=== PATIENT | male | born 1970 | race Caucasian/White ===

== ENCOUNTER 2023-02-10 14:30 | Emergency (ER) | payer OTHER, SELFPAY ==
[2023-02-10 14:32] VITALS: BP 137/82; PULSE 96; RESP 16; TEMP 36.6; O2SAT 97; BMI 18.5
--- NOTE | 2023-02-10 14:53 | ED_ITS ---
HPI - Medical Clearance General Chief complaint: Medical Clearance Stated complaint: MED CHECK Time Seen by Provider: 02/10/23 14:32 Source: patient Mode of arrival: walk-in Limitations: no limitations History of Present Illness HPI Narrative: patient is a 52-year-old male with a history of psychiatric disorder and HIV infection who presents to the Emergency Room for medication refill. He was recently incarcerated and seen by the senior living nurse/physician for his medications. He does not currently have a psychiatrist her PCP and now that he is back home in the medical center, he is out of his medications for Zyprexa, divalproex and his HIV medication. He has no focal medical complaints at this time. Related Information Previous Rx's Medication Instructions Recorded divalproex 500 mg tablet,delayed 500 mg PO BID 7 days #14 tabs 02/10/23 release nevirapine 200 mg tablet 400 mg PO DAILY 7 days #14 tabs 02/10/23 olanzapine 10 mg tablet 10 mg PO BID 7 days #14 tabs 02/10/23 Allergies Allergy/AdvReac Type Severity Reaction Status Date / Time No Known Drug Allergies Allergy Verified 02/10/23 14:38 Review of Systems ROS Constitutional Denies: fever or chills Cardiovascular Denies: chest pain Respiratory Denies: shortness of breath Gastrointestinal Denies: nausea or vomiting Musculoskeletal Denies: back pain Integumentary/Breast Denies: rash Hematologic/Lymphatic Denies: easy bruising Allergic/Immunologic Denies: hives Exam Narrative Exam Narrative: Gen.: Awake, alert, in no distress Head: Normocephalic, atraumatic ENT: Moist mucous membranes Respiratory: No respiratory distress Extremities: Moves extremities equally Psych: Normal mood and affect Neuro: No focal neuro deficit Skin: Warm, dry, intact Constitutional Vital Signs, click to edit/add: Last Vital Signs Temp 97.9 F 02/10/23 14:32 Pulse 96 H 02/10/23 14:32 Resp 16 02/10/23 14:32 BP 137/82 02/10/23 14:32 Pulse Ox 97 02/10/23 14:32 O2 Del Method Room Air 02/10/23 14:32 Course Vital Signs Vital signs: Vital Signs Temperature 97.9 F 02/10/23 14:32 Pulse Rate 96 H 02/10/23 14:32 Respiratory Rate 16 02/10/23 14:32 Blood Pressure 137/82 02/10/23 14:32 Pulse Oximetry 97 02/10/23 14:32 Oxygen Delivery Method Room Air 02/10/23 14:32 Temperature 97.9 F 02/10/23 14:32 Pulse Rate 96 H 02/10/23 14:32 Respiratory Rate 16 02/10/23 14:32 Blood Pressure 137/82 02/10/23 14:32 Pulse Oximetry 97 02/10/23 14:32 Oxygen Delivery Method Room Air 02/10/23 14:32 MDM - Medical Clearance MDM Narrative Medical decision making narrative: patient was given a one-week refill of his medications that he is out of, he was given education that he cannot continue to receive refills from the emergency room so I contacted [facility], they will contact the patient tomorrow before noon to try to get him an appointment with a psychiatrist. I also contacted Abner Cramer CNP who is aa local primary care provider, he states that he is happy to see the patient, they also have a mental health provider in their office to the patient can be seen for regular primary care as well as psychiatric care through their [facility] office. Patient was given this information as well as his refills, he is strongly encouraged to seek regular primary care and psychiatric care as an outpatient to avoid runnning out of his medications and to return to the Emergency Room if symptoms develop, change or worsen. Discharge Plan Discharge Chief Complaint: Medical Clearance Clinical Impression: Medication refill Patient Disposition: Home, Self-Care Time of Disposition Decision: 14:41 Condition: Good Prescriptions / Home Meds: New nevirapine 200 mg tablet 400 mg PO DAILY 7 Days Qty: 14 0RF olanzapine 10 mg tablet 10 mg PO BID 7 Days Qty: 14 0RF divalproex 500 mg tablet,delayed release (DR/EC) 500 mg PO BID 7 Days Qty: 14 0RF Instructions: Medicine Refill (ED) Additional Instructions: Go to [facility] office in the next 1-2 days, Abner Cramer CNP and their mental health provider will help you establish care and get you your medications Stand Alone Forms: Portal Instructions
== END 2023-02-10 15:01 | disposition home or self-care (01) ==
PROVIDERS: Emergency Provider Emergency Medicine Emergency Medical Services
DX: Z76.0 Encounter for issue of repeat prescription (principal); Z21 Asymptomatic human immunodeficiency virus [HIV] infection status; Z79.899 Other long term (current) drug therapy; F99 Mental disorder, not otherwise specified
CPT/HCPCS: 99283

== ENCOUNTER 2023-10-01 08:15 | Emergency (ER) | payer OTHER, SELFPAY ==
[2023-10-01 08:18] VITALS: BP 152/82; PULSE 92; TEMP 36.5; O2SAT 98; BMI 20.5
[2023-10-01 08:29] VITALS: PULSE 84
[2023-10-01 08:30] VITALS: O2SAT 98
[2023-10-01] MEDS: IPRATROPIUM/ALBUTEROL SULFATE 3 ML AMPUL.NEB IH (08:44)
[2023-10-01 08:45] VITALS: PULSE 83; O2SAT 97
[2023-10-01 08:48] LABS: Influenza Virus A Antigen Negative; Influenza Virus B Antigen Negative; Internal Control Within Normal Limits; SARS-CoV-2 Ag NEGATIVE (NEGATIVE)
--- NOTE | 2023-10-01 09:01 | XR_ITS ---
The [address] [address] Patient Name: INO CHAWLA MRN: [id number] date: 1970 Sex: M Assigned Patient Location: ER Current Patient Location: ER Accession/Order Number: [id number] Exam Date: 10/01/2023 08:55 Report Date: 10/01/2023 09:13 At the request of: W[place] Procedure: XR chest 2V EXAMINATION: XR chest 2V HISTORY: shortness of breath , chronic; cough COMPARISON: XR chest 10/09/2020, CT chest 10/31/2020 FINDINGS: LUNGS: Hyperexpanded lungs and coarsening of interstitial markings suggestive COPD. No acute infiltrates or suspicious nodules. VASCULATURE: No increased pulmonary vasculature. PLEURA: No pneumothorax, effusion, or pleural thickening. CARDIAC: No cardiomegaly or cardiac silhouette abnormality. MEDIASTINUM: No visible mass or adenopathy. BONES: Prior surgical resection/disruption of posterior left 5th rib. OTHER: Negative. XR/XR chest 2V IMPRESSION: 1. No acute cardiopulmonary process. 2. Hyperexpanded lungs with appearance suggestive of COPD. Electronically authenticated by: KRISTEN CHAMBERS Date: 10/01/2023 09:13
--- NOTE | 2023-10-01 09:02 | ED.SOB1 ---
HPI - SOB/Dyspnea General Chief Complaint: Shortness of Breath/Dyspnea Stated Complaint: DIFFICULTY BREATHING Time Seen by Provider: 10/01/23 08:17 Source: patient Mode of arrival: walk-in Limitations: no limitations History of Present Illness HPI Narrative: Patient complains of 3 days of shortness of breath associated with a cough - it feels like I need to bring things up but can't. He had a home MDI but is out . 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 He denied COPD history but has previously smoked. No fever or chills. Uncertain about potential ill exposures. He denied nasal congestion, ear pain, sore throat. No GI or symptoms. Related Data Previous Rx's ?Medication ?Instructions ?Recorded albuterol sulfate 90 mcg/actuation 2 inh inhalation Q6H PRN shortness 10/01/23 aerosol inhaler of breath or wheezing #6.7 grams azithromycin 250 mg tablet See Rx Instructions PO .COMPLEX #6 10/01/23 tabs prednisone 20 mg tablet 40 mg (2 x 20 mg) PO DAILY 3 days 10/01/23 #6 tabs Allergies Allergy/AdvReac Type Severity Reaction Status Date / Time No Known Drug Allergies Allergy Verified 02/10/23 14:38 Exam Narrative Exam Narrative: Nurses notes and vital signs reviewed and patient is not hypoxic. afebrile General: Well-appearing and in no apparent distress. Skin: Warm, dry, no pallor noted. Head: Normocephalic, atraumatic. Neck: Supple, non-tender. No cervical lymphadenopathy Eye: Pupils are equal, round and EOMI. No scleral icterus. Cardiovascular: Regular Rate and Rhythm without murmur, gallop or rub. Respiratory: No accessory muscle use or respiratory distress. Lungs With few scattered right-sided rhonchi Musculoskeletal: normal ROM, no calf or popliteal tenderness, no lower extremity edema/swelling GI: Abdomen is soft, non-distended. Normal bowel sounds. No tenderness to palpation. No rebound, guarding, or rigidity noted. Neurological: A&O x4. No cranial nerve dysfunction observed. No truncal ataxia. Moves all extremities. Sensation intact. Psychiatric: Cooperative and interactive. Normal mood and affect. Constitutional Vital Signs, click to edit/add: Last Vital Signs Temp 97.7 F 10/01/23 08:18 Pulse 83 10/01/23 08:45 Resp 16 10/01/23 08:45 BP 148/81 H 10/01/23 09:18 Pulse Ox 97 10/01/23 08:45 O2 Del Method Room Air 10/01/23 08:45 Course Vital Signs Vital signs: Vital Signs Temperature 97.7 F 10/01/23 08:18 Pulse Rate 92 H 10/01/23 08:18 Respiratory Rate 24 H 10/01/23 08:18 Blood Pressure 152/82 H 10/01/23 08:18 Pulse Oximetry 98 10/01/23 08:18 Oxygen Delivery Method Room Air 10/01/23 08:18 Temperature 97.7 F 10/01/23 08:18 Pulse Rate 83 10/01/23 08:45 Respiratory Rate 16 10/01/23 08:45 Blood Pressure 148/81 H 10/01/23 09:18 Pulse Oximetry 97 10/01/23 08:45 Oxygen Delivery Method Room Air 10/01/23 08:45 MDM - SOB/Dyspnea MDM Narrative Medical decision making narrative: Swabs for COVID and influenza were negative 2 view chest x-ray = COPD changes, no infiltrate or acute cardiopulm process, per radiologist. He received a DuoNeb treatment in the emergency department. Patient discharged home with prescriptions for zpak, prednisone burst and albuterol MDI. Lab Data Attestation: I reviewed the patient's lab results. Labs: Lab Results 10/01/23 Range/Units 08:25 Influenza Type A Ag Negative Influenza Type B Ag Negative SARS-CoV-2 Ag (CV2AG) Negative (NEGATIVE) Imaging Data Chest x-ray: Radiologist's impression: ITS Impressions Chest X-Ray 10/01/23 09:01 IMPRESSION: 1. No acute cardiopulmonary process. 2. Hyperexpanded lungs with appearance suggestive of COPD. Electronically authenticated by: KRISTEN CHAMBERS Date: 10/01/2023 09:13 Discharge Plan Discharge Stand Alone Forms: Portal Instructions Chief Complaint: Shortness of Breath/Dyspnea Clinical Impression: COPD exacerbation, Bronchitis Patient Disposition: Home, Self-Care Time of Disposition Decision: 09:21 Prescriptions / Home Meds: New azithromycin 250 mg tablet See Rx Instructions .ROUTE .COMPLEX Qty: 6 0RF Rx Instructions: For 250 mg dose pack: take 500 mg today (day 1), then 250 mg for 4 days (days 2-5) albuterol sulfate 90 mcg/actuation HFA aerosol inhaler 2 inh inhalation Q6H PRN (Reason: shortness of breath or wheezing) Qty: 6.7 0RF prednisone 20 mg tablet 40 mg PO DAILY 3 Days Qty: 6 0RF Print Language: Vincentian Instructions: Acute Bronchitis (ED), COPD (Chronic Obstructive Pulmonary Disease) (ED) Referrals: Physician,Non-Staff, MD [Primary Care Provider] - 1 week
[2023-10-01 09:18] VITALS: BP 148/81
[2023-10-01 09:22] VITALS: BP 126/85; O2SAT 98
== END 2023-10-01 09:33 | disposition home or self-care (01) ==
PROVIDERS: Emergency Provider Emergency Medicine
DX: J44.1 Chronic obstructive pulmonary disease with (acute) exacerbation (principal); Z20.822 Contact with and (suspected) exposure to COVID-19; Z90.2 Acquired absence of lung [part of]; Z87.891 Personal history of nicotine dependence
CPT/HCPCS: 71046; 87804; 87811; 94640; 99284

== ENCOUNTER 2024-03-04 06:19 | Emergency (ER) | payer OTHER, SELFPAY ==
[2024-03-04] VITALS (20 sets, daily range): BP systolic 115–127; BP diastolic 67–101; PULSE 70–99; TEMP 36.4; O2SAT 93–99; BMI 19.9
--- NOTE | 2024-03-04 06:29 | ECG_ITS ---
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
--- NOTE | 2024-03-04 06:33 | ED_ITS ---
HPI HPI - General Adult General Chief complaint: Shortness of Breath/Dyspnea Stated complaint: other Time Seen by Provider: 03/04/24 06:21 Source: patient Mode of arrival: ambulance History of Present Illness HPI narrative: 53-year-old male to the emergency department with chief complaint of shortness of breath. Patient reports he had some increased shortness of breath that he first noticed when he woke up tonight. He denies any cough, fever, sweats, chills. He denies any chest pain. 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 When asked about medical history he reports they took one of my lungs . He is unsure where he had the surgery. Unsure what they did. He reports that it was a few years ago. Further history obtained from chart review. Past medical history: HIV, COPD, pneumothorax Past surgical history: Pulmonary lobectomy Related Data Previous Rx's ?Medication ?Instructions ?Recorded albuterol sulfate 90 mcg/actuation 2 inh inhalation Q6H PRN shortness 10/01/23 aerosol inhaler of breath or wheezing #6.7 grams Allergies Allergy/AdvReac Type Severity Reaction Status Date / Time milk Allergy Intermediate Flatulence Verified 03/04/24 06:30 Opioid HPI Opioid Management Most Recent Opioid Data: No Data to Display Review of Systems ROS Status of ROS 10 or more systems reviewed and unremark able except as noted in history and below Exam Narrative Exam Narrative: VITALS: I have reviewed the triage vital signs. GENERAL: Disheveled adult male in mild respiratory distress. NEURO: Alert and oriented. Moves all extremities. Face is symmetric and expressive. EYES: PERRL. No scleral icterus or conjunctival injection. No discharge. HENT: Normocephalic, atraumatic. Hearing is grossly intact. Nares grossly patent and without discharge. Mucous membranes moist. NECK: No JVD. Patient moves neck without restriction. CARDIO: Rhythm regular. Normal rate. No murmur, rub, or gallop. Pulses equal bilaterally in the upper and lower extremity. No lower extremity edema. PULM: Diminished bilaterally. mildly increased work of breathing. Mild conversational dyspnea. GI/: Abdomen is soft and non-tender. Normoactive bowel sounds. EXTREMITIES: Symmetric muscle bulk. No joint swelling. No clubbing, cyanosis, or deformity. SKIN: Warm and dry. Normal turgor. No rash or lesions appreciated. PSYCH: Strange affect Constitutional Vital Signs, click to edit/add: Last Vital Signs Pulse 99 H 03/04/24 06:21 Resp 20 03/04/24 06:21 BP 119/92 H 03/04/24 06:21 Pulse Ox 99 03/04/24 06:21 O2 Del Method Room Air 03/04/24 06:21 Course Vital Signs Vital signs: Vital Signs Pulse Rate 99 H 03/04/24 06:21 Respiratory Rate 20 03/04/24 06:21 Blood Pressure 119/92 H 03/04/24 06:21 Pulse Oximetry 99 03/04/24 06:21 Oxygen Delivery Method Room Air 03/04/24 06:21 Pulse Rate 99 H 03/04/24 06:21 Respiratory Rate 20 03/04/24 06:21 Blood Pressure 119/92 H 03/04/24 06:21 Pulse Oximetry 99 03/04/24 06:21 Oxygen Delivery Method Room Air 03/04/24 06:21 Medical Decision Making MDM Narrative Medical decision making narrative: 53-year-old male to the emergency department chief shortness of breath. Vital stable, the patient is afebrile. He has mild increased work of breathing conversational dyspnea. He is saturating well on room air. Breathing treatments, Solu-Medrol ordered. Basic labs, chest x-ray. Patient agrees with this plan. Care was signed out to Dr. Guy with results of diagnostic work-up and disposition pending. Medical Records Medical records reviewed: Yes I reviewed the patient's medical records ECG Data Attestation: I personally reviewed and interpreted this ECG as follows: (Normal sinus rhythm at a rate of 92. No STEMI. Normal QTc) Discharge Plan Discharge Chief Complaint: Shortness of Breath/Dyspnea Clinical Impression: COPD exacerbation, Breath, shortness Patient Disposition: Still a Patient Prescriptions / Home Meds: No Action albuterol sulfate 90 mcg/actuation HFA aerosol inhaler 2 inh inhalation Q6H PRN (Reason: shortness of breath or wheezing) Qty: 6.7 0RF Print Language: Polish Referrals: Physician,Non-Staff, MD [Primary Care Provider] - 1 week
[2024-03-04] MEDS: METHYLPREDNISOLONE SOD SUCC PF 125 MG/2 ML VIAL IVP (06:38)
[2024-03-04 06:40] LABS: Basophils Percent Auto 0.3 % (0.2-2.0); Eosinophils Absolute Auto 0.2 10^3/uL (0.0-0.7); Eosinophils Percent Auto 1.8 % (0.9-7.0); Hematocrit 42.5 % (42.0-54.0); Hemoglobin 13.8 g/dL (14.0-18.0); Immature Granulocytes Abs Auto 0.04 10^3/uL (0.00-0.03); Immature Granulocytes Pct Auto 0.4 % (0.0-0.5); Lymphocytes Percent Auto 47.8 % (20.5-60.0); Mean Corpuscular HGB Conc 32.5 g/dL (29.9-35.2); Mean Corpuscular Hemoglobin 29.9 pg (25.9-34.0); Mean Platelet Volume 9.9 fL (9.5-13.5); Monocytes Absolute Auto 1.3 10^3/uL (0.3-0.8); Neutrophils Percent Auto 37.7 % (43.0-75.0); Platelet Count 266 10^3/uL (150-450); Red Blood Count 4.62 10^6/uL (4.70-6.10); Red Cell Distribution Width 13.7 % (11.0-15.0); White Blood Count 10.5 10^3/uL (4.0-11.0)
[2024-03-04] MEDS: IPRATROPIUM/ALBUTEROL SULFATE 3 ML AMPUL.NEB 9 ML IH (06:46)
--- NOTE | 2024-03-04 06:51 | PC.NURSE ---
Patient alert and oriented. skin PWD. patient reports he awoke with SOB. hx of pneumothorax at [facility]. with lobectomy of upper lung. patient arrived to ED unlabored but tachypneic drinking mnt dew, able to transfer self to cot.
[2024-03-04 07:01] LABS: Anion Gap 7.2; BUN Creatinine Ratio 28.1; Calcium 8.9 mg/dL (8.5-10.1); Carbon Dioxide 32.6 mmol/L (21.0-32.0); Chloride 105 mmol/L (98-107); Estimated GFR (African America >60 (>=60); Estimated GFR (Non-African Ame >60 (>=60); Glucose 111 mg/dL (74-106); Potassium 3.8 mmol/L (3.5-5.1); Sodium 141 mmol/L (136-145); Troponin I High Sensitivity 4.9 pg/mL (4.0-76.1)
--- NOTE | 2024-03-04 07:15 | XR_ITS ---
The [address] [address] Patient Name: INO CHAWLA MRN: [id number] date: 1970 Sex: M Assigned Patient Location: ED.MAIN Current Patient Location: ED.MAIN Accession/Order Number: [id number] Exam Date: 03/04/2024 07:08 Report Date: 03/04/2024 07:36 At the request of: SARA PABON Procedure: XR chest 2V EXAM: Chest x-ray HISTORY: . shortness of breath, hx of left lung sx . COMPARISON: 10/01/2023 TECHNIQUE: Frontal and lateral chest FINDINGS: Heart and vascularity are unremarkable. Hyperexpansion of lungs is noted. There is flattening in hemidiaphragms. Findings are suggestive of COPD. No focal infiltrates are noted. EKG leads overlie the chest. XR/XR chest 2V IMPRESSION: 1. Findings suggestive of COPD. 2. No acute heart or lung disease identified. 3. No change from the previous exam. Electronically authenticated by: ROBERT VELAZQUEZ Date: 03/04/2024 07:36
--- NOTE | 2024-03-04 08:25 | ED.SOB1 ---
HPI - SOB/Dyspnea General Chief Complaint: Shortness of Breath/Dyspnea Stated Complaint: other Time Seen by Provider: 03/04/24 06:21 Source: patient Mode of arrival: ambulance History of Present Illness HPI Narrative: 53-year-old male presented to the emergency department and was initially seen by Dr. Washburn and signed out to me after discussing the case with him thoroughly. Please see his full history and physical exam. Related Data Previous Rx's ?Medication ?Instructions ?Recorded albuterol sulfate 90 mcg/actuation 2 inh inhalation Q6H PRN shortness 10/01/23 aerosol inhaler of breath or wheezing #6.7 grams albuterol sulfate 90 mcg/actuation 2 inh inhalation Q4H PRN shortness 03/04/24 aerosol inhaler of breath or wheezing #8.5 grams Allergies Allergy/AdvReac Type Severity Reaction Status Date / Time milk Allergy Intermediate Flatulence Verified 03/04/24 06:30 PFSH [facility] Medical History (Updated 03/04/24 @ 08:24 by Felice Guy MD) Pneumothorax ?J93.9 - Pneumothorax, unspecified (ICD-10) Surgical History (Updated 03/04/24 @ 07:02 by Jeanne Saldivar) 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] (ICD-10) Exam Constitutional Vital Signs, click to edit/add: Last Vital Signs Temp 97.5 F L 03/04/24 07:04 Pulse 92 H 03/04/24 07:16 Resp 20 03/04/24 07:16 BP 115/84 03/04/24 07:16 Pulse Ox 96 03/04/24 07:16 O2 Del Method Room Air 03/04/24 06:48 Course Vital Signs Vital signs: Vital Signs Pulse Rate 99 H 03/04/24 06:21 Respiratory Rate 20 03/04/24 06:21 Blood Pressure 119/92 H 03/04/24 06:21 Pulse Oximetry 99 03/04/24 06:21 Oxygen Delivery Method Room Air 03/04/24 06:21 Temperature 97.5 F L 03/04/24 07:04 Pulse Rate 92 H 03/04/24 07:16 Respiratory Rate 20 03/04/24 07:16 Blood Pressure 115/84 03/04/24 07:16 Pulse Oximetry 96 03/04/24 07:16 Oxygen Delivery Method Room Air 03/04/24 06:48 MDM - SOB/Dyspnea MDM Narrative Medical decision making narrative: His workup is negative. He feels much better after aerosol treatment. He is discharged home on albuterol. Reexamination of his lungs show excellent air movement with no rales or rhonchi. Findings were discussed with the patient. Differential Diagnosis Differential diagnosis: Likely acute exacerbation of chronic obstructive airways disease, congestive heart failure and community acquired pneumonia Lab Data Attestation: I reviewed the patient's lab results. Labs: Lab Results 03/04/24 Range/Units 06:28 WBC 10.5 (4.0-11.0) 10^3/uL RBC 4.62 L (4.70-6.10) 10^6/uL Hgb 13.8 L (14.0-18.0) g/dL Hct 42.5 (42.0-54.0) % MCV 92.0 (80.0-94.0) fL MCH 29.9 (25.9-34.0) pg MCHC 32.5 (29.9-35.2) g/dL RDW 13.7 (11.0-15.0) % Plt Count 266 (150-450) 10^3/uL MPV 9.9 (9.5-13.5) fL Neut % (Auto) 37.7 L (43.0-75.0) % Lymph % (Auto) 47.8 (20.5-60.0) % [place] % (Auto) 12.0 (1.7-12.0) % Eos % (Auto) 1.8 (0.9-7.0) % Baso % (Auto) 0.3 (0.2-2.0) % Neut # (Auto) 4.0 (1.4-6.5) 10^3/uL Lymph # (Auto) 5.0 H (1.2-3.8) 10^3/uL [place] # (Auto) 1.3 H (0.3-0.8) 10^3/uL Eos # (Auto) 0.2 (0.0-0.7) 10^3/uL Baso # (Auto) 0.0 (0.0-0.1) 10^3/uL Abs Immat Gran (auto) 0.04 H (0.00-0.03) 10^3/uL Imm/Tot Granulo (auto) 0.4 (0.0-0.5) % Sodium 141 (136-145) mmol/L Potassium 3.8 (3.5-5.1) mmol/L Chloride 105 (98-107) mmol/L Carbon Dioxide 32.6 H (21.0-32.0) mmol/L Anion Gap 7.2 BUN 25.0 H (7.0-18.0) mg/dL Creatinine 0.89 (0.70-1.30) mg/dL Est GFR ( Amer) >60 (>=60) Est GFR (Non-Af Amer) >60 (>=60) BUN/Creatinine Ratio 28.1 Glucose 111 H (74-106) mg/dL Calcium 8.9 (8.5-10.1) mg/dL Troponin I High Sens 4.9 (4.0-76.1) pg/mL NT-Pro-B Natriuret Pep 102.0 (<=900.0) pg/mL Imaging Data Chest x-ray: Radiologist's impression: ITS Impressions Chest X-Ray 03/04/24 07:15 IMPRESSION: 1. Findings suggestive of COPD. 2. No acute heart or lung disease identified. 3. No change from the previous exam. Electronically authenticated by: ROBERT VELAZQUEZ Date: 03/04/2024 07:36 Discharge Plan Discharge Chief Complaint: Shortness of Breath/Dyspnea Clinical Impression: COPD exacerbation Patient Disposition: Home, Self-Care Time of Disposition Decision: 08:24 Condition: Good Mode of Transportation: Private Vehicle Prescriptions / Home Meds: New albuterol sulfate 90 mcg/actuation HFA aerosol inhaler 2 inh inhalation Q4H PRN (Reason: shortness of breath or wheezing) Qty: 8.5 0RF No Action albuterol sulfate 90 mcg/actuation HFA aerosol inhaler 2 inh inhalation Q6H PRN (Reason: shortness of breath or wheezing) Qty: 6.7 0RF Print Language: Puerto Rican Instructions: COPD (Chronic Obstructive Pulmonary Disease) (ED) Referrals: Physician,Non-Staff, MD [Primary Care Provider] - 1 week
== END 2024-03-04 08:36 | disposition home or self-care (01) ==
PROVIDERS: Student in an Organized Health Care Education/Training Program; Emergency Provider Emergency Medicine
DX: J44.1 Chronic obstructive pulmonary disease with (acute) exacerbation (principal); R06.02 Shortness of breath
CPT/HCPCS: 36415; 71046; 80048; 83880; 84484; 85025; 93005; 94640; 96374; 99285; 99406; J2919

== ENCOUNTER 2024-10-28 14:02 | Emergency (ER) | payer OTHER, SELFPAY ==
[2024-10-28 14:07] VITALS: BP 114/77; PULSE 102; TEMP 36.6; O2SAT 96; BMI 23.5
--- OUTSIDE RECORDS SUMMARY | 2024-10-28 14:34 | XMS_ITS | CCD ---
Author Organization [facility] Inform ion Partnership [facility] Care Team Providers Care Therapeutic Radiologist Name Role Phone REQUEST, NONE LISTED Primary Care Unavaila ble MARKER, DR JONES Admitting Unavailable MARKER, DR JONES Consulting Unavailable MARKER, DR JONES Attending Unavailable KRISTEN KAUFMAN Consulting Unavailable TABITHA EASTON Attending Unavailable REQUEST, DR SONI LISTED Primary Care Unavaila ble WEST, DR ROBERT Dobbs Consulting Unavailable TABITHA EASTON Admitting Unavailable SAMSA, IRAIS Consulting Unavailable TABITHA EASTON Consulting Unavailable Unavailable Primary Care Provider UnavailROSLYN Jasso Attending Unavailable Paul Fields Unavailable Nando Rocha Unavailable NO FAMILY, PHYSICIAN Primary Care Provider MD Paul Mcleod Attending Provider [phone] NO PCP, NO PCP Primary Care Unavailable ALEXYS HAYNES Attending Unavailable ALEYXS HAYNES Attending Unavailable ALEXYS HAYNES Referring Unavailable NO PCP, NO PCP Primary Care Unavailable Hugh Headley Admitting Unavailab le Hugh Headley Attending Unavailab le NO FAMILY, PHYSICIAN Primary Care Unavailable Allergies Allergy Classification Reported Allergen(s) Allergy Type Date of Onset Reaction(s) Facility Asenapine (1 source) Asenapine Drug Allergy 09-06-2019 [facility] Repository (3 sources) Asenapine Drug Allergy 09-06-2019 [facility] (3 sources) Citalopram Drug Allergy 09-06-2019 [facility] (2 sources) risperiDONE Drug Allergy Robert Applebaum MD Other (2 sources) Escitalopram; Translations: [escitalopram] Drug Allergy 09-06-2019 [facility] (1 source) Asenapine Drug Allergy 09-19-2021 [facility] Repository (1 source) Citalopram Drug Allergy 09-19-2021 [facility] Repository (1 source) risperiDONE Drug Allergy 09-19-2021 [facility] Repository Medications Current Medications Medication Drug Class(es) Dates Sig (Normalized) Sig (Original) acetaminophen 325 mg / HYDROcodone bitartrate 5 mg oral tablet (1 source) Opioid Agonist Start: 10-16-2020 take 1 tablet by mouth three times daily Hydrocodone-Aceta minophen Active 1 TAB PO Three times daily 14 October 16, 2020 albuterol 0.83 mg/ml inhalation solution (3 sources) beta2-Adrenergic Agonist Start: 09-06-2019 take 1 dose by inhalation every four to six hours Albuterol Sulfate Active 1 VIAL INHALATION EVERY 4-6 HOURS September 06, 2019 12:00am Albuterol Sulfat e HFA 108 (90 Base) MCG/ACT inhale 1 puff by mouth and INTO THE LUNGS every 4 hours if needed Inhalation every 6 hours PRN for 30 days Active amoxicillin 875 mg / clavulanate 125 mg oral tablet (1 source) Penicillin-class Antibacterial Start: 10-16-2020 take 1 tablet by mouth twice daily Amoxicillin-Pot Clavulanate Active 1 TAB PO Twice daily October 16, 2020 12:00am ARIPiprazole 20 mg oral tablet (3 sources) Atypical Antipsychotic Start: 08-07-2020 take 20 mg by mouth once daily at bedtime Aripiprazole Active 20 MG PO Daily at bedtime August 07, 2020 1:00am atazanavir 300 mg oral capsule (3 sources) Protease Inhibitor Start: 09-06-2019 take 1 capsule by mouth once daily Atazanavir (Reyataz) 300 mg capsule Active 300 MG PO Daily September 06, 2019 12:00am emtricitabine 200 mg / tenofovir alafenamide 25 mg oral tablet (3 sources) Human Immunodeficiency Virus Nucleoside Analog Reverse Transcriptase Inhibitor Start: 09-06-2019 take 1 tablet by mouth once daily Emtricitabine-Tenof ovir Alafen (Descovy) 200-25 mg tablet Active 1 TAB PO Daily September 06, 2019 12:00am ritonavir 100 mg oral tablet (3 sources) Protease Inhibitor, Cytochrome P450 3A Inhibitor Start: 09-06-2019 take 1 tablet by mouth once daily at breakfast Ritonavir (Norvir) 100 mg tablet Active 100 MG PO Daily with breakfast September 06, 2019 12:00am Completed/Discontinued Medications Medication Drug Class(es) Dates Sig (Normalized) Sig (Original) cholecalciferol 0.025 mg oral tablet (1 source) Vitamin D Start: 09-14-2019 End: 08-07-2020 take 3000 [IU] by mouth once daily Cholecalciferol (Vitamin D3) Discontinued 3000 UNIT PO Daily 42 September 14, 2019 12:00am August 07, 2020 2:23pm clindamycin 300 mg oral capsule (1 source) Lincosamide Antibacterial Start: 09-14-2019 End: 08-07-2020 take 300 mg by mouth four times daily Clindamycin Hcl Discontinued 300 MG PO Four times daily September 14, 2019 12:00am August 07, 2020 2:23pm 2 ml midazolam 1 mg/ml injection (1 source) Benzodiazepine Start: 09-28-2021 End: 09-28-2021 midazolam PF (VERSED) injection 2 mg Problems Problem Classification Problem Date Documented Date Episodic/Chronic Abdominal pain (2 sources) Stomach cramps; Translations: [Unspecified abdominal pain] Episodic Asthma (6 sources) Mild intermittent asthma; Translations: [Mild intermittent asthma, uncomplicated] Onset: 09-19-2021 Resolved: 09-19-2021 Chronic Chronic obstructive pulmonary disease and bronchiectasis (2 sources) Chronic obstructive pulmonary disease, unspecified; Translations: [Pulmonary emphysema] Onset: 11-02-2020 08-08-2020 Chronic Diseases of white blood cells (1 source) Leukocytosis; Translations: [Elevated white blood cell count, unspecified] 10-10-2020 Chronic Disorders of teeth and jaw (1 source) Dental abscess; Translations: [Periapical abscess without sinus] 09-14-2019 Episodic HIV infection (7 sources) Asymptomatic human immunodeficiency virus [HIV] infection status; Translations: [Asymptomatic human immunodeficiency virus infection] Onset: 10-12-2020 Resolved: 09-19-2021 Chronic Nonspecific chest pain (4 sources) Chest pain, unspecified; Translations: [Other chest pain] Onset: 10-31-2020 Episodic Other aftercare (1 source) Other intermediate teacher (current) drug therapy; Translations: [OTH FDC CURRENT DRUG THERAPY] Onset: 11-02-2020 Episodic Other aftercare (2 sources) H/O: high risk medication; Translations: [Other intermediate teacher (current) drug therapy] Episodic Other lower respiratory disease (1 source) Pleurodynia; Translations: [PLEURODYNIA] Onset: 11-02-2020 Episodic Other lower respiratory disease (4 sources) Shortness of breath; Translations: [SHORTNESS OF BREATH] Onset: 10-09-2020 Episodic Other lower respiratory disease (1 source) Shortness of breath Onset: 10-21-2023 Episodic Other nervous system disorders (1 source) Other acute postprocedural pain; Translations: [OTHER ACUTE POSTPROCEDURAL PAIN] Onset: 11-02-2020 Episodic Other screening for suspected conditions (not mental disorders or infectious disease) (1 source) Patient encounter status; Translations: [Encounter for screening, unspecified] Episodic Pleurisy; pneumothorax; pulmonary collapse (3 sources) Pneumothorax, unspecified; Translations: [Pneumothorax] Onset: 10-12-2020 10-16-2020 Episodic Poisoning by other medications and drugs (2 sources) Adverse reaction to drug; Translations: [Adverse drug effect] Episodic Schizophrenia and other psychotic disorders (3 sources) Schizophrenia, unspecified; Translations: [Paranoid disorder] Onset: 10-12-2020 09-07-2019 Chronic Substance-related disorders (5 sources) Nicotine dependence, cigarettes, uncomplicated; Translations: [Tobacco user] Onset: 10-12-2020 Chronic Substance-related disorders (1 source) Stimulant abuse; Translations: [Other stimulant use, unspecified, uncomplicated] 09-07-2019 Episodic Unclassified (1 source) CONTACT W/AND (SUSP) EXPOS COVID-19; Translations: [CONTACT W/AND (SUSP) EXPOS COVID-19] Onset: 10-12-2020 Unclassified (1 source) TROUBLE BREATHING Onset: 10-21-2023 Results Test Name Value Interpretation Reference Range Facility CBC AND AUTO DIFFon 10-22-19 ABSOLUTE BASOPHIL 0.1 X10E9/L Normal 0.0-0.[address] [facility] Comment on above: Performed By: #### C BCA, CMP, 29980-9, 95989-9 #### [facility] ([id number]) [address] [place] [address] 57511 ABSOLUTE NEUTROPHIL 4.1 X10E9/L Normal 1.5-6.6 [facility] Comment on above: Performed By: #### C SUJIT, CMP, 62605-0, 73795-4 #### [facility] ([id number]) [address] [place] [address] 41594 Basophils/100 WBC (Bld) 0.8 % Normal [facility] Comment on above: Performed By: #### C SUJIT, CMP, 03222-2, 99879-4 #### [facility] ([id number]) [address] [place] [address] 01162 Eosinophils (Bld) [#/Vol] 0.1 10*3/uL Normal 0.0-0.4 [facility] Comment on above: Performed By: #### C SUJIT, CMP, 99926-9, 36509-0 #### [facility] ([id number]) [address] [place] [address] 86216 Eosinophils/100 WBC (Bld) 1.5 % Normal [facility] Comment on above: Performed By: #### C BCA, CMP, 08919-1, 74400-5 #### [facility] ([id number]) [address] [place] [address] 68688 Erythrocyte distribution width (RBC) [Ratio] 15.4 % High 11.5-15.0 [facility] Comment on above: Performed By: #### C BCA, CMP, 36845-1, 70799-3 #### [facility] ([id number]) [address] [place] [address] 60912 Hematocrit (Bld) [Volume fraction] 40.2 % Normal 39-49 [facility] Comment on above: Performed By: #### C SUJIT, CMP, 62857-7, 88538-2 #### [facility] ([id number]) [address] [place] [address] 21753 Hemoglobin (Bld) [Mass/Vol] 13.5 g/dL Normal 13.0-17.0 [facility] Comment on above: Performed By: #### C SUJIT, CMP, 81332-1, 20927-9 #### [facility] ([id number]) [address] [place] [address] 39506 Lymphocytes (Bld) [#/Vol] 3.1 10*3/uL Normal 1.0-3.5 [facility] Comment on above: Performed By: #### C SUJIT, CMP, 83735-8, 70361-2 #### [facility] ([id number]) [address] [place] [address] 15657 Lymphocytes/100 WBC (Bld) 37.9 % Normal [facility] Comment on above: Performed By: #### C SUJIT, CMP, 48144-2, 96801-9 #### [facility] ([id number]) [address] [place] [address] 15622 MCH (RBC) [Entitic mass] 30.1 pg Normal 27-34 [facility] Comment on above: Performed By: #### C SUJIT, CMP, 94164-9, 17519-1 #### [facility] ([id number]) [address] [place] [address] 37734 MCHC (RBC) [Mass/Vol] 33.4 g/dL Normal 32-36 [facility] Comment on above: Performed By: #### C SUJIT, CMP, 99743-5, 76804-6 #### [facility] ([id number]) [address] [place] [address] 92859 MCV (RBC) [Entitic vol] 90 fL Normal 80-100 [facility] Comment on above: Performed By: #### C BCA, CMP, 16834-0, 20492-3 #### [facility] ([id number]) [address] [place] [address] 09855 Monocytes (Bld) [#/Vol] 0.8 10*3/uL Normal 0-0.9 [facility] Comment on above: Performed By: #### C SUJIT, CMP, 73719-8, 39949-3 #### [facility] ([id number]) [address] [place] [address] 96415 Monocytes/100 WBC (Bld) 10.2 % Normal [facility] Comment on above: Performed By: #### C SUJIT, CMP, 59505-7, 08952-7 #### [facility] ([id number]) [address] [place] [address] 44690 Neutrophils/100 WBC (Bld) 49.6 % Normal [facility] Comment on above: Performed By: #### Albert BECKETT, CMP, 97215-5, 97161-0 #### [facility] ([id number]) [address] [place] [address] 12447 Platelet mean volume (Bld) [Entitic vol] 8.6 fL Normal 7-12 [facility] Comment on above: Performed By: #### Albert BECKETT, CMP, 44866-5, 05305-0 #### [facility] ([id number]) [address] [place] [address] 30266 Platelets (Bld) [#/Vol] 271 10*3/uL Normal 150-450 [facility] Comment on above: Performed By: #### Albert BCA, CMP, 78293-4, 73472-1 #### [facility] ([id number]) [address] [place] [address] 47643 RBC COUNT 4.46 X10E12/L Normal 4.10-5.70 [facility] Comment on above: Performed By: #### C BCA, CMP, 59495-5, 20717-4 #### [facility] ([id number]) [address] [place] [address] 01335 WBC (Bld) [#/Vol] 8.3 10*3/uL Normal 4.0-11.0 [facility] Comment on above: Performed By: #### C BCA, CMP, 22459-7, 42249-1 #### [facility] ([id number]) [address] [place] [address] 15720 COMPREHENSIVE METABOLIC PANE David 10-22-2023 Albumin [Mass/Vol] 3.7 g/dL Normal 3.2-5.3 [facility] Comment on above: Performed By: #### C BCA, CMP, 44035-6, 46655-0 #### [facility] ([id number]) [address] [place] [address] 82397 ALP [Catalytic activity/Vol] 64 U/L Normal 39-130 [facility] Comment on above: Performed By: #### C BCA, CMP, 58056-0, 40804-5 #### [facility] ([id number]) [address] [place] [address] 72658 ALT [Catalytic activity/Vol] 30 U/L Normal 0-40 [facility] Comment on above: Performed By: #### C BCA, CMP, 07527-4, 20017-2 #### [facility] ([id number]) [address] [place] [address] 09925 Anion gap [Moles/Vol] 7 mmol/L Normal 5-15 [facility] Comment on above: Performed By: #### C BCA, CMP, 31764-2, 03294-0 #### [facility] ([id number]) [address] [place] [address] 02352 AST [Catalytic activity/Vol] 39 U/L Normal 0-41 [facility] Comment on above: Performed By: #### C BCA, CMP, 72227-5, 17835-7 #### [facility] ([id number]) [address] [place] [address] 29737 Bilirubin [Mass/Vol] 1.0 mg/dL Normal 0.3-1.2 [facility] Comment on above: Result Comment: RESU LTS QUESTIONABLE DUE TO HEMOLYSIS Performed By: #### C BCA, CMP, 91835-5, 77734-0 #### [facility] ([id number]) [address] [place] [address] 56150 Calcium [Mass/Vol] 8.4 mg/dL Low 8.5-10.5 [facility] Comment on above: Performed By: #### C SUJIT, CMP, 91598-9, 60982-2 #### [facility] ([id number]) [address] [place] [address] 08332 Chloride [Moles/Vol] 103 mmol/L Normal 98-109 [facility] Comment on above: Performed By: #### C BCA, CMP, 56150-2, 92281-2 #### [facility] ([id number]) [address] [place] [address] 65060 CO2 [Moles/Vol] 27 mmol/L Normal 22-32 [facility] Comment on above: Performed By: #### C BCA, CMP, 50617-7, 88369-4 #### [facility] ([id number]) [address] [place] [address] 43188 Creatinine [Mass/Vol] 0.73 mg/dL Normal 0.70-1.20 [facility] Comment on above: Result Comment: METH OD TRACEABLE TO IDMS STANDARD Performed By: #### C SUJIT, CMP, 04363-4, 34410-9 #### [facility] ([id number]) [address] [place] [address] 37762 eGFR (CKD-EPI) NON-RACE DEPENDENT >90 Normal >59 [facility] Comment on above: Result Comment: Reported eGFR is based on the CKD-EPI 2020 equation that does not use a race coefficient. Performed By: #### C RADHA BECKETT, 94552-5, 24761-0 #### [facility] ([id number]) [address] [place] [address] 96332 Glucose [Mass/Vol] 88 mg/dL Normal 65-99 [facility] Comment on above: Performed By: #### C SUJIT, CMP, 82381-4, 00766-9 #### [facility] ([id number]) [address] [place] [address] 81322 Potassium [Moles/Vol] 4.3 mmol/L Normal 3.5-5.0 [facility] Comment on above: Result Comment: SPEC IMEN HEMOLYZED, RESULTS INCREASED Performed By: #### C SUJIT, CMP, 23831-9, 96597-5 #### [facility] ([id number]) [address] [place] [address] 58789 Protein [Mass/Vol] 8.0 g/dL Normal 6.0-8.0 [facility] Comment on above: Performed By: #### C SUJIT, CMP, 17201-0, 06817-0 #### [facility] ([id number]) [address] [place] [address] 18282 Sodium [Moles/Vol] 137 mmol/L Normal 134-146 [facility] Comment on above: Performed By: #### C SUJIT, CMP, 32846-6, 70339-1 #### [facility] ([id number]) [address] [place] [address] 71141 Urea nitrogen [Mass/Vol] 18 mg/dL Normal 5-23 [facility] Comment on above: Performed By: #### C SUJIT, CMP, 75935-6, 38477-5 #### [facility] ([id number]) [address] [place] [address] 48306 Fibrin D-dimer DDU (PPP) [Ma ss/Vol]on 10-22-2023 D DIMER <150 Normal <255 [facility] Comment on above: Result Comment: Results <255 ng/mL DDU: The presence of a VTE can safely be excluded with a negative D-Dimer result and Wells score. A negative result doesn't exclude the possibility of DIC. The test be repeated along with other diagnostic tests if the patient's symptoms persist or worsen. [email or web address] Performed By: #### C RADHA BECKETT, 25485-7, 31327-6 #### [facility] ([id number]) [address] [place] [address] 68349 Troponin I.cardiac High sens itivity method [Mass/Vol]on 10-22-2023 1 HOUR TROP I, HIGH SENSITIVITY 3 ng/L Normal <21 [facility] Comment on above: Performed By: #### 8 9579-7 #### [facility] ([id number]) [address] [place] [address] 45392 TROPONIN I, HIGH SENSITIVITY 4 ng/L Normal <21 [facility] Comment on above: Performed By: #### C RADHA BCEKETT, 47154-0, 20790-3 #### [facility] ([id number]) [address] [place] [address] 70322 XR CHEST 1 VWon 10-22-2023 XR CHEST 1 VW XR CHEST 1 VW History: Shortness of breath Technique: A portable single frontal view the chest was obtained. Comparison: 03/07/2008 Findings: There is no evidence for active cardiovascular or pulmonary disease. The heart size is within normal limits and lung loza are clear. An elongated calcification is seen overlying the right upper lobe and may be related to the right scapula. Impression: Chest negative for an active process. Finalized by Robert Franco MD on 10/21/2023 11:51 PM [facility] Body fluid albumin measureme nt (mass/volume)Ordered By: Paul Fields on 01-03-2022 Albumin (Body fld) [Mass/Vol] 4.1 g/dL 3.2-5.5 [facility] Creatinine and Glomerular fi ltration rate.predicted panel (S/P/Bld)Ordered By: Paul Fields on 01-03-2022 Creatinine [Mass/Vol] 0.91 mg/dL 0.64-1.27 [facility] Estimated glomerular filtrat ion rate (GFR) non- AmericanOrdered By: Paul Fields on 01-03-2022 GFR/1.73 sq M.predicted among non-blacks MDRD (S/P/Bld) [Vol rate/Area] > 60 mL/Min [facility] Globulin Calc (S) [Mass/Vol] Ordered By: Paul Fields on 01-03-2022 Globulin (S) [Mass/Vol] 2.6 g/dL [facility] No Panel InformationOrdered By: Paul Fields on 01-03-2022 Estimated GFR () > 60 mL/Min [facility] Comment on above: GFR estimated refere nce range: According to KDOQI guidelines, <60 ml/min/1.73m2 is sufficient to diagnose a patient with chronic kidney disease. Pharmacy Creatinine Clearance (Chem N/A [facility] Protein [Mass/volume] in Ser um or PlasmaOrdered By: Paul Fields on 01-03-2022 Protein [Mass/Vol] 6.7 g/dL 6.1-7.9 [facility] Serum or plasma alanine matt otransferase measurement without P-5'-P (enzymatic activiOrdered By: Paul Fields on 01-03-2022 ALT No additional P-5'-P [Catalytic activity/Vol] 53 U/L 10-60 [facility] Serum or plasma albumin/glob ulin mass ratioOrdered By: Paul Fields on 01-03-2022 Albumin/Globulin [Mass ratio] 1.6 {ratio} [facility] Serum or plasma alkaline phyllis sphatase measurement (enzymatic activity/volume)Ordered By: Paul Fields on 01-03-2022 ALP [Catalytic activity/Vol] 51 U/L 32-92 [facility] Serum or plasma aspartate am inotransferase measurement (enzymatic activity/volume)Ordered By: Paul Fields on 01-03-2022 AST [Catalytic activity/Vol] 48 U/L 10-42 [facility] Serum or plasma calcium brodie urement (mass/volume)Ordered By: Paul Fields on 01-03-2022 Calcium [Mass/Vol] 9.7 mg/dL 8.2-10.2 [facility] Serum or plasma chloride yazan surement (moles/volume)Ordered By: Paul Fields on 01-03-2022 Chloride [Moles/Vol] 99 mmol/L 95-114 [facility] Serum or plasma glucose brodie urement (mass/volume)Ordered By: Paul Fields on 01-03-2022 Glucose [Mass/Vol] 62 mg/dL 70-100 [facility] Comment on above: ADA recommended refe rence range Random Glucose Reference Range is dependent on time and content of last meal. Glucose of more than 200 mg/dL in a nonstressed, ambulatory subject supports the diagnosis of Diabetes Mellitus. Serum or plasma potassium me asurement (moles/volume)Ordered By: Paul Fields on 01-03-2022 Potassium [Moles/Vol] 4.5 mmol/L 3.5-5.1 [facility] Serum or plasma sodium measu rement (moles/volume)Ordered By: Paul Fields on 01-03-2022 Sodium [Moles/Vol] 138 mmol/L 136-146 [facility] Serum or plasma total biliru bin measurement (mass/volume)Ordered By: Paul Fields on 01-03-2022 Bilirubin [Mass/Vol] 0.7 mg/dL 0.3-1.2 [facility] Serum or plasma total carbon dioxide measurement (moles/volume)Ordered By: Paul Fields on 01-03-2022 CO2 [Moles/Vol] 30.3 mmol/L 22.0-30.0 [facility] Serum or plasma urea nitroge n measurement (mass/volume)Ordered By: Paul Fields on 01-03-2022 Urea nitrogen [Mass/Vol] 11 mg/dL 9- [facility] Basic Metab w/rfx MGon 09-29 (cont.) Normal [facility] Comment on above: Result Comment: Aver age GFR for 50-59 years old: 93 mL/min/1.73sq m Chronic Kidney Disease: <60 mL/min/1.73sq m Kidney failure: <15 mL/min/1.73sq m eGFR calculated using average adult body mass. Additional eGFR calculator available at: http://www.[employer]/multiple_crcl_2011.htm Performed By: #### B MPX, CDP #### [facility] [address] [place] [address] Music Education Director: Robert Wynne MD Anion gap [Moles/Vol] 10 mmol/L Normal 9-17 [facility] Comment on above: Performed By: #### B MPX, CDP #### [facility] [address] [place], [place] [id number] Music Education Director: Robert Wynne MD BUN/CRE Ratio 16 Normal 9- [facility] Comment on above: Performed By: #### B MPX, CDP #### [facility] [address] [place] [address] Music Education Director: Robert Wynne MD Calcium [Mass/Vol] 9.3 mg/dL Normal 8.6-10.[address] [facility] Comment on above: Performed By: #### B MPX, CDP #### [facility] [address] [place], [place] [id number] Music Education Director: Robert Wynne MD Chloride [Moles/Vol] 103 mmol/L Normal 98-107 [facility] Comment on above: Performed By: #### B MPX, CDP #### [facility] [address] [place] [address] Music Education Director: Robert Wynne MD CO2 [Moles/Vol] 26 mmol/L Normal 20-31 [facility] Comment on above: Performed By: #### B MPX, CDP #### [facility] [address] [place], [place] [id number] Music Education Director: Robert Wynne MD Creatinine [Mass/Vol] 0.79 mg/dL Normal 0.70-1.20 [facility] Comment on above: Performed By: #### B MPX, CDP #### [facility] [address] [place], [place] [id number] Music Education Director: Robert Wynne MD GFR, Amer >60 Normal >60 [facility] Comment on above: Performed By: #### B MPX, CDP #### [facility] [address] [place], [place] [id number] Music Education Director: Robert Wynne MD GFR,non Amer >60 Normal >60 [facility] Comment on above: Performed By: #### B MPX, CDP #### [facility] [address] [place], [place] [id number] Music Education Director: Robert Wynne MD Glucose [Mass/Vol] 129 mg/dL High 70-[address] [facility] Comment on above: Performed By: #### B MPX, CDP #### [facility] [address] [place], [place] [id number] Music Education Director: Robert Wynne MD Potassium [Moles/Vol] 3.6 mmol/L Low 3.7-5.3 [facility] Comment on above: Performed By: #### B MPX, CDP #### [facility] [address] [place], [place] [id number] Music Education Director: Robert Wynne MD Sodium [Moles/Vol] 139 mmol/L Normal 135-[address] [facility] Comment on above: Performed By: #### B MPX, CDP #### [facility] [address] [place], [place] [id number] Music Education Director: Robert Wynne MD Staging: Normal [facility] Comment on above: Result Comment: Stag e 1: Some kidney damage normal GFR Stage 2: Mild kidney damage GFR 60-89 Stage 3: Moderate kidney damage GFR 30-59 Stage 4: Severe kidney damage GFR 15-29 Stage 5: Severe kidney damage GFR <15 ESRD - chronic treatment by dialysis or transplant Performed By: #### B MPX, CDP #### [facility] [address] [place] [address] Dr[address] [place], [place] [id number] Music Education Director: Robert Wynne MD Urea nitrogen [Mass/Vol] 13 mg/dL Normal 6-[address] [facility] Comment on above: Performed By: #### B MPX, CDP #### [address] [place], [facility]83 Music Education Director: Robert Wynne MD CBC with Diffon 09-29-2021 Abs. Basophil 0.04 k/uL Normal 0.00-0.20 [facility] Comment on above: Performed By: #### B MPX, CDP #### [address] [place], [place] [id number] Music Education Director: Robert Wynne MD Abs.Imm.Granulocyte 0.03 k/uL Normal 0.00-0.[address] [facility] Comment on above: Performed By: #### B MPX, CDP #### [address] [place], [place] [id number] Music Education Director: Robert Wynne MD Abs.Neutrophil (Seg) 7.04 k/uL Normal 1.50-8.10 [facility] Comment on above: Performed By: #### B MPX, CDP #### [address] [place], [place] [id number] Music Education Director: Robert Wynne MD Basophils/100 WBC (Bld) 0 % Normal 0-2 M [facility] Comment on above: Performed By: #### B MPX, CDP #### [address] [place], [facility]83 Music Education Director: Robert Wynne MD Eosinophils (Bld) [#/Vol] 0.05 10*3/uL Normal 0.00-0.[address] [facility] Comment on above: Performed By: #### B MPX, CDP #### [facility] [address] [place] [address] Dr[place], [facility]83 Music Education Director: Robert Wynne MD Eosinophils/100 WBC (Bld) 0 % Low 1-[address] [facility] Comment on above: Performed By: #### B MPX, CDP #### [address] [place], [facility]83 Music Education Director: Robert Wynne MD Erythrocyte distribution width (RBC) [Ratio] 13.1 % Normal 11.8-14.[address] [facility] Comment on above: Performed By: #### B MPX, CDP #### [address] [place], [facility]83 Music Education Director: Robert Wynne MD Hematocrit (Bld) [Volume fraction] 35.4 % Low 40.7-50.[address] [facility] Comment on above: Performed By: #### B MPX, CDP #### [address] [place], [facility]83 Music Education Director: Robert Wynne MD Hemoglobin (Bld) [Mass/Vol] 11.9 g/dL Low 13.0-17.[address] [facility] Comment on above: Performed By: #### B MPX, CDP #### [address] [place], [facility]83 Music Education Director: Robert Wynne MD Immature granulocytes/100 WBC (Bld) 0 % Normal [address] [facility] Comment on above: Performed By: #### B MPX, CDP #### [address] [place], [facility]83 Music Education Director: Robert Wynne MD Lymphocytes (Bld) [#/Vol] 3.53 10*3/uL Normal 1.10-3.[address] [facility] Comment on above: Performed By: #### B MPX, CDP #### [address] [place] [address] Music Education Director: Robert Wynne MD Lymphocytes/100 WBC (Bld) 30 % Normal 24-[address] [facility] Comment on above: Performed By: #### B MPX, CDP #### [address] [place] [address] Music Education Director: Robert Wynne MD MCH (RBC) [Entitic mass] 30.9 pg Normal 25.2-33.[address] [facility] Comment on above: Performed By: #### B MPX, CDP #### [address] [place] [address] Music Education Director: Robert Wynne MD MCHC (RBC) [Mass/Vol] 33.6 g/dL Normal 28.4-34.8 [facility] Comment on above: Performed By: #### B MPX, CDP #### [address] [place] [address] Music Education Director: Robert Wynne MD MCV (RBC) [Entitic vol] 91.9 fL Normal 82.6-102.9 M [facility] Comment on above: Performed By: #### B MPX, CDP #### [address] [place], [place] 3026183 Music Education Director: Robert Wynne MD Monocytes (Bld) [#/Vol] 1.11 10*3/uL Normal 0.10-1.[address] [facility] Comment on above: Performed By: #### B MPX, CDP #### [address] [place] [address] Music Education Director: Robert Wynne MD Monocytes/100 WBC (Bld) 9 % Normal 3-12 M [facility] Comment on above: Performed By: #### B MPX, CDP #### [facility] [address] [place], [place] [id number] Music Education Director: Robert Wynne MD Neutrophil (Seg) 61 % Normal 36-65 [facility] Comment on above: Performed By: #### B MPX, CDP #### [facility] [address] [place], [place] 7533083 Music Education Director: Robert Wynne MD NRBC Automated 0.0 per 100 WBC Normal 0.[address] [facility] Comment on above: Performed By: #### B MPX, CDP #### [facility] [address] [place], [place] [id number] Music Education Director: Robert Wynne MD Platelet mean volume (Bld) [Entitic vol] 9.9 fL Normal 8.1-13.[address] [facility] Comment on above: Performed By: #### B MPX, CDP #### [address] [place], [place] [id number] Music Education Director: Robert Wynne MD Platelets (Bld) [#/Vol] 284 10*3/uL Normal 138-[address] [facility] Comment on above: Performed By: #### B MPX, CDP #### [address] [place], [place] 5138483 Music Education Director: Robert Wynne MD RBC (Bld) [#/Vol] 3.85 10*6/uL Low 4.21-5.[address] [facility] Comment on above: Performed By: #### B MPX, CDP #### [facility] [address] [place] [address] Music Education Director: Robert Wynne MD WBC (Bld) [#/Vol] 11.8 10*3/uL High 3.5-11.[address] [facility] Comment on above: Performed By: #### B MPX, CDP #### [facility] [address] [place], [place] [id number] Music Education Director: Robert Wynne MD Drug Scr, Abuse, Uron 2021 Amphetamine(s),Ur Positive Abnormal NEG [facility] Comment on above: Performed By: #### D AU, UAMIC #### [facility] [address] [place] [address] Dr[place], [place] [id number] Music Education Director: Robert Wynne MD Barbiturate(s),Ur Negative Normal NEG [facility] Comment on above: Performed By: #### Kenneth AU, UAMIC #### [address] [place] [address] Music Education Director: Robert Wynne MD Benzodiazepine(s) Negative Normal NEG [facility] Comment on above: Performed By: #### Kenneth AU, UAMIC #### [facility] [address] [place] [address] [place] [address] Music Education Director: Robert Wynne MD Buprenorphrine, Ur Negative Normal [facility] Comment on above: Performed By: #### Kenneth AU, UAMIC #### [address] [place] [address] Music Education Director: Robert Wynne MD Cannabinoid(s),Ur Positive Abnormal NEG [facility] Comment on above: Performed By: #### Kenneth AU, UAMIC #### [facility] [address] [place] [address] Dr[place], [place] [id number] Music Education Director: Robert Wynne MD Cocaine Metabolite Negative Normal [facility] Comment on above: Performed By: #### D AU, UAMIC #### [facility] [address] [place], [place] [id number] Music Education Director: Robert Wynne MD Methadone Ql (U) Negative Normal NEG [facility] Comment on above: Performed By: #### Kenneth AU, UAMIC #### [facility] [address] [place] [address] Music Education Director: Robert Wynne MD Methamphetamine, Ur Positive Abnormal NEG [facility] Comment on above: Performed By: #### D AU, UAMIC #### [facility] [address] [place], [place] [id number] Music Education Director: Robert Wynne MD Opiate(s), Ur Negative Normal NEG [facility] Comment on above: Performed By: #### D AU, UAMIC #### [facility] [address] [place] [address] Dr[place], [place] [id number] Music Education Director: Robert Wynne MD Oxycodone, Urine Negative Normal NEG [facility] Comment on above: Performed By: #### D AU, UAMIC #### [facility] [address] [place] [address] [place] [address] Music Education Director: Robert Wynne MD Phencyclidine, Ur Negative Normal NEG [facility] Comment on above: Performed By: #### D AU, UAMIC #### [facility] [address] [place] [address] [place], [place] [id number] Music Education Director: Robert Wynne MD Propoxyphene,Urine Negative Normal NEG [facility] Comment on above: Performed By: #### D AU, UAMIC #### [facility] [address] [place] [address] [place] [address] Music Education Director: Robert Wynne MD Tricyclic antidepressants Screen Ql (U) Negative Normal NEG [facility] Comment on above: Result Comment: Drug screen results are to be used for medical purposes only. All positive results are unconfirmed. Testing for employment or legal uses should be sent to a reference laboratory for confirmation. Performed By: #### D AU, UAMIC #### [facility] [address] [place] [address] Dr[place], [place] [id number] Music Education Director: Robert Wynne MD Drug screen multi urineon Amphetamine Screen, Ur Positive Abnormal NEGATIVE [facility] Barbiturate Screen, Ur Negative NEGATIVE [facility] Benzodiazepine Screen, Urine Negative NEGATIVE [facility] Buprenorphine Urine Negative NEGATIVE [facility] Cannabinoid Scrn, Ur Positive Abnormal NEGATIVE [facility] Cocaine Metabolite, Urine Negative NEGATIVE [facility] Interpretation and review of laboratory results Abnormal [facility] Methadone Screen, Urine Negative NEGATIVE M [facility] Methamphetamine, Urine Positive Abnormal NEGATIVE Me [facility] Opiates, Urine Negative NEGATIVE [facility] th Oxycodone Screen, Ur Negative NEGATIVE [facility] Phencyclidine, Urine Negative NEGATIVE [facility] Propoxyphene, Urine Negative NEGATIVE [facility] Tricyclic Antidepressants, Urine Negative NEGATIVE [facility] Comment on above: Drug screen results are to be used for medical purposes only. All positive results are unconfirmed. Testing for employment or legal uses should be sent to a reference laboratory for confirmation. [facility] Ethanol Alcoholon 09-29-2021 Ethanol [Mass/Vol] mg/dL Normal <[address] [facility] Comment on above: Performed By: #### A LCB #### [facility] [address] [place] [address] Music Education Director: Robert Wynne MD Ethanol percent <0.010 Normal <0.010 [facility] Comment on above: Performed By: #### A LCB #### [facility] [address] [place] [address] Music Education Director: Robert Wynne MD [id number] 09-29-2021 SARS-CoV-2 (COVID-19) RNA VISHNU+probe Ql (Unsp spec) Not detected Normal NOTDET [facility] Comment on above: Result Comment: Rapid NAAT: The specimen is NEGATIVE for SARS-CoV-2, the novel coronavirus associated with COVID-19. The ID NOW COVID-19 assay is designed to detect the virus that causes COVID-19 in patients with signs and symptoms of infection who are suspected of COVID-19. An individual without symptoms of COVID-19 and who is not shedding SARS-CoV-2 virus would expect to have a negative (not detected) result in this assay. Negative results should be treated as presumptive and, if inconsistent with clinical signs and symptoms or necessary for patient management, should be tested with an alternative molecular assay. Negative results do not preclude SARS-CoV-2 infection and should not be used as the sole basis for patient management decisions. Fact sheet for Healthcare Providers: https://www.fda.gov/media/688501/download Fact sheet for Patients: https://www.fda.gov/media/130302/download Methodology: Isothermal Nucleic Acid Amplification Performed By: #### C OVRB #### [facility] [address] [place] [address] Music Education Director: Robert Wynne MD Urinalysis w/ Microon 2021 ----- Normal [facility] Comment on above: Performed By: #### D AU, UAMIC #### [facility] [address] [place], [place] 1366583 Music Education Director: Robert Wynne MD Bilirubin, SemiQt,Ur Negative Normal NEG [facility] Comment on above: Performed By: #### D AU, UAMIC #### [facility] [address] [place] [address] Music Education Director: Robert Wynne MD Blood, Urine Negative Normal NEG [facility] Comment on above: Performed By: #### D AU, UAMIC #### [facility] [address] [place], [place] 095[address]83 Music Education Director: Robert Wynne MD Clarity (U) Clear Normal CLEAR [facility] Comment on above: Performed By: #### D AU, UAMIC #### [facility] [address] [place] [address] Music Education Director: Robert Wynne MD Color (U) Yellow Normal YEL [facility] Comment on above: Performed By: #### D AU, UAMIC #### [facility] [address] [place] [address] Music Education Director: Robert Wynne MD Epithelial cells LM Ql (Urine sed) 0 TO 2 Normal 0-[address] [facility] Comment on above: Performed By: #### D AU, UAMIC #### [facility] [address] [place], [place] [id number] Music Education Director: Robert Wynne MD Glucose Ql (U) Negative Normal NEG [facility] Comment on above: Performed By: #### D AU, UAMIC #### [facility] [address] [place] [address] Music Education Director: Robert Wynne MD Ketones Ql (U) Negative Normal NEG [facility] Comment on above: Performed By: #### D AU, UAMIC #### [address] [place], [place] [phone] Music Education Director: Robert Wynne MD Leukocyte esterase Test strip Ql (U) Negative Normal NEG [facility] Comment on above: Performed By: #### D AU, UAMIC #### [facility] [address] [place] [address] [place] [address] Music Education Director: Robert Wynne MD Nitrite,Ur Negative Normal NEG [facility] Comment on above: Performed By: #### D AU, UAMIC #### [facility] [address] [place] [address] [place] [address] Music Education Director: Robert Wynne MD PH,Ur 6.0 Normal 5.0-9.[address] [facility] Comment on above: Performed By: #### D AU, UAMIC #### [facility] [address] [place] [address] Music Education Director: Rboert Wynne MD Protein Ql (U) Negative Normal NEG [facility] Comment on above: Performed By: #### D AU, UAMIC #### [facility] [address] [place], [place] 7975683 Music Education Director: Robert Wynne MD Spec. [place],Ur 1.020 Normal 1.010-1.020 [facility] Comment on above: Performed By: #### D AU, UAMIC #### [facility] [address] [place], [place] 3712483 Music Education Director: Robert Wynne MD Urine RBC's 0 TO 2 Normal 0-[address] [facility] Comment on above: Performed By: #### D AU, UAMIC #### [facility] [address] [place], [place] 4483483 Music Education Director: Robert Wynne MD Urine WBC's 0 TO 2 Normal 0-[address] [facility] Comment on above: Performed By: #### D AU, UAMIC #### [facility] [address] [place], [place] 520[address]83 Music Education Director: Robert Wynne MD Urobilinogen,Ur Normal Normal NORM [facility] Comment on above: Performed By: #### D AU, UAMIC #### [facility] [address] [place], [place] 7028583 Music Education Director: Robert Wynne MD Urinalysis with Microscopico n 09-29-2021 - [facility] Bilirubin Urine Negative NEGATIVE [facility] Color, UA Yellow Yellow [facility] Epithelial Cells UA [address] [facility] Glucose, Ur Negative NEGATIVE [facility] Ketones Ql (U) Negative NEGATIVE [facility] Leukocyte esterase Test strip Ql (U) Negative NEGATIVE [facility] Nitrite, Urine Negative NEGATIVE [facility] pH, UA 6.0 [facility] Protein, UA Negative NEGATIVE [facility] RBC, UA [address] [facility] Specific [place], UA 1.020 [facility] Turbidity UA Clear Clear [facility] Urine Hgb Negative NEGATIVE [facility] Urobilinogen, Urine Normal Normal [facility] WBC, UA 0 TO 2 [facility] Basic Metabolic Panel w/ Ref brain to MGon 09-28-2021 Anion gap [Moles/Vol] 10 mmol/L 9 - 17 mmol/L [facility] Calcium [Mass/Vol] 9.3 mg/dL 8.6 - 10. 4 mg/dL [facility] Chloride [Moles/Vol] 103 mmol/L 98 - 10 7 mmol/L [facility] CO2 [Moles/Vol] 26 mmol/L 20 - 31 mmol/L [facility] Creatinine [Mass/Vol] 0.79 mg/dL 0.70 - 1.20 mg/dL [facility] GFR >60 >60 mL/min [facility] GFR Non- >60 >60 mL/min [facility] Glucose [Mass/Vol] 129 mg/dL High 70 - 99 mg/dL [facility] Interpretation and review of laboratory results Abnormal [facility] Potassium [Moles/Vol] 3.6 mmol/L Low 3.7 - 5.3 mmol/L [facility] Sodium [Moles/Vol] 139 mmol/L 135 - 144 mmol/L [facility] Urea nitrogen (BldV) [Mass/Vol] 13 mg/dL 6 - 20 mg/dL [facility] Urea nitrogen/Creatinine (Bld) [Mass ratio] 16 [facility] CBC with Auto Differentialon 09-28-2021 Absolute Eos # 0.05 [facility] th Absolute Immature Granulocyte 0.03 [facility] Absolute Lymph # 3.53 [facility] alth Absolute [place] # 1.11 [facility] lt Basophils (Bld) [#/Vol] 0.04 10*3/uL [facility] Basophils/100 WBC (Bld) 0 % 0 - 2 % M [facility] Eosinophils/100 WBC (Bld) 0 % Low 1 - 4 % [facility] Hematocrit (Bld) [Volume fraction] 35.4 % Low 40.7 - 50.3 % [facility] Hemoglobin.gastrointest inal spec 1 Ql (Stl) 11.9 g/dL Low 13.0 - 17.0 g/dL [facility] Immature granulocytes/100 WBC (Bld) 0 % [address] [facility] Interpretation and review of laboratory results Abnormal [facility] Lymphocytes/100 WBC (Bld) 30 % 24 - 43 % [facility] MCH (RBC) [Entitic mass] 30.9 pg 25.2 - 33.[address] [facility] MCHC (RBC) [Mass/Vol] 33.6 g/dL 28.4 - 34.8 g/dL [facility] MCV (RBC) [Entitic vol] 91.9 fL 82.6 - 102.[address] [facility] Monocytes/100 WBC (Bld) 9 % 3 - 12 % M [facility] NRBC Automated 0.0 0.[address] [facility] Platelet distribution width (Bld) [Ratio] 13.1 % 11.8 - 14.4 % [facility] Platelet mean volume (Bld) [Entitic vol] 9.9 fL 8.1 - 13.[address] [facility] Platelets (Bld) [#/Vol] 284 10*3/uL [facility] RBC (Bld) [#/Vol] 3.85 10*6/uL Low 4.21 - 5.7 7 m/uL [facility] Segmented neutrophils/100 WBC (Bld) 61 % 36 - 65 % [facility] Segs [facility] ([facility]ld[facility] [#/Vol] 11.8 10*3/uL High [facility] COVID-19, Rapidon 09-28-2021 SARS-CoV-2 (COVID-19) RNA VISHNU+probe Ql (Unsp spec) Not detected Not Detected [facility] Comment on above: Rapid NAAT: The specimen is NEGATIVE for SARS-CoV-2, the novel coronavirus associated with COVID-19. The ID NOW COVID-19 assay is designed to detect the virus that causes COVID-19 in patients with signs and symptoms of infection who are suspected of COVID-19. An individual without symptoms of COVID-19 and who is not shedding SARS-CoV-2 virus would expect to have a negative (not detected) result in this assay. Negative results should be treated as presumptive and, if inconsistent with clinical signs and symptoms or necessary for patient management, should be tested with an alternative molecular assay. Negative results do not preclude SARS-CoV-2 infection and should not be used as the sole basis for patient management decisions. Fact sheet for Healthcare Providers: https://www.fda.gov/media/912723/download Fact sheet for Patients: https://www.fda.gov/media/333790/download Methodology: Isothermal Nucleic Acid Amplification Specimen Description .NASOPHARYNGEAL SWAB [facility] Ethanolon 09-28-2021 Ethanol [Mass/Vol] mg/dL <10 mg/dL [facility] Ethanol percent <0.010 <0.010 % [facility] - Chemistry and C hemistry - challengeon 09-28-2021 GFR/1.73 sq M.predicted MDRD (S/P/Bld) [Vol rate/Area] [facility] Comment on above: Average GFR for 50-5 9 years old: 93 mL/min/1.73sq m Chronic Kidney Disease: <60 mL/min/1.73sq m Kidney failure: <15 mL/min/1.73sq m eGFR calculated using average adult body mass. Additional eGFR calculator available at: http://www.Layer 7 [email or web address] Stage 1: Some kidney damage normal GFR Stage 2: Mild kidney damage GFR 60-89 Stage 3: Moderate kidney damage GFR 30-59 Stage 4: Severe kidney damage GFR 15-29 Stage 5: Severe kidney damage GFR <15 ESRD - chronic treatment by dialysis or transplant CBC AUTO DIFFon 10-31-2020 BASO # 0.0 103/ul Normal 0.0-0.1 [facility] Comment on above: Performed By: #### C BC #### [facility] [address] [place], [place] [id number] Ethan Tabatha Basophils/100 WBC (Bld) 0.5 % Normal 0.2-2.0 [facility] Comment on above: Performed By: #### C BC #### [facility] [address] [place], [place] [address] Ethan Tabatha EO # 0.2 103/ul Normal 0.0-0.7 [facility] Comment on above: Performed By: #### C BC #### [facility] [address] [place], [place] [id number] Ethan Tabatha Eosinophils/100 WBC (Bld) 2.7 % Normal 0.9-7.0 [facility] Comment on above: Performed By: #### C BC #### [facility] [address] [place], [place] [phone] Ethan Tabatha Erythrocyte distribution width (RBC) [Ratio] 13.9 % Normal 11.0-15.0 [facility] Comment on above: Performed By: #### C BC #### [facility] [address] [place], [place] [address] Ethan Mays Hematocrit (Bld) [Volume fraction] 36.9 % Critically low 42.0-54.0 [facility] Comment on above: Performed By: #### C BC #### [facility] [address] [place] [address] Ethan Mays Hemoglobin (Bld) [Mass/Vol] 11.9 g/dL Critically low 14.0-18.0 [facility] Comment on above: Performed By: #### C BC #### [facility] [address] [place] [address] Ethanpedro luis Mays IG # 0.02 10e3/ul Normal 0.00-0.03 [facility] Comment on above: Performed By: #### C BC #### [facility] [address] [place] [address] Ethan Mays IG % 0.2 % Normal 0.0-0.5 [facility] Comment on above: Performed By: #### C BC #### [facility] [address] [place] [address] Ethan Mays LYMPH # 4.1 103/ul Critically high 1.2-3.8 [facility] Comment on above: Performed By: #### C BC #### [facility] [address] [place] [address] Ethan Mays Lymphocytes/100 WBC (Bld) 48.0 % Normal 20.5-60.0 [facility] Comment on above: Performed By: #### C BC #### [facility] [address] [place] [address] Ethan aMys MANUAL DIFF REQ NO Normal [facility] Comment on above: Performed By: #### C BC #### [facility] [address] [place], [place] [address] Ethan Mays MCH (RBC) [Entitic mass] 31.5 pg Normal 25.9-34.0 [facility] Comment on above: Performed By: #### C BC #### [facility] [address] [place] [address] Ethan Mays MCHC (RBC) [Mass/Vol] 32.2 g/dL Normal 29.9-35.2 [facility] Comment on above: Performed By: #### C BC #### [facility] [address] [place], [place] [address] Ethan Mays MCV (RBC) [Entitic vol] 97.6 fL Critically high 80.0-94 .0 [facility] Comment on above: Performed By: #### C BC #### [facility] [address] [place], [place] [address] Ethan Mays MONO # 0.9 103/ul Critically high 0.3-0.8 [facility] Comment on above: Performed By: #### C BC #### [facility] [address] [place], [place] [address] Ethan Mays Monocytes/100 WBC (Bld) 10.5 % Normal 1.7-12.0 [facility] Comment on above: Performed By: #### C BC #### [facility] [address] [place], [place] [address] Ethan Mays NEUT # 3.3 103/ul Normal 1.4-6.5 [facility] Comment on above: Performed By: #### C BC #### [facility] [address] [place], [place] [address] Ethan Mays Neutrophils/100 WBC (Bld) 38.1 % Critically low 43.0-75.0 [facility] Comment on above: Performed By: #### C BC #### [facility] [address] [place], [place] [address] Ethan Mays Platelet mean volume (Bld) [Entitic vol] 9.4 fL Critically low 9.5-13.5 [facility] Comment on above: Performed By: #### C BC #### [facility] [address] [place], [place] [address] Ethan Gutierrezen PLT 366 103/ul Normal 150-450 [facility] Comment on above: Performed By: #### C BC #### [facility] [address] [place], [place] [address] Ethanpedro luis Gutierrezen RBC 3.78 106/ul Critically low 4.70-6.10 [facility] Comment on above: Performed By: #### C BC #### [facility] [address] [place], [place] [address] Ethan Mays WBC 8.5 103/ul Normal 4.0-11.0 [facility] Comment on above: Performed By: #### C BC #### [facility] [address] [place], [place] [address] Ethan Mays CTA CHEST WO W CONon 021 CTA CHEST WO W CON CT PULMONARY ANGIOGRAM: INDICATION: SHORTNESS OF BREATH. COMPARISON: Chest x-ray 10/09/2020. TECHNIQUE: Helical CT images of the chest were obtained obtained after the administration of intravenous contrast with pulmonary angiography protocol. MIP (maximum intensity projection) images were performed. Dose reduction techniques were achieved by using automated exposure control and/or adjustment of mA and/or kV according to patient size and/or use of iterative reconstruction technique. FINDINGS: VASCULATURE/PULMONAR Y ARTERIES: There is satisfactory opacification of the pulmonary arterial system. There is no evidence of pulmonary embolism. The main pulmonary artery is normal in diameter. The aorta and great vessels appear normal. HEART/PERICARDIUM: Normal. MEDIASTINAL/HILAR LYMPH NODES: Calcified subcarinal lymph nodes consistent prior granulomatous disease but no mediastinal hilar adenopathy. ESOPHAGUS: Normal as visualized. PLEURAL CAVITY: Probable mild left pleural thickening but no definite pleural effusion or pneumothorax. LUNGS/AIRWAYS: Moderate upper lobe predominant emphysema. Bronchial wall thickening is also noted consistent with COPD. Postsurgical changes in the medial left upper lobe which may be due to prior wedge resection with adjacent post surgical scarring and mild left-sided volume loss. Mild biapical pleuroparenchymal scarring. Multiple small calcified granulomas scattered throughout the lungs. No focal consolidation. There is a prominent emphysematous bleb in the medial left upper lobe. There is mild subpleural linear atelectasis/scarring in the lingula. CHEST WALL/AXILLA/LOWER NECK: Normal. VISUALIZED UPPER ABDOMEN: Normal. BONES: There is a fracture of the left fifth posterior rib consistent with with prior thoracotomy. There is no acute osseous abnormality. IMPRESSION: 1. No evidence of pulmonary embolism. 2. COPD with moderate emphysema. 3. Postoperative changes in the left upper lobe with associated scarring. 4. No pneumothorax. Electronically authenticated by: KRISTEN KAUFMAN Date: 2020-10-31 21:05 Normal [facility] PROF 14(COMP METB)on 021 Albumin [Mass/Vol] 3.2 g/dL Critically low 3.5-5.0 [facility] Comment on above: Performed By: #### C GENTRY, HSTROPN #### [facility] [address] [place], [place] [address] Ethan Tabatha Albumin/Globulin [Mass ratio] 0.8 {ratio} Normal [facility] Comment on above: Performed By: #### C GENTRY, HSTROPN #### [facility] [address] [place], [place] [address] Ethan Tabatha ALP [Catalytic activity/Vol] 78 U/L Normal 38-126 [facility] Comment on above: Performed By: #### C GENTRY, HSTROPN #### [facility] [address] [place], [place] [address] Ethan Tabatha ALT [Catalytic activity/Vol] 42 U/L Normal 21-72 [facility] Comment on above: Performed By: #### C GENTRY, HSTROPN #### [facility] [address] [place], [place] [address] Ethan Tabatha Anion gap [Moles/Vol] 10.7 mmol/L Normal [facility] Comment on above: Performed By: #### C GENTRY, HSTROPN #### [facility] [address] [place], [place] [address] Ethan Tabatha AST [Catalytic activity/Vol] 28 U/L Normal 17-59 [facility] Comment on above: Performed By: #### C GENTRY, HSTROPN #### [facility] [address] [place], [place] [address] Ethan Tabatha Bilirubin [Mass/Vol] 2.7 mg/dL Critically high 0.2-1.3 [facility] Comment on above: Performed By: #### C GENTRY, HSTROPN #### [facility] [address] [place], [place] [address] Ethan Tabatha Calcium [Mass/Vol] 8.8 mg/dL Normal 8.4-10.2 [facility] Comment on above: Performed By: #### C GENTRY, HSTROPN #### [facility] [address] [place] [id number] Ethan Tabatha Chloride [Moles/Vol] 107 mmol/L Normal 98-107 [facility] Comment on above: Performed By: #### C GENTRY, HSTROPN #### [facility] [address] [place], [place] [address] Ethan Tabatha CO2 [Moles/Vol] 29.2 mmol/L Normal 22.0-30.0 [facility] Comment on above: Performed By: #### C GENTRY, HSTROPN #### [facility] [address] [place] [address] Ethan Tabatha Creatinine [Mass/Vol] 0.92 mg/dL Normal 0.66-1.25 [facility] Comment on above: Performed By: #### C GENTRY, HSTROPN #### [facility] [address] [place] [address] Ethan Tabatha EGFR-AF SRI LANKAN >60 Normal >=60 [facility] Comment on above: Performed By: #### C GENTRY, HSTROPN #### [facility] [address] [place], [place] [address] Ethan Tabatha EGFR-NON AF SRI LANKAN >60 Normal >=60 [facility] Comment on above: Performed By: #### C GENTRY, HSTROPN #### [facility] [address] [place] [address] Ethan Tabatha Globulin (S) [Mass/Vol] 3.8 g/dL Normal [facility] Comment on above: Performed By: #### C GENTRY, HSTROPN #### [facility] [address] [place], [place] [address] Ethan Tabatha Glucose [Mass/Vol] 93 mg/dL Normal 74-106 [facility] [place] Comment on above: Performed By: #### C GENTRY, HSTROPN #### [facility] [address] [place] [address] Ethan Tabatha Potassium [Moles/Vol] 3.9 mmol/L Normal 3.4-5.0 [facility] Comment on above: Performed By: #### C MP, HSTROPN #### [facility] [address] [place] [address] Ethan Tabatha Protein [Mass/Vol] 7.0 g/dL Normal 6.1-8.2 [facility] Comment on above: Performed By: #### C MP, HSTROPN #### [facility] [address] [place], [place] [address] Ethan Tabatha Sodium [Moles/Vol] 143 mmol/L Normal 137-145 [facility] Comment on above: Performed By: #### C MP, HSTROPN #### [facility] [address] [place] [address] Ethan Tabatha Urea nitrogen [Mass/Vol] 17.0 mg/dL Normal 9.0-20.0 [facility] Comment on above: Performed By: #### C MP, HSTROPN #### [facility] [address] [place] [address] Ethan Tabatha Urea nitrogen/Creatinine [Mass ratio] 18.5 mg/mg Normal [facility] Comment on above: Performed By: #### C MP, HSTROPN #### [facility] [address] [place] [address] Ethan Tabatha TROPONIN, HIGH SENSITIVITYon 10-31-2020 HSTROP 5.3 pg/mL Normal 4.0-42.2 [facility] Comment on above: Result Comment: CUT- OFF POINTS HAVE BEEN ESTABLISHED BASED ON THE FOURTH UNIVERSAL DEFINITIONS OF MYOCARDIAL INFARCTION. THE UPPER REFERENCE LIMIT (URL) OF TROPONIN, DEFINED THE 99TH PERCENTILE OF cTnI DISTRIBUTION IN A REFERENCE POPULATION, HAS BEEN CONFIRMED THE DECISION THRESHOLD FOR [place] DIAGNOSIS. Performed By: #### H STROPN #### [facility] [address] [place] [address] Ethan Tabatha HSTROP <4.0 Normal 4.0-42.2 [facility] Comment on above: Result Comment: CUT- OFF POINTS HAVE BEEN ESTABLISHED BASED ON THE FOURTH UNIVERSAL DEFINITIONS OF MYOCARDIAL INFARCTION. THE UPPER REFERENCE LIMIT (URL) OF TROPONIN, DEFINED THE 99TH PERCENTILE OF cTnI DISTRIBUTION IN A REFERENCE POPULATION, HAS BEEN CONFIRMED THE DECISION THRESHOLD FOR [place] DIAGNOSIS. Performed By: #### C GENTRY HSTROPN #### [facility] [address] [place] [address] Ethan Tabatha CBC AUTO DIFFon 10-09-2020 BASO # 0.0 103/ul Normal 0.0-0.1 [facility] Comment on above: Performed By: #### C GENTRY HSTROPN #### [facility] [address] [place] [address] Ethan Tabatha Basophils/100 WBC (Bld) 0.3 % Normal 0.2-2.0 [facility] Comment on above: Performed By: #### C GENTRY HSTROPN #### [facility] [address] [place] [address] Ethan Tabatha EO # 0.3 103/ul Normal 0.0-0.7 [facility] Comment on above: Performed By: #### C GENTRY HSTROPN #### [facility] [address] [place] [address] Ethan Tabatha Eosinophils/100 WBC (Bld) 4.4 % Normal 0.9-7.0 [facility] Comment on above: Performed By: #### C GENTRY HSTROPN #### [facility] [address] [place], [place] [address] Ethan Tabatha Erythrocyte distribution width (RBC) [Ratio] 13.6 % Normal 11.0-15.0 [facility] Comment on above: Performed By: #### C GENTRY HSTROPN #### [facility] [address] [place] [address] Ethan Tabatha Hematocrit (Bld) [Volume fraction] 44.4 % Normal 42.0-54.0 [facility] Comment on above: Performed By: #### C GENTRY HSTROPN #### [facility] [address] [place], [place] [address] Ethan Tabatha Hemoglobin (Bld) [Mass/Vol] 14.7 g/dL Normal 14.0-18.0 [facility] Comment on above: Performed By: #### C MP, HSTROPN #### [facility] [address] [place] [id number] Ethan Tabatha IG # 0.03 10e3/ul Normal 0.00-0.03 [facility] Comment on above: Performed By: #### C MP, HSTROPN #### [facility] [address] [place] [id number] Ethan Tabatha IG % 0.4 % Normal 0.0-0.5 [facility] Comment on above: Performed By: #### C MP, HSTROPN #### [facility] [address] [place] [phone] Ethan Tabatha LYMPH # 2.7 103/ul Normal 1.2-3.8 [facility] Comment on above: Performed By: #### C GENTRY, HSTROPN #### [facility] [address] [place], [place] [address] Ethan Tabatha Lymphocytes/100 WBC (Bld) 37.8 % Normal 20.5-60.0 [facility] Comment on above: Performed By: #### C GENTRY, HSTROPN #### [facility] [address] [place] [phone] Ethanpedro luis Mays MANUAL DIFF REQ NO Normal [facility] Comment on above: Performed By: #### C GENTRY, HSTROPN #### [facility] [address] [place], [place] [address] Ethan Tabatha MCH (RBC) [Entitic mass] 31.3 pg Normal 25.9-34.0 [facility] Comment on above: Performed By: #### C MP, HSTROPN #### [facility] [address] [place] [phone] Ethan Tabatha MCHC (RBC) [Mass/Vol] 33.1 g/dL Normal 29.9-35.2 [facility] Comment on above: Performed By: #### C GENTRY, HSTROPN #### [facility] [address] [place] [phone] Ethan Tabatha MCV (RBC) [Entitic vol] 94.7 fL Critically high 80.0-94 .0 [facility] Comment on above: Performed By: #### C GENTRY, HSTROPN #### [facility] [address] [place] [address] Ethan Tabatha MONO # 0.5 103/ul Normal 0.3-0.8 [facility] Comment on above: Performed By: #### C GENTRY, HSTROPN #### [facility] [address] [place] [address] Ethan Tabatha Monocytes/100 WBC (Bld) 6.5 % Normal 1.7-12.0 [facility] Comment on above: Performed By: #### C GENTRY, HSTROPN #### [facility] [address] [place] [address] Ethan Tabatha NEUT # 3.6 103/ul Normal 1.4-6.5 [facility] Comment on above: Performed By: #### C GENTRY, HSTROPN #### [facility] [address] [place] [address] Ethan Tabatha Neutrophils/100 WBC (Bld) 50.6 % Normal 43.0-75.0 [facility] Comment on above: Performed By: #### C GENTRY, HSTROPN #### [facility] [address] [place] [address] Ethan Tabatha Platelet mean volume (Bld) [Entitic vol] 10.4 fL Normal 9.5-13.5 [facility] Comment on above: Performed By: #### C GENTRY, HSTROPN #### [facility] [address] [place] [address] Ethan Tabatha PLT 283 103/ul Normal 150-450 [facility] Comment on above: Performed By: #### C GENTRY, HSTROPN #### [facility] [address] [place], [place] [address] Ethan Tabatha RBC 4.69 106/ul Critically low 4.70-6.10 [facility] Comment on above: Performed By: #### C GENTRY, HSTROPN #### [facility] [address] [place], [place] [address] Ethan Tabatha WBC 7.2 103/ul Normal 4.0-11.0 [facility] Comment on above: Performed By: #### C GENTRY, HSTROPN #### [facility] [address] [place] [address] Ethan Mays ER URINE PROFILEon 1 Bilirubin Ql (U) Negative Normal NEGATIVE [facility] Comment on above: Performed By: #### C GENTRY, HSTROPN #### [facility] [address] [place] [address] Ethan Tabatha Clarity (U) CLEAR Normal CLEAR [facility] Comment on above: Performed By: #### C GENTRY, HSTROPN #### [facility] [address] [place] [address] Ethan Tabatha Color (U) LT. YELLOW Normal YELLOW [facility] Comment on above: Performed By: #### C GENTRY, HSTROPN #### [facility] [address] [place] [address] Ethan Mays ERUAHD A micrscopic examination will be performed if indicated. Normal [facility] Comment on above: Performed By: #### C GENTRY, HSTROPN #### [facility] [address] [place] [address] Ethan Tabatha Glucose Ql (U) Negative Normal NEGATIVE [facility] Comment on above: Performed By: #### C GENTRY, HSTROPN #### [facility] [address] [place] [address] Ethan Tabatha Hemoglobin Ql (U) Negative Normal NEGATIVE [facility] Comment on above: Performed By: #### C GENTRY, HSTROPN #### [facility] [address] [place] [address] Ethan Tabatha Ketones Ql (U) Negative Normal NEGATIVE [facility] Comment on above: Performed By: #### C GENTRY, HSTROPN #### [facility] [address] [place] [address] Ethan Tabatha LEUKOCYTES Negative Normal NEGATIVE [facility] Comment on above: Performed By: #### C GENTRY, HSTROPN #### [facility] [address] [place] [address] Ethanpedro luis Mays Nitrite Ql (U) Negative Normal NEGATIVE [facility] Comment on above: Performed By: #### C GENTRY HSTROPN #### [facility] [address] [place] [address] Ethan Mays pH (U) 7.0 [pH] Normal 5-9 [facility] Comment on above: Performed By: #### C GENTRY HSTROPN #### [facility] [address] [place] [address] Ethan Mays SPEC GRAVITY 1.010 Normal 1.005-<=1.025 [facility] Comment on above: Performed By: #### C GENTRY HSTROPN #### [facility] [address] [place] [address] Ethan Mays UA PROTEIN Negative Normal NEGATIVE/ TRACE [facility] Comment on above: Performed By: #### C GENTRY HSTROPN #### [facility] [address] [place] [address] Ethan Mays UR MICRO IND NOT INDICATED Normal [facility] Comment on above: Performed By: #### C GENTRY HSTROPN #### [facility] [address] [place] [address] Ethan Mays Urobilinogen Qn (U) 0.2 {Jamal'U}/dL Normal 0.2 - 1. 0 [facility] Comment on above: Performed By: #### C GENTRY HSTROPN #### [facility] [address] [place] [address] Ethan Mays POINT OF CARE GLUCOSEon 09-14 Glucose [Mass/Vol] 78 mg/dL Normal 74-106 [facility] [place] Comment on above: Performed By: #### P OCGLUC #### [facility] [address] [place] [address] Ethan Mays PROF 14(COMP METB)on 021 Albumin [Mass/Vol] 3.9 g/dL Normal 3.5-5.0 [facility] [place] Comment on above: Performed By: #### C GENTRY, HSTROPN #### [facility] [address] [place], [place] [address] Ethan Tabatha Albumin/Globulin [Mass ratio] 1.0 {ratio} Normal [facility] Comment on above: Performed By: #### C GENTRY, HSTROPN #### [facility] [address] [place], [place] [address] Ethan Tabatha ALP [Catalytic activity/Vol] 63 U/L Normal 38-126 [facility] Comment on above: Performed By: #### C GENTRY, HSTROPN #### [facility] [address] [place], [place] [address] Ethan Tabatha ALT [Catalytic activity/Vol] 67 U/L Normal 21-72 [facility] Comment on above: Performed By: #### C GENTRY, HSTROPN #### [facility] [address] [place] [id number] Ethan Tabatha Anion gap [Moles/Vol] 8.8 mmol/L Normal [facility] Comment on above: Performed By: #### C GENTRY, HSTROPN #### [facility] [address] [place] [id number] Etahn Tabatha AST [Catalytic activity/Vol] 40 U/L Normal 17-59 [facility] Comment on above: Performed By: #### C GENTRY, HSTROPN #### [facility] [address] [place], [place] [address] Ethan Tabatha Bilirubin [Mass/Vol] 4.0 mg/dL Critically high 0.2-1.3 [facility] Comment on above: Performed By: #### C GENTRY, HSTROPN #### [facility] [address] [place], [place] [address] Ethan Tabatha Calcium [Mass/Vol] 9.1 mg/dL Normal 8.4-10.2 [facility] [place] Comment on above: Performed By: #### C GENTRY, HSTROPN #### [facility] [address] [place], [place] [address] Ethan Tabatha Chloride [Moles/Vol] 105 mmol/L Normal 98-107 [facility] Comment on above: Performed By: #### C MP, HSTROPN #### [facility] [address] [place] [phone] Ethan Tabatha CO2 [Moles/Vol] 29.3 mmol/L Normal 22.0-30.0 [facility] Comment on above: Performed By: #### C MP, HSTROPN #### [facility] [address] [place] [phone] Ethan Tabatha Creatinine [Mass/Vol] 0.93 mg/dL Normal 0.66-1.25 [facility] Comment on above: Performed By: #### C GENTRY, HSTROPN #### [facility] [address] [place] [id number] Ethan Tabatha EGFR-AF SRI LANKAN >60 Normal >=60 [facility] Comment on above: Performed By: #### C GENTRY, HSTROPN #### [facility] [address] [place] [address] Ethan Tabatha EGFR-NON AF SRI LANKAN >60 Normal >=60 [facility] Comment on above: Performed By: #### C GENTRY, HSTROPN #### [facility] [address] [place] [phone] Ethan Tabatha Globulin (S) [Mass/Vol] 3.8 g/dL Normal [facility] Comment on above: Performed By: #### C MP, HSTROPN #### [facility] [address] [place] [address] Ethan Tabatha Glucose [Mass/Vol] 136 mg/dL Critically high 74-106 [facility] Comment on above: Performed By: #### C MP, HSTROPN #### [facility] [address] [place] [phone] Ethan Tabatha Potassium [Moles/Vol] 4.1 mmol/L Normal 3.4-5.0 [facility] Comment on above: Performed By: #### C MP, HSTROPN #### [facility] [address] [place] [phone] Ethan Tabatha Protein [Mass/Vol] 7.7 g/dL Normal 6.1-8.2 [facility] [place] Comment on above: Performed By: #### C MP, HSTROPN #### [facility] [address] [place] [address] Ethan Mays Sodium [Moles/Vol] 139 mmol/L Normal 137-145 [facility] [place] Comment on above: Performed By: #### C MP, HSTROPN #### [facility] [address] [place] [address] Ethan Mays Urea nitrogen [Mass/Vol] 6.0 mg/dL Critically low 9.0-20.0 [facility] Comment on above: Performed By: #### C MP, HSTROPN #### [facility] [address] [place] [address] Ethan Mays Urea nitrogen/Creatinine [Mass ratio] 6.5 mg/mg Normal [facility] Comment on above: Performed By: #### C MP, HSTROPN #### [facility] [address] [place] [address] Ethan Mays Rapid Covid-19 PCR (CVDRPD)o n 10-09-2020 SARS-CoV-2 (COVID-19) RNA VISHNU+probe Ql (Unsp spec) Not detected Normal NOT DETECTED [facility] Comment on above: Result Comment: This test is not yet approved or cleared by the [place] Food and Drug Administration (FDA). This test was developed by [employer] [place]. The performance characteristics of this test were validated by [facility]. The results are not intended to be used as the sole means for clinical diagnosis or patient management decisions. [facility] is authorized under Clinical Laboratory Improvement Amendments (CLIA) to perform high- complexity testing. When diagnostic testing is negative, the possibility of a false negative should be considered in the context of a patient's recent exposures and the presence of clinical signs and symptoms consistent with SARS-CoV-2. Performed By: #### C VDRPD #### [facility] [address] [place] [address] Ethan Mays TROPONIN, HIGH SENSITIVITYon 10-09-2020 HSTROP <4.0 Normal 4.0-42.2 [facility] Comment on above: Result Comment: CUT- OFF POINTS HAVE BEEN ESTABLISHED BASED ON THE FOURTH UNIVERSAL DEFINITIONS OF MYOCARDIAL INFARCTION. THE UPPER REFERENCE LIMIT (URL) OF TROPONIN, DEFINED THE 99TH PERCENTILE OF cTnI DISTRIBUTION IN A REFERENCE POPULATION, HAS BEEN CONFIRMED THE DECISION THRESHOLD FOR [place] DIAGNOSIS. Performed By: #### C MP, HSTROPN #### [facility] [address] [place], [place] [address] Ethan Mays XR CHEST 1 Von 10-09-2020 XR CHEST 1 V EXAMINATION: XR CHEST 1 V HISTORY: Dyspnea COMPARISON: No relevant comparison available. TECHNIQUE: AP portable erect FINDINGS: LUNGS: Interval placement of a left small bore pleural catheter with significant reexpansion of the left lung. Persistent 7.5 mm left apical pneumothorax. The right lung is clear. Scattered punctate nodules, size and density suggests granulomas. VASCULATURE: No increased pulmonary vasculature. PLEURA: No pneumothorax, effusion, or pleural thickening. CARDIAC: No cardiomegaly or cardiac silhouette abnormality. MEDIASTINUM: No visible mass or adenopathy. BONES: No fracture or visible bone lesion. OTHER: EKG wires IMPRESSION: Reexpansion of the left lung with 7 mm left apical pneumothorax Electronically authenticated by: ROBERT HICKS Date: 2020-10-09 13:14 Normal [facility] XR CHEST 1 V EXAMINATION: XR CHEST 1 V HISTORY: Asthenia COMPARISON: 11/23/2018 TECHNIQUE: AP FINDINGS: LUNGS: Very large left pneumothorax measuring 8.5 cm at the apex. No definite midline shift. Scattered pulmonary nodules, size and density suggests granulomas. VASCULATURE: No increased pulmonary vasculature. PLEURA: No pneumothorax, effusion, or pleural thickening. CARDIAC: No cardiomegaly or cardiac silhouette abnormality. MEDIASTINUM: No visible mass or adenopathy. BONES: No fracture or visible bone lesion. OTHER: Findings relayed to emergency room by telephone 12:42 PM. IMPRESSION: Very large left pneumothorax without definite evidence of a tension component Electronically authenticated by: ROBERT HICKS Date: 2020-10-09 12:43 Normal [facility] Vital Signs Date Time Vital Sign Value Performing Clinician Facility 09-28-2021 20:16-0400 Body temperature 98.29 [degF] Roslyn Syed MD Work Phone: [facility] 09-28-2021 20:16-0400 Diastolic blood pressure 132 mm[Hg] Roslyn Syed MD Work Phone: [facility] 09-28-2021 20:16-0400 Heart rate 117 /min Roslyn Syed MD Work Phone: [facility] 09-28-2021 20:16-0400 Respiratory rate 22 /min Roslyn Syed MD Work Phone: [facility] 09-28-2021 20:16-0400 SaO2% (BldA) [Mass fraction] 95 % Roslyn Syed MD Work Phone: [facility] 09-28-2021 20:16-0400 Systolic blood pressure 197 mm[Hg] Roslyn Syed MD Work Phone: [facility] 09-19-2021 15:00-0400 Body height 172.72 cm Paul Fields Other [facility] [employer] [facility] Other 09-19-2021 15:00-0400 Body mass index (BMI) [Ratio] 18.7 kg/m2 Paul Fields Other [facility] [employer] [facility] [facility] Other 09-19-2021 15:00-0400 Body temperature 97.2 [degF] Paul Fields Other [facility] [employer] [facility] [facility] Other 09-19-2021 15:00-0400 Body weight 55.79 kg Paul Fields Other [facility] [facility] Other 09-19-2021 15:00-0400 Diastolic blood pressure 70 mm[Hg] Paul Fields Other [employer] Other 09-19-2021 15:00-0400 Systolic blood pressure 120 mm[Hg] Paul Fields Other [employer] Other Encounters Encounter Date Encounter Type Care Provider Facility Start: 10-22-2023 End: 10-22-2023 Emergency department patient visit CHERRYFRANCESCA HAYNES [facility] Start: 10-21-2023 End: 10-22-2023 Emergency department patient visit NO PCP NO PCP [facility] Start: 12-10-2022 ambulatory Hugh Storm acility:[facility] Start: 01-03-2022 End: 01-03-2022 Patient encounter procedure PHYSICIAN NO FAMILY [facility] [place] Start: 12-11-2021 End: 12-11-2021 ambulatory Nando Rocha Other [facility] [employer] Other Start: 12-11-2021 Telephone encounter Nando Rocha [facility] Start: 09-28-2021 End: 09-29-2021 Emergency department patient visit ROSLYN SYED [facility] Start: 09-28-2021 End: 09-29-2021 Emergency department patient visit Roslyn Syed MD Work Phone: [facility] ED Comment on above: Encounter for medica l screening examination (Primary Dx) Start: 09-19-2021 End: 09-19-2021 ambulatory Paul Fields Other [employer] Other Start: 09-19-2021 Office outpatient visit 25 minutes Paul Fields [facility] Start: 10-31-2020 End: 11-01-[address] NONE LISTED REQUEST Facility:[facility] Start: 10-09-2020 End: 10-09-2020 ambulatory TABITHA EASTON Facility:[facility] Procedures Date Procedure Procedure Detail Performing Clinician Start: 09-28-2021 Drug screen class list a Roslyn Syed MD Work Phone: Start: 09-28-2021 Urnls dip stick/tabl et reagent auto microscopy Roslyn Syed MD Work Phone: Start: 09-28-2021 COVID-19, RAPID Roslyn Syed MD Work Phone: Start: 09-28-2021 Assay of ethanol Roslyn Syed MD Work Phone: Start: 09-28-2021 BASIC METABOLIC PANE L W/ REFLEX TO MG FOR LOW K Roslyn Syed MD Work Phone: Start: 09-28-2021 Blood count complete auto&auto difrntl wbc Roslyn Syed MD Work Phone: Start: 09-28-2021 Ecg routine ecg w/le ast 12 lds w/i&r Roslyn Syed MD Work Phone: Plan of Treatment Date Care Activity Detail Author Start: 02-13-2022 Influenza vaccination Flu vacc ine (Season Ended) [facility] Start: 08-20-1976 COVID-19 Vaccine (1) COVID-19 Vaccine (1) [facility] Absolute CD8 count procedure [facility] Work Phone: Basophil count [facility] Work Phone: Basophil percent differential count [facility] Work Phone: CD3+CD4+ (T4 helper) cells [#/volume] in Blood [facility] Work Phone: CD3+CD4+ (T4 helper) cells/CD3+CD8+ (T8 suppressor cells) cells [# Ratio] in Blood [facility] Work Phone: Cluster of different iation antigen count procedure [facility] Work Phone: EKG [address] [facility] Work Phone: Eosinophil percent differential count [facility] Work Phone: Eosinophils [#/volum e] in Blood [facility] Work Phone: Erythrocyte mean cor puscular volume determination [facility] Work Phone: Erythrocytes [#/volu me] in Blood [facility] Work Phone: Hematocrit [Volume F raction] of Blood [facility] Work Phone: Hemoglobin distribut ion, width determination [facility] Work Phone: HIV 1 RNA [#/volume] (viral load) in Unspecified specimen by VISHNU with probe detection [facility] Work Phone: HIV 1 RNA [Log #/vol ume] (viral load) in Unspecified specimen by VISHNU with probe detection [facility] Work Phone: Leukocytes [#/volume ] in Blood [facility] Work Phone: Lymphocyte count [facility] Work Phone: Lymphocyte percent differential count [facility] Work Phone: Mean corpuscular hem oglobin determination [facility] Work Phone: Monocyte count [facility] Work Phone: Monocyte percent differential count [facility] Work Phone: Neutrophil count [facility] Work Phone: Neutrophil percent differential count [facility] Work Phone: Platelets [#/volume] in Blood [facility] Work Phone: Immunizations Immunization Date Immunization Notes Care Provider Gabriella ac 08-07-2020 influenza, injectable, quadrivalent, preservative free PHYSICIAN NO [facility] NEGATED: Highlighted row has not occurred!06-21-2015 influenza, seasonal, injectable Paul Fields Other [employer] Other Payers Date Payer Category Payer Self-pay [id number] 2022 Medicaid [id number] 1970 Unknown [id number] 1970 Unknown [id number] 1971 Unknown [id number] 1971 Unknown [id number] 1971 Unknown [id number] 1959 Unknown [id number] Medicaid [facility] [address] [id number] ed Unknown [id number] Social History Date Type Detail Facility Tobacco smoking status [facility] Tobacco smoking consumption unknown [employer] Phone: Start: 1970 Sex Assigned At Not on file [facility] Phone: Start: 09-18-2021 End: 09-28-2021 Exposure to SARS-CoV-2 (event) Not sure [employer] Phone: End: 09-30-2020 Sex Assigned At [facility] [employer] Other Start: 10-12-2020 Tobacco smoking status [facility] Ex-smoker (finding) [facility] Start: 1970 Sex Assigned At Male [facility] Medical Equipment Procedure Code Equipment Code Equipment Origin al Text Equipment Identifier Dates Thoracotomy Staple line-reinforcement strip [id number] FDA Start: 10-12-2020 Thoracotomy Surgical adhesive/sealant, human-derived ()[id number] [facility] Start: 10-12-2020 Evaluation note 09-19-2021 Note Date & Type Note Facility 09-19-2021 Evaluation note Encounter Date Diagnosis Assessment Notes Sep, Human immunodeficiency virus [HIV] disease (ICD-10 - B20) Did not have labs done despite I had ordered him during his last visit. Is way overdue for labs and I stressed the importance of having these done. I also stressed the importance of him taking his HIV medicines for which I am concerned given he could not quantitate even nearly to how many dosages he may have missed recently. He states he is now taking his medicines. We will continue the same medicines that he is on and await for labs. Sep, Severe persistent asthma, unspecified whether complicated (ICD-10 - J45.50) Patient had a lobectomy done at an outside hospital and obviously has underlying lung disease for which he tells me he ran out of his inhaler. He is not on home oxygen but does not need it from what I can tell. His lungs have decreased air movement but overall I do not appreciate any significant rales rhonchi or wheezes. He is not using any accessory muscles to breathe and does not appear short of breath. He was able to get up onto the exam table without any type of significant exertion. Will refill his albuterol [employer] Other Evaluation note Note Date & Type Note Facility Evaluation note Diagnosis Encounter for medical screening examination- Primary documented in this encounter [employer] Phone: Evaluation note Note Date & Type Note Facility Evaluation note No Information [employer] Other Evaluation note Note Date & Type Note Facility Evaluation note No assessment information availa [facility] Work Phone: History general Narrative - Reported Note Date & Type Note Facility History general Narrative - Reported Type Medical History Bipolar Disorder Medical History Depression Medical History HIV Medical History AIDS Medical History Bronchitis Medical History Tobacco abuse Medical History custodial use of high risk medic ations Surgical History lung collapsed had t o go in for stapling 2020 Hospitalization History See Above [employer] Other Hospital Discharge instructions Attachments Note Date & Type Note Facility Hospital Discharge instructions The following attachments cannot be sent through Care Everywhere.Well Visit: 50 to 65 Year Men (Korean)documented in this encounter [employer] Phone: Summary Purpose Family History No Family History Records Found Relationship Condition Age at Onset Recorded Date/T domenico father Type 2 diabetes mellitus Unknown Malignant neoplasm of kidney Unknown History of nephrectomy Unknown Dialysis patient Unknown Hypothyroidism Unknown Sleep apnea Unknown Not Specified Cataract of both eyes Unknown Advance Directives No Advanced Directives Records Found Advance Directive Response Recorded Date/ Time Advance Directives No April 09, 2017 10:36am Chief Complaint and Reason for Visit Chief Complaint LABS Additional Source Comments (unrecognized sect ion and content) No Status Records FoundNo Status Records FoundNo Status Records FoundNo Status Records Found INFORMATION SOURCE (unrecogn ized section and content) DATE CREATED AUTHOR 11/08/2020 [facility] DATE CREATED AUTHOR AUTHOR'S ORGANIZ ATION 09/29/2021 [facility] DATE CREATED AUTHOR AUTHOR'S ORGANIZ ATION 10/23/2023 [facility] DATE CREATED AUTHOR AUTHOR'S ORGANIZ ATION 03/12/2024 [facility] Reason for Visit (unrecogniz ed section and content) Reason Comments Other medical clearance fr om alf Scheduled Active and Recently Administ ered Medications (unrecognized section and content) Medication Order 09/27/2021 09/28/2021 09/29/2021 midazolam PF (VERSED) injection 2 mg (COMPLETED) 2 mg, IntraMUSCular, ONCE, 1 dose, On 09/28/21 at 2100 [id number] (Given - Provider: Aaron Garcia RN) Care Teams (unrecognized sec tion and content) Team Status: Inactive Member Role Status Dates PHYSICIAN NO FAMILY Primary Care Provider Active Paul Fields MD Attending Provider Active Team Status: Active Member Role Status Dates PHYSICIAN NO FAMILY Primary Care Provider Active Goals (unrecognized section and content) Goals may be documented in a n alternate section FOR RECORDS PERTAINING TO PATIENTS WHO ARE OR HAVE BEEN ENROLLED IN A CHEMICAL DEPENDENCY/SUBSTANCEABUSE PROGRAM, SOME INFORMATION MAY BE OMITTED. This clinical summary was aggregated from multiple sources. Caution should be exercised in using it in the provision of clinical care. This summary normalizes information from multiple sources, and as a consequence, information in this document may materially change the coding, format and clinical context of patient data. In addition, data may be omitted in some cases. CLINICAL DECISIONS SHOULD BE BASED ON THE PRIMARY CLINICAL RECORDS. [employer] provides no warranty or guarantee of the accuracy or completeness of information in this document.
--- NOTE | 2024-10-28 14:50 | ED_ITS ---
Documented by User: SEBASTIÁN Shen 10/28/24 15:05 HPI HPI - General Adult General Chief complaint: Dental/Oral Stated complaint: DENTAL ABCESS Time Seen by Provider: 10/28/24 14:44 Mode of arrival: walk-in Limitations: no limitations History of Present Illness HPI narrative: 54-year-old male presents to the ER with concerns of possible dental infection. Patient states he has a longstanding history of poor dental care even as a child history of recurrent infections but does not have dental insurance. He has not yet tried to call any dental clinics to get on a self-pay list for treatment or resources. Patient states this morning he had some sinus congestion tenderness in his right upper maxillary region and subjective swelling. Patient states this has been present with dental infections in the past. He denies difficulty swallowing or fever. He also has a history of COPD and bronchitis and has been out of his albuterol inhaler which she takes for mild exacerbations. He denies any shortness of breath today but explains that he does not have a family doctor and would like to have this as a refill on a standby in case he does need it. Patient notes that he can take Motrin for pain states symptoms currently tolerable but does not want to let it get out of hand. He appears in no distress and drinking coffee in the waiting room. Patient verbalized that there are resources in our community for him to get care, but he cites not having a car being a barrier. He does state that he can get to the pharmacy to get his medications. Onset (ago): week(s) (1 wk dental pain- pt does not isolate one tooth,, points to multiple chronic fracture and dental caries. ) Severity: mild Pain Consistency: Reports constant Related Data Previous Rx's ?Medication ?Instructions ?Recorded albuterol sulfate 90 mcg/actuation 2 inh inhalation Q6 H PRN shortness 10/01/23 aerosol inhaler of breath or wheezing #6.7 g jenn albuterol sulfate 90 mcg/actuation 2 inh inhalation Q4 H PRN shortness 03/04/24 aerosol inhaler of breath or wheezing #8.5 g jenn albuterol sulfate 90 mcg/actuation 2 inh inhalation Q6 H PRN wheezing 10/28/24 aerosol inhaler #6.7 grams amoxicillin 875 mg tablet 875 mg PO BID 10 days #20 ta bs 10/28/24 ibuprofen 600 mg tablet 600 mg PO TID PRN pain #30 t abs 10/28/24 Allergies Allergy/AdvReac Type Severity Reaction Status Date / Time milk Allergy Intermediate Flatulence Verified 03/04/24 06:30 Opioid HPI Opioid Management Most Recent Opioid Data: Last Pain Scale 9 Today, 14:07 Review of Systems ROS Constitutional Denies: fever, chills or change in weight Eyes Denies: change in vision or blurry vision Ears, nose, mouth, and throat Denies: throat pain, neck pain or throat swelling Cardiovascular Denies: chest pain, palpitations, edema or swelling of feet/ankles Respiratory Denies: shortness of breath, cough or wheezing Gastrointestinal Denies: abdominal pain, nausea, vomiting or difficulty swallowing Musculoskeletal Denies: back pain, neck pain or extremity pain Integumentary/Breast Denies: rash, itching or redness Neurological Denies: headache, numbness in extremities or weakness in extremities Psychiatric Denies: anxiety [facility] Medical History (Updated 10/28/24 @ 14:50 by SEBASTIÁN Shen) Pneumothorax ?J93.9 - Pneumothorax, unspecified (ICD-10) Surgical History (Updated 03/04/24 @ 07:02 by Jeanne Saldivar) 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 General: The patient is comfortable, alert and oriented x3, well appearing, non toxic in no apparent distress. Head: Atraumatic and normocephalic. Eyes: Normal conjunctiva, no exudates. ENT: The oropharynx is normal. No pharyngeal erythema, uvular edema, tonsillar exudates, asymmetry or trismus. Uvula is midline. Mouth has multiple missing teeth and multiple dental caries and some teeth with likely chronic fracture. Generalized dental sensitivity to palpation, no focal abscess. There is no evidence of facial asymmetry . Mild right maxially sinus tenderness. Floor of the mouth is soft. No tenderness in the submental or submandibular space. No tongue elevation or deviation. The patient has no evidence of periapical abscess, ANUG or other acute pathology. Airway is patent. Neck: The neck demonstrates normal range of motion. No meningeals signs are present. No stridor. No masses or lymphandenopathy noted. Respiratory: No acute distress, lungs are clear to auscultation, no wheezing, rhonchi, or rales noted. No stridor or retractions are noted. Cardiovascular: Regular rate and rhythm Skin: The skin exam shows no evidence of rashes Neuro: Alert and oriented x4, normal speech Lymphatic: No cervical lymphadenopathy Constitutional Vital Signs, click to edit/add: Last Vital Signs Temp 97.9 F 10/28/24 14:07 Pulse 102 H 10/28/24 14:07 Resp 18 10/28/24 14:07 BP 114/77 10/28/24 14:07 Pulse Ox 96 10/28/24 14:07 O2 Del Method Room Air 10/28/24 14:07 Course Vital Signs Vital signs: Vital Signs Temperature 97.9 F 10/28/24 14:07 Pulse Rate 102 H 10/28/24 14:07 Respiratory Rate 18 10/28/24 14:07 Blood Pressure 114/77 10/28/24 14:07 Pulse Oximetry 96 10/28/24 14:07 Oxygen Delivery Method Room Air 10/28/24 14:07 Temperature 97.9 F 10/28/24 14:07 Pulse Rate 102 H 10/28/24 14:07 Respiratory Rate 18 10/28/24 14:07 Blood Pressure 114/77 10/28/24 14:07 Pulse Oximetry 96 10/28/24 14:07 Oxygen Delivery Method Room Air 10/28/24 14:07 Medical Decision Making [facility] Narrative Medical decision making narrative: Exam noted for multiple dental caries patient has generalized dental tenderness but no focal palpable abscess he is significantly at risk though for abscess formation given the decay of his teeth. We discussed his sensitivity over the past week he is actively drinking coffee which could be an exacerbation given the loss of enamel. Patient given a dental sheet with encouragement to follow- up to dental clinics that we will see him without insurance. Patient will be placed on amoxicillin on an abundance of caution he does have some sinus tenderness and could have early infection either from sinuses or from his right upper molar. Patient also had a refill prescribed for his albuterol inhaler. We discussed the importance of PCP follow-up and ongoing health maintenance given his history and he is given local resources to follow-up with patient thankful and verbalized that he would be able to go to the pharmacy today and get his medications. The patient is to followup with primary care physician in next 2-3 days or to r eturn to the emergency department should any of the signs or symptoms worsen or new symptoms develop. Patient had questions answered. The patient agrees with the following Diagnosis and Treatment plan and the patient will be discharged home. Discharge Plan Discharge Chief Complaint: Dental/Oral Clinical Impression: Pain, dental, Dental caries, Medication refill Patient Disposition: Home, Self-Care Time of Disposition Decision: 14:50 Condition: Good Prescriptions / Home Meds: New ibuprofen 600 mg tablet 600 mg PO TID PRN (Reason: pain) Qty: 30 0RF amoxicillin 875 mg tablet 875 mg PO BID 10 Days Qty: 20 0RF albuterol sulfate 90 mcg/actuation HFA aerosol inhaler 2 inh inhalation Q6H PRN (Reason: wheezing) Qty: 6.7 0RF No Action albuterol sulfate 90 mcg/actuation HFA aerosol inhaler 2 inh inhalation Q6H PRN (Reason: shortness of breath or wheezing) Qty: 6.7 0RF albuterol sulfate 90 mcg/actuation HFA aerosol inhaler 2 inh inhalation Q4H PRN (Reason: shortness of breath or wheezing) Qty: 8.5 0RF Print Language: Kazakh Instructions: Toothache (ED) Additional Instructions: Contact dental clinics to establish follow up care Referrals: Lyubov Dee [employer]ITT[employer] DEMONSTRATOR [Physician] - As soon as possible Discharge Date/Time: 10/28/24 14:57 Documented by User: Pablo Bah MD 10/28/24 16:47 HPI HPI - General Adult General Chief complaint: Dental/Oral Stated complaint: DENTAL ABCESS Time Seen by Provider: 10/28/24 14:44 Related Data Previous Rx's ?Medication ?Instructions ?Recorded albuterol sulfate 90 mcg/actuation 2 inh inhalation Q6 H PRN shortness 10/01/23 aerosol inhaler of breath or wheezing #6.7 g jenn albuterol sulfate 90 mcg/actuation 2 inh inhalation Q4 H PRN shortness 03/04/24 aerosol inhaler of breath or wheezing #8.5 g jenn albuterol sulfate 90 mcg/actuation 2 inh inhalation Q6 H PRN wheezing 10/28/24 aerosol inhaler #6.7 grams amoxicillin 875 mg tablet 875 mg PO BID 10 days #20 ta bs 10/28/24 ibuprofen 600 mg tablet 600 mg PO TID PRN pain #30 t abs 10/28/24 Allergies Allergy/AdvReac Type Severity Reaction Status Date / Time milk Allergy Intermediate Flatulence Verified 03/04/24 06:30 Opioid HPI Opioid Management Most Recent Opioid Data: Last Pain Scale 9 Today, 14:07 [facility] Medical History (Updated 10/28/24 @ 14:50 by SEBASTIÁN Shen) Pneumothorax ?J93.9 - Pneumothorax, unspecified (ICD-10) Surgical History (Updated 03/04/24 @ 07:02 by Jeanne Saldivar) 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] (ICD-10) Social History Little interest or pleasure in doing things: not at all Feeling down, depressed, or hopeless: not at all Exam Constitutional Vital Signs, click to edit/add: Last Vital Signs Temp 97.9 F 10/28/24 14:07 Pulse 102 H 10/28/24 14:07 Resp 18 10/28/24 14:07 BP 114/77 10/28/24 14:07 Pulse Ox 96 10/28/24 14:07 O2 Del Method Room Air 10/28/24 14:07 Course Vital Signs Vital signs: Vital Signs Temperature 97.9 F 10/28/24 14:07 Pulse Rate 102 H 10/28/24 14:07 Respiratory Rate 18 10/28/24 14:07 Blood Pressure 114/77 10/28/24 14:07 Pulse Oximetry 96 10/28/24 14:07 Oxygen Delivery Method Room Air 10/28/24 14:07 Temperature 97.9 F 10/28/24 14:07 Pulse Rate 102 H 10/28/24 14:07 Respiratory Rate 18 10/28/24 14:07 Blood Pressure 114/77 10/28/24 14:07 Pulse Oximetry 96 10/28/24 14:07 Oxygen Delivery Method Room Air 10/28/24 14:07 Medical Decision Making MDM Narrative Medical decision making narrative: Exam noted for multiple dental caries patient has generalized dental tenderness but no focal palpable abscess he is significantly at risk though for abscess formation given the decay of his teeth. We discussed his sensitivity over the past week he is actively drinking coffee which could be an exacerbation given the loss of enamel. Patient given a dental sheet with encouragement to follow- up to dental clinics that we will see him without insurance. Patient will be placed on amoxicillin on an abundance of caution he does have some sinus tenderness and could have early infection either from sinuses or from his right upper molar. Patient also had a refill prescribed for his albuterol inhaler. We discussed the importance of PCP follow-up and ongoing health maintenance given his history and he is given local resources to follow-up with patient thankful and verbalized that he would be able to go to the pharmacy today and get his medications. The patient is to followup with primary care physician in next 2-3 days or to return to the emergency department should any of the signs or symptoms worsen or new symptoms develop. Patient had questions answered. The patient agrees with the following Diagnosis and Treatment plan and the patient will be discharged home. I, Dr Bah, have reviewed the above progress note and course of action in the ER; agree with the above. I have personally gone over history and physical, and discussed disposition and treatment plan with the PA. Discharge Plan Discharge Chief Complaint: Dental/Oral Clinical Impression: Pain, dental, Dental caries, Medication refill Patient Disposition: Home, Self-Care Time of Disposition Decision: 14:50 Condition: Good Prescriptions / Home Meds: New ibuprofen 600 mg tablet 600 mg PO TID PRN (Reason: pain) Qty: 30 0RF amoxicillin 875 mg tablet 875 mg PO BID 10 Days Qty: 20 0RF albuterol sulfate 90 mcg/actuation HFA aerosol inhaler 2 inh inhalation Q6H PRN (Reason: wheezing) Qty: 6.7 0RF No Action albuterol sulfate 90 mcg/actuation HFA aerosol inhaler 2 inh inhalation Q6H PRN (Reason: shortness of breath or wheezing) Qty: 6.7 0RF albuterol sulfate 90 mcg/actuation HFA aerosol inhaler 2 inh inhalation Q4H PRN (Reason: shortness of breath or wheezing) Qty: 8.5 0RF Print Language: Kazakh Instructions: Toothache (ED) Additional Instructions: Contact dental clinics to establish follow up care Referrals: Lyubov Dee NP [Physician] - As soon as possible Discharge Date/Time: 10/28/24 14:57
== END 2024-10-28 14:57 | disposition home or self-care (01) ==
PROVIDERS: Emergency Provider Emergency Medicine
DX: K02.9 Dental caries, unspecified (principal); K08.89 Other specified disorders of teeth and supporting structures; Z76.0 Encounter for issue of repeat prescription; J44.9 Chronic obstructive pulmonary disease, unspecified; Z90.2 Acquired absence of lung [part of]
CPT/HCPCS: 99283

== ENCOUNTER 2025-01-28 09:37 | Emergency (ER) | payer OTHER, SELFPAY ==
[2025-01-28] VITALS (13 sets, daily range): BP systolic 129–161; BP diastolic 89–94; PULSE 62–79; TEMP 36.5; O2SAT 86–98; BMI 17.5
--- OUTSIDE RECORDS SUMMARY | 2025-01-28 09:44 | XMS_ITS | CCD ---
Author Organization [facility] Inform ion Partnership [facility] Care Team Providers Care Survey Research Professor Name Role Phone REQUEST, NONE LISTED Primary [...] Care Provider MD Paul Mcleod Attending Provider [phone] NO PCP, NO PCP Primary Care Unavailable ALEXYS HAYNES Attending Unavailable ALEXYS HAYNES Attending Unavailable ALEXYS HAYNES Referring Unavailable NO PCP, NO PCP Primary Care Unavailable Hugh Headley Admitting Unavailab le Hugh Headley Attending Unavailab le NO FAMILY, PHYSICIAN Primary Care Unavailable Allergies Allergy Classification Reported Allergen(s) Allergy Type Date of Onset Reaction(s) Facility Asenapine (1 source) Asenapine Drug Allergy 09-06-2019 [facility] (3 sources) Asenapine Drug Allergy 09-06-2019 [facility] (3 sources) Citalopram Drug Allergy 09-06-2019 [facility] (2 sources) risperiDONE Drug Allergy [employer] Other (2 sources) Escitalopram; Translations: [escitalopram] Drug Allergy 09-06-2019 [facility] (1 source) Asenapine Drug Allergy 09-19-2021 [facility] (1 source) Citalopram Drug Allergy 09-19-2021 [facility] (1 source) risperiDONE Drug Allergy 09-19-2021 [facility] Medications Current Medications Medication Drug [...] 10-31-2020 Episodic Other aftercare (1 source) 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; Translations: [OTH PRISON CURRENT DRUG THERAPY] Onset: 11-02-2020 Episodic Other aftercare (2 sources) H/O: high risk medication; Translations: [Other mcfp (current) drug therapy] Episodic Other lower respiratory [...] ABSOLUTE BASOPHIL 0.1 X10E9/L Normal 0.0-0.2 [facility] Comment on above: Performed By: #### C BCA, CMP, 46842-7, 78339-4 #### [facility] ([id number]) [address] [place] [address] 39228 ABSOLUTE NEUTROPHIL 4.1 X10E9/L Normal 1.5-6.6 [facility] Comment on above: Performed By: #### C SUJIT, CMP, 55573-9, 79429-6 #### [facility] ([id number]) [address] [place] [address] 21961 Basophils/100 WBC (Bld) 0.8 % Normal [facility] Comment on above: Performed By: #### C SUJIT, CMP, 37967-5, 95202-8 #### [facility] ([id number]) [address] [place] [address] 65933 Eosinophils (Bld) [#/Vol] 0.1 10*3/uL Normal 0.0-0.4 [facility] Comment on above: Performed By: #### C SUJIT, CMP, 26690-2, 34528-6 #### [facility] ([id number]) [address] [place] [address] 95888 Eosinophils/100 WBC (Bld) 1.5 % Normal [facility] Comment on above: Performed By: #### C BCA, CMP, 79389-2, 23928-8 #### [facility] ([id number]) [address] [place] [address] 21469 Erythrocyte distribution width (RBC) [Ratio] 15.4 % High 11.5-15.0 [facility] Comment on above: Performed By: #### C BCA, CMP, 99570-2, 64098-1 #### [facility] ([id number]) [address] [place] [address] 04205 Hematocrit (Bld) [Volume fraction] 40.2 % Normal 39-49 [facility] Comment on above: Performed By: #### C SUJIT, CMP, 80326-7, 95513-1 #### [facility] ([id number]) [address] [place] [address] 13215 Hemoglobin (Bld) [Mass/Vol] 13.5 g/dL Normal 13.0-17.0 [facility] Comment on above: Performed By: #### C SUJIT, CMP, 60700-0, 86995-6 #### [facility] ([id number]) [address] [place] [address] 97612 Lymphocytes (Bld) [#/Vol] 3.1 10*3/uL Normal 1.0-3.5 [facility] Comment on above: Performed By: #### C SUJIT, CMP, 12373-9, 73488-2 #### [facility] ([id number]) [address] [place] [address] 66345 Lymphocytes/100 WBC (Bld) 37.9 % Normal [facility] Comment on above: Performed By: #### C SUJIT, CMP, 20754-2, 29239-5 #### [facility] ([id number]) [address] [place] [address] 21416 MCH (RBC) [Entitic mass] 30.1 pg Normal 27-34 [facility] Comment on above: Performed By: #### C SUJIT, CMP, 95848-1, 51970-0 #### [facility] ([id number]) [address] [place] [address] 53831 MCHC (RBC) [Mass/Vol] 33.4 g/dL Normal 32-36 [facility] Comment on above: Performed By: #### C SUJIT, CMP, 04317-1, 61330-8 #### [facility] ([id number]) [address] [place] [address] 61200 MCV (RBC) [Entitic vol] 90 fL Normal 80-100 [facility] Comment on above: Performed By: #### C BCA, CMP, 30351-0, 52472-7 #### [facility] ([id number]) [address] [place] [address] 82093 Monocytes (Bld) [#/Vol] 0.8 10*3/uL Normal 0-0.9 [facility] Comment on above: Performed By: #### C SUJIT, CMP, 22756-9, 06440-5 #### [facility] ([id number]) [address] [place] [address] 72338 Monocytes/100 WBC (Bld) 10.2 % Normal [facility] Comment on above: Performed By: #### C SUJIT, CMP, 56554-2, 14952-7 #### [facility] ([id number]) [address] [place] [address] 48408 Neutrophils/100 WBC (Bld) 49.6 % Normal [facility] Comment on above: Performed By: #### Albert BECKETT, CMP, 35586-0, 90873-1 #### [facility] ([id number]) [address] [place] [address] 43020 Platelet mean volume (Bld) [Entitic vol] 8.6 fL Normal 7-12 [facility] Comment on above: Performed By: #### Albert BECKETT, CMP, 35509-6, 36763-1 #### [facility] ([id number]) [address] [place] [address] 72533 Platelets (Bld) [#/Vol] 271 10*3/uL Normal 150-450 [facility] Comment on above: Performed By: #### Albert BCA, CMP, 78575-0, 36301-4 #### [facility] ([id number]) [address] [place] [address] 33896 RBC COUNT 4.46 X10E12/L Normal 4.10-5.70 [facility] Comment on above: Performed By: #### C BCA, CMP, 67205-4, 34236-7 #### [facility] ([id number]) [address] [place] [address] 65695 WBC (Bld) [#/Vol] 8.3 10*3/uL Normal 4.0-11.0 [facility] Comment on above: Performed By: #### C BCA, CMP, 05339-3, 38523-5 #### [facility] ([id number]) [address] [place] [address] 92334 COMPREHENSIVE METABOLIC PANE David 10-22-2023 Albumin [Mass/Vol] 3.7 g/dL Normal 3.2-5.3 [facility] Comment on above: Performed By: #### C BCA, CMP, 01937-2, 66388-7 #### [facility] ([id number]) [address] [place] [address] 62078 ALP [Catalytic activity/Vol] 64 U/L Normal 39-130 [facility] Comment on above: Performed By: #### C BCA, CMP, 38398-5, 70022-7 #### [facility] ([id number]) [address] [place] [address] 85445 ALT [Catalytic activity/Vol] 30 U/L Normal 0-40 [facility] Comment on above: Performed By: #### C BCA, CMP, 05637-6, 97000-3 #### [facility] ([id number]) [address] [place] [address] 18847 Anion gap [Moles/Vol] 7 mmol/L Normal 5-15 [facility] Comment on above: Performed By: #### C BCA, CMP, 51122-6, 90748-7 #### [facility] ([id number]) [address] [place] [address] 18390 AST [Catalytic activity/Vol] 39 U/L Normal 0-41 [facility] Comment on above: Performed By: #### C BCA, CMP, 75052-7, 31509-4 #### [facility] ([id number]) [address] [place] [address] 06011 Bilirubin [Mass/Vol] 1.0 mg/dL Normal 0.3-1.2 [facility] Comment on above: Result Comment: RESU LTS QUESTIONABLE DUE TO HEMOLYSIS Performed By: #### C BCA, CMP, 15150-4, 24003-9 #### [facility] ([id number]) [address] [place] [address] 18884 Calcium [Mass/Vol] 8.4 mg/dL Low 8.5-10.5 [facility] Comment on above: Performed By: #### C SUJIT, CMP, 46180-5, 79799-7 #### [facility] ([id number]) [address] [place] [address] 24795 Chloride [Moles/Vol] 103 mmol/L Normal 98-109 [facility] Comment on above: Performed By: #### C BCA, CMP, 49335-8, 90030-4 #### [facility] ([id number]) [address] [place] [address] 23956 CO2 [Moles/Vol] 27 mmol/L Normal 22-32 [facility] Comment on above: Performed By: #### C BCA, CMP, 61694-1, 30420-0 #### [facility] ([id number]) [address] [place] [address] 84152 Creatinine [Mass/Vol] 0.73 mg/dL Normal 0.70-1.20 [facility] Comment on above: Result Comment: METH OD TRACEABLE TO IDMS STANDARD Performed By: #### C SUJIT, CMP, 97702-5, 19930-8 #### [facility] ([id number]) [address] [place] [address] 43491 eGFR (CKD-EPI) NON-RACE DEPENDENT >90 Normal >59 [facility] Comment on above: Result Comment: Reported eGFR is based on the CKD-EPI 2020 equation that does not use a race coefficient. Performed By: #### C RADHA BECKETT, 26723-6, 49037-5 #### [facility] ([id number]) [address] [place] [address] 82068 Glucose [Mass/Vol] 88 mg/dL Normal 65-99 [facility] Comment on above: Performed By: #### C SUJIT, CMP, 72136-0, 64104-1 #### [facility] ([id number]) [address] [place] [address] 20482 Potassium [Moles/Vol] 4.3 mmol/L Normal 3.5-5.0 [facility] Comment on above: Result Comment: SPEC IMEN HEMOLYZED, RESULTS INCREASED Performed By: #### C SUJIT, CMP, 97017-3, 42473-6 #### [facility] ([id number]) [address] [place] [address] 50809 Protein [Mass/Vol] 8.0 g/dL Normal 6.0-8.0 [facility] Comment on above: Performed By: #### C SUJIT, CMP, 15457-7, 44616-7 #### [facility] ([id number]) [address] [place] [address] 19048 Sodium [Moles/Vol] 137 mmol/L Normal 134-146 [facility] Comment on above: Performed By: #### C SUJIT, CMP, 80446-3, 11433-2 #### [facility] ([id number]) [address] [place] [address] 67769 Urea nitrogen [Mass/Vol] 18 mg/dL Normal 5-23 [facility] Comment on above: Performed By: #### C SUJIT, CMP, 62222-1, 98686-1 #### [facility] ([id number]) [address] [place] [address] 93662 Fibrin D-dimer DDU (PPP) [Ma ss/Vol]on 10-22-2023 D DIMER <150 Normal <255 [facility] Comment on above: Result Comment: Results <255 ng/mL DDU: The presence of a VTE can safely be excluded with a negative D-Dimer result and Wells score. A negative result doesn't exclude the possibility of DIC. The test be repeated along with other diagnostic tests if the patient's symptoms persist or worsen. [email or web address] Performed By: #### C RADHA BECKETT, 93461-4, 82093-3 #### [facility] ([id number]) [address] [place] [address] 57368 Troponin I.cardiac High sens itivity method [Mass/Vol]on 10-22-2023 1 HOUR TROP I, HIGH SENSITIVITY 3 ng/L Normal <21 [facility] Comment on above: Performed By: #### 8 9579-7 #### [facility] ([id number]) [address] [place] [address] 04481 TROPONIN I, HIGH SENSITIVITY 4 ng/L Normal <21 [facility] Comment on above: Performed By: #### C RADHA BECKETT, 03129-5, 29046-4 #### [facility] ([id number]) [address] [place] [address] 63581 XR CHEST 1 VWon 10-22-2023 XR CHEST [...] Franco MD on 10/21/2023 11:51 PM Normal [facility] Body fluid albumin measureme nt (mass/volume)Ordered By: Paul Fields on 01-03-2022 Albumin (Body fld) [Mass/Vol] 4.1 g/dL 3.2-5.5 [facility] Creatinine and Glomerular fi ltration rate.predicted panel (S/P/Bld)Ordered By: Paul Fields on 01-03-2022 Creatinine [Mass/Vol] 0.91 mg/dL 0.64-1.27 [facility] Estimated glomerular filtrat ion rate (GFR) non- AmericanOrdered By: Paul Fields on 01-03-2022 GFR/1.73 sq M.predicted among non-blacks MDRD (S/P/Bld) [Vol rate/Area] > 60 mL/Min [facility] Globulin Calc (S) [Mass/Vol] Ordered By: Paul Fields on 01-03-2022 Globulin (S) [Mass/Vol] 2.6 g/dL F [facility] No Panel InformationOrdered By: Paul Fields on 01-03-2022 Estimated GFR () > 60 mL/Min [facility] Comment on above: GFR estimated refere nce range: According to KDOQI guidelines, <60 ml/min/1.73m2 is sufficient to diagnose a patient with chronic kidney disease. Pharmacy Creatinine Clearance (Chem N/A [facility] Protein [Mass/volume] in Ser um or PlasmaOrdered By: Paul Fields on 01-03-2022 Protein [Mass/Vol] 6.7 g/dL 6.1-7.9 [facility] Serum or plasma alanine matt otransferase measurement without P-5'-P (enzymatic activiOrdered By: Paul Fields on 01-03-2022 ALT No additional P-5'-P [Catalytic activity/Vol] 53 U/L 10-60 [facility] Serum or plasma albumin/glob ulin mass ratioOrdered By: Paul Fields on 01-03-2022 Albumin/Globulin [Mass ratio] 1.6 {ratio} [facility] Serum or plasma alkaline phyllis sphatase measurement (enzymatic activity/volume)Ordered By: Paul Fields on 01-03-2022 ALP [Catalytic activity/Vol] 51 U/L 32-92 [facility] Serum or plasma aspartate am inotransferase measurement (enzymatic activity/volume)Ordered By: Paul Fields on 01-03-2022 AST [Catalytic activity/Vol] 48 U/L 10-42 [facility] Serum or plasma calcium brodie urement (mass/volume)Ordered By: Paul Fields on 01-03-2022 Calcium [Mass/Vol] 9.7 mg/dL 8.2-10.2 [facility] Serum or plasma chloride yazan surement (moles/volume)Ordered By: Paul Fields on 01-03-2022 Chloride [Moles/Vol] 99 mmol/L 95-114 [facility] Serum or plasma glucose brodie urement (mass/volume)Ordered By: Paul Fields on 01-03-2022 Glucose [Mass/Vol] 62 mg/dL 70-100 [facility] Comment on above: ADA recommended refe rence range Random Glucose Reference Range is dependent on time and content of last meal. Glucose of more than 200 mg/dL in a nonstressed, ambulatory subject supports the diagnosis of Diabetes Mellitus. Serum or plasma potassium me asurement (moles/volume)Ordered By: Paul Fields on 01-03-2022 Potassium [Moles/Vol] 4.5 mmol/L 3.5-5.1 [facility] Serum or plasma sodium measu rement (moles/volume)Ordered By: Paul Fields on 01-03-2022 Sodium [Moles/Vol] 138 mmol/L 136-146 [facility] Serum or plasma total biliru bin measurement (mass/volume)Ordered By: Paul Fields on 01-03-2022 Bilirubin [Mass/Vol] 0.7 mg/dL 0.3-1.2 [facility] Serum or plasma total carbon dioxide measurement (moles/volume)Ordered By: Paul Fields on 01-03-2022 CO2 [Moles/Vol] 30.3 mmol/L 22.0-30.0 [facility] Serum or plasma urea nitroge n measurement (mass/volume)Ordered By: Paul Fields on 01-03-2022 Urea nitrogen [Mass/Vol] 11 mg/dL 9- [facility] Basic Metab w/rfx MGon 09-29 (cont.) Normal [facility] Comment on above: Result Comment: Aver age GFR for 50-59 years old: 93 mL/min/1.73sq m Chronic Kidney Disease: <60 mL/min/1.73sq m Kidney failure: <15 mL/min/1.73sq m eGFR calculated using average adult body mass. Additional eGFR calculator available at: http://www.[employer]/multiple_crcl_2011.htm Performed By: #### B MPX, CDP #### [facility] [address] [place] [address] Project Assistant: Robert Wynne MD Anion gap [Moles/Vol] 10 mmol/L Normal 9-17 [facility] Comment on above: Performed By: #### B MPX, CDP #### [facility] [address] [place], [place] [address]2483 Project Assistant: Robert Wynne MD BUN/CRE Ratio 16 Normal 9- [facility] Comment on above: Performed By: #### B MPX, CDP #### [facility] [address] [place] [address] Project Assistant: Robert Wynne MD Calcium [Mass/Vol] 9.3 mg/dL Normal 8.6-10.[address] [facility] Comment on above: Performed By: #### B MPX, CDP #### [facility] [address] [place], [place] [id number] Project Assistant: Robert Wynne MD Chloride [Moles/Vol] 103 mmol/L Normal 98-107 [facility] Comment on above: Performed By: #### B MPX, CDP #### [facility] [address] [place] [address] Project Assistant: Robert Wynne MD CO2 [Moles/Vol] 26 mmol/L Normal 20-31 [facility] Comment on above: Performed By: #### B MPX, CDP #### [facility] [address] [place], [place] 79[address]83 Project Assistant: Robert Wynne MD Creatinine [Mass/Vol] 0.79 mg/dL Normal 0.70-1.20 [facility] Comment on above: Performed By: #### B MPX, CDP #### [facility] [address] [place], [place] 904[address]83 Project Assistant: Robert Wynne MD GFR, Amer >60 Normal >60 [facility] Comment on above: Performed By: #### B MPX, CDP #### [facility] [address] [place], [place] 9[address]83 Project Assistant: Robert Wynne MD GFR,non Amer >60 Normal >60 [facility] Comment on above: Performed By: #### B MPX, CDP #### [facility] [address] [place], [place] 1605983 Project Assistant: Robert Wynne MD Glucose [Mass/Vol] 129 mg/dL High 70-[address] [facility] Comment on above: Performed By: #### B MPX, CDP #### [facility] [address] [place], [place] [id number] Project Assistant: Robert Wynne MD Potassium [Moles/Vol] 3.6 mmol/L Low 3.7-5.3 [facility] Comment on above: Performed By: #### B MPX, CDP #### [facility] [address] [place], [place] 3172883 Project Assistant: Robert Wynne MD Sodium [Moles/Vol] 139 mmol/L Normal 135-[address] [facility] Comment on above: Performed By: #### B MPX, CDP #### [facility] [address] [place], [place] 2687383 Project Assistant: Robert Wynne MD Staging: Normal [facility] Comment on above: Result Comment: Stag e 1: Some kidney damage normal GFR Stage 2: Mild kidney damage GFR 60-89 Stage 3: Moderate kidney damage GFR 30-59 Stage 4: Severe kidney damage GFR 15-29 Stage 5: Severe kidney damage GFR <15 ESRD - chronic treatment by dialysis or transplant Performed By: #### B MPX, CDP #### [facility] [address] [place] [address] [address] [place], [place] [id number] Project Assistant: Robert Wynne MD Urea nitrogen [Mass/Vol] 13 mg/dL Normal 6-[address] [facility] Comment on above: Performed By: #### B MPX, CDP #### [address] [place], [facility] Project Assistant: Robert Wynne MD CBC with Diffon 09-29-2021 Abs. Basophil 0.04 k/uL Normal 0.00-0.20 [facility] Comment on above: Performed By: #### B MPX, CDP #### [address] [place], [place] [id number] Project Assistant: Robert Wynne MD Abs.Imm.Granulocyte 0.03 k/uL Normal 0.00-0.[address] [facility] Comment on above: Performed By: #### B MPX, CDP #### [address] [place], [place] [id number] Project Assistant: Robert Wynne MD Abs.Neutrophil (Seg) 7.04 k/uL Normal 1.50-8.10 [facility] Comment on above: Performed By: #### B MPX, CDP #### [address] [place], [place] [id number] Project Assistant: Robert Wynne MD Basophils/100 WBC (Bld) 0 % Normal 0-2 M [facility] Comment on above: Performed By: #### B MPX, CDP #### [address] [place], [facility] Project Assistant: Robert Wynne MD Eosinophils (Bld) [#/Vol] 0.05 10*3/uL Normal 0.00-0.[address] [facility] Comment on above: Performed By: #### B MPX, CDP #### [facility] [address] [place] [address] Dr[place], [facility] Project Assistant: Robert Wynne MD Eosinophils/100 WBC (Bld) 0 % Low 1-[address] [facility] Comment on above: Performed By: #### B MPX, CDP #### [address] [place], [facility] Project Assistant: Robert Wynne MD Erythrocyte distribution width (RBC) [Ratio] 13.1 % Normal 11.8-14.[address] [facility] Comment on above: Performed By: #### B MPX, CDP #### [address] [place], [facility]83 Project Assistant: Robert Wynne MD Hematocrit (Bld) [Volume fraction] 35.4 % Low 40.7-50.[address] [facility] Comment on above: Performed By: #### B MPX, CDP #### [address] [place], [facility]83 Project Assistant: Robert Wynne MD Hemoglobin (Bld) [Mass/Vol] 11.9 g/dL Low 13.0-17.[address] [facility] Comment on above: Performed By: #### B MPX, CDP #### [address] [place], [facility] Project Assistant: Robert Wynne MD Immature granulocytes/100 WBC (Bld) 0 % Normal [address] [facility] Comment on above: Performed By: #### B MPX, CDP #### [address] [place], [facility]83 Project Assistant: Robert Wynne MD Lymphocytes (Bld) [#/Vol] 3.53 10*3/uL Normal 1.10-3.[address] [facility] Comment on above: Performed By: #### B MPX, CDP #### [address] [place] [address] Project Assistant: Robert Wynne MD Lymphocytes/100 WBC (Bld) 30 % Normal 24-[address] [facility] Comment on above: Performed By: #### B MPX, CDP #### [address] [place] [address] Project Assistant: Robert Wynne MD MCH (RBC) [Entitic mass] 30.9 pg Normal 25.2-33.[address] [facility] Comment on above: Performed By: #### B MPX, CDP #### [address] [place] [address] Project Assistant: Robert Wynne MD MCHC (RBC) [Mass/Vol] 33.6 g/dL Normal 28.4-34.8 [facility] Comment on above: Performed By: #### B MPX, CDP #### [address] [place] [address] Project Assistant: Robert Wynne MD MCV (RBC) [Entitic vol] 91.9 fL Normal 82.6-102.9 M [facility] Comment on above: Performed By: #### B MPX, CDP #### [address] [place], [place] [id number] Project Assistant: Robert Wynne MD Monocytes (Bld) [#/Vol] 1.11 10*3/uL Normal 0.10-1.[address] [facility] Comment on above: Performed By: #### B MPX, CDP #### [address] [place] [address] Project Assistant: Robert Wynne MD Monocytes/100 WBC (Bld) 9 % Normal 3-12 M [facility] Comment on above: Performed By: #### B MPX, CDP #### [facility] [address] [place], [place] [id number] Project Assistant: Robert Wynne MD Neutrophil (Seg) 61 % Normal 36-65 [facility] Comment on above: Performed By: #### B MPX, CDP #### [facility] [address] [place], [place] 4011883 Project Assistant: Robert Wynne MD NRBC Automated 0.0 per 100 WBC Normal 0.[address] [facility] Comment on above: Performed By: #### B MPX, CDP #### [facility] [address] [place], [place] [id number] Project Assistant: Robert Wynne MD Platelet mean volume (Bld) [Entitic vol] 9.9 fL Normal 8.1-13.[address] [facility] Comment on above: Performed By: #### B MPX, CDP #### [address] [place], [place] [id number] Project Assistant: Robert Wynne MD Platelets (Bld) [#/Vol] 284 10*3/uL Normal 138-[address] [facility] Comment on above: Performed By: #### B MPX, CDP #### [address] [place], [place] [id number] Project Assistant: Robert Wynne MD RBC (Bld) [#/Vol] 3.85 10*6/uL Low 4.21-5.[address] [facility] Comment on above: Performed By: #### B MPX, CDP #### [facility] [address] [place] [address] Project Assistant: Robert Wynne MD WBC (Bld) [#/Vol] 11.8 10*3/uL High 3.5-11.[address] [facility] Comment on above: Performed By: #### B MPX, CDP #### [facility] [address] [place], [place] [id number] Project Assistant: Robert Wynne MD Drug Scr, Abuse, Uron 2021 Amphetamine(s),Ur Positive Abnormal NEG [facility] Comment on above: Performed By: #### D AU, UAMIC #### [facility] [address] [place] [address] Dr[address] [place], [place] [id number] Project Assistant: Robert Wynne MD Barbiturate(s),Ur Negative Normal NEG [facility] Comment on above: Performed By: #### Kenneth AU, UAMIC #### [address] [place] [address] Project Assistant: Robert Wynne MD Benzodiazepine(s) Negative Normal NEG [facility] Comment on above: Performed By: #### Kenneth AU, UAMIC #### [facility] [address] [place] [address] [place] [address] Project Assistant: Robert Wynne MD Buprenorphrine, Ur Negative Normal [facility] Comment on above: Performed By: #### Kenneth AU, UAMIC #### [address] [place] [address] Project Assistant: Robert Wynne MD Cannabinoid(s),Ur Positive Abnormal NEG [facility] Comment on above: Performed By: #### Kenneth AU, UAMIC #### [facility] [address] [place] [address] Dr[address] [place], [place] [id number] Project Assistant: Robert Wynne MD Cocaine Metabolite Negative Normal [facility] Comment on above: Performed By: #### D AU, UAMIC #### [facility] [address] [place], [place] [phone] Project Assistant: Robert Wynne MD Methadone Ql (U) Negative Normal NEG [facility] Comment on above: Performed By: #### Kenneth AU, UAMIC #### [facility] [address] [place] [address] Project Assistant: Robert Wynne MD Methamphetamine, Ur Positive Abnormal NEG [facility] Comment on above: Performed By: #### D AU, UAMIC #### [facility] [address] [place], [place] [phone] Project Assistant: Robetr Wynne MD Opiate(s), Ur Negative Normal NEG [facility] Comment on above: Performed By: #### D AU, UAMIC #### [facility] [address] [place] [address] Dr[address] [place], [place] [id number] Project Assistant: Robert Wynne MD Oxycodone, Urine Negative Normal NEG [facility] Comment on above: Performed By: #### D AU, UAMIC #### [facility] [address] [place] [address] [place] [address] Project Assistant: Robert Wynne MD Phencyclidine, Ur Negative Normal NEG [facility] Comment on above: Performed By: #### D AU, UAMIC #### [facility] [address] [place] [address] Dr[address] [place], [place] [id number] Project Assistant: Robert Wynne MD Propoxyphene,Urine Negative Normal NEG [facility] Comment on above: Performed By: #### D AU, UAMIC #### [facility] [address] [place] [address] [place] [address] Project Assistant: Robert Wynne MD Tricyclic antidepressants Screen Ql (U) Negative Normal NEG [facility] Comment on above: Result Comment: Drug screen results are to be used for medical purposes only. All positive results are unconfirmed. Testing for employment or legal uses should be sent to a reference laboratory for confirmation. Performed By: #### D AU, UAMIC #### [facility] [address] [place] [address] Dr[address] [place], [place] [id number] Project Assistant: Robert Wynne MD Drug screen multi urineon Amphetamine Screen, Ur Positive Abnormal NEGATIVE [facility] Barbiturate Screen, Ur Negative NEGATIVE [facility] Benzodiazepine Screen, Urine Negative NEGATIVE [facility] Buprenorphine Urine Negative NEGATIVE [facility] Cannabinoid Scrn, Ur Positive Abnormal NEGATIVE [facility] Cocaine Metabolite, Urine Negative NEGATIVE [facility] Interpretation and review of laboratory results Abnormal [facility] Methadone Screen, Urine Negative NEGATIVE M [facility] Methamphetamine, Urine Positive Abnormal NEGATIVE Me [facility] Opiates, Urine Negative NEGATIVE [facility] th Oxycodone Screen, Ur Negative NEGATIVE [facility] Phencyclidine, Urine Negative NEGATIVE [facility] Propoxyphene, Urine Negative NEGATIVE [facility] Tricyclic Antidepressants, Urine Negative NEGATIVE [facility] Comment on above: Drug screen results are to be used for medical purposes only. All positive results are unconfirmed. Testing for employment or legal uses should be sent to a reference laboratory for confirmation. [facility] Ethanol Alcoholon 09-29-2021 Ethanol [Mass/Vol] mg/dL Normal <[address] [facility] Comment on above: Performed By: #### A LCB #### [facility] [address] [place] [address] Project Assistant: Robert Wynne MD Ethanol percent <0.010 Normal <0.010 [facility] Comment on above: Performed By: #### A LCB #### [facility] [address] [place] [address] Project Assistant: Robert Wynne MD [id number] 09-29-2021 SARS-CoV-2 (COVID-19) RNA VISHNU+probe Ql (Unsp spec) Not detected Normal NOTDET [facility] Comment on above: Result Comment: Rapid NAAT: [...] management decisions. Fact sheet for Healthcare Providers: https://www.fda.gov/media/665745/download Fact sheet for Patients: https://www.fda.gov/media/107488/download Methodology: Isothermal Nucleic Acid Amplification Performed By: #### C OVRB #### [facility] [address] [place] [address] Project Assistant: Robert Wynne MD Urinalysis w/ Microon 2021 ----- Normal [facility] Comment on above: Performed By: #### D AU, UAMIC #### [facility] [address] [place], [place] [phone] Project Assistant: Robert Wynne MD Bilirubin, SemiQt,Ur Negative Normal NEG [facility] Comment on above: Performed By: #### D AU, UAMIC #### [facility] [address] [place] [address] Project Assistant: Robert Wynne MD Blood, Urine Negative Normal NEG [facility] Comment on above: Performed By: #### D AU, UAMIC #### [facility] [address] [place], [place] [id number] Project Assistant: Robert Wynne MD Clarity (U) Clear Normal CLEAR [facility] Comment on above: Performed By: #### D AU, UAMIC #### [facility] [address] [place] [address] Project Assistant: Robert Wynne MD Color (U) Yellow Normal YEL [facility] Comment on above: Performed By: #### D AU, UAMIC #### [facility] [address] [place] [address] Project Assistant: Robert Wynne MD Epithelial cells LM Ql (Urine sed) 0 TO 2 Normal 0-[address] [facility] Comment on above: Performed By: #### D AU, UAMIC #### [facility] [address] [place], [place] [phone] Project Assistant: Robert Wynne MD Glucose Ql (U) Negative Normal NEG [facility] Comment on above: Performed By: #### D AU, UAMIC #### [facility] [address] [place] [address] Project Assistant: Robert Wynne MD Ketones Ql (U) Negative Normal NEG [facility] Comment on above: Performed By: #### D AU, UAMIC #### [address] [place], [place] [id number] Project Assistant: Robert Wynne MD Leukocyte esterase Test strip Ql (U) Negative Normal NEG [facility] Comment on above: Performed By: #### D AU, UAMIC #### [facility] [address] [place] [address] [place] [address] Project Assistant: Robert Wynne MD Nitrite,Ur Negative Normal NEG [facility] Comment on above: Performed By: #### D AU, UAMIC #### [facility] [address] [place] [address] [place] [address] Project Assistant: Robert Wynne MD PH,Ur 6.0 Normal 5.0-9.[address] [facility] Comment on above: Performed By: #### D AU, UAMIC #### [facility] [address] [place] [address] Project Assistant: Robert Wynne MD Protein Ql (U) Negative Normal NEG [facility] Comment on above: Performed By: #### D AU, UAMIC #### [facility] [address] [place], [place] [phone] Project Assistant: Robert Wynne MD Spec. Reynolds,Ur 1.020 Normal 1.010-1.020 [facility] Comment on above: Performed By: #### D AU, UAMIC #### [facility] [address] [place], [place] [phone] Project Assistant: Robert Wynne MD Urine RBC's 0 TO 2 Normal 0-[address] [facility] Comment on above: Performed By: #### D AU, UAMIC #### [facility] [address] [place], [place] [phone] Project Assistant: Robert Wynne MD Urine WBC's 0 TO 2 Normal 0-[address] [facility] Comment on above: Performed By: #### D AU, UAMIC #### [facility] [address] [place], [place] [id number] Project Assistant: Robert Wynne MD Urobilinogen,Ur Normal Normal NORM [facility] Comment on above: Performed By: #### D AU, UAMIC #### [facility] [address] [place], [place] [id number] Project Assistant: Robert Wynne MD Urinalysis with Microscopico n 09-29-2021 - [facility] Bilirubin Urine Negative NEGATIVE [facility] Color, UA Yellow Yellow [facility] Epithelial Cells UA 0 TO 2 [facility] Glucose, Ur Negative NEGATIVE [facility] Ketones Ql (U) Negative NEGATIVE [facility] Leukocyte esterase Test strip Ql (U) Negative NEGATIVE [facility] Nitrite, Urine Negative NEGATIVE [facility] pH, UA 6.0 [facility] Protein, UA Negative NEGATIVE [facility] RBC, UA 0 TO 2 [facility] Specific Reynolds, UA 1.020 [facility] Turbidity UA Clear Clear [facility] Urine Hgb Negative NEGATIVE [facility] Urobilinogen, Urine Normal Normal [facility] WBC, UA 0 TO 2 [facility] Basic Metabolic Panel w/ Ref brain to MGon 09-28-2021 Anion gap [Moles/Vol] 10 mmol/L 9 - 17 mmol/L [facility] Calcium [Mass/Vol] 9.3 mg/dL 8.6 - 10. 4 mg/dL [facility] Chloride [Moles/Vol] 103 mmol/L 98 - 10 7 mmol/L [facility] CO2 [Moles/Vol] 26 mmol/L 20 - 31 mmol/L [facility] Creatinine [Mass/Vol] 0.79 mg/dL 0.70 - 1.20 mg/dL [facility] GFR >60 >60 mL/min [facility] GFR Non- >60 >60 mL/min [facility] Glucose [Mass/Vol] 129 mg/dL High 70 - 99 mg/dL [facility] Interpretation and review of laboratory results Abnormal [facility] Potassium [Moles/Vol] 3.6 mmol/L Low 3.7 - 5.3 mmol/L [facility] Sodium [Moles/Vol] 139 mmol/L 135 - 144 mmol/L [facility] Urea nitrogen (BldV) [Mass/Vol] 13 mg/dL 6 - 20 mg/dL [facility] Urea nitrogen/Creatinine (Bld) [Mass ratio] 16 [facility] CBC with Auto Differentialon 09-28-2021 Absolute Eos # 0.05 [facility] th Absolute Immature Granulocyte 0.03 [facility] Absolute Lymph # 3.53 [facility] Absolute [place] # 1.11 [facility] lt Basophils (Bld) [#/Vol] 0.04 10*3/uL [facility] Basophils/100 WBC (Bld) 0 % 0 - 2 % [facility] Eosinophils/100 WBC (Bld) 0 % Low 1 - 4 % [facility] Hematocrit (Bld) [Volume fraction] 35.4 % Low 40.7 - 50.3 % [facility] Hemoglobin.gastrointest inal spec 1 Ql (Stl) 11.9 g/dL Low 13.0 - 17.0 g/dL [facility] Immature granulocytes/100 WBC (Bld) 0 % 0 [facility] Interpretation and review of laboratory results Abnormal [facility] Lymphocytes/100 WBC (Bld) 30 % 24 - 43 % [facility] MCH (RBC) [Entitic mass] 30.9 pg 25.2 - 33.5 pg [facility] MCHC (RBC) [Mass/Vol] 33.6 g/dL 28.4 - 34.8 g/dL [facility] MCV (RBC) [Entitic vol] 91.9 fL 82.6 - 102.9 fL [facility] Monocytes/100 WBC (Bld) 9 % 3 - 12 % [facility] NRBC Automated 0.0 0.0 per 100 WBC [facility] Platelet distribution width (Bld) [Ratio] 13.1 % 11.8 - 14.4 % [facility] Platelet mean volume (Bld) [Entitic vol] 9.9 fL 8.1 - 13.5 fL [facility] Platelets (Bld) [#/Vol] 284 10*3/uL [facility] RBC (Bld) [#/Vol] 3.85 10*6/uL Low 4.21 - 5.7 7 m/uL [facility] Segmented neutrophils/100 WBC (Bld) 61 % 36 - 65 % [facility] Segs Absolute 7.04 [facility] WBC (Bld) [#/Vol] 11.8 10*3/uL High [facility] COVID-19, Rapidon 09-28-2021 SARS-CoV-2 (COVID-19) RNA VISHNU+probe Ql (Unsp spec) Not detected Not Detected [facility] Comment on above: Rapid NAAT: The specimen [...] management decisions. Fact sheet for Healthcare Providers: https://www.fda.gov/media/540211/download Fact sheet for Patients: https://www.fda.gov/media/966182/download Methodology: Isothermal Nucleic Acid Amplification Specimen Description .NASOPHARYNGEAL SWAB [facility] Ethanolon 09-28-2021 Ethanol [Mass/Vol] mg/dL <10 mg/dL [facility] Ethanol percent <0.010 <0.010 [facility] - Chemistry and C hemistry - challengeon 09-28-2021 GFR/1.73 sq M.predicted MDRD (S/P/Bld) [Vol rate/Area] [facility] Comment on above: Average GFR for 50-5 9 years old: 93 mL/min/1.73sq m Chronic Kidney Disease: <60 mL/min/1.73sq m Kidney failure: <15 mL/min/1.73sq m eGFR calculated using average adult body mass. Additional eGFR calculator available at: http://www.[employer]/multiple_crcl_2012.htm Stage 1: Some kidney damage normal GFR Stage 2: Mild kidney damage GFR 60-89 Stage 3: Moderate kidney damage GFR 30-59 Stage 4: Severe kidney damage GFR 15-29 Stage 5: Severe kidney damage GFR <15 ESRD - chronic treatment by dialysis or transplant CBC AUTO DIFFon 10-31-2020 BASO # 0.0 103/ul Normal 0.0-0.1 [facility] Comment on above: Performed By: #### C BC #### [facility] [address] [place], [place] [id number] Ethan Tabatha Basophils/100 WBC (Bld) 0.5 % Normal 0.2-2.0 [facility] Comment on above: Performed By: #### C BC #### [facility] [address] [place], [place] [address] Ethan Tabatha EO # 0.2 103/ul Normal 0.0-0.7 [facility] Comment on above: Performed By: #### C BC #### [facility] [address] [place], [place] [address] Ethan Tabatha Eosinophils/100 WBC (Bld) 2.7 % Normal 0.9-7.0 [facility] Comment on above: Performed By: #### C BC #### [facility] [address] [place], [place] [address] Ethan Tabatha Erythrocyte distribution width (RBC) [Ratio] 13.9 % Normal 11.0-15.0 [facility] Comment on above: Performed By: #### C BC #### [facility] [address] [place], [place] [phone] Ethan Mays Hematocrit (Bld) [Volume fraction] 36.9 % Critically low 42.0-54.0 [facility] Comment on above: Performed By: #### C BC #### [facility] [address] [place] [address] Ethan Mays Hemoglobin (Bld) [Mass/Vol] 11.9 g/dL Critically low 14.0-18.0 [facility] Comment on above: Performed By: #### C BC #### [facility] [address] [place] [address] Ethanpedro luis Mays IG # 0.02 10e3/ul Normal 0.00-0.03 [facility] Comment on above: Performed By: #### C BC #### [facility] [address] [place] [address] Ethan Mays IG % 0.2 % Normal 0.0-0.5 [facility] Comment on above: Performed By: #### C BC #### [facility] [address] [place] [address] Ethan Mays LYMPH # 4.1 103/ul Critically high 1.2-3.8 [facility] Comment on above: Performed By: #### C BC #### [facility] [address] [place] [address] Ethan Mays Lymphocytes/100 WBC (Bld) 48.0 % Normal 20.5-60.0 [facility] Comment on above: Performed By: #### C BC #### [facility] [address] [place] [address] Ethan Mays MANUAL DIFF REQ NO Normal [facility] Comment on above: Performed By: #### C BC #### [facility] [address] [place], [place] [id number] Ethan Mays MCH (RBC) [Entitic mass] 31.5 pg Normal 25.9-34.0 [facility] Comment on above: Performed By: #### C BC #### [facility] [address] [place] [address] Ethan Mays MCHC (RBC) [Mass/Vol] 32.2 g/dL Normal 29.9-35.2 [facility] Comment on above: Performed By: #### C BC #### [facility] [address] [place], [place] [address] Ethan Mays MCV (RBC) [Entitic vol] 97.6 fL Critically high 80.0-94 .0 [facility] Comment on above: Performed By: #### C BC #### [facility] [address] [place], [place] [address] Ethan Mays MONO # 0.9 103/ul Critically high 0.3-0.8 [facility] Comment on above: Performed By: #### C BC #### [facility] [address] [place], [place] [address] Ehtan Mays Monocytes/100 WBC (Bld) 10.5 % Normal 1.7-12.0 [facility] Comment on above: Performed By: #### C BC #### [facility] [address] [place], [place] [address] Ethan Mays NEUT # 3.3 103/ul Normal 1.4-6.5 [facility] Comment on above: Performed By: #### C BC #### [facility] [address] [place], [place] [address] Ethan Mays Neutrophils/100 WBC (Bld) 38.1 % Critically low 43.0-75.0 [facility] Comment on above: Performed By: #### C BC #### [facility] [address] [place], [place] [address] Ethan Mays Platelet mean volume (Bld) [Entitic vol] 9.4 fL Critically low 9.5-13.5 [facility] Comment on above: Performed By: #### C BC #### [facility] [address] [place], [place] [address] Ethan Gutierrezen PLT 366 103/ul Normal 150-450 [facility] Comment on above: Performed By: #### C BC #### [facility] [address] [place], [place] [address] Ethanpedro luis Gutierrezen RBC 3.78 106/ul Critically low 4.70-6.10 [facility] Comment on above: Performed By: #### C BC #### [facility] [address] [place], [place] [address] Ethan Mays WBC 8.5 103/ul Normal 4.0-11.0 [facility] Comment on above: Performed By: #### C BC #### [facility] [address] [place], [place] [address] Ethan Mays CTA CHEST WO W CONon [...] KRISTEN KAUFMAN Date: 2020-10-31 21:05 Normal [facility] PROF 14(COMP METB)on 021 Albumin [Mass/Vol] 3.2 g/dL Critically low 3.5-5.0 [facility] Comment on above: Performed By: #### C GENTRY, HSTROPN #### [facility] [address] [place], [place] [address] Ethan Tabatha Albumin/Globulin [Mass ratio] 0.8 {ratio} Normal [facility] Comment on above: Performed By: #### C GENTRY, HSTROPN #### [facility] [address] [place], [place] [address] Ethan Tabatha ALP [Catalytic activity/Vol] 78 U/L Normal 38-126 [facility] Comment on above: Performed By: #### C EGNTRY, HSTROPN #### [facility] [address] [place], [place] [address] Ethan Tabatha ALT [Catalytic activity/Vol] 42 U/L Normal 21-72 [facility] Comment on above: Performed By: #### C GENTRY, HSTROPN #### [facility] [address] [place], [place] [address] Ethan Tabatha Anion gap [Moles/Vol] 10.7 mmol/L Normal [facility] Comment on above: Performed By: #### C GENTRY, HSTROPN #### [facility] [address] [place], [place] [address] Ethan Tabatha AST [Catalytic activity/Vol] 28 U/L Normal 17-59 [facility] Comment on above: Performed By: #### C GENTRY, HSTROPN #### [facility] [address] [place], [place] [address] Ethan Tabatha Bilirubin [Mass/Vol] 2.7 mg/dL Critically high 0.2-1.3 [facility] Comment on above: Performed By: #### C GENTRY, HSTROPN #### [facility] [address] [place], [place] [address] Ethan Tabatha Calcium [Mass/Vol] 8.8 mg/dL Normal 8.4-10.2 [facility] Comment on above: Performed By: #### C GENTRY, HSTROPN #### [facility] [address] [place] [id number] Ethan Tabatha Chloride [Moles/Vol] 107 mmol/L Normal 98-107 [facility] Comment on above: Performed By: #### C GENTRY, HSTROPN #### [facility] [address] [place], [place] [address] Ethan Tabatha CO2 [Moles/Vol] 29.2 mmol/L Normal 22.0-30.[address] [facility] Comment on above: Performed By: #### C GENTRY, HSTROPN #### [facility] [address] [place] [address] Ethan Tabatha Creatinine [Mass/Vol] 0.92 mg/dL Normal 0.66-1.25 [facility] Comment on above: Performed By: #### C GENTRY, HSTROPN #### [facility] [address] [place] [address] Ethan Tabatha EGFR-AF LITHUANIAN >60 Normal >=60 [facility] [place] Comment on above: Performed By: #### C GENTRY, HSTROPN #### [facility] [address] [place], [place] [id number] Ethan Tabatha EGFR-NON AF LITHUANIAN >60 Normal >=60 [facility] Comment on above: Performed By: #### C GENTRY, HSTROPN #### [facility] [address] [place] [address] Ethan Tabatha Globulin (S) [Mass/Vol] 3.8 g/dL Normal T [facility] Comment on above: Performed By: #### C GENTRY, HSTROPN #### [facility] [address] [place], [place] [id number] Ethan Tabatha Glucose [Mass/Vol] 93 mg/dL Normal 74-106 [facility] Comment on above: Performed By: #### C GENTRY, HSTROPN #### [facility] [address] [place] [address] Ethan Tabatha Potassium [Moles/Vol] 3.9 mmol/L Normal 3.4-5.0 [facility] Comment on above: Performed By: #### C MP, HSTROPN #### [facility] [address] [place] [address] Ethan Tabatha Protein [Mass/Vol] 7.0 g/dL Normal 6.1-8.2 [facility] Comment on above: Performed By: #### C MP, HSTROPN #### [facility] [address] [place], [place] [id number] Ethan Tabatha Sodium [Moles/Vol] 143 mmol/L Normal 137-145 [facility] Comment on above: Performed By: #### C MP, HSTROPN #### [facility] [address] [place] [address] Ethan Tabatha Urea nitrogen [Mass/Vol] 17.0 mg/dL Normal 9.0-20.0 [facility] Comment on above: Performed By: #### C MP, HSTROPN #### [facility] [address] [place] [address] Ethan Tabatha Urea nitrogen/Creatinine [Mass ratio] 18.5 mg/mg Normal [facility] Comment on above: Performed By: #### C MP, HSTROPN #### [facility] [address] [place] [address] Ethan Tabatha TROPONIN, HIGH SENSITIVITYon 10-31-2020 HSTROP 5.3 pg/mL Normal 4.0-42.2 [facility] Comment on above: Result Comment: CUT- OFF POINTS HAVE BEEN ESTABLISHED BASED ON THE FOURTH UNIVERSAL DEFINITIONS OF MYOCARDIAL INFARCTION. THE UPPER REFERENCE LIMIT (URL) OF TROPONIN, DEFINED THE 99TH PERCENTILE OF cTnI DISTRIBUTION IN A REFERENCE POPULATION, HAS BEEN CONFIRMED THE DECISION THRESHOLD FOR LA DIAGNOSIS. Performed By: #### H STROPN #### [facility] [address] [place] [address] Ethan Tabatha HSTROP <4.0 Normal 4.0-42.2 [facility] Comment on above: Result Comment: CUT- OFF POINTS HAVE BEEN ESTABLISHED BASED ON THE FOURTH UNIVERSAL DEFINITIONS OF MYOCARDIAL INFARCTION. THE UPPER REFERENCE LIMIT (URL) OF TROPONIN, DEFINED THE 99TH PERCENTILE OF cTnI DISTRIBUTION IN A REFERENCE POPULATION, HAS BEEN CONFIRMED THE DECISION THRESHOLD FOR LA DIAGNOSIS. Performed By: #### C GENTRY HSTROPN #### [facility] [address] [place] [address] Ethan Tabatha CBC AUTO DIFFon 10-09-2020 BASO # 0.0 103/ul Normal 0.0-0.1 [facility] Comment on above: Performed By: #### C GENTRY HSTROPN #### [facility] [address] [place] [address] Ethan Tabatha Basophils/100 WBC (Bld) 0.3 % Normal 0.2-2.0 [facility] Comment on above: Performed By: #### C GENTRY HSTROPN #### [facility] [address] [place] [address] Ethan Tabatha EO # 0.3 103/ul Normal 0.0-0.7 [facility] Comment on above: Performed By: #### C GENTRY HSTROPN #### [facility] [address] [place] [address] Ethan Tabatha Eosinophils/100 WBC (Bld) 4.4 % Normal 0.9-7.0 [facility] Comment on above: Performed By: #### C GENTRY HSTROPN #### [facility] [address] [place], [place] [id number] Ethan Tabatha Erythrocyte distribution width (RBC) [Ratio] 13.6 % Normal 11.0-15.0 [facility] Comment on above: Performed By: #### C GENTRY HSTROPN #### [facility] [address] [place] [address] Ethan Tabatha Hematocrit (Bld) [Volume fraction] 44.4 % Normal 42.0-54.0 [facility] Comment on above: Performed By: #### C GENTRY HSTROPN #### [facility] [address] [place], [place] [id number] Ethan Tabatha Hemoglobin (Bld) [Mass/Vol] 14.7 g/dL Normal 14.0-18.0 [facility] Comment on above: Performed By: #### C MP, HSTROPN #### [facility] [address] [id number] Ethan Tabatha IG # 0.03 10e3/ul Normal 0.00-0.03 [facility] Comment on above: Performed By: #### C MP, HSTROPN #### [facility] [address] [id number] Ethan Tabatha IG % 0.4 % Normal 0.0-0.5 [facility] Comment on above: Performed By: #### C MP, HSTROPN #### [facility] [address] [id number] Ethan Tabatha LYMPH # 2.7 103/ul Normal 1.2-3.8 [facility] Comment on above: Performed By: #### C GENTRY, HSTROPN #### [facility] [address] [place], [place] [address] Ethan Tabatha Lymphocytes/100 WBC (Bld) 37.8 % Normal 20.5-60.0 [facility] Comment on above: Performed By: #### C GENTRY, HSTROPN #### [facility] [address] [id number] Ethanpedro luis Mays MANUAL DIFF REQ NO Normal [facility] Comment on above: Performed By: #### C GENTRY, HSTROPN #### [facility] [address] [place], [place] [address] Ethan Tabatha MCH (RBC) [Entitic mass] 31.3 pg Normal 25.9-34.0 [facility] Comment on above: Performed By: #### C MP, HSTROPN #### [facility] [address] [id number] Ethan Tabatha MCHC (RBC) [Mass/Vol] 33.1 g/dL Normal 29.9-35.2 [facility] Comment on above: Performed By: #### C GENTRY, HSTROPN #### [facility] [address] [id number] Ethan Tabatha MCV (RBC) [Entitic vol] 94.7 fL Critically high 80.0-94 .0 [facility] Comment on above: Performed By: #### C GENTRY, HSTROPN #### [facility] [address] [place] [address] Ethan Tabatha MONO # 0.5 103/ul Normal 0.3-0.8 [facility] Comment on above: Performed By: #### C GENTRY, HSTROPN #### [facility] [address] [place] [address] Ethan Tabatha Monocytes/100 WBC (Bld) 6.5 % Normal 1.7-12.0 [facility] Comment on above: Performed By: #### C GENTRY, HSTROPN #### [facility] [address] [place] [address] Ethan Tabatha NEUT # 3.6 103/ul Normal 1.4-6.5 [facility] Comment on above: Performed By: #### C GENTRY, HSTROPN #### [facility] [address] [place] [address] Ethan Tabatha Neutrophils/100 WBC (Bld) 50.6 % Normal 43.0-75.0 [facility] Comment on above: Performed By: #### C GENTRY, HSTROPN #### [facility] [address] [place] [address] Ethan Tabatha Platelet mean volume (Bld) [Entitic vol] 10.4 fL Normal 9.5-13.5 [facility] Comment on above: Performed By: #### C GENTRY, HSTROPN #### [facility] [address] [place] [address] Ethan Tabatha PLT 283 103/ul Normal 150-450 [facility] Comment on above: Performed By: #### C GENTRY, HSTROPN #### [facility] [address] [place], [place] [id number] Ethan Tabatha RBC 4.69 106/ul Critically low 4.70-6.10 [facility] Comment on above: Performed By: #### C GENTRY, HSTROPN #### [facility] [address] [place], [place] [id number] Ethan Tabatha WBC 7.2 103/ul Normal 4.0-11.0 [facility] Comment on above: Performed By: #### C GENTRY, HSTROPN #### [facility] [address] [place] [address] Ethan Mays ER URINE PROFILEon 1 Bilirubin Ql (U) Negative Normal NEGATIVE The [facility] Comment on above: Performed By: #### C GENTRY, HSTROPN #### [facility] [address] [place] [address] Ethan Tabatha Clarity (U) CLEAR Normal CLEAR [facility] Comment on above: Performed By: #### C GENTRY, HSTROPN #### [facility] [address] [place] [address] Ethan Tabatha Color (U) LT. YELLOW Normal YELLOW [facility] Comment on above: Performed By: #### C GENTRY, HSTROPN #### [facility] [address] [place] [address] Ethan Mays ERUAHD A micrscopic examination will be performed if indicated. Normal [facility] Comment on above: Performed By: #### C GENTRY, HSTROPN #### [facility] [address] [place] [address] Ethan Tabatha Glucose Ql (U) Negative Normal NEGATIVE [facility] Comment on above: Performed By: #### C GENTRY, HSTROPN #### [facility] [address] [place] [address] Ethan Tabatha Hemoglobin Ql (U) Negative Normal NEGATIVE [facility] Comment on above: Performed By: #### C GENTRY, HSTROPN #### [facility] [address] [place] [address] Ethan Tabatha Ketones Ql (U) Negative Normal NEGATIVE [facility] Comment on above: Performed By: #### C GENTRY, HSTROPN #### [facility] [address] [place] [address] Ethan Tabatha LEUKOCYTES Negative Normal NEGATIVE [facility] Comment on above: Performed By: #### C GENTRY, HSTROPN #### [facility] [address] [place] [address] Ethanpedro luis Mays Nitrite Ql (U) Negative Normal NEGATIVE [facility] Comment on above: Performed By: #### C GENTRY HSTROPN #### [facility] [address] [place] [address] Ethan Mays pH (U) 7.0 [pH] Normal 5-9 [facility] Comment on above: Performed By: #### C GENTRY HSTROPN #### [facility] [address] [place] [address] Ethan Mays SPEC GRAVITY 1.010 Normal 1.005-<=1.025 [facility] Comment on above: Performed By: #### C GENTRY HSTROPN #### [facility] [address] [place] [address] Ethan Mays UA PROTEIN Negative Normal NEGATIVE/ TRACE [facility] Comment on above: Performed By: #### C GENTRY HSTROPN #### [facility] [address] [place] [address] Ethan Mays UR MICRO IND NOT INDICATED Normal [facility] Comment on above: Performed By: #### C GENTRY HSTROPN #### [facility] [address] [place] [address] Ethan Mays Urobilinogen Qn (U) 0.2 {Jamal'U}/dL Normal 0.2 - 1. 0 [facility] Comment on above: Performed By: #### C GENTRY HSTROPN #### [facility] [address] [place] [address] Ethan Mays POINT OF CARE GLUCOSEon 09-14 Glucose [Mass/Vol] 78 mg/dL Normal 74-106 [facility] Comment on above: Performed By: #### P OCGLUC #### [facility] [address] [place] [address] Ethan Mays PROF 14(COMP METB)on 021 Albumin [Mass/Vol] 3.9 g/dL Normal 3.5-5.0 [facility] Comment on above: Performed By: #### C GENTRY, HSTROPN #### [facility] [address] [place], [place] [address] Ethan Tabatha Albumin/Globulin [Mass ratio] 1.0 {ratio} Normal [facility] Comment on above: Performed By: #### C GENTRY, HSTROPN #### [facility] [address] [place], [place] [address] Ethan Tabatha ALP [Catalytic activity/Vol] 63 U/L Normal 38-126 [facility] Comment on above: Performed By: #### C GENTRY, HSTROPN #### [facility] [address] [place], [place] [address] Ethan Tabatha ALT [Catalytic activity/Vol] 67 U/L Normal 21-72 [facility] Comment on above: Performed By: #### C GENTRY, HSTROPN #### [facility] [address] [id number] Ethan Tabatha Anion gap [Moles/Vol] 8.8 mmol/L Normal [facility] Comment on above: Performed By: #### C GENTRY, HSTROPN #### [facility] [address] [id number] Ethan Tabatha AST [Catalytic activity/Vol] 40 U/L Normal 17-59 [facility] Comment on above: Performed By: #### C GENTRY, HSTROPN #### [facility] [address] [place], [place] [address] Ethan Tabatha Bilirubin [Mass/Vol] 4.0 mg/dL Critically high 0.2-1.3 [facility] Comment on above: Performed By: #### C GENTRY, HSTROPN #### [facility] [address] [place], [place] [address] Ethan Tabatha Calcium [Mass/Vol] 9.1 mg/dL Normal 8.4-10.2 [facility] [place] [facility] Comment on above: Performed By: #### C GENTRY, HSTROPN #### [facility] [address] [place], [place] [address] Ethan Tabatha Chloride [Moles/Vol] 105 mmol/L Normal 98-107 [facility] Comment on above: Performed By: #### C MP, HSTROPN #### [facility] [address] [address] Ethan Tabatha CO2 [Moles/Vol] 29.3 mmol/L Normal 22.0-30.0 [facility] Comment on above: Performed By: #### C MP, HSTROPN #### [facility] [address] [address] Ethan Tbaatha Creatinine [Mass/Vol] 0.93 mg/dL Normal 0.66-1.25 [facility] Comment on above: Performed By: #### C GENTRY, HSTROPN #### [facility] [address] [address] Ethan Tabatha EGFR-AF LITHUANIAN >60 Normal >=60 [facility] Comment on above: Performed By: #### C GENTRY, HSTROPN #### [facility] [address] [address] Ethan Tabatha EGFR-NON AF LITHUANIAN >60 Normal >=60 [facility] Comment on above: Performed By: #### C GENTRY, HSTROPN #### [facility] [address] [address] Ethan Tabatha Globulin (S) [Mass/Vol] 3.8 g/dL Normal [facility] Comment on above: Performed By: #### C MP, HSTROPN #### [facility] [address] [address] Ethan Tabatha Glucose [Mass/Vol] 136 mg/dL Critically high 74-106 [facility] Comment on above: Performed By: #### C MP, HSTROPN #### [facility] [address] [address] Ethan Tabatha Potassium [Moles/Vol] 4.1 mmol/L Normal 3.4-5.0 [facility] Comment on above: Performed By: #### C MP, HSTROPN #### [facility] [address] [address] Ethan Tabatha Protein [Mass/Vol] 7.7 g/dL Normal 6.1-8.2 [facility] Comment on above: Performed By: #### C MP, HSTROPN #### [facility] [address] [place] [address] Ethan Mays Sodium [Moles/Vol] 139 mmol/L Normal 137-145 [facility] [place] [facility] Comment on above: Performed By: #### C MP, HSTROPN #### [facility] [address] [place] [address] Ethan Mays Urea nitrogen [Mass/Vol] 6.0 mg/dL Critically low 9.0-20.0 [facility] Comment on above: Performed By: #### C MP, HSTROPN #### [facility] [address] [place] [address] Ethan Mays Urea nitrogen/Creatinine [Mass ratio] 6.5 mg/mg Normal [facility] Comment on above: Performed By: #### C MP, HSTROPN #### [facility] [address] [place] [address] Ethan Mays Rapid Covid-19 PCR (CVDRPD)o n 10-09-2020 SARS-CoV-2 (COVID-19) RNA VISHNU+probe Ql (Unsp spec) Not detected Normal NOT DETECTED [facility] Comment on above: Result Comment: This test is not yet approved or cleared by the [place] Food and Drug Administration (FDA). This test was developed by [employer] [place]. The performance characteristics of this test were validated by [facility]. The results are not intended to be used as the sole means for clinical diagnosis or patient management decisions. [facility] is authorized under Clinical Laboratory Improvement Amendments (CLIA) to perform high- complexity testing. When diagnostic testing is negative, the possibility of a false negative should be considered in the context of a patient's recent exposures and the presence of clinical signs and symptoms consistent with SARS-CoV-2. Performed By: #### C VDRPD #### [facility] [address] [place] [address] Ethan Mays TROPONIN, HIGH SENSITIVITYon 10-09-2020 HSTROP <4.0 Normal 4.0-42.2 [facility] Comment on above: Result Comment: CUT- OFF POINTS HAVE BEEN ESTABLISHED BASED ON THE FOURTH UNIVERSAL DEFINITIONS OF MYOCARDIAL INFARCTION. THE UPPER REFERENCE LIMIT (URL) OF TROPONIN, DEFINED THE 99TH PERCENTILE OF cTnI DISTRIBUTION IN A REFERENCE POPULATION, HAS BEEN CONFIRMED THE DECISION THRESHOLD FOR LA DIAGNOSIS. Performed By: #### C MP, HSTROPN #### [facility] [address] [place], [place] [address] Ethan Mays XR CHEST 1 Von 10-09-2020 [...] by: ROBERT HICKS Date: 2020-10-09 13:14 Normal [facility] XR CHEST 1 V EXAMINATION: XR CHEST [...] by: ROBERT HICKS Date: 2020-10-09 12:43 Normal [facility] Vital Signs Date Time Vital Sign Value Performing Clinician Facility 09-28-2021 20:16-0400 Body temperature 98.29 [degF] Roslyn Syed MD Work Phone: [facility] 09-28-2021 20:16-0400 Diastolic blood pressure 132 mm[Hg] Roslyn Syed MD Work Phone: [employer] 09-28-2021 20:16-0400 Heart rate 117 /min Roslyn Syed MD Work Phone: [employer] 09-28-2021 20:16-0400 Respiratory rate 22 /min Roslyn Syed MD Work Phone: [employer] 09-28-2021 20:16-0400 SaO2% (BldA) [Mass fraction] 95 % Roslyn Syed MD Work Phone: [employer] 09-28-2021 20:16-0400 Systolic blood pressure 197 mm[Hg] Roslyn Syed MD Work Phone: [employer] 09-19-2021 15:00-0400 Body height 172.72 cm Paul Fields Other [facility] Other 09-19-2021 15:00-0400 Body mass index (BMI) [Ratio] 18.7 kg/m2 Paul Fields Other [facility] Other 09-19-2021 15:00-0400 Body temperature 97.2 [degF] Paul Fields Other [facility] Other 09-19-2021 15:00-0400 Body weight 55.79 kg Paul Fields Other [facility] Other 09-19-2021 15:00-0400 Diastolic blood pressure 70 mm[Hg] Paul Fields Other [facility] Other 09-19-2021 15:00-0400 Systolic blood pressure 120 mm[Hg] Paul Fields Other [facility] Other Encounters Encounter Date Encounter Type Care Provider Facility Start: 10-22-2023 End: 10-22-2023 Emergency department patient visit CHERRYFRANCESCA HAYNES [facility] Start: 10-21-2023 End: 10-22-2023 Emergency department patient visit NO PCP NO PCP [facility] Start: 12-10-2022 ambulatory Hugh Storm acility:[facility] Start: 01-03-2022 End: 01-03-2022 Patient encounter procedure PHYSICIAN NO FAMILY [facility] Start: 12-11-2021 End: 12-11-2021 ambulatory Nando Rocha Other [facility] Other Start: 12-11-2021 Telephone encounter Nando Rocha [facility] Start: 09-28-2021 End: 09-29-2021 Emergency department patient visit ROSLYN SYED [facility] Start: 09-28-2021 End: 09-29-2021 Emergency department patient visit Roslyn Syed MD Work Phone: [facility] ED Comment on above: Encounter for medica l screening examination (Primary Dx) Start: 09-19-2021 End: 09-19-2021 ambulatory Paul Fields Other [facility] Other Start: 09-19-2021 Office outpatient visit 25 [...] Influenza vaccination Flu vacc ine (Season Ended) [facility] Start: 08-20-1976 COVID-19 Vaccine (1) COVID-19 Vaccine (1) [facility] Absolute CD8 count procedure [facility] Work Phone: Basophil count [facility] Work Phone: Basophil percent differential count [facility] Work Phone: CD3+CD4+ (T4 helper) cells [#/volume] in Blood [facility] Work Phone: CD3+CD4+ (T4 helper) cells/CD3+CD8+ (T8 suppressor cells) cells [# Ratio] in Blood [facility] Work Phone: Cluster of different iation antigen count procedure [facility] Work Phone: EKG 12 Lead [facility] Work Phone: Eosinophil percent differential count [facility] Work Phone: Eosinophils [#/volum e] in Blood [facility] Work Phone: Erythrocyte mean cor puscular volume determination [facility] Work Phone: Erythrocytes [#/volu me] in Blood [facility] Work Phone: Hematocrit [Volume F raction] of Blood [facility] Work Phone: Hemoglobin distribut ion, width determination [facility] Work Phone: HIV 1 RNA [#/volume] (viral load) in Unspecified specimen by VISHNU with probe detection [facility] Work Phone: HIV 1 RNA [Log #/vol ume] (viral load) in Unspecified specimen by VISHNU with probe detection [facility] Work Phone: Leukocytes [#/volume ] in Blood [facility] Work Phone: Lymphocyte count [facility] Work Phone: Lymphocyte percent differential count [facility] Work Phone: Mean corpuscular hem oglobin determination [facility] Work Phone: Monocyte count [facility] Work Phone: Monocyte percent differential count [facility] Work Phone: Neutrophil count [facility] Work Phone: Neutrophil percent differential count [facility] Work Phone: Platelets [#/volume] in Blood [facility] Work Phone: Immunizations Immunization Date Immunization Notes Care Provider Gabriella ac 08-07-2020 influenza, injectable, quadrivalent, preservative free PHYSICIAN NO [facility] NEGATED: Highlighted row has not occurred!06-21-2015 influenza, seasonal, injectable Paul iFelds Other [facility] Other Payers Date Payer Category Payer Self-pay [id number] 2022 Medicaid [id number] 1970 Unknown [id number] 1971 Unknown [id number] 1971 Unknown [id number] 1971 Unknown [id number] 1971 Unknown [id number] 1959 Unknown [id number] Medicaid [facility] [address] [id number] ed Unknown [id number] Social History Date Type Detail Facility Tobacco smoking status [facility] Tobacco smoking consumption unknown [employer] Phone: Start: 1970 Sex Assigned At Not on file [employer] Phone: Start: 09-18-2021 End: 09-28-2021 Exposure to SARS-CoV-2 (event) Not sure [employer] Phone: End: 09-30-2020 Sex Assigned At [facility] [employer] Other Start: 10-12-2020 Tobacco smoking status NEIS Ex-smoker (finding) [facility] Start: 1970 Sex Assigned At Male F [facility] Medical Equipment Procedure Code Equipment Code Equipment Origin al Text Equipment Identifier Dates Thoracotomy Staple line-reinforcement strip [id number] FDA Start: 10-12-2020 Thoracotomy Surgical adhesive/sealant, human-derived [id number] [facility] Start: 10-12-2020 [...] of significant exertion. Will refill his albuterol [facility] Other Evaluation note Note Date & Type Note Facility Evaluation note Diagnosis Encounter for medical screening examination- Primary documented in this encounter [employer] Phone: Evaluation note Note Date & Type Note Facility Evaluation note No Information [employer] Other Evaluation note Note Date & Type Note Facility Evaluation note No assessment information availa [facility] Work Phone: History general Narrative - Reported Note Date & Type Note Facility History general Narrative - Reported Type Medical History Bipolar Disorder Medical History Depression Medical History HIV Medical History AIDS Medical History Bronchitis Medical History Tobacco abuse Medical History group home use of high risk medic ations Surgical History lung collapsed had t o go in for stapling 2020 Hospitalization History See Above [facility] Other Hospital Discharge instructions Attachments Note Date & Type Note Facility Hospital Discharge instructions The following attachments cannot be sent through Care Everywhere.Well Visit: 50 to 65 Year Men (Colombian)documented in this encounter [employer] Phone: Summary Purpose Family History No Family [...] CREATED AUTHOR AUTHOR'S ORGANIZ ATION 09/29/2021 [facility] DATE CREATED AUTHOR AUTHOR'S ORGANIZ ATION 10/23/2023 [facility] DATE CREATED AUTHOR AUTHOR'S ORGANIZ ATION 03/12/2024 [facility] Reason for Visit (unrecogniz ed section and content) Reason Comments Other medical clearance fr om custodial Scheduled Active and Recently Administ ered Medications [...] BE BASED ON THE PRIMARY CLINICAL RECORDS. [employer] provides no warranty or guarantee of the accuracy or completeness of information in this document.
--- NOTE | 2025-01-28 09:51 | ECG_ITS ---
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 Measurements Intervals [place] Rate: 68 P: 90 MA: 124 QRS: 86 QRSD: 94 T: 81 QT: 402 QTc: 420 Interpretive Statements 1100 Sinus rhythm 2420 RSR (QR) in lead V1/V2, consistent with right ventricular conduction delay 9130 borderline ECG Compared to ECG 03/04/2024 06:33:06 Ventricular premature complex(es) no longer present Right-axis deviation no longer present Electronically Signed On 01-28-2025 15:17:10 EDT by LEXX OVIEDO M.D.
--- NOTE | 2025-01-28 09:52 | XR_ITS ---
The [address] [address] Patient Name: INO CHAWLA MRN: [id number] date: 1970 Sex: M Assigned Patient Location: ER Current Patient Location: ER Accession/Order Number: [id number] Exam Date: 01/28/2025 10:55 Report Date: 01/28/2025 10:55 At the request of: LORAINE SPARKS MD Procedure: XR chest 1V Single view chest: CLINICAL HISTORY: weak COMPARISON: Chest 03/04/2024 FINDINGS: The heart is normal in size. COPD changes. The pulmonary vasculature is normal. Mediastinum and hilar regions are unremarkable. No pleural effusions are seen. Visualized bones are intact. XR/XR chest 1V IMPRESSION: COPD CHANGES. NO ACUTE PROCESS. Impression dictated by: Carol Mcmahon Jr.OShlomo 01/28/2025 10:55 AM Dictation Location: [place] [address] Electronically authenticated by: [id number] Y Date: 01/28/2025 10:55
--- NOTE | 2025-01-28 09:52 | ED.GENADUL1 ---
HPI HPI - General Adult General Chief complaint: Weakness Stated complaint: WEAKNESS Time Seen by Provider: 01/28/25 09:38 Source: patient Mode of arrival: walk-in History of Present Illness HPI narrative: 54-year-old male presents for feeling weak and having no appetite. He has felt this way for months or perhaps a year. He has a history of HIV which has not been treated in about a year. No fever or cough. No complaints of abdominal pain or nausea. He has not been vomiting. He has a history of substance abuse but states that he is would not test positive for anything today. Related Data Allergies Allergy/AdvReac Type Severity Reaction Status Date / Time milk Allergy Intermediate Flatulence Verified 03/04/24 06:30 Opioid HPI Opioid Management Most Recent Opioid Data: Last Pain Scale 9 10/28/24, 14:07 Review of Systems ROS Narrative A ten point review of systems is negative except as noted above. 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 General: The patient appears in no acute distress. He is thin. Skin: Warm, dry, no pallor noted. There is no rash noted. Head: Normocephalic, atraumatic Eye: Normal conjunctiva, no drainage Ears, Nose, Mouth, and Throat: oral mucosa is moist. Nares patent. Cardiovascular: Regular Rate and Rhythm Respiratory: Patient is in no distress, no accessory muscle use, lungs are clear to auscultation, no wheezing, rales or rhonchi Back: non-tender GI: Soft and nontender Musculoskeletal: The patient has no evidence of calf tenderness, no pitting edema, symmetrical pulses noted bilaterally Neurological: A&O, normal speech Psychiatric: Cooperative Constitutional Vital Signs, click to edit/add: Last Vital Signs Temp 97.7 F 01/28/25 09:40 Pulse 70 01/28/25 11:10 Resp 10 L 01/28/25 11:10 BP 139/89 01/28/25 11:00 Pulse Ox 98 01/28/25 11:10 O2 Del Method Room Air 01/28/25 09:40 Course Vital Signs Vital signs: Vital Signs Temperature 97.7 F 01/28/25 09:40 Pulse Rate 72 01/28/25 09:40 Respiratory Rate 16 01/28/25 09:40 Blood Pressure 161/93 H 01/28/25 09:40 Pulse Oximetry 97 01/28/25 09:40 Oxygen Delivery Method Room Air 01/28/25 09:40 Temperature 97.7 F 01/28/25 09:40 Pulse Rate 70 01/28/25 11:10 Respiratory Rate 10 L 01/28/25 11:10 Blood Pressure 139/89 01/28/25 11:00 Pulse Oximetry 98 01/28/25 11:10 Oxygen Delivery Method Room Air 01/28/25 09:40 Medical Decision Making MDM Narrative Medical decision making narrative: His workup is negative and he is discharged home. He was given referral was for PCP. The importance of follow-up was discussed with him. Differential Diagnosis Differential Diagnosis: Dehydration, anemia, pneumonia Lab Data Lab results reviewed: Yes I reviewed the patient's lab results Labs: Lab Results 01/28/25 Range/Units 09:55 WBC 7.8 (4.0-11.0) 10^3/uL RBC 4.45 L (4.70-6.10) 10^6/uL Hgb 13.1 L (14.0-18.0) g/dL Hct 40.3 L (42.0-54.0) % MCV 90.6 (80.0-94.0) fL MCH 29.4 (25.9-34.0) pg MCHC 32.5 (29.9-35.2) g/dL RDW 13.4 (11.0-15.0) % Plt Count 226 (150-450) 10^3/uL MPV 11.2 (9.5-13.5) fL Neut % (Auto) 42.6 L (43.0-75.0) % Lymph % (Auto) 42.2 (20.5-60.0) % [place] % (Auto) 10.5 (1.7-12.0) % Eos % (Auto) 4.0 (0.9-7.0) % Baso % (Auto) 0.4 (0.2-2.0) % Neut # (Auto) 3.3 (1.4-6.5) 10^3/uL Lymph # (Auto) 3.3 (1.2-3.8) 10^3/uL [place] # (Auto) 0.8 (0.3-0.8) 10^3/uL Eos # (Auto) 0.3 (0.0-0.7) 10^3/uL Baso # (Auto) 0.0 (0.0-0.1) 10^3/uL Abs Immat Gran (auto) 0.02 (0.00-0.03) 10^3/uL Imm/Tot Granulo (auto) 0.3 (0.0-0.5) % Sodium 141 (136-145) mmol/L Potassium 4.3 (3.5-5.1) mmol/L Chloride 104 (98-107) mmol/L Carbon Dioxide 30.7 (21.0-32.0) mmol/L Anion Gap 10.6 BUN 14.0 (7.0-18.0) mg/dL Creatinine 0.71 (0.70-1.30) mg/dL Est GFR ( Amer) >60 (>=60 mL/min/1.73m^2) Est GFR (Non-Af Amer) >60 (>=60 mL/min/1.73m^2) BUN/Creatinine Ratio 19.7 Glucose 96 (74-106) mg/dL Calcium 9.0 (8.5-10.1) mg/dL Imaging Data Chest x-ray: Radiologist's impression: ITS Impressions Chest X-Ray 01/28/25 09:52 IMPRESSION: COPD CHANGES. NO ACUTE PROCESS. Impression dictated by: Mumtaz Michaels Jr., D.O. 01/28/2025 10:55 AM Dictation Location: [place] [address] Electronically authenticated by: [id number] Y Date: 01/28/2025 10:55 ECG Data Attestation: I personally reviewed and interpreted this ECG as follows: (EKG on my interpretation shows normal sinus rhythm with rate of 68 no acute change) Discharge Plan Discharge Chief Complaint: Weakness Clinical Impression: Generalized weakness Patient Disposition: Home, Self-Care Time of Disposition Decision: 11:15 Condition: Good Mode of Transportation: Private Vehicle Print Language: Hong Konger Instructions: Weakness (ED) Referrals: Physician,Non-Staff, MD [Primary Care Provider] - 1 week
[2025-01-28 10:02] LABS: Hematocrit 40.3 % (42.0-54.0); Hemoglobin 13.1 g/dL (14.0-18.0); Immature Granulocytes Abs Auto 0.02 10^3/uL (0.00-0.03); Immature Granulocytes Pct Auto 0.3 % (0.0-0.5); Lymphocytes Absolute Auto 3.3 10^3/uL (1.2-3.8); Mean Corpuscular HGB Conc 32.5 g/dL (29.9-35.2); Mean Corpuscular Hemoglobin 29.4 pg (25.9-34.0); Mean Corpuscular Volume 90.6 fL (80.0-94.0); Platelet Count 226 10^3/uL (150-450); Red Blood Count 4.45 10^6/uL (4.70-6.10); White Blood Count 7.8 10^3/uL (4.0-11.0)
[2025-01-28 10:11] LABS: Anion Gap 10.6; Blood Urea Nitrogen 14.0 mg/dL (7.0-18.0); Calcium 9.0 mg/dL (8.5-10.1); Carbon Dioxide 30.7 mmol/L (21.0-32.0); Chloride 104 mmol/L (98-107); Estimated GFR (African America >60 (>=60 mL/min/1.73m^2); Estimated GFR (Non-African Ame >60 (>=60 mL/min/1.73m^2); Glucose 96 mg/dL (74-106); Potassium 4.3 mmol/L (3.5-5.1); Sodium 141 mmol/L (136-145)
[2025-01-28] MEDS: 0.9 % SODIUM CHLORIDE 1,000 ML 1000 ML IV (10:22)
[2025-01-28 11:49] LABS: Glucose Urine UA NEGATIVE (NEGATIVE)
[2025-01-28 11:55] LABS: Cast Seen? NONE SEEN #/LPF (NONE SEEN); Crystals Seen? None Seen #/HPF (None Seen)
[2025-01-28 11:56] LABS: Urine Culture Indicated NO
== END 2025-01-28 11:40 | disposition home or self-care (01) ==
PROVIDERS: Emergency Provider Emergency Medicine
DX: R53.1 Weakness (principal)
CPT/HCPCS: 36415; 71045; 80048; 81001; 85025; 93005; 99285

== ENCOUNTER 2025-04-03 16:59 | Emergency (ER) | payer OTHER, SELFPAY ==
--- OUTSIDE RECORDS SUMMARY | 2025-04-03 17:13 | XMS_ITS | CCD ---
Author Organization 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 Phone REQUEST, NONE LISTED Primary [...] Care Provider MD Paul Mcleod Attending Provider NO PCP, NO PCP Primary Care Unavailable ALEXYS HAYNES Attending Unavailable ALEXYS HAYNES Attending Unavailable ALEXYS HAYNES Referring Unavailable NO PCP, NO PCP Primary Care Unavailable Hugh Headley Admitting Unavailab le Hugh Headley Attending Unavailab le NO FAMILY, PHYSICIAN Primary Care Unavailable Allergies Allergy Classification Reported Allergen(s) Allergy Type Date of Onset Reaction(s) Facility Asenapine (1 source) Asenapine Drug Allergy 09-06-2019 [facility] (3 sources) Asenapine Drug Allergy 09-06-2019 [facility] (3 sources) Citalopram Drug Allergy 09-06-2019 [facility] (2 sources) risperiDONE Drug Allergy [facility] Other (2 sources) Escitalopram; Translations: [escitalopram] Drug Allergy 09-06-2019 [facility] (1 source) Asenapine Drug Allergy 09-19-2021 [facility] (1 source) Citalopram Drug Allergy 09-19-2021 [facility] (1 source) risperiDONE Drug Allergy 09-19-2021 [facility] Repository Medications Current Medications Medication Drug [...] 10-31-2020 [facility] Other aftercare (1 source) Other halfway (current) drug therapy; 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] Onset: 11-02-2020 [facility] Other aftercare (2 sources) H/O: high risk medication; Translations: [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] Episodic Other lower respiratory [...] ABSOLUTE BASOPHIL 0.1 X10E9/L Normal 0.0-0.2 [facility] Comment on above: Performed By: #### C BCA, CMP, 07506-2, 56128-0 #### [facility] ([id number]) [address] [place] [address] 79190 ABSOLUTE NEUTROPHIL 4.1 X10E9/L Normal 1.5-6.6 [facility] Comment on above: Performed By: #### C SUJIT, CMP, 53740-7, 37983-8 #### [facility] ([id number]) [address] [place] [address] 30060 Basophils/100 WBC (Bld) 0.8 % Normal [facility] Comment on above: Performed By: #### C SUJIT, CMP, 72332-1, 79448-5 #### [facility] ([id number]) [address] [place] [address] 05680 Eosinophils (Bld) [#/Vol] 0.1 10*3/uL Normal 0.0-0.4 [facility] Comment on above: Performed By: #### C SUJIT, CMP, 36277-7, 28801-8 #### [facility] ([id number]) [address] [place] [address] 31237 Eosinophils/100 WBC (Bld) 1.5 % Normal [facility] Comment on above: Performed By: #### C BCA, CMP, 09753-3, 74870-9 #### [facility] ([id number]) [address] [place] [address] 14568 Erythrocyte distribution width (RBC) [Ratio] 15.4 % High 11.5-15.0 [facility] Comment on above: Performed By: #### C BCA, CMP, 05721-8, 96667-3 #### [facility] ([id number]) [address] [place] [address] 27144 Hematocrit (Bld) [Volume fraction] 40.2 % Normal 39-49 [facility] Comment on above: Performed By: #### C SUJIT, CMP, 28233-4, 13747-5 #### [facility] ([id number]) [address] [place] [address] 03830 Hemoglobin (Bld) [Mass/Vol] 13.5 g/dL Normal 13.0-17.0 [facility] Comment on above: Performed By: #### C SUJIT, CMP, 80249-9, 73641-6 #### [facility] ([id number]) [address] [place] [address] 09816 Lymphocytes (Bld) [#/Vol] 3.1 10*3/uL Normal 1.0-3.5 [facility] Comment on above: Performed By: #### C SUJIT, CMP, 96719-3, 98794-9 #### [facility] ([id number]) [address] [place] [address] 83277 Lymphocytes/100 WBC (Bld) 37.9 % Normal [facility] Comment on above: Performed By: #### C SUJIT, CMP, 15767-5, 92228-7 #### [facility] ([id number]) [address] [place] [address] 57013 MCH (RBC) [Entitic mass] 30.1 pg Normal 27-34 [facility] Comment on above: Performed By: #### C SUJIT, CMP, 39897-3, 24218-4 #### [facility] ([id number]) [address] [place] [address] 34877 MCHC (RBC) [Mass/Vol] 33.4 g/dL Normal 32-36 [facility] Comment on above: Performed By: #### C SUJIT, CMP, 35300-1, 96840-5 #### [facility] ([id number]) [address] [place] [address] 74252 MCV (RBC) [Entitic vol] 90 fL Normal 80-100 [facility] Comment on above: Performed By: #### C BCA, CMP, 17731-0, 53709-9 #### [facility] ([id number]) [address] [place] [address] 45602 Monocytes (Bld) [#/Vol] 0.8 10*3/uL Normal 0-0.9 [facility] Comment on above: Performed By: #### C SUJIT, CMP, 46747-1, 92740-6 #### [facility] ([id number]) [address] [place] [address] 98595 Monocytes/100 WBC (Bld) 10.2 % Normal [facility] Comment on above: Performed By: #### C SUJIT, CMP, 68587-4, 30011-7 #### [facility] ([id number]) [address] [place] [address] 60735 Neutrophils/100 WBC (Bld) 49.6 % Normal [facility] Comment on above: Performed By: #### Albert BECKETT, CMP, 41972-2, 12338-9 #### [facility] ([id number]) [address] [place] [address] 36787 Platelet mean volume (Bld) [Entitic vol] 8.6 fL Normal 7-12 [facility] Comment on above: Performed By: #### Albert BECKETT, CMP, 61349-5, 06420-4 #### [facility] ([id number]) [address] [place] [address] 64127 Platelets (Bld) [#/Vol] 271 10*3/uL Normal 150-450 [facility] Comment on above: Performed By: #### Albert BCA, CMP, 95212-9, 50791-1 #### [facility] ([id number]) [address] [place] [address] 59570 RBC COUNT 4.46 X10E12/L Normal 4.10-5.70 [facility] Comment on above: Performed By: #### C BCA, CMP, 94340-4, 86598-3 #### [facility] ([id number]) [address] [place] [address] 00632 WBC (Bld) [#/Vol] 8.3 10*3/uL Normal 4.0-11.0 [facility] Comment on above: Performed By: #### C BCA, CMP, 72710-1, 40280-9 #### [facility] ([id number]) [address] [place] [address] 26857 COMPREHENSIVE METABOLIC PANE David 10-22-2023 Albumin [Mass/Vol] 3.7 g/dL Normal 3.2-5.3 [facility] Comment on above: Performed By: #### C BCA, CMP, 63381-2, 46186-4 #### [facility] ([id number]) [address] [place] [address] 44414 ALP [Catalytic activity/Vol] 64 U/L Normal 39-130 [facility] Comment on above: Performed By: #### C BCA, CMP, 59222-5, 15949-6 #### [facility] ([id number]) [address] [place] [address] 41566 ALT [Catalytic activity/Vol] 30 U/L Normal 0-40 [facility] Comment on above: Performed By: #### C BCA, CMP, 19958-4, 79316-9 #### [facility] ([id number]) [address] [place] [address] 22047 Anion gap [Moles/Vol] 7 mmol/L Normal 5-15 [facility] Comment on above: Performed By: #### C BCA, CMP, 18232-9, 59542-7 #### [facility] ([id number]) [address] [place] [address] 50973 AST [Catalytic activity/Vol] 39 U/L Normal 0-41 [facility] Comment on above: Performed By: #### C BCA, CMP, 92592-6, 08775-1 #### [facility] ([id number]) [address] [place] [address] 99852 Bilirubin [Mass/Vol] 1.0 mg/dL Normal 0.3-1.2 [facility] Comment on above: Result Comment: RESU LTS QUESTIONABLE DUE TO HEMOLYSIS Performed By: #### C BCA, CMP, 72851-5, 02287-1 #### [facility] ([id number]) [address] [place] [address] 81840 Calcium [Mass/Vol] 8.4 mg/dL Low 8.5-10.5 [facility] Comment on above: Performed By: #### C SUJIT, CMP, 32417-9, 79911-8 #### [facility] ([id number]) [address] [place] [address] 55335 Chloride [Moles/Vol] 103 mmol/L Normal 98-109 [facility] Comment on above: Performed By: #### C BCA, CMP, 57952-4, 43888-2 #### [facility] ([id number]) [address] [place] [address] 71819 CO2 [Moles/Vol] 27 mmol/L Normal 22-32 [facility] Comment on above: Performed By: #### C BCA, CMP, 68260-7, 38231-5 #### [facility] ([id number]) [address] [place] [address] 58418 Creatinine [Mass/Vol] 0.73 mg/dL Normal 0.70-1.20 [facility] Comment on above: Result Comment: METH OD TRACEABLE TO IDMS STANDARD Performed By: #### C SUJIT, CMP, 66960-2, 95403-5 #### [facility] ([id number]) [address] [place] [address] 18305 eGFR (CKD-EPI) NON-RACE DEPENDENT >90 Normal >59 [facility] Comment on above: Result Comment: Reported eGFR is based on the CKD-EPI 2020 equation that does not use a race coefficient. Performed By: #### C RADHA BECKETT, 53469-9, 75072-7 #### [facility] ([id number]) [address] [place] [address] 06273 Glucose [Mass/Vol] 88 mg/dL Normal 65-99 [facility] Comment on above: Performed By: #### C SUJIT, CMP, 90475-9, 98525-4 #### [facility] ([id number]) [address] [place] [address] 61018 Potassium [Moles/Vol] 4.3 mmol/L Normal 3.5-5.0 [facility] Comment on above: Result Comment: SPEC IMEN HEMOLYZED, RESULTS INCREASED Performed By: #### C SUJIT, CMP, 18946-8, 69102-9 #### [facility] ([id number]) [address] [place] [address] 83969 Protein [Mass/Vol] 8.0 g/dL Normal 6.0-8.0 [facility] Comment on above: Performed By: #### C SUJIT, CMP, 12321-5, 35915-4 #### [facility] ([id number]) [address] [place] [address] 61712 Sodium [Moles/Vol] 137 mmol/L Normal 134-146 [facility] Comment on above: Performed By: #### C SUJIT, CMP, 78892-9, 61077-3 #### [facility] ([id number]) [address] [place] [address] 91547 Urea nitrogen [Mass/Vol] 18 mg/dL Normal 5-23 [facility] Comment on above: Performed By: #### C SUJIT, CMP, 33107-1, 73432-7 #### [facility] ([id number]) [address] [place] [address] 91532 Fibrin D-dimer DDU (PPP) [Ma ss/Vol]on 10-22-2023 D DIMER <150 Normal <255 [facility] Comment on above: Result Comment: Results <255 ng/mL DDU: The presence of a VTE can safely be excluded with a negative D-Dimer result and Wells score. A negative result doesn't exclude the possibility of DIC. The test be repeated along with other diagnostic tests if the patient's symptoms persist or worsen. [email or web address] Performed By: #### C RADHA BECKETT, 30887-1, 10743-6 #### [facility] ([id number]) [address] [place] [address] 12316 Troponin I.cardiac High sens itivity method [Mass/Vol]on 10-22-2023 1 HOUR TROP I, HIGH SENSITIVITY 3 ng/L Normal <21 [facility] Comment on above: Performed By: #### 8 9579-7 #### [facility] ([id number]) [address] [place] [address] 70519 TROPONIN I, HIGH SENSITIVITY 4 ng/L Normal <21 [facility] Comment on above: Performed By: #### C RADHA BECKETT, 35457-0, 20846-0 #### [facility] ([id number]) [address] [place] [address] 19113 XR CHEST 1 VWon 10-22-2023 XR CHEST [...] negative for an active process. Finalized by oRbert Franco MD on 10/21/2023 11:51 PM Normal [facility] Body fluid albumin measureme nt (mass/volume)Ordered By: Paul Fields on 01-03-2022 Albumin (Body fld) [Mass/Vol] 4.1 g/dL 3.2-5.5 [facility] Creatinine and Glomerular fi ltration rate.predicted panel (S/P/Bld)Ordered By: Paul Fields on 01-03-2022 Creatinine [Mass/Vol] 0.91 mg/dL 0.64-1.27 [facility] Estimated glomerular filtrat ion rate (GFR) non- AmericanOrdered By: Paul Fields on 01-03-2022 GFR/1.73 sq M.predicted among non-blacks MDRD (S/P/Bld) [Vol rate/Area] > 60 mL/Min [facility] Globulin Calc (S) [Mass/Vol] Ordered By: Paul Fields on 01-03-2022 Globulin (S) [Mass/Vol] 2.6 g/dL [facility] No Panel InformationOrdered By: Paul Fields on 01-03-2022 Estimated GFR () > 60 mL/Min [facility] Comment on above: GFR estimated refere nce range: According to KDOQI guidelines, <60 ml/min/1.73m2 is sufficient to diagnose a patient with chronic kidney disease. Pharmacy Creatinine Clearance (Chem N/A [facility] Protein [Mass/volume] in Ser um or PlasmaOrdered By: Paul Fields on 01-03-2022 Protein [Mass/Vol] 6.7 g/dL 6.1-7.9 [facility] Serum or plasma alanine matt otransferase measurement without P-5'-P (enzymatic activiOrdered By: Paul Fields on 01-03-2022 ALT No additional P-5'-P [Catalytic activity/Vol] 53 U/L 10-60 [facility] Serum or plasma albumin/glob ulin mass ratioOrdered By: Paul Fields on 01-03-2022 Albumin/Globulin [Mass ratio] 1.6 {ratio} [facility] Serum or plasma alkaline phyllis sphatase measurement (enzymatic activity/volume)Ordered By: Paul Fields on 01-03-2022 ALP [Catalytic activity/Vol] 51 U/L 32-92 [facility] Serum or plasma aspartate am inotransferase measurement (enzymatic activity/volume)Ordered By: Paul Fields on 01-03-2022 AST [Catalytic activity/Vol] 48 U/L 10-42 [facility] Serum or plasma calcium brodie urement (mass/volume)Ordered By: Paul Fields on 01-03-2022 Calcium [Mass/Vol] 9.7 mg/dL 8.2-10.2 [facility] Serum or plasma chloride yazan surement (moles/volume)Ordered By: Paul Fields on 01-03-2022 Chloride [Moles/Vol] 99 mmol/L 95-114 [facility] Serum or plasma glucose brodie urement (mass/volume)Ordered By: Paul Fields on 01-03-2022 Glucose [Mass/Vol] 62 mg/dL 70-100 [facility] Comment on above: ADA recommended refe rence range Random Glucose Reference Range is dependent on time and content of last meal. Glucose of more than 200 mg/dL in a nonstressed, ambulatory subject supports the diagnosis of Diabetes Mellitus. Serum or plasma potassium me asurement (moles/volume)Ordered By: Paul Fields on 01-03-2022 Potassium [Moles/Vol] 4.5 mmol/L 3.5-5.1 [facility] Serum or plasma sodium measu rement (moles/volume)Ordered By: Paul Fields on 01-03-2022 Sodium [Moles/Vol] 138 mmol/L 136-146 [facility] Serum or plasma total biliru bin measurement (mass/volume)Ordered By: Paul Fields on 01-03-2022 Bilirubin [Mass/Vol] 0.7 mg/dL 0.3-1.2 [facility] Serum or plasma total carbon dioxide measurement (moles/volume)Ordered By: Paul Fields on 01-03-2022 CO2 [Moles/Vol] 30.3 mmol/L 22.0-30.0 [facility] Serum or plasma urea nitroge n measurement (mass/volume)Ordered By: Paul Fields on 01-03-2022 Urea nitrogen [Mass/Vol] 11 mg/dL 9- [facility] Basic Metab w/rfx MGon 09-29 (cont.) Normal [facility] Comment on above: Result Comment: Aver age GFR for 50-59 years old: 93 mL/min/1.73sq m Chronic Kidney Disease: <60 mL/min/1.73sq m Kidney failure: <15 mL/min/1.73sq m eGFR calculated using average adult body mass. Additional eGFR calculator available at: http://www.[employer]/multiple_crcl_2011.htm Performed By: #### B MPX, CDP #### [facility] [address] [place] [address] Manufacturing Worker: Robert Wynne MD Anion gap [Moles/Vol] 10 mmol/L Normal 9-17 [facility] Comment on above: Performed By: #### B MPX, CDP #### [facility] [address] [place], [place] [id number] Manufacturing Worker: Robert Wynne MD BUN/CRE Ratio 16 Normal 9- [facility] Comment on above: Performed By: #### B MPX, CDP #### [facility] [address] [place] [address] Manufacturing Worker: Robert Wynne MD Calcium [Mass/Vol] 9.3 mg/dL Normal 8.6-10.4 [facility] Comment on above: Performed By: #### B MPX, CDP #### [facility] [address] [place], [place] [address]83 Manufacturing Worker: Robert Wynne MD Chloride [Moles/Vol] 103 mmol/L Normal 98-107 [facility] Comment on above: Performed By: #### B MPX, CDP #### [facility] [address] [place] [address] Manufacturing Worker: Robert Wynne MD CO2 [Moles/Vol] 26 mmol/L Normal 20-31 [facility] Comment on above: Performed By: #### B MPX, CDP #### [facility] [address] [place], [place] [id number] Manufacturing Worker: Robert Wynne MD Creatinine [Mass/Vol] 0.79 mg/dL Normal 0.70-1.20 [facility] Comment on above: Performed By: #### B MPX, CDP #### [facility] [address] [place], [place] [id number] Manufacturing Worker: Robert Wynne MD GFR, Amer >60 Normal >60 [facility] Comment on above: Performed By: #### B MPX, CDP #### [facility] [address] [place], [place] [id number] Manufacturing Worker: Robert Wynne MD GFR,non Amer >60 Normal >60 [facility] Comment on above: Performed By: #### B MPX, CDP #### [facility] [address] [place], [place] 1534183 Manufacturing Worker: Robert Wynne MD Glucose [Mass/Vol] 129 mg/dL High 70-99 [facility] Comment on above: Performed By: #### B MPX, CDP #### [facility] [address] [place], [place] [id number] Manufacturing Worker: Robert Wynne MD Potassium [Moles/Vol] 3.6 mmol/L Low 3.7-5.3 [facility] Comment on above: Performed By: #### B MPX, CDP #### [facility] [address] [place], [place] [id number] Manufacturing Worker: Robert Wynne MD Sodium [Moles/Vol] 139 mmol/L Normal 135-144 [facility] Comment on above: Performed By: #### B MPX, CDP #### [facility] [address] [place], [place] [address]83 Manufacturing Worker: Robert Wynne MD Staging: Normal [facility] Comment on above: Result Comment: Stag e 1: Some kidney damage normal GFR Stage 2: Mild kidney damage GFR 60-89 Stage 3: Moderate kidney damage GFR 30-59 Stage 4: Severe kidney damage GFR 15-29 Stage 5: Severe kidney damage GFR <15 ESRD - chronic treatment by dialysis or transplant Performed By: #### B MPX, CDP #### [facility] [address] [place] [address] Dr[address] [place], [place] [id number] Manufacturing Worker: Robert Wynne MD Urea nitrogen [Mass/Vol] 13 mg/dL Normal 6-20 [facility] Comment on above: Performed By: #### B MPX, CDP #### [address] [place] Manufacturing Worker: Robert Wynne MD CBC with Diffon 09-29-2021 Abs. Basophil 0.04 k/uL Normal 0.00-0.20 [facility] Comment on above: Performed By: #### B MPX, CDP #### [address] [place], [place] [address]53183 Manufacturing Worker: Robert Wynne MD Abs.Imm.Granulocyte 0.03 k/uL Normal 0.00-0.30 [facility] Comment on above: Performed By: #### B MPX, CDP #### [address] [place], [place] 6188383 Manufacturing Worker: Robert Wynne MD Abs.Neutrophil (Seg) 7.04 k/uL Normal 1.50-8.10 [facility] Comment on above: Performed By: #### B MPX, CDP #### [address] [place], [place] 5563183 Manufacturing Worker: Robert Wynne MD Basophils/100 WBC (Bld) 0 % Normal 0-2 [facility] Comment on above: Performed By: #### B MPX, CDP #### [address] [place] Manufacturing Worker: oRbert Wynne MD Eosinophils (Bld) [#/Vol] 0.05 10*3/uL Normal 0.00-0.44 [facility] Comment on above: Performed By: #### B MPX, CDP #### [facility] [address] [place] [address] [address] Manufacturing Worker: Robert Wynne MD Eosinophils/100 WBC (Bld) 0 % Low 1-4 [facility] Comment on above: Performed By: #### B MPX, CDP #### [address] [place] Manufacturing Worker: Robert Wynne MD Erythrocyte distribution width (RBC) [Ratio] 13.1 % Normal 11.8-14.4 [facility] Comment on above: Performed By: #### B MPX, CDP #### [address] [place] Manufacturing Worker: Robert Wynne MD Hematocrit (Bld) [Volume fraction] 35.4 % Low 40.7-50.3 [facility] Comment on above: Performed By: #### B MPX, CDP #### [address] [place] Manufacturing Worker: Robert Wynne MD Hemoglobin (Bld) [Mass/Vol] 11.9 g/dL Low 13.0-17.0 [facility] Comment on above: Performed By: #### B MPX, CDP #### [address] [place] Manufacturing Worker: Robert Wynne MD Immature granulocytes/100 WBC (Bld) 0 % Normal 0 [facility] Comment on above: Performed By: #### B MPX, CDP #### [address] [place] Manufacturing Worker: Robert Wynne MD Lymphocytes (Bld) [#/Vol] 3.53 10*3/uL Normal 1.10-3.70 [facility] Comment on above: Performed By: #### B MPX, CDP #### [address] [place] [address] Manufacturing Worker: Robert Wynne MD Lymphocytes/100 WBC (Bld) 30 % Normal 24-43 [facility] Comment on above: Performed By: #### B MPX, CDP #### [address] [place] [address] Manufacturing Worker: Robert Wynne MD MCH (RBC) [Entitic mass] 30.9 pg Normal 25.2-33.5 [facility] Comment on above: Performed By: #### B MPX, CDP #### [address] [place] [address] Manufacturing Worker: Robert Wynne MD MCHC (RBC) [Mass/Vol] 33.6 g/dL Normal 28.4-34.8 [facility] Comment on above: Performed By: #### B MPX, CDP #### [address] [place] [address] Manufacturing Worker: Robert Wynne MD MCV (RBC) [Entitic vol] 91.9 fL Normal 82.6-102.9 [facility] Comment on above: Performed By: #### B MPX, CDP #### [address] [place], [place] [address]83 Manufacturing Worker: Robert Wynne MD Monocytes (Bld) [#/Vol] 1.11 10*3/uL Normal 0.10-1.20 [facility] Comment on above: Performed By: #### B MPX, CDP #### [address] [place] [address] Manufacturing Worker: Roebrt Wynne MD Monocytes/100 WBC (Bld) 9 % Normal 3-12 [facility] Comment on above: Performed By: #### B MPX, CDP #### [facility] [address] [place], [place] 0377[address] Manufacturing Worker: Robert Wynne MD Neutrophil (Seg) 61 % Normal 36-65 [facility] Comment on above: Performed By: #### B MPX, CDP #### [facility] [address] [place], [place] [id number] Manufacturing Worker: Robert Wynne MD NRBC Automated 0.0 per 100 WBC Normal 0.0 [facility] Comment on above: Performed By: #### B MPX, CDP #### [facility] [address] [place], [place] [id number] Manufacturing Worker: Robert Wynne MD Platelet mean volume (Bld) [Entitic vol] 9.9 fL Normal 8.1-13.5 [facility] Comment on above: Performed By: #### B MPX, CDP #### [address] [place], [place] [id number] Manufacturing Worker: Robert Wynne MD Platelets (Bld) [#/Vol] 284 10*3/uL Normal 138-453 [facility] Comment on above: Performed By: #### B MPX, CDP #### [address] [place], [place] [id number] Manufacturing Worker: Robert Wynne MD RBC (Bld) [#/Vol] 3.85 10*6/uL Low 4.21-5.77 [facility] Comment on above: Performed By: #### B MPX, CDP #### [facility] [address] [place] [address] Manufacturing Worker: Robert Wynne MD WBC (Bld) [#/Vol] 11.8 10*3/uL High 3.5-11.3 [facility] Comment on above: Performed By: #### B MPX, CDP #### [facility] [address] [place], [place] [id number] Manufacturing Worker: Robert Wynne MD Drug Scr, Abuse, Uron 2021 Amphetamine(s),Ur Positive Abnormal NEG [facility] Comment on above: Performed By: #### D AU, UAMIC #### [facility] [address] [place] [address] [address] [place], [place] [id number] Manufacturing Worker: Robert Wynne MD Barbiturate(s),Ur Negative Normal NEG [facility] Comment on above: Performed By: #### Kenneth AU, UAMIC #### [address] [place] [address] Manufacturing Worker: Robert Wynne MD Benzodiazepine(s) Negative Normal NEG [facility] Comment on above: Performed By: #### Kenneth AU, UAMIC #### [facility] [address] [place] [address] [place] [address] Manufacturing Worker: Robert Wynne MD Buprenorphrine, Ur Negative Normal [facility] Comment on above: Performed By: #### Kenneth AU, UAMIC #### [address] [place] [address] Manufacturing Worker: Robert Wynne MD Cannabinoid(s),Ur Positive Abnormal NEG [facility] Comment on above: Performed By: #### Kenneth AU, UAMIC #### [facility] [address] [place] [address] [place] [place], [place] [id number] Manufacturing Worker: Robert Wynne MD Cocaine Metabolite Negative Normal [facility] Comment on above: Performed By: #### D AU, UAMIC #### [facility] [address] [place], [place] [phone] Manufacturing Worker: Robert Wynne MD Methadone Ql (U) Negative Normal NEG [facility] Comment on above: Performed By: #### Kenneth AU, UAMIC #### [facility] [address] [place] [address] Manufacturing Worker: Robert Wynne MD Methamphetamine, Ur Positive Abnormal NEG [facility] Comment on above: Performed By: #### D AU, UAMIC #### [facility] [address] [place], [place] [id number] Manufacturing Worker: Robert Wynne MD Opiate(s), Ur Negative Normal NEG [facility] Comment on above: Performed By: #### D AU, UAMIC #### [facility] [address] [place] [address] [place] [place], [place] [id number] Manufacturing Worker: Robert Wynne MD Oxycodone, Urine Negative Normal NEG [facility] Comment on above: Performed By: #### D AU, UAMIC #### [facility] [address] [place] [address] [place] [address] Manufacturing Worker: Robert Wynne MD Phencyclidine, Ur Negative Normal NEG [facility] Comment on above: Performed By: #### D AU, UAMIC #### [facility] [address] [place] [address] [place] [place], [place] [id number] Manufacturing Worker: Robert Wynne MD Propoxyphene,Urine Negative Normal NEG [facility] Comment on above: Performed By: #### D AU, UAMIC #### [facility] [address] [place] [address] [place] [address] Manufacturing Worker: Robert Wynne MD Tricyclic antidepressants Screen Ql (U) Negative Normal NEG [facility] Comment on above: Result Comment: Drug screen results are to be used for medical purposes only. All positive results are unconfirmed. Testing for employment or legal uses should be sent to a reference laboratory for confirmation. Performed By: #### D AU, UAMIC #### [facility] [address] [place] [address] [place] [place], [place] [id number] Manufacturing Worker: Robert Wynne MD Drug screen multi urineon Amphetamine Screen, Ur Positive Abnormal NEGATIVE [facility] Barbiturate Screen, Ur Negative NEGATIVE [facility] Benzodiazepine Screen, Urine Negative NEGATIVE [facility] Buprenorphine Urine Negative NEGATIVE [facility] Cannabinoid Scrn, Ur Positive Abnormal NEGATIVE [facility] Cocaine Metabolite, Urine Negative NEGATIVE [facility] Interpretation and review of laboratory results Abnormal [facility] Methadone Screen, Urine Negative NEGATIVE [facility] Methamphetamine, Urine Positive Abnormal NEGATIVE [facility] Opiates, Urine Negative NEGATIVE [facility] th Oxycodone Screen, Ur Negative NEGATIVE [facility] Phencyclidine, Urine Negative NEGATIVE [facility] Propoxyphene, Urine Negative NEGATIVE [facility] Tricyclic Antidepressants, Urine Negative NEGATIVE [facility] Comment on above: Drug screen results are to be used for medical purposes only. All positive results are unconfirmed. Testing for employment or legal uses should be sent to a reference laboratory for confirmation. [facility] Ethanol Alcoholon 09-29-2021 Ethanol [Mass/Vol] mg/dL Normal <10 [facility] Comment on above: Performed By: #### A LCB #### [facility] [address] [place] [address] Manufacturing Worker: Robert Wynne MD Ethanol percent <0.010 Normal <0.010 [facility] Comment on above: Performed By: #### A LCB #### [facility] [address] [place] [address] Manufacturing Worker: Robert Wynne MD [id number] 09-29-2021 SARS-CoV-2 (COVID-19) RNA VISHNU+probe Ql (Unsp spec) Not detected Normal NOTDET [facility] Comment on above: Result Comment: Rapid [...] management decisions. Fact sheet for Healthcare Providers: https://www.fda.gov/media/727652/download Fact sheet for Patients: https://www.fda.gov/media/785305/download Methodology: Isothermal Nucleic Acid Amplification Performed By: #### C OVRB #### [facility] [address] [place] [address] Manufacturing Worker: Robert Wynne MD Urinalysis w/ Microon 2021 ----- Normal [facility] Comment on above: Performed By: #### D AU, UAMIC #### [facility] [address] [place], [place] [phone] Manufacturing Worker: Robert Wynne MD Bilirubin, SemiQt,Ur Negative Normal NEG [facility] Comment on above: Performed By: #### D AU, UAMIC #### [facility] [address] [place] [address] Manufacturing Worker: Robert Wynne MD Blood, Urine Negative Normal NEG [facility] Comment on above: Performed By: #### D AU, UAMIC #### [facility] [address] [place], [place] [phone] Manufacturing Worker: Robert Wynne MD Clarity (U) Clear Normal CLEAR [facility] Comment on above: Performed By: #### D AU, UAMIC #### [facility] [address] [place] [address] Manufacturing Worker: Robert Wynne MD Color (U) Yellow Normal YEL [facility] Comment on above: Performed By: #### D AU, UAMIC #### [facility] [address] [place] [address] Manufacturing Worker: Robert Wynne MD Epithelial cells LM Ql (Urine sed) 0 TO 2 Normal 0-5 [facility] Comment on above: Performed By: #### D AU, UAMIC #### [facility] [address] [place], [place] [phone] Manufacturing Worker: Robert Wynne MD Glucose Ql (U) Negative Normal NEG [facility] Comment on above: Performed By: #### D AU, UAMIC #### [facility] [address] [place] [address] Manufacturing Worker: Robert Wynne MD Ketones Ql (U) Negative Normal NEG [facility] Comment on above: Performed By: #### D AU, UAMIC #### [address] [place], [place] [phone] Manufacturing Worker: Robert Wynne MD Leukocyte esterase Test strip Ql (U) Negative Normal NEG [facility] Comment on above: Performed By: #### D AU, UAMIC #### [facility] [address] [place] [address] [place] [address] Manufacturing Worker: Robert Wynne MD Nitrite,Ur Negative Normal NEG [facility] Comment on above: Performed By: #### D AU, UAMIC #### [facility] [address] [place] [address] [place] [address] Manufacturing Worker: Robert Wynne MD PH,Ur 6.0 Normal 5.0-9.0 [facility] Comment on above: Performed By: #### D AU, UAMIC #### [facility] [address] [place] [address] Manufacturing Worker: Robert Wynne MD Protein Ql (U) Negative Normal NEG [facility] Comment on above: Performed By: #### D AU, UAMIC #### [facility] [address] [place], [place] [id number] Manufacturing Worker: Robert Wynne MD Spec. [place],Ur 1.020 Normal 1.010-1.020 [facility] Comment on above: Performed By: #### D AU, UAMIC #### [facility] [address] [place], [place] [phone] Manufacturing Worker: Robert Wynne MD Urine RBC's 0 TO 2 Normal 0-2 [facility] Comment on above: Performed By: #### D AU, UAMIC #### [facility] [address] [place], [place] [phone] Manufacturing Worker: Robert Wynne MD Urine WBC's 0 TO 2 Normal 0-5 [facility] Comment on above: Performed By: #### D AU, UAMIC #### [facility] [address] [place], [place] [phone] Manufacturing Worker: Robert Wynne MD Urobilinogen,Ur Normal Normal NORM [facility] Comment on above: Performed By: #### D AU, UAMIC #### [facility] [address] [place], [place] [id number] Manufacturing Worker: Robert Wynne MD Urinalysis with Microscopico n 09-29-2021 - [facility] Bilirubin Urine Negative NEGATIVE [facility] Color, UA Yellow Yellow [facility] Epithelial Cells UA 0 TO 2 [facility] Glucose, Ur Negative NEGATIVE [facility] Ketones Ql (U) Negative NEGATIVE [facility] Leukocyte esterase Test strip Ql (U) Negative NEGATIVE [facility] Nitrite, Urine Negative NEGATIVE [facility] pH, UA 6.0 [facility] Protein, UA Negative NEGATIVE [facility] RBC, UA 0 TO 2 [facility] Specific [place], UA 1.020 [facility] Turbidity UA Clear Clear [facility] Urine Hgb Negative NEGATIVE [facility] Urobilinogen, Urine Normal Normal [facility] WBC, UA 0 TO 2 [facility] Basic Metabolic Panel w/ Ref brain to MGon 09-28-2021 Anion gap [Moles/Vol] 10 mmol/L 9 - 17 mmol/L [facility] Calcium [Mass/Vol] 9.3 mg/dL 8.6 - 10. 4 mg/dL [facility] Chloride [Moles/Vol] 103 mmol/L 98 - 10 7 mmol/L [facility] CO2 [Moles/Vol] 26 mmol/L 20 - 31 mmol/L [facility] Creatinine [Mass/Vol] 0.79 mg/dL 0.70 - 1.20 mg/dL [facility] GFR >60 >60 mL/min [facility] GFR Non- >60 >60 mL/min [facility] Glucose [Mass/Vol] 129 mg/dL High 70 - 99 mg/dL [facility] Interpretation and review of laboratory results Abnormal [facility] Potassium [Moles/Vol] 3.6 mmol/L Low 3.7 - 5.3 mmol/L [facility] Sodium [Moles/Vol] 139 mmol/L 135 - 144 mmol/L [facility] Urea nitrogen (BldV) [Mass/Vol] 13 mg/dL 6 - 20 mg/dL [facility] Urea nitrogen/Creatinine (Bld) [Mass ratio] 16 [facility] CBC with Auto Differentialon 09-28-2021 Absolute Eos # 0.05 [facility] th Absolute Immature Granulocyte 0.03 [facility] Absolute Lymph # 3.53 [facility] alth Absolute Fisher # 1.11 [facility] lt Basophils (Bld) [#/Vol] 0.04 10*3/uL [facility] Basophils/100 WBC (Bld) 0 % 0 - 2 % [facility] Eosinophils/100 WBC (Bld) 0 % Low 1 - 4 % [facility] Hematocrit (Bld) [Volume fraction] 35.4 % Low 40.7 - 50.3 % [facility] Hemoglobin.gastrointest inal spec 1 Ql (Stl) 11.9 g/dL Low 13.0 - 17.0 g/dL [facility] Immature granulocytes/100 WBC (Bld) 0 % 0 [facility] Interpretation and review of laboratory results Abnormal [facility] Lymphocytes/100 WBC (Bld) 30 % 24 - 43 % [facility] MCH (RBC) [Entitic mass] 30.9 pg 25.2 - 33.5 pg [facility] MCHC (RBC) [Mass/Vol] 33.6 g/dL 28.4 - 34.8 g/dL [facility] MCV (RBC) [Entitic vol] 91.9 fL 82.6 - 102.9 fL [facility] Monocytes/100 WBC (Bld) 9 % 3 - 12 % [facility] NRBC Automated 0.0 0.0 per 100 WBC [facility] Platelet distribution width (Bld) [Ratio] 13.1 % 11.8 - 14.4 % [facility] Platelet mean volume (Bld) [Entitic vol] 9.9 fL 8.1 - 13.5 fL [facility] Platelets (Bld) [#/Vol] 284 10*3/uL [facility] RBC (Bld) [#/Vol] 3.85 10*6/uL Low 4.21 - 5.7 7 m/uL [facility] Segmented neutrophils/100 WBC (Bld) 61 % 36 - 65 % [facility] Segs [facility] [#/Vol] 11.8 10*3/uL High [facility] COVID-19, Rapidon 09-28-2021 SARS-CoV-2 (COVID-19) RNA VISHNU+probe Ql (Unsp spec) Not detected Not Detected [facility] Comment on above: Rapid NAAT: [...] management decisions. Fact sheet for Healthcare Providers: https://www.fda.gov/media/832035/download Fact sheet for Patients: https://www.fda.gov/media/961530/download Methodology: Isothermal Nucleic Acid Amplification Specimen Description .NASOPHARYNGEAL SWAB [facility] Ethanolon 09-28-2021 Ethanol [Mass/Vol] mg/dL <10 mg/dL [facility] Ethanol percent <0.010 <0.010 % [facility] Laboratory - Chemistry and C hemistry - challengeon 09-28-2021 GFR/1.73 sq M.predicted MDRD (S/P/Bld) [Vol rate/Area] [facility] Comment on above: Average GFR for 50-5 9 years old: 93 mL/min/1.73sq m Chronic Kidney Disease: <60 mL/min/1.73sq m Kidney failure: <15 mL/min/1.73sq m eGFR calculated using average adult body mass. Additional eGFR calculator available at: http://www.[employer]/multiple_crcl_2012.htm Stage 1: Some kidney damage normal GFR Stage 2: Mild kidney damage GFR 60-89 Stage 3: Moderate kidney damage GFR 30-59 Stage 4: Severe kidney damage GFR 15-29 Stage 5: Severe kidney damage GFR <15 ESRD - chronic treatment by dialysis or transplant CBC AUTO DIFFon 10-31-2020 BASO # 0.0 103/ul Normal 0.0-0.1 [facility] Comment on above: Performed By: #### C BC #### [facility] [address] [place], [place] [id number] Ethan Tabatha Basophils/100 WBC (Bld) 0.5 % Normal 0.2-2.0 [facility] Comment on above: Performed By: #### C BC #### [facility] [address] [place], [place] [id number] Ethan Tabatha EO # 0.2 103/ul Normal 0.0-0.7 [facility] Comment on above: Performed By: #### C BC #### [facility] [address] [place], [place] [id number] Ethan Tabatha Eosinophils/100 WBC (Bld) 2.7 % Normal 0.9-7.0 [facility] Comment on above: Performed By: #### C BC #### [facility] [address] [place], [place] [id number] Ethan Tabatha Erythrocyte distribution width (RBC) [Ratio] 13.9 % Normal 11.0-15.0 [facility] Comment on above: Performed By: #### C BC #### [facility] [address] [place], [place] [id number] Ethan Mays Hematocrit (Bld) [Volume fraction] 36.9 % Critically low 42.0-54.0 [facility] Comment on above: Performed By: #### C BC #### [facility] [address] [place] [address] Ethan Mays Hemoglobin (Bld) [Mass/Vol] 11.9 g/dL Critically low 14.0-18.0 [facility] Comment on above: Performed By: #### C BC #### [facility] [address] [place] [address] Ethanpedro luis Mays IG # 0.02 10e3/ul Normal 0.00-0.03 [facility] Comment on above: Performed By: #### C BC #### [facility] [address] [place] [address] Ethan Mays IG % 0.2 % Normal 0.0-0.5 [facility] Comment on above: Performed By: #### C BC #### [facility] [address] [place] [address] Ethan Mays LYMPH # 4.1 103/ul Critically high 1.2-3.8 [facility] Comment on above: Performed By: #### C BC #### [facility] [address] [place] [address] Ethan Mays Lymphocytes/100 WBC (Bld) 48.0 % Normal 20.5-60.0 [facility] Comment on above: Performed By: #### C BC #### [facility] [address] [place] [address] Ethan Mays MANUAL DIFF REQ NO Normal [facility] Comment on above: Performed By: #### C BC #### [facility] [address] [place], [place] [id number] Ethan Mays MCH (RBC) [Entitic mass] 31.5 pg Normal 25.9-34.0 [facility] Comment on above: Performed By: #### C BC #### [facility] [address] [place] [address] Ethan Mays MCHC (RBC) [Mass/Vol] 32.2 g/dL Normal 29.9-35.2 [facility] Comment on above: Performed By: #### C BC #### [facility] [address] [place], [place] [id number] Ethan Mays MCV (RBC) [Entitic vol] 97.6 fL Critically high 80.0-94 .0 [facility] Comment on above: Performed By: #### C BC #### [facility] [address] [place], [place] [id number] Ethan Mays MONO # 0.9 103/ul Critically high 0.3-0.8 [facility] Comment on above: Performed By: #### C BC #### [facility] [address] [place], [place] [address] Ethan Mays Monocytes/100 WBC (Bld) 10.5 % Normal 1.7-12.0 [facility] Comment on above: Performed By: #### C BC #### [facility] [address] [place], [place] [address] Ethan Mays NEUT # 3.3 103/ul Normal 1.4-6.5 [facility] Comment on above: Performed By: #### C BC #### [facility] [address] [place], [place] [address] Ethan Mays Neutrophils/100 WBC (Bld) 38.1 % Critically low 43.0-75.0 [facility] Comment on above: Performed By: #### C BC #### [facility] [address] [place], [place] [id number] Ethan Mays Platelet mean volume (Bld) [Entitic vol] 9.4 fL Critically low 9.5-13.5 [facility] Comment on above: Performed By: #### C BC #### [facility] [address] [place], [place] [id number] Ethan Gutierrezen PLT 366 103/ul Normal 150-450 [facility] Comment on above: Performed By: #### C BC #### [facility] [address] [place], [place] [id number] Ethanpedro luis Gutierrezen RBC 3.78 106/ul Critically low 4.70-6.10 [facility] Comment on above: Performed By: #### C BC #### [facility] [address] [place], [place] [address] Ethan Mays WBC 8.5 103/ul Normal 4.0-11.0 [facility] Comment on above: Performed By: #### C BC #### [facility] [address] [place], [place] [address] Ethan Mays CTA CHEST WO W CONon [...] KRISTEN KAUFMAN Date: 2020-10-31 21:05 Normal [facility] PROF 14(COMP METB)on 021 Albumin [Mass/Vol] 3.2 g/dL Critically low 3.5-5.0 [facility] Comment on above: Performed By: #### C GENTRY, HSTROPN #### [facility] [address] [place], [place] [address] Ethan Tabatha Albumin/Globulin [Mass ratio] 0.8 {ratio} Normal [facility] Comment on above: Performed By: #### C GENTRY, HSTROPN #### [facility] [address] [place], [place] [address] Ethan Tabatha ALP [Catalytic activity/Vol] 78 U/L Normal 38-126 [facility] Comment on above: Performed By: #### C GENTRY, HSTROPN #### [facility] [address] [place], [place] [address] Ethan Tabatha ALT [Catalytic activity/Vol] 42 U/L Normal 21-72 [facility] Comment on above: Performed By: #### C GENTRY, HSTROPN #### [facility] [address] [place], [place] [address] Ethan Tabatha Anion gap [Moles/Vol] 10.7 mmol/L Normal [facility] Comment on above: Performed By: #### C GENTRY, HSTROPN #### [facility] [address] [place], [place] [address] Ethan Tabatha AST [Catalytic activity/Vol] 28 U/L Normal 17-59 [facility] Comment on above: Performed By: #### C GENTRY, HSTROPN #### [facility] [address] [place], [place] [address] Ethan Tabatha Bilirubin [Mass/Vol] 2.7 mg/dL Critically high 0.2-1.3 [facility] Comment on above: Performed By: #### C GENTRY, HSTROPN #### [facility] [address] [place], [place] [address] Ethan Tabatha Calcium [Mass/Vol] 8.8 mg/dL Normal 8.4-10.2 [facility] Comment on above: Performed By: #### C GENTRY, HSTROPN #### [facility] [address] [place] [id number] Ethan Tabatha Chloride [Moles/Vol] 107 mmol/L Normal 98-107 [facility] Comment on above: Performed By: #### C GENTRY, HSTROPN #### [facility] [address] [place], [place] [id number] Ethan Tabatha CO2 [Moles/Vol] 29.2 mmol/L Normal 22.0-30.0 [facility] Comment on above: Performed By: #### C GENTRY, HSTROPN #### [facility] [address] [place] [address] Ethan Tabatha Creatinine [Mass/Vol] 0.92 mg/dL Normal 0.66-1.25 [facility] Comment on above: Performed By: #### C GENTRY, HSTROPN #### [facility] [address] [place] [address] Ethan Tabatha EGFR-AF TRINIDADIAN >60 Normal >=60 [facility] Comment on above: Performed By: #### C GENTRY, HSTROPN #### [facility] [address] [place], [place] [id number] Ethan Tabatha EGFR-NON AF TRINIDADIAN >60 Normal >=60 [facility] Comment on above: Performed By: #### C GENTRY, HSTROPN #### [facility] [address] [place] [address] Ethan Tabatha Globulin (S) [Mass/Vol] 3.8 g/dL Normal T [facility] Comment on above: Performed By: #### C GENTRY, HSTROPN #### [facility] [address] [place], [place] [phone] Ethan Tabatha Glucose [Mass/Vol] 93 mg/dL Normal 74-106 [facility] Comment on above: Performed By: #### C GENTRY, HSTROPN #### [facility] [address] [place] [address] Ethan Tabatha Potassium [Moles/Vol] 3.9 mmol/L Normal 3.4-5.0 [facility] Comment on above: Performed By: #### C MP, HSTROPN #### [facility] [address] [place] [address] Ethan Tabatha Protein [Mass/Vol] 7.0 g/dL Normal 6.1-8.2 [facility] Comment on above: Performed By: #### C MP, HSTROPN #### [facility] [address] [place], [place] [id number] Ethan Tabatha Sodium [Moles/Vol] 143 mmol/L Normal 137-145 [facility] Comment on above: Performed By: #### C MP, HSTROPN #### [facility] [address] [place] [address] Ethan Tabatha Urea nitrogen [Mass/Vol] 17.0 mg/dL Normal 9.0-20.0 [facility] Comment on above: Performed By: #### C MP, HSTROPN #### [facility] [address] [place] [address] Ethan Tabatha Urea nitrogen/Creatinine [Mass ratio] 18.5 mg/mg Normal [facility] Comment on above: Performed By: #### C MP, HSTROPN #### [facility] [address] [place] [address] Ethan Tabatha TROPONIN, HIGH SENSITIVITYon 10-31-2020 HSTROP 5.3 pg/mL Normal 4.0-42.2 [facility] Comment on above: Result Comment: CUT- OFF POINTS HAVE BEEN ESTABLISHED BASED ON THE FOURTH UNIVERSAL DEFINITIONS OF MYOCARDIAL INFARCTION. THE UPPER REFERENCE LIMIT (URL) OF TROPONIN, DEFINED THE 99TH PERCENTILE OF cTnI DISTRIBUTION IN A REFERENCE POPULATION, HAS BEEN CONFIRMED THE DECISION THRESHOLD FOR PA DIAGNOSIS. Performed By: #### H STROPN #### [facility] [address] [place] [address] Ethan Tabatha HSTROP <4.0 Normal 4.0-42.2 [facility] Comment on above: Result Comment: CUT- OFF POINTS HAVE BEEN ESTABLISHED BASED ON THE FOURTH UNIVERSAL DEFINITIONS OF MYOCARDIAL INFARCTION. THE UPPER REFERENCE LIMIT (URL) OF TROPONIN, DEFINED THE 99TH PERCENTILE OF cTnI DISTRIBUTION IN A REFERENCE POPULATION, HAS BEEN CONFIRMED THE DECISION THRESHOLD FOR PA DIAGNOSIS. Performed By: #### C GENTRY HSTROPN #### [facility] [address] [place] [address] Ethan Tabatha CBC AUTO DIFFon 10-09-2020 BASO # 0.0 103/ul Normal 0.0-0.1 [facility] Comment on above: Performed By: #### C GENTRY HSTROPN #### [facility] [address] [place] [address] Ethan Tabatha Basophils/100 WBC (Bld) 0.3 % Normal 0.2-2.0 [facility] Comment on above: Performed By: #### C GENTRY HSTROPN #### [facility] [address] [place] [address] Ethan Tabatha EO # 0.3 103/ul Normal 0.0-0.7 [facility] Comment on above: Performed By: #### C GENTRY HSTROPN #### [facility] [address] [place] [address] Ethan Tabatha Eosinophils/100 WBC (Bld) 4.4 % Normal 0.9-7.0 [facility] Comment on above: Performed By: #### C GENTRY HSTROPN #### [facility] [address] [place], [place] [id number] Ethan Tabatha Erythrocyte distribution width (RBC) [Ratio] 13.6 % Normal 11.0-15.0 [facility] Comment on above: Performed By: #### C GENTRY HSTROPN #### [facility] [address] [place] [address] Ethan Tabatha Hematocrit (Bld) [Volume fraction] 44.4 % Normal 42.0-54.0 [facility] Comment on above: Performed By: #### C GENTRY HSTROPN #### [facility] [address] [place], [place] [id number] Ethan Tabatha Hemoglobin (Bld) [Mass/Vol] 14.7 g/dL Normal 14.0-18.0 [facility] Comment on above: Performed By: #### C MP, HSTROPN #### [facility] [address] [id number] Ethan Tabatha IG # 0.03 10e3/ul Normal 0.00-0.03 [facility] Comment on above: Performed By: #### C MP, HSTROPN #### [facility] [address] [id number] Ethan Tabatha IG % 0.4 % Normal 0.0-0.5 [facility] Comment on above: Performed By: #### C MP, HSTROPN #### [facility] [address] [id number] Ethan Tabatha LYMPH # 2.7 103/ul Normal 1.2-3.8 [facility] Comment on above: Performed By: #### C GENTRY, HSTROPN #### [facility] [address] [place], [place] [id number] Ethan Tabatha Lymphocytes/100 WBC (Bld) 37.8 % Normal 20.5-60.0 [facility] Comment on above: Performed By: #### C GENTRY, HSTROPN #### [facility] [address] [id number] Ethanpedro luis Mays MANUAL DIFF REQ NO Normal [facility] Comment on above: Performed By: #### C GENTRY, HSTROPN #### [facility] [address] [place], [place] [id number] Ethan Tabatha MCH (RBC) [Entitic mass] 31.3 pg Normal 25.9-34.0 [facility] Comment on above: Performed By: #### C MP, HSTROPN #### [facility] [address] [id number] Ethan Tabatha MCHC (RBC) [Mass/Vol] 33.1 g/dL Normal 29.9-35.2 [facility] Comment on above: Performed By: #### C GENTRY, HSTROPN #### [facility] [address] [id number] Ethan Tabatha MCV (RBC) [Entitic vol] 94.7 fL Critically high 80.0-94 .0 [facility] Comment on above: Performed By: #### C GENTRY, HSTROPN #### [facility] [address] [place] [address] Ethan Tabatha MONO # 0.5 103/ul Normal 0.3-0.8 [facility] Comment on above: Performed By: #### C GENTRY, HSTROPN #### [facility] [address] [place] [address] Ethan Tabatha Monocytes/100 WBC (Bld) 6.5 % Normal 1.7-12.0 [facility] Comment on above: Performed By: #### C GENTRY, HSTROPN #### [facility] [address] [place] [address] Ethan Tabatha NEUT # 3.6 103/ul Normal 1.4-6.5 [facility] Comment on above: Performed By: #### C GENTRY, HSTROPN #### [facility] [address] [place] [address] Ethan Tabatha Neutrophils/100 WBC (Bld) 50.6 % Normal 43.0-75.0 [facility] Comment on above: Performed By: #### C GENTRY, HSTROPN #### [facility] [address] [place] [address] Ethan Tabatha Platelet mean volume (Bld) [Entitic vol] 10.4 fL Normal 9.5-13.5 [facility] Comment on above: Performed By: #### C GENTRY, HSTROPN #### [facility] [address] [place] [address] Ethan Tabatha PLT 283 103/ul Normal 150-450 [facility] Comment on above: Performed By: #### C GENTRY, HSTROPN #### [facility] [address] [place], [place] [id number] Ethan Tabatha RBC 4.69 106/ul Critically low 4.70-6.10 [facility] Comment on above: Performed By: #### C GENTRY, HSTROPN #### [facility] [address] [place], [place] [id number] Ethan Tabatha WBC 7.2 103/ul Normal 4.0-11.0 [facility] Comment on above: Performed By: #### C GENTRY, HSTROPN #### [facility] [address] [place] [address] Ethan Mays ER URINE PROFILEon 1 Bilirubin Ql (U) Negative Normal NEGATIVE [facility] Comment on above: Performed By: #### C GENTRY, HSTROPN #### [facility] [address] [place] [address] Ethan Tabatha Clarity (U) CLEAR Normal CLEAR [facility] Comment on above: Performed By: #### C GENTRY, HSTROPN #### [facility] [address] [place] [address] Ethan Tabatha Color (U) LT. YELLOW Normal YELLOW [facility] Comment on above: Performed By: #### C GENTRY, HSTROPN #### [facility] [address] [place] [address] Ethan Mays ERUAHD A micrscopic examination will be performed if indicated. Normal [facility] Comment on above: Performed By: #### C GENTRY, HSTROPN #### [facility] [address] [place] [address] Ethan Tabatha Glucose Ql (U) Negative Normal NEGATIVE [facility] Comment on above: Performed By: #### C GENTRY, HSTROPN #### [facility] [address] [place] [address] Ethan Tabatha Hemoglobin Ql (U) Negative Normal NEGATIVE [facility] Comment on above: Performed By: #### C GENTRY, HSTROPN #### [facility] [address] [place] [address] Ethan Tabatha Ketones Ql (U) Negative Normal NEGATIVE [facility] Comment on above: Performed By: #### C GETNRY, HSTROPN #### [facility] [address] [place] [address] Ethan Tabatha LEUKOCYTES Negative Normal NEGATIVE [facility] Comment on above: Performed By: #### C GENTRY, HSTROPN #### [facility] [address] [place] [address] Ethanpedro luis Mays Nitrite Ql (U) Negative Normal NEGATIVE [facility] Comment on above: Performed By: #### C GENTRY HSTROPN #### [facility] [address] [place] [address] Ethan Mays pH (U) 7.0 [pH] Normal 5-9 [facility] Comment on above: Performed By: #### C GENTRY HSTROPN #### [facility] [address] [place] [address] Ethan Mays SPEC GRAVITY 1.010 Normal 1.005-<=1.025 [facility] Comment on above: Performed By: #### C GENTRY HSTROPN #### [facility] [address] [place] [address] Ethan Mays UA PROTEIN Negative Normal NEGATIVE/ TRACE [facility] Comment on above: Performed By: #### C GENTRY HSTROPN #### [facility] [address] [place] [address] Ethan Mays UR MICRO IND NOT INDICATED Normal [facility] Comment on above: Performed By: #### C GENTRY HSTROPN #### [facility] [address] [place] [address] Ethan Mays Urobilinogen Qn (U) 0.2 {Jamal'U}/dL Normal 0.2 - 1. 0 [facility] Comment on above: Performed By: #### C GENTRY HSTROPN #### [facility] [address] [place] [address] Ethan Mays POINT OF CARE GLUCOSEon 09-14 Glucose [Mass/Vol] 78 mg/dL Normal 74-106 [facility] Comment on above: Performed By: #### P OCGLUC #### [facility] [address] [place] [address] Ethan Mays PROF 14(COMP METB)on 021 Albumin [Mass/Vol] 3.9 g/dL Normal 3.5-5.0 [facility] Comment on above: Performed By: #### C GENTRY, HSTROPN #### [facility] [address] [place], [place] [address] Ethan Tabatha Albumin/Globulin [Mass ratio] 1.0 {ratio} Normal [facility] Comment on above: Performed By: #### C GENTRY, HSTROPN #### [facility] [address] [place], [place] [address] Ethan Tabatha ALP [Catalytic activity/Vol] 63 U/L Normal 38-126 [facility] Comment on above: Performed By: #### C GENTRY, HSTROPN #### [facility] [address] [place], [place] [address] Ethan Tabatha ALT [Catalytic activity/Vol] 67 U/L Normal 21-72 [facility] Comment on above: Performed By: #### C GENTRY, HSTROPN #### [facility] [address] [id number] Ethan Tabatha Anion gap [Moles/Vol] 8.8 mmol/L Normal [facility] Comment on above: Performed By: #### C GENTRY, HSTROPN #### [facility] [address] [phone] Ethan Tabatha AST [Catalytic activity/Vol] 40 U/L Normal 17-59 [facility] Comment on above: Performed By: #### C GENTRY, HSTROPN #### [facility] [address] [place], [place] [address] Ethan Tabatha Bilirubin [Mass/Vol] 4.0 mg/dL Critically high 0.2-1.3 [facility] Comment on above: Performed By: #### C GENTRY, HSTROPN #### [facility] [address] [place], [place] [address] Ethan Tabatha Calcium [Mass/Vol] 9.1 mg/dL Normal 8.4-10.2 [facility] Comment on above: Performed By: #### C GENTRY, HSTROPN #### [facility] [address] [place], [place] [address] Ethan Tabatha Chloride [Moles/Vol] 105 mmol/L Normal 98-107 [facility] Comment on above: Performed By: #### C MP, HSTROPN #### [facility] [address] [id number] Ethan Tabatha CO2 [Moles/Vol] 29.3 mmol/L Normal 22.0-30.0 [facility] Comment on above: Performed By: #### C MP, HSTROPN #### [facility] [address] [id number] Ethan Tabatha Creatinine [Mass/Vol] 0.93 mg/dL Normal 0.66-1.25 [facility] Comment on above: Performed By: #### C GENTRY, HSTROPN #### [facility] [address] [id number] Ethan Tabatha EGFR-AF TRINIDADIAN >60 Normal >=60 [facility] Comment on above: Performed By: #### C GENTRY, HSTROPN #### [facility] [address] [address] Ethan Tabatha EGFR-NON AF TRINIDADIAN >60 Normal >=60 [facility] Comment on above: Performed By: #### C GENTRY, HSTROPN #### [facility] [address] [id number] Ethan Tabatha Globulin (S) [Mass/Vol] 3.8 g/dL Normal [facility] Comment on above: Performed By: #### C MP, HSTROPN #### [facility] [address] [address] Ethan Tabatha Glucose [Mass/Vol] 136 mg/dL Critically high 74-106 [facility] Comment on above: Performed By: #### C MP, HSTROPN #### [facility] [address] [id number] Ethan Tabatha Potassium [Moles/Vol] 4.1 mmol/L Normal 3.4-5.0 [facility] Comment on above: Performed By: #### C MP, HSTROPN #### [facility] [address] [phone] Ethan Tabatha Protein [Mass/Vol] 7.7 g/dL Normal 6.1-8.2 [facility] Comment on above: Performed By: #### C MP, HSTROPN #### [facility] [address] [place] [address] Ethan Mays Sodium [Moles/Vol] 139 mmol/L Normal 137-145 [facility] Comment on above: Performed By: #### C MP, HSTROPN #### [facility] [address] [place] [address] Ethan Mays Urea nitrogen [Mass/Vol] 6.0 mg/dL Critically low 9.0-20.0 [facility] Comment on above: Performed By: #### C MP, HSTROPN #### [facility] [address] [place] [address] Ethan Mays Urea nitrogen/Creatinine [Mass ratio] 6.5 mg/mg Normal [facility] Comment on above: Performed By: #### C MP, HSTROPN #### [facility] [address] [place] [address] Ethan Mays Rapid Covid-19 PCR (CVDRPD)o n 10-09-2020 SARS-CoV-2 (COVID-19) RNA VISHNU+probe Ql (Unsp spec) Not detected Normal NOT DETECTED [facility] Comment on above: Result Comment: This test is not yet approved or cleared by the [place] Food and Drug Administration (FDA). This test was developed by [employer], [place], [place]. The performance characteristics of this test were validated by [facility]. The results are not intended to be used as the sole means for clinical diagnosis or patient management decisions. The [facility] is authorized under Clinical Laboratory Improvement Amendments (CLIA) to perform high- complexity testing. When diagnostic testing is negative, the possibility of a false negative should be considered in the context of a patient's recent exposures and the presence of clinical signs and symptoms consistent with SARS-CoV-2. Performed By: #### C VDRPD #### [facility] [address] [place] [address] Ethan Mays TROPONIN, HIGH SENSITIVITYon 10-09-2020 HSTROP <4.0 Normal 4.0-42.2 [facility] Comment on above: Result Comment: CUT- OFF POINTS HAVE BEEN ESTABLISHED BASED ON THE FOURTH UNIVERSAL DEFINITIONS OF MYOCARDIAL INFARCTION. THE UPPER REFERENCE LIMIT (URL) OF TROPONIN, DEFINED THE 99TH PERCENTILE OF cTnI DISTRIBUTION IN A REFERENCE POPULATION, HAS BEEN CONFIRMED THE DECISION THRESHOLD FOR PA DIAGNOSIS. Performed By: #### C MP, HSTROPN #### [facility] [address] [place], [place] [address] Ethan Mays XR CHEST 1 Von 10-09-2020 [...] by: ROBERT HICKS Date: 2020-10-09 13:14 Normal [facility] XR CHEST 1 V EXAMINATION: XR [...] by: ROBERT HICKS Date: 2020-10-09 12:43 Normal [facility] Vital Signs Date Time Vital Sign Value Performing Clinician Facility 09-28-2021 20:16-0400 Body temperature 98.29 [degF] Roslyn Syed MD Work Phone: [facility] 09-28-2021 20:16-0400 Diastolic blood pressure 132 mm[Hg] Roslyn Syed MD Work Phone: [employer] 09-28-2021 20:16-0400 Heart rate 117 /min Roslyn Syed MD Work Phone: [employer] 09-28-2021 20:16-0400 Respiratory rate 22 /min Roslyn Syed MD Work Phone: [employer] 09-28-2021 20:16-0400 SaO2% (BldA) [Mass fraction] 95 % Roslyn Syed MD Work Phone: [employer] 09-28-2021 20:16-0400 Systolic blood pressure 197 mm[Hg] Roslyn Syed MD Work Phone: [employer] 09-19-2021 15:00-0400 Body height 172.72 cm Paul Fields Other [facility] [facility] [employer] Other 09-19-2021 15:00-0400 Body mass index (BMI) [Ratio] 18.7 kg/m2 Paul Fields Other [facility] [facility] [employer] Other 09-19-2021 15:00-0400 Body temperature 97.2 [degF] Paul Fields Other [facility] Other 09-19-2021 15:00-0400 Body weight 55.79 kg Paul Fields Other [facility] [employer] Other 09-19-2021 15:00-0400 Diastolic blood pressure 70 mm[Hg] Paul Fields Other [facility] [facility] [employer] Other 09-19-2021 15:00-0400 Systolic blood pressure 120 mm[Hg] Paul Fields Other [facility] [facility] [employer] Other Encounters Encounter Date Encounter Type Care Provider Facility Start: 10-22-2023 End: 10-22-2023 Emergency department patient visit CHERRYFRANCESCA HAYNES [facility] Start: 10-21-2023 End: 10-22-2023 Emergency department patient visit NO PCP NO PCP [facility] Start: 12-10-2022 ambulatory Hugh Storm acility:[facility] Start: 01-03-2022 End: 01-03-2022 Patient encounter procedure PHYSICIAN NO FAMILY [facility] [place] Start: 12-11-2021 End: 12-11-2021 ambulatory Nando Rocha Other [facility] [facility] [employer] Other Start: 12-11-2021 Telephone encounter Nando Rocha [facility] Start: 09-28-2021 End: 09-29-2021 Emergency department patient visit ROSLYN SYED [facility] Start: 09-28-2021 End: 09-29-2021 Emergency department patient visit Roslyn Syed MD Work Phone: [facility] ED Comment on above: Encounter for medica l screening examination (Primary Dx) Start: 09-19-2021 End: 09-19-2021 ambulatory Paul Fields Other [facility] [facility] [employer] Other Start: 09-19-2021 Office outpatient visit 25 [...] Influenza vaccination Flu vacc ine (Season Ended) [facility] Start: 08-20-1976 COVID-19 Vaccine (1) COVID-19 Vaccine (1) [facility] Absolute CD8 count procedure [facility] Work Phone: Basophil count [facility] Work Phone: Basophil percent differential count [facility] Work Phone: CD3+CD4+ (T4 helper) cells [#/volume] in Blood [facility] Work Phone: CD3+CD4+ (T4 helper) cells/CD3+CD8+ (T8 suppressor cells) cells [# Ratio] in Blood [facility] Work Phone: Cluster of different iation antigen count procedure [facility] Work Phone: EKG 12 Lead [facility] Work Phone: Eosinophil percent differential count [facility] Work Phone: Eosinophils [#/volum e] in Blood [facility] Work Phone: Erythrocyte mean cor puscular volume determination [facility] Work Phone: Erythrocytes [#/volu me] in Blood [facility] Work Phone: Hematocrit [Volume F raction] of Blood [facility] Work Phone: Hemoglobin distribut ion, width determination [facility] Work Phone: HIV 1 RNA [#/volume] (viral load) in Unspecified specimen by VISHNU with probe detection [facility] Work Phone: HIV 1 RNA [Log #/vol ume] (viral load) in Unspecified specimen by VISHNU with probe detection [facility] Work Phone: Leukocytes [#/volume ] in Blood [facility] Work Phone: Lymphocyte count [facility] Work Phone: Lymphocyte percent differential count [facility] Work Phone: Mean corpuscular hem oglobin determination [facility] Work Phone: Monocyte count [facility] Work Phone: Monocyte percent differential count [facility] Work Phone: Neutrophil count [facility] Work Phone: Neutrophil percent differential count [facility] Work Phone: Platelets [#/volume] in Blood [facility] Work Phone: Immunizations Immunization Date Immunization Notes Care Provider Gabriella ac 08-07-2020 influenza, injectable, quadrivalent, preservative free PHYSICIAN NO [facility] NEGATED: Highlighted row has not occurred!06-21-2015 influenza, seasonal, injectable Paul Fields Other [facility] [employer] Other Payers Date Payer Category Payer Self-pay [id number] 2022 Medicaid [id number] 1970 Unknown [id number] 1971 Unknown [id number] 1971 Unknown [id number] 1971 Unknown [id number] 1971 Unknown [id number] 1959 Unknown [id number] Medicaid [facility] [id number] Unknown [id number] Social History Date Type Detail Facility Tobacco smoking status [facility] Tobacco smoking consumption unknown [employer] Phone: Start: 1970 Sex Assigned At Not on file [facility] Phone: Start: 09-18-2021 End: 09-28-2021 Exposure to SARS-CoV-2 (event) Not sure [employer] Phone: End: 09-30-2020 Sex Assigned At [facility] [employer] Other Start: 10-12-2020 Tobacco smoking status VTIS Ex-smoker (finding) [facility] Start: 1970 Sex Assigned At Male F [facility] Medical Equipment Procedure Code Equipment Code Equipment Origin al Text Equipment Identifier Dates Thoracotomy Staple line-reinforcement strip [id number] FDA Start: 10-12-2020 Thoracotomy Surgical adhesive/sealant, human-derived ()[id number] Start: 10-12-2020 Evaluation note 09-19-2021 Note Date [...] of significant exertion. Will refill his albuterol [facility] [employer] [facility] [employer] Other Evaluation note Note Date & Type Note Facility Evaluation note Diagnosis Encounter for medical screening examination- Primary documented in this encounter [employer] Phone: Evaluation note Note Date & Type Note Facility Evaluation note No Information [facility] Other Evaluation note Note Date & Type Note Facility Evaluation note No assessment information availa [facility] Work Phone: History general Narrative - Reported Note Date & Type Note Facility History general Narrative - Reported Type Medical History Bipolar Disorder Medical History Depression Medical History HIV Medical History AIDS Medical History Bronchitis Medical History Tobacco abuse Medical History halfway use of high risk medic ations Surgical History lung collapsed had t o go in for stapling 2020 Hospitalization History See Above [facility] [employer] Other Hospital Discharge instructions Attachments Note Date & Type Note Facility Hospital Discharge instructions The following attachments cannot be sent through Care Everywhere.Well Visit: 50 to 65 Year Men ([place])documented in this encounter [employer] Phone: Summary Purpose Family History No Family [...] DATE CREATED AUTHOR AUTHOR'S ORGANIZ ATION 10/23/[address] [facility] DATE CREATED AUTHOR AUTHOR'S ORGANIZ ATION 03/12/2024 [facility] Reason for Visit (unrecogniz ed section and content) Reason Comments Other medical clearance fr om long term Scheduled Active and Recently Administ ered Medications [...] BE BASED ON THE PRIMARY CLINICAL RECORDS. [employer] provides no warranty or guarantee of the accuracy or completeness of information in this document.
[2025-04-03 17:15] VITALS: BP 120/84; PULSE 88; TEMP 36.8; O2SAT 99; BMI 18.7
--- NOTE | 2025-04-03 18:03 | ECG_ITS ---
[facility] Test Date: 2025-04-03 Pat Name: INO CHAWLA Department: Room: - Gender: Male [employer]: : 1970 Requested By: Darien Lopez Order Number: [id number] Reading MD: CA SLATER Measurements Intervals [place] Rate: 76 P: 90 HI: 124 QRS: 89 QRSD: 98 T: 81 QT: 400 QTc: 430 Interpretive Statements 1100 Sinus rhythm 2440 Incomplete right bundle branch block Anteroseptal infarct age indeterminate 9130 borderline ECG Compared to ECG 01/28/2025 09:46:01 Incomplete right bundle-branch block now present Anteroseptal infarct age indeterminate now present Electronically Signed On 04-04-2025 17:05:44 EDT by CA SLATER
[2025-04-03 18:24] LABS: Hematocrit 37.7 % (42.0-54.0); Hemoglobin 12.0 g/dL (14.0-18.0); Immature Granulocytes Abs Auto 0.03 10^3/uL (0.00-0.03); Immature Granulocytes Pct Auto 0.4 % (0.0-0.5); Lymphocytes Absolute Auto 2.8 10^3/uL (1.2-3.8); Mean Corpuscular HGB Conc 31.8 g/dL (29.9-35.2); Mean Corpuscular Hemoglobin 29.3 pg (25.9-34.0); Mean Corpuscular Volume 92.0 fL (80.0-94.0); Platelet Count 218 10^3/uL (150-450); Red Blood Count 4.10 10^6/uL (4.70-6.10); White Blood Count 7.4 10^3/uL (4.0-11.0)
--- NOTE | 2025-04-03 18:37 | ED.PSYCH1 ---
HPI - Psych General Chief Complaint: Psychiatric Symptoms Stated Complaint: Altered Mental Status Time Seen by Provider: 04/03/25 18:03 Source: Reports patient Mode of arrival: walk-in Limitations: Reports no limitations History of Present Illness HPI Narrative: cc - schizophrenic and off meds Patient states that he is a long-term schizophrenic who has been off his medications for more than 18 years. He admits to having hallucinations, which are worsening, and now he is having trouble delineating what is real from what is not. He requests stabilization and seeks hospitalization for his symptoms. No suicidality. No recent self-injury. 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 afebrile General: Well-appearing and in no apparent distress. Skin: Warm, dry, no pallor noted. Head: Normocephalic, atraumatic. Eye: Pupils are equal, round and EOMI. No scleral icterus. Ears, Nose, Mouth, and Throat: Oral mucosa is moist Cardiovascular: Regular Rate and Rhythm without murmur, gallop or rub. Respiratory: No accessory muscle use or respiratory distress. Lungs are clear to auscultation, no wheezing, rales or rhonchi Musculoskeletal: normal ROM, no calf or popliteal tenderness, no lower extremity edema/swelling GI: Abdomen is soft, non-distended. Normal bowel sounds. No tenderness to palpation. No rebound, guarding, or rigidity noted. Neurological: A&O x4. No cranial nerve dysfunction observed. No truncal ataxia. Moves all extremities. Sensation intact. Psychiatric: Cooperative and interactive. Normal mood and affect. Constitutional Vital Signs, click to edit/add: Last Vital Signs Temp 98.3 F 04/03/25 17:15 Pulse 88 04/03/25 17:15 Resp 16 04/03/25 17:15 BP 120/84 04/03/25 17:15 Pulse Ox 99 04/03/25 17:15 O2 Del Method Room Air 04/03/25 17:15 Course Vital Signs Vital signs: Vital Signs Temperature 98.3 F 04/03/25 17:15 Pulse Rate 88 04/03/25 17:15 Respiratory Rate 16 04/03/25 17:15 Blood Pressure 120/84 04/03/25 17:15 Pulse Oximetry 99 04/03/25 17:15 Oxygen Delivery Method Room Air 04/03/25 17:15 Temperature 98.3 F 04/03/25 17:15 Pulse Rate 88 04/03/25 17:15 Respiratory Rate 16 04/03/25 17:15 Blood Pressure 120/84 04/03/25 17:15 Pulse Oximetry 99 04/03/25 17:15 Oxygen Delivery Method Room Air 04/03/25 17:15 MDM - Psych MDM Narrative Medical decision making narrative: Blood and urine obtained and sent for testing. EKG also obtained. Patient signed out at 7 PM shift change to the hotel night auditor physician, Dr. Guy. Lab Data Attestation: I reviewed the patient's lab results. Labs: Lab Results 04/03/25 Range/Units 18:16 WBC 7.4 (4.0-11.0) 10^3/uL RBC 4.10 L (4.70-6.10) 10^6/uL Hgb 12.0 L (14.0-18.0) g/dL Hct 37.7 L (42.0-54.0) % MCV 92.0 (80.0-94.0) fL MCH 29.3 (25.9-34.0) pg MCHC 31.8 (29.9-35.2) g/dL RDW 13.8 (11.0-15.0) % Plt Count 218 (150-450) 10^3/uL MPV 10.2 (9.5-13.5) fL Neut % (Auto) 44.3 (43.0-75.0) % Lymph % (Auto) 37.8 (20.5-60.0) % [place] % (Auto) 12.4 H (1.7-12.0) % Eos % (Auto) 4.7 (0.9-7.0) % Baso % (Auto) 0.4 (0.2-2.0) % Neut # (Auto) 3.3 (1.4-6.5) 10^3/uL Lymph # (Auto) 2.8 (1.2-3.8) 10^3/uL [place] # (Auto) 0.9 H (0.3-0.8) 10^3/uL Eos # (Auto) 0.4 (0.0-0.7) 10^3/uL Baso # (Auto) 0.0 (0.0-0.1) 10^3/uL Abs Immat Gran (auto) 0.03 (0.00-0.03) 10^3/uL Imm/Tot Granulo (auto) 0.4 (0.0-0.5) % ECG Data Attestation: I personally reviewed and interpreted this ECG as follows: Interpretation: EKG interpretation:Emergency Department physician interpretation. Normal sinus rhythm at 76bpm. Incomplete right bundle branch block. Normal axis, normal intervals and no ST segment elevation or depression. Discharge Plan Discharge Patient Disposition: Still a Patient
[2025-04-03 18:39] LABS: Alanine Aminotransferase 33 U/L (16-63); Albumin Globulin Ratio 0.8; Albumin Level 3.2 g/dL (3.4-5.0); Alkaline Phosphatase 68 U/L (46-116); Anion Gap 9.8; Aspartate Amino Transferase 25 U/L (15-37); Blood Urea Nitrogen 16.0 mg/dL (7.0-18.0); Calcium 8.5 mg/dL (8.5-10.1); Carbon Dioxide 29.9 mmol/L (21.0-32.0); Chloride 103 mmol/L (98-107); Estimated GFR (African America >60 (>=60 mL/min/1.73m^2); Estimated GFR (Non-African Ame >60 (>=60 mL/min/1.73m^2); Globulin 4.2 g/dL; Glucose 88 mg/dL (74-106); Potassium 3.7 mmol/L (3.5-5.1); Sodium 139 mmol/L (136-145); Total Protein 7.4 g/dL (6.4-8.2)
[2025-04-03 18:41] LABS: Acetaminophen <3.0 ug/mL (10.0-30.0); Salicylate <2.8 mg/dL (<=19.9)
--- NOTE | 2025-04-03 19:10 | PC.NURSE ---
patient report given at this time
--- NOTE | 2025-04-03 19:17 | PC.NURSE ---
this patient's urine sent o lab dept this patient's sister called, i asked if he would like to talk to his sister(Gin), this patient said no to talked to his sister. i did introduced myself to this patient, this patient voices no concerns, needs and shows no signs of distress this patient updated waiting on the urine results to come back
[2025-04-03 20:04] LABS: Glucose Urine UA NEGATIVE (NEGATIVE)
[2025-04-03 20:11] LABS: Cast Seen? NONE SEEN #/LPF (NONE SEEN); Crystals Seen? None Seen #/HPF (None Seen); Urine Culture Indicated NO
[2025-04-03 20:13] LABS: Cannabinoid Screen Urine NEGATIVE (NEGATIVE); Methamphetamines Screen Urine NEGATIVE (NEGATIVE); Tricyclic Antidepressant Urine NEGATIVE (NEGATIVE)
--- NOTE | 2025-04-03 20:16 | PC.NURSE ---
this patient is on the portable phone speaking to [facility] [employer] [facility] personal at this time
--- NOTE | 2025-04-03 20:31 | PC.NURSE ---
this patient is complete with talking Lucia Briggs personal I spoke with Lucia Briggs Personal and was told this patient will see and talk to Xander via in person and tablet after she see a 18 year old female to your ER dept. this has bee update to Dr Guy
--- NOTE | 2025-04-03 21:27 | PC.NURSE ---
this patient is done talking to Janine and this patient said in a half in hour
--- NOTE | 2025-04-03 21:37 | PC.NURSE ---
o spoke with Janine (via phone)from [facility], she said she will try to admit this patient. Dr Guy has been advise of this
--- NOTE | 2025-04-03 21:57 | ED.GENADUL1 ---
HPI HPI - General Adult General Chief complaint: Psychiatric Symptoms Stated complaint: Altered Mental Status Time Seen by Provider: 04/03/25 18:03 Source: patient Mode of arrival: walk-in Limitations: no limitations History of Present Illness HPI narrative: 54-year-old male presented to the emergency department and was initially seen by Dr. Lopez and signed out to me at change of shift. Please see his full history and physical exam. 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] (ICD-10) Social History Little interest or pleasure in doing things: not at all Feeling down, depressed, or hopeless: not at all Exam Constitutional Vital Signs, click to edit/add: Last Vital Signs Temp 98.3 F 04/03/25 17:15 Pulse 88 04/03/25 17:15 Resp 16 04/03/25 17:15 BP 120/84 04/03/25 17:15 Pulse Ox 99 04/03/25 17:15 O2 Del Method Room Air 04/03/25 17:15 Course Vital Signs Vital signs: Vital Signs Temperature 98.3 F 04/03/25 17:15 Pulse Rate 88 04/03/25 17:15 Respiratory Rate 16 04/03/25 17:15 Blood Pressure 120/84 04/03/25 17:15 Pulse Oximetry 99 04/03/25 17:15 Oxygen Delivery Method Room Air 04/03/25 17:15 Temperature 98.3 F 04/03/25 17:15 Pulse Rate 88 04/03/25 17:15 Respiratory Rate 16 04/03/25 17:15 Blood Pressure 120/84 04/03/25 17:15 Pulse Oximetry 99 04/03/25 17:15 Oxygen Delivery Method Room Air 04/03/25 17:15 Medical Decision Making MDM Narrative Medical decision making narrative: The patient has been interviewed by mental health services and will be admitted at [address] at [facility]. The patient is agreeable and stable for transfer. He is medically cleared. Lab Data Labs: Lab Results 04/03/25 04/03/25 Range/Units 18:16 18:50 WBC 7.4 (4.0-11.0) 10^3/uL RBC 4.10 L (4.70-6.10) 10^6/uL Hgb 12.0 L (14.0-18.0) g/dL Hct 37.7 L (42.0-54.0) % MCV 92.0 (80.0-94.0) fL MCH 29.3 (25.9-34.0) pg MCHC 31.8 (29.9-35.2) g/dL RDW 13.8 (11.0-15.0) % Plt Count 218 (150-450) 10^3/uL MPV 10.2 (9.5-13.5) fL Neut % (Auto) 44.3 (43.0-75.0) % Lymph % (Auto) 37.8 (20.5-60.0) % [place] % (Auto) 12.4 H (1.7-12.0) % Eos % (Auto) 4.7 (0.9-7.0) % Baso % (Auto) 0.4 (0.2-2.0) % Neut # (Auto) 3.3 (1.4-6.5) 10^3/uL Lymph # (Auto) 2.8 (1.2-3.8) 10^3/uL [place] # (Auto) 0.9 H (0.3-0.8) 10^3/uL Eos # (Auto) 0.4 (0.0-0.7) 10^3/uL Baso # (Auto) 0.0 (0.0-0.1) 10^3/uL Abs Immat Gran (auto) 0.03 (0.00-0.03) 10^3/uL Imm/Tot Granulo (auto) 0.4 (0.0-0.5) % Sodium 139 (136-145) mmol/L Potassium 3.7 (3.5-5.1) mmol/L Chloride 103 (98-107) mmol/L Carbon Dioxide 29.9 (21.0-32.0) mmol/L Anion Gap 9.8 BUN 16.0 (7.0-18.0) mg/dL Creatinine 0.70 (0.70-1.30) mg/dL Est GFR ( Amer) >60 (>=60 mL/min/1.73m^2) Est GFR (Non-Af Amer) >60 (>=60 mL/min/1.73m^2) BUN/Creatinine Ratio 22.9 Glucose 88 (74-106) mg/dL Calcium 8.5 (8.5-10.1) mg/dL Total Bilirubin 0.4 (0.2-1.0) mg/dL AST 25 (15-37) U/L ALT 33 (16-63) U/L Alkaline Phosphatase 68 (46-116) U/L Total Protein 7.4 (6.4-8.2) g/dL Albumin 3.2 L (3.4-5.0) g/dL Globulin 4.2 g/dL Albumin/Globulin Ratio 0.8 Urine Color Lt. yellow (YELLOW) Urine Clarity Clear (CLEAR) Urine pH 5.5 (5.0-9.0) Ur Specific [place] <=1.005 A (1.005-1.025) Urine Protein Negative (NEG/TRACE) mg/dL Urine Glucose (UA) Negative (NEGATIVE) mg/dL Urine Ketones Negative (NEGATIVE) mg/dL Urine Occult Blood Negative (NEGATIVE) Urine Nitrite Negative (NEGATIVE) Urine Bilirubin Negative (NEGATIVE) Urine Urobilinogen 0.2 (0.2-1.0) EU/dL Ur Leukocyte Esterase Negative (NEGATIVE) Urine RBC None seen (0-2) #/HPF Urine WBC None seen (NONE SEEN) #/HPF Ur Squamous Epith Cells None seen (NONE/RARE) #/LPF Urine Crystals None seen (None Seen) #/HPF Urine Bacteria None seen (NONE SEEN) #/HPF Urine Casts None seen (NONE SEEN) #/LPF Urine Mucus None seen (NONE SEEN) Ur Culture Indicated? No Salicylates <2.8 (<=19.9) mg/dL Urine Opiates Screen Negative (NEGATIVE) Ur Buprenorphine Scrn Negative (NEGATIVE) Ur Oxycodone Screen Negative (NEGATIVE) Urine Methadone Screen Negative (NEGATIVE) Acetaminophen <3.0 L (10.0-30.0) ug/mL Ur Barbiturates Screen Negative (NEGATIVE) U Tricyclic Antidepress Negative (NEGATIVE) Ur Phencyclidine Scrn Negative (NEGATIVE) Ur Amphetamines Screen Negative (NEGATIVE) U Methamphetamines Scrn Negative (NEGATIVE) U Benzodiazepines Scrn Negative (NEGATIVE) Urine Cocaine Screen Negative (NEGATIVE) U Cannabinoids Screen Negative (NEGATIVE) Ethanol Quant <3 mg/dL Discharge Plan Discharge Chief Complaint: Psychiatric Symptoms Clinical Impression: Acute psychosis, Chronic schizophrenia Patient Disposition: [facility] Time of Disposition Decision: 21:54 Discharge Location: [facility] Condition: Fair Mode of Transportation: EMS
--- NOTE | 2025-04-03 21:59 | PC.NURSE ---
i have been told that this patient will be accepted by [facility], and [facility] will be here inn the hour. this patient has signed the transfer paper work for the [facility]
--- NOTE | 2025-04-03 22:26 | PC.NURSE ---
this patient left with NCMES and this patient placed all of his personal belonging in a bag except his inhale i called Lucia Briggs and talked to Sandra charge nurse with patient's report
== END 2025-04-03 22:25 ==
PROVIDERS: Emergency Medicine; Emergency Provider Emergency Medicine
DX: F20.9 Schizophrenia, unspecified (principal)
CPT/HCPCS: 36415; 80053; 80179; 80307; 80320; 80329; 81001; 85025; 93005; 99285

== ENCOUNTER 2025-04-28 13:02 | Emergency (ER) | payer OTHER, SELFPAY ==
[2025-04-28 13:08] VITALS: BP 127/97; O2SAT 96
[2025-04-28 13:10] VITALS: BP 127/87; PULSE 98; TEMP 36.8; O2SAT 95; O2SAT 97; BMI 16.7
[2025-04-28 13:18] VITALS: O2SAT 97
--- NOTE | 2025-04-28 13:22 | XR_ITS ---
The [address] [address] Patient Name: INO CHAWLA MRN: [id number] date: 1970 Sex: M Assigned Patient Location: ER Current Patient Location: Accession/Order Number: [id number] Exam Date: 04/28/2025 13:57 Report Date: 04/28/2025 14:58 At the request of: RENE TAPIA MD Procedure: XR chest 1V Plain film chest Single view HISTORY: Shortness of breath. COMPARISON: 01/28/2025 FINDINGS: SUPPORT DEVICES: None POSTSURGICAL CHANGES: None HEART: Within normal limits PULMONARY DEMETRIO: Within normal limits MEDIASTINUM: Unremarkable LUNGS AND PLEURA: No acute lung process, pleural effusion or pneumothorax identified. Stable remote granulomatous changes. Hyperinflation. BONY STRUCTURES: Intact ADDITIONAL FINDINGS None XR/XR chest 1V IMPRESSION: No acute process. Impression dictated by: Pablo Kenney M.D. 04/28/2025 2:58 PM Dictation Location: Metaps Electronically authenticated by: [id number] Y Date: 04/28/2025 14:58
[2025-04-28] MEDS: IPRATROPIUM/ALBUTEROL SULFATE 3 ML AMPUL.NEB IH (13:37)
[2025-04-28 13:38] VITALS: PULSE 90; O2SAT 93
--- OUTSIDE RECORDS SUMMARY | 2025-04-28 14:07 | XMS_ITS | CCD ---
Author Organization [facility] Informat ion Partnership [facility] Care Team Providers [facility] Dedicated Truck Driver Name Role Phone REQUEST, NONE LISTED Primary Care Unavaila ble MARKER, DR JONES Admitting Unavailable MARKER, DR JONES Consulting Unavailable MARKER, DR JONES Attending Unavailable KRISTEN KAUFMAN Consulting Unavailable TABITHA EASTON Attending Unavailable REQUEST, DR SONI LISTED Primary Care Unavaila ble WEST, DR ROBERT Dobbs Consulting Unavailable RUSTAM, TABITHA Admitting Unavailable SAM, IRAIS Consulting Unavailable RUSTAM, TABITHA Consulting Unavailable Unavailable Primary Care Provider Unavailabl e Paul Fields Unavailable Nando Rocha Unavailable NO FAMILY, PHYSICIAN Primary Care Provider Unava ilMD Paul Larios Attending Provider [phone] NO PCP, NO PCP Primary Care Unavailable ALEYXS HAYNES Attending Unavailable ALEXYS HAYNES Attending Unavailable ALEXYS HAYNES Referring Unavailable NO PCP, NO PCP Primary Care Unavailable NO FAMILY, PHYSICIAN Primary Care Provider Unava ilable Hugh Headley MD Admit Provider Hugh Headley MD Attending Provider Hugh Headley MD Other Provider Unavailable Primary Care Provider Unavailjuan e NO FAMILY, PHYSICIAN Primary Care Provider Unava ilHugh Ferguson MD Admit Provider Hugh Headley MD Attending Provider [phone] Hugh Headley MD Other Provider Kingston Maldonado MD Admit Provider Kingston Maldonado MD Attending Provider Kingston Maldonado MD Other Provider [phone] KAREN MAY Attending Unavailable Kingston Maldonado Admitting Unavailable NO FAMILY, PHYSICIAN Primary Care Unavailable Kayode, Hugh Attending Unavailab le NO FAMILY, PHYSICIAN Primary Care Unavailable Kayode Hugh Attending Unavailab le Kayode, Hugh Admitting Unavailab le NO FAMILY, PHYSICIAN Primary Care Unavailable Kayode, Hugh Attending Unavailab le Kayode, Hugh Admitting Unavailab le Allergies Allergy ClassificationReported Allergen(s)Allergy TypeDate of OnsetReaction(s) FacilityAsenapine (1 source)AsenapineDrug Vsazdhb62-41-6510FrzBrown [facility] Rep[facility] (6 sources)AsenapineDrug Oscitwb61-06-5138mymot, Other (See Comments)[facility] (6 sources)CitalopramDrug Nmbijuv91-72-5282vntjoHoajwwaveKettering Health Hamilton (5 sources)risperiDONEDrug Lzbharr56-80-2690xvxfiOpxpakehtKettering Health Hamilton (5 sources)Escitalopram; Translations: [escitalopram]Drug Eulrmpv11-58-3817BibtqMercy Health [facility]field Hospital (4 sources)Lactose; Translations: [lactose]Drug Lnsuplj43-03-8946Mjenrt And VomitingMet[facility] (1 source)cow milk allergenic extractDrug Onovkmw87-86-2280WmjSovah Health - [facility]ville (1 source)AsenapineDrug Jkhvzmu21-18-6474XhqhjsqgxMet[facility] Repository (1 source)CitalopramDrug Pfxoaeg44-88-9096WrboheeshMetrohealth [facility] Repository (1 source)risperiDONEDrug Hzybfkw73-14-1520HgpywfeuvMetrohealth [facility] Repository Medications Current Medications MedicationDrug Class(es)DatesSig (Normalized)Sig (Original)[id number] 200 actuat albuterol 0.09 mg/actuat metered dose inhaler (7 sources)beta2-Adrenergic AgonistStart: 00-25-0102wxoc 1 puff(s) by mouth every four to six hours as needed for wheezingStart: 68-36-8191orxr 1 dose by inhalation every four to six hours as neededAlbuterol Sulfate HFA 108 (90 Base) MCG/ACT inhale 1 puff by mouth and INTO THE LUNGS every 4 hoursif needed Inhalation every 6 hours PRN for 30 days ActivefluPHENAZine decanoate 25 mg/ml injectable solution (1 source)PhenothiazineStart: 86-85-0675IXZAXatsxt 5 mg oral tablet (3 sources)Atypical AntipsychoticStart: 68-31-0669sahn 1 tablet by mouth twice daily as neededOLANZapine (ZYPREXA) 5 MG tablet Take 1 tablet by mouth 2 times daily as needed (agitation) 04/07/2025 ActiveStart: 04-07-2025 End: 13-66-5732zcwp 1 tablet by mouth every twelve hours as neededOlanzapine 5 mg Tablet Discontinued 5 MG PO Every 12 hours as needed for Agitation 30 15 2 April 06, 2025 11:00pm April 18, 2025 9:02am Completed/Discontinued Medications MedicationDrug Class(es)DatesSig (Normalized)Sig (Original)acetaminophen 325 mg oral tablet (1 source)Start: 04-11-2025 End: 13-86-8312salr 4000 mg by mouth every twenty-four gplim384 mg, Oral, ONCE, 1 dose, On Thu04/11/25 at 1830, Maximum dose of acetaminophen is 4000 mg from a ll sources in 24 hours.acetaminophen 325 mg / HYDROcodone bitartrate 5 mg oral tablet (3 sources)Opioid AgonistStart: 10-16-2020 End: 30-11-3587kmlx 1 tablet by mouth three times daily as needed for pain Hydrocodone-Acetaminophen 5-325 mg tablet Discontinued 1 TAB PO Three times daily as needed for severe pain (scale score 7-10) 14 6 0 October 16, 2020 April 07, 2025 7:55am Pneumothorax on left Pneumothorax, unspecifiedamoxicillin 875 mg / clavulanate 125 mg oral tablet (3 sources)Penicillin-class AntibacterialStart: 10-16-2020 End: 47-21-1374lzsk 1 tablet by mouth twice dailyAmoxicillin-Pot Clavulanate 875-125 mg Tablet Discontinued 1 TAB PO Twice daily 20 0 October 15, 2020 11:00pm April 03, 2025 11:00pmARIPiprazole 20 mg oral tablet (5 sources)Atypical AntipsychoticStart: 08-07-2020 End: 14-70-4374ctxg 1 tablet by mouth once daily at bedtimeAripiprazole 20 mg tablet Discontinued 20 MG PO Daily at bedtime August 07, 2020 12:00am April 07, 2025 7:55amatazanavir 300 mg oral capsule (5 sources)Protease InhibitorStart: 09-06-2019 End: 27-24-5256dayu 1 capsule by mouth once dailyAtazanavir (Reyataz) 300 mg capsule Discontinued 300 MG PO Daily September 05, 2019 11:00pm April 07, 2025 7:54ambrexpiprazole 0.5 mg oral tablet (3 sources)Atypical AntipsychoticStart: 04-07-2025 End: 25-72-5835sjpe 1 tablet by mouth once daily at bedtimeBrexpiprazole (Rexulti) 0.5 mg Tablet Discontinued 0.5 MG PO Daily at bedtime 30 30 0 March 11:00pm April 18, 2025 9:02amcholecalciferol 0.025 mg oral tablet (3 sources)Vitamin DStart: 09-14-2019 End: 47-55-9322zyla 1 tablet by mouth once dailyCholecalciferol (Vitamin D3) 25 mcg (1,000 unit) Tablet Discontinued 3000 UNIT PO Daily 42 14 1 September 13, 2019 11:00pm August 07, 2020 1:23pmclindamycin 300 mg oral capsule (3 sources)Lincosamide AntibacterialStart: 09-14-2019 End: 31-15-4583qizf 1 capsule by mouth four times dailyClindamycin Hcl 300 mg Capsule Discontinued 300 MG PO Four times daily 28 0 September 13, 2019 11:00pm August 07, 2020 1:23pmemtricitabine 200 mg / tenofovir alafenamide 25 mg oral tablet (5 sources)Human Immunodeficiency Virus Nucleoside Analog Reverse Transcriptase InhibitorStart: 09-06-2019 End: 59-05-2257drxn 1 tablet by mouth once dailyEmtricitabine-Tenofovir Alafen (Descovy) 200-25 mg tablet Discontinued 1 TAB PO Daily September 05, 2019 11:00pm April 07, 2025 7:54am2 ml midazolam 1 mg/ml injection (1 source)BenzodiazepineStart: 09-28-2021 End: 48-41-7398pdrmwxbbp PF (VERSED) injection 2 mgritonavir 100 mg oral tablet (5 sources)Protease Inhibitor, Cytochrome P450 3A InhibitorStart: 09-06-2019 End: 41-77-6560hccn 1 tablet by mouth once daily at breakfastRitonavir (Norvir) 100 mg tablet Discontinued 100 MG PO Daily with breakfast September 05, 2019 11:00pm April 07, 2025 7:54am Problems Problem ClassificationProblemDateDocumented DateEpisodic/ChronicAbdominal pain (2 sources)Stomach cramps; Translations: [Unspecified abdominal pain]Episodic Asthma (6 sources)Mild intermittent asthma; Translations: [Mild intermittent asthma, uncomplicated]Onset: 09-19-2021 Resolved: 38-43-4227SzcuqrcJowhmcw obstructive pulmonary disease and bronchiectasis (4 sources)Chronic obstructive pulmonary disease, unspecified; Translations: [Pulmonary emphysema]Onset: 678720-66-6921WbfzpqcAgabdkus of white blood cells (3 sources)Leukocytosis; Translations: [Elevated white blood cell count, unspecified]29-80-1319GaaewvfKfiutnfal of teeth and jaw (3 sources)Dental abscess; Translations: [Periapical abscess without sinus] 96-93-0774JilvogqjQML infection (9 sources)Asymptomatic human immunodeficiency virus [HIV] infection status; Translations: [Asymptomatic humanimmunodeficiency virus infection]Onset: 10-12-2020 Resolved: 21-35-3834BccwziqQzymgtnksdm chest pain (4 sources)Chest pain, unspecified; Translations: [Other chest pain]Onset: 58-32-3565MtuceiueFhnky aftercare (1 source)Other snf (current) drug therapy; Translations: [OTH AVIATION OPERATIONS SPECIALIST CURRENT DRUG THERAPY]Onset: 97-63-4210BwypiimnYusri aftercare (2 sources)H/O: high risk medication; Translations: [Other snf (current) drug therapy]EpisodicOther lower respiratory disease (1 source)Pleurodynia; Translations: [PLEURODYNIA]Onset: 02-01-0245SrcfebzgDmzom lower respiratory disease (4 sources)Shortness of breath; Translations: [SHORTNESS OF BREATH]Onset: 09-67-9538CgvkuigqUloju lower respiratory disease (1 source)Shortness of breathOnset: 78-75-0231KxmjmptiDygmi nervous system disorders (1 source)Other acute postprocedural pain; Translations: [OTHER ACUTE POSTPROCEDURAL PAIN]Onset: 13-97-8559NhwpksadPydok screening for suspected conditions (not mental disorders or infectious disease) (1 source)Patient encounter status; Translations: [Encounter for screening, unspecified]EpisodicPleurisy; pneumothorax; pulmonary collapse (7 sources)Pneumothorax, unspecified; Translations: [Pneumothorax]Onset: 279368-53-9433AvffbkexTnjqmmuva by other medications and drugs (2 sources)Adverse reaction to drug; Translations: [Adverse drug effect]Episodic Schizophrenia and other psychotic disorders (12 sources)Schizophrenia, unspecified; Translations: [Paranoid disorder]Onset: 962354-32-9441EuxhocaDvawrmtlrmird and other psychotic disorders (2 sources)Brief psychotic disorder; Translations: [Unspecified psychosis]Onset: 865431-72-0585OkcnlxveAbphvtewe-hsdfjbx disorders (5 sources)Nicotine dependence, cigarettes, uncomplicated; Translations: [Tobacco user]Onset: 20-38-2896LvwwdorLhgngsbxo-related disorders (3 sources)Stimulant abuse; Translations: [Other stimulant use, unspecified, uncomplicated]09-25-7079RzmiouojHyxkujftcpvo (1 source)CONTACT W/AND (SUSP) EXPOS COVID-19; Translations: [CONTACT W/AND (SUSP) EXPOS COVID-19]Onset: 89-70-1448Qylmxzhuddxm (1 source)TROUBLE BREATHINGOnset: 22-88-1552Gesyawhmamya (4 sources)Go to urgent care for any urgent medical concerns.Unclassified (3 sources)project product manager will call you on the next business day between 8am & 5pm. If you miss this call please call back as soon as possible.Unclassified (2 sources)Go to urgent care with any urgent medical concerns. Results Test NameValueInterpretationReference RangeFacilityECG 12 lead ECGon 04-12-2025 ECG 12 [facility]AN[facility] [address] [address] [place] [address] Electrocardiograph Report Signed Patient: Shay Zuluaga II MR#: [id number] : 1970 Acct:[id number] Age/Sex: 54 / M ADM Date: 04/12/25 Loc: 1S Room: [address] [place] [address] Type: ADM IN Attending Dr: Kingston Maldonado MD Ordering Provider: Kingston Maldonado MD Date of Service: 04/12/25 ECG/ECG 12 lead ECG: antipsychotic medication use Copies to: Test Reason : Blood Pressure : */* mmHG Vent. Rate : 85 BPM Atrial Rate : 85 BPM P-R Int : 112 ms QRS Dur : 90 ms QT Int : 388 ms P-R-T Axes : 89 78 82 degrees QTcB Int : 461 ms Normal sinus rhythm Anterior infarct , age undetermined Abnormal ECG Confirmed by Irais Hannon ([id number]) on 04/12/2025 10:29:21 AM Referred By: Electronically Signed By: Irais Hannon Transcribed By: MUS Signed By Irais Hannon MD 5 1029Wheaton Medical CenterLipid Panelon 96-45-8854Vvcdnymttdg [Mass/Vol]142 mg/eJUddylr422-827Vqw [facility] At WindberComment on above: Result Comment: Chol less than 200 mg/dl low risk Chol 201-239 mg/dl borderline risk Chol 240 mg/dl and greater high riskPerformed By: #### [id number], TSH3 wRFLX, LIPID #### [facility] [address] [place] [address] USACholesterol in HDL [Mass/Vol]39 mg/oFTqjejp68-74Qap [facility] At WindberComment on above:Result Comment: HDL CHOL ATP-III CLASSIFICATION Cardiovascular Risk HDL > or equal to 60 mg/dL LOW HDL < 40 mg/dL HIGHPerformed By: #### [id number], TSH3 wRFLX, LIPID #### [facility] [address] [place] [address] USACholesterol.total/Cholesterol in HDL [Mass ratio]3.6 {ratio}Normal<5.0The [facility] Physician GroupComment on above:Performed By: #### [id number], TSH3 wRFLX, LIPID #### [facility] [address] [place] [address] USALDL Cholesterol,Lcostvabic37 mg/dLNormal0-100The Counts Include [address] At The [facility] Physician GroupComment on above:Result Comment: LDL ATP III CLASSIFICATION LDL less than 100 mg/dL Optimal LDL 100-129 mg/dL Near or above optimal LDL 130-159 mg/dL Borderline high LDL 160-189 mg/dL High LDL greater than 189 mg/dL Very highPerformed By: #### [id number], TSH3 wRFLX, LIPID #### [facility] [address] [place] [address] USATriglyceride w/Bwfrul46 mg/dLNormal0-149The Counts Include [address] At The [facility] Physician GroupComment on above:Result Comment: TRIG ATP III CLASSIFICATION TRIG less than 150 mg/dL Normal TRIG 150-199 mg/dL Borderline high TRIG 200-500 mg/dL High TRIG greater than 500 mg/dL Very high Standard traceable to the Center for Disease Conrtrol and Prevention (CDC) test method.Performed By: #### [id number], TSH3 wRFLX, LIPID #### [facility] [address] [place] [address] USAVLDL CHOLESTEROL9 mg/dLNormalThe Counts Include [address] At The [facility] Comment on above:Performed By: #### [id number], TSH3 wRFLX, LIPID #### [facility] [address] [place] [id number] USAThyroid Stim Hormone w/Rflxon 71-29-2976Apiuhhz Stim Hormone w/Rflx1.38 u[iU]/mLNormal0.45-5.33The Counts Include [address] At The [facility] Physician GroupComment on above:Performed By: #### [id number], TSH3 wRFLX, LIPID #### [facility] [address] [place] [address] USAVitamin D 25 Hydroxy Totalon 79-04-1616Pxexlmy D 25 Hydroxy Total24.2 ng/jRQce58-129Jwb Counts Include [address] At The [facility] Physician GroupComment on above: Result Comment: VITAMIN D STATUS 25(OH)VITAMIN D RANGE (ng/mL) Deficient <20 Insufficient 20 to <30 Sufficient 30 to 100 Reference: Ashlyn MF,Demarco NC, Kiara JUSTIN, et al. Evaluation,treatment, and prevention of vitamin D deficiency; an Endocrine Society clinical practice guideline. JCEM. 2010; 96(7):1911-30. PERFORMED BY: [facility] [address] [facility] [place] [address] PATHOLOGIST GARDENING MANAGER PHILLIP MCGRAW M.D.Performed By: #### [id number], TSH3 wRFLX, LIPID #### [facility] [address] [place] [address] USAAcetaminophenon 25-36-7949Fvlqzuyztskwe [Mass/Vol]ug/mLLow 10-30[facility] SystemComment on above:Performed By: #### ACET, ALCB #### [facility] [address] [place], [place] [address] Machine Operator Hop Worker: Robert Wynne, MDAcetaminophen Levelon 28-24-2139Oogtkesixvvdb [Mass/Vol]ug/mLLow10 - 30 ug/mLSouthampton Memorial HospitalInterpretation and review of laboratory resultsAbnormalSovah Health - [place] CBC with Auto Differentialon 84-23-3681Eahcubill (Bld) [#/Vol]0.04 10*3/uLSouthampton Memorial HospitalBasophils/100 WBC (Bld)1 %0 - 2 %[facility] Eosinophils (Bld) [#/Vol]0.21 10*3/uLSouthampton Memorial HospitalEosinophils/100 WBC (Bld)3 %1 - 4 %[facility] HospitalErythrocyte distribution width (RBC) [Ratio]14.2 %11.8 - 14.4 %[facility] HospitalHematocrit (Bld) [Volume fraction]38.3 %Low40.7 - 50.3 %[facility] HospitalHemoglobin (Bld) [Mass/Vol]12.8 g/dLLow13.0 - 17.0 g/dLBon [facility]itt[facility] Medical CenterImmature granulocytes (Bld) [#/Vol]0.03 10*3/uLBon [facility]itt[facility] Medical CenterImmature granulocytes/100 WBC (Bld)0 %0Bon [facility]itt[facility] Medical CenterInterpretation and review of laboratory resultsAbnormalBon [facility]itt[facility] Medical CenterLymphocytes/100 WBC (Bld)41 %24 - 43 %Bon [facility]itt[facility] Medical CenterLymphocytes/100 WBC (Bld)3.29 %Bon [facility] HospitalH (RBC) [Entitic mass]29.8 pg25.2 - 33.5 pgBon [facility] HospitalHC (RBC) [Mass/Vol]33.4 g/dL28.4 - 34.8 g/dLBon SecGerman HospitalV (RBC) [Entitic vol]89.3 fL82.6 - 102.9 fLBon [facility]itt[facility] Medical CenterMonocytes/100 WBC (Bld)16 %High3 - 12 %[facility] HospitalMonocytes/100 WBC (Bld)1.22 % HighBon [facility] - Rittman Medical CenterNeutrophils/100 WBC (Bld)39 %36 - 65 %[facility] HospitalNucleated RBC/100 WBC (Bld) [Ratio]0.0 %0.0 per 100 WBCBon Summa Health Wadsworth - Rittman Medical CenterPlatelet mean volume (Bld) [Entitic vol]10.2 fL8.1 - 13.5 fLSouthampton Memorial HospitalPlatelets (Bld) [#/Vol]241 10*3/uLBon [facility] RBC (Bld) [#/Vol]4.29 10*6/uL4.21 - 5.77 m/uLSouthampton Memorial HospitalSegmented neutrophils/100 WBC (Bld)3.00 %[facility] HospitalWBC other (Bld) [#/Vol] 7.8Bon SecRogers Memorial Hospital - MilwaukeeCBC with Diffon 04-11-2025 Abs. Basophil0.04 k/uLNormal0.00-0.20[facility] Health SystemComment on above: Performed By: #### RAJESH, ALIYA, CP #### [facility] [address] [place] [address] [place] [address] Machine Operator Hop Worker: Tiburcio Huffman.Imm.Granulocyte0.03 k/uLNormal0.00-0.30MerFirelands Regional Medical Center South Campus HospitalComment on above:Performed By: #### ALIYA MENA, CP #### [address] [place] [address] Machine Operator Hop Worker: Tiburcio Huffman.Neutrophil (Seg)3.00 k/uLNormal1.50-8.10MerFirelands Regional Medical Center South Campus HospitalComment on above:Performed By: #### ALIYA MENA, CP #### [address] [place] [address] Machine Operator Hop Worker: Robert Wynne MDBasophils/100 WBC (Bld)1 %Normal0-2MCleveland Clinic HospitalComment on above:Performed By: #### ALIYA MENA, CP #### [address] [place] [address] Machine Operator Hop Worker: Robert Wynne MDEosinophils (Bld) [#/Vol]0.21 10*3/uLNormal 0.00-0.44MerFirelands Regional Medical Center South Campus HospitalComment on above:Performed By: #### ALIYA MENA, CP #### [address] [place], [place] [address] Machine Operator Hop Worker: Robert Wynne MDEosinophils/100 WBC (Bld)3 %Normal1-4MerFirelands Regional Medical Center South Campus HospitalComment on above:Performed By: #### ALIYA MENA, CP #### [address] [place], [place] [address] Machine Operator Hop Worker: Robert Wynne MDErythrocyte distribution width (RBC) [Ratio]14.2 % Gfbarg14.8-14.4MerFirelands Regional Medical Center South Campus HospitalComment on above:Performed By: #### ALIYA MENA, CP #### [address] [place], [place] [address] Machine Operator Hop Worker: Robert Wynne MDHematocrit (Bld) [Volume fraction]38.3 %Low 40.7-50.3Mohiohealth van wert hospitaly [place] HospitalComment on above:Performed By: #### ALIYA MENA, CP #### [address] [place] [id number] Machine Operator Hop Worker: Robert Wynne MDHemoglobin (Bld) [Mass/Vol]12.8 g/dLLow13.0-17.0 [facility] SystemComment on above:Performed By: #### ALIYA MENA, CP #### [address] [place] [address] Machine Operator Hop Worker: Robert Wynne MDImmature granulocytes/100 WBC (Bld)0 %Wtusxt1GuhemMount Carmel Health SystemComment on above:Performed By: #### ALIYA MENA, CP #### [address] [place], [place] [address] Machine Operator Hop Worker: Robert Wynne MDLymphocytes (Bld) [#/Vol]3.29 10*3/uLNormal 1.10-3.70[facility] Health SystemComment on above:Performed By: #### ALIYA MENA, CP #### [address] [place] [address] Machine Operator Hop Worker: Robert Wynne MDLymphocytes/100 WBC (Bld)41 %Hphqlp89-50WeodoMount Carmel Health SystemComment on above:Performed By: #### ALIYA MENA, CP #### [address] [place] [address] Machine Operator Hop Worker: BERNARD Huffman (RBC) [Entitic mass]29.8 cyWspxms42.2-33.5 [facility] SystemComment on above:Performed By: #### ALIYA MENA, CP #### [address] [place], [place] [address] Machine Operator Hop Worker: Robert Sturtz, MDMCHC (RBC) [Mass/Vol]33.4 g/tVCgohnu07.4-34.8[facility] Health SystemComment on above:Performed By: #### ALIYA MENA, CP #### [address] [place] [address] Machine Operator Hop Worker: IHSAN HuffmanCV (RBC) [Entitic vol]89.3 hLQbpxjm91.6-102.9 [facility] SystemComment on above:Performed By: #### ALIYA MENA, CP #### [address] [place] [address] Machine Operator Hop Worker: IHSAN Huffmanonocytes (Bld) [#/Vol]1.22 10*3/uLHigh0.10-1.20 [facility] SystemComment on above:Performed By: #### ALIYA MENA, CP #### [address] [place], [facility]83 Machine Operator Hop Worker: IHSAN Huffmanonocytes/100 WBC (Bld)16 %High3-12[facility] Health SystemComment on above:Performed By: #### ALIYA MENA, CP #### [address] [place] [address] Machine Operator Hop Worker: Robert Wynne MDNeutrophil (Seg)39 %Ffyoen08-83JvclkMount Carmel Health SystemComment on above:Performed By: #### ALIYA MENA, CP #### [address] [place] [address] Machine Operator Hop Worker: Robert Wynne MDNRBC Automated0.0 per 100 WBCNormal0.0[facility] HospitalComment on above:Performed By: #### ALIYA MENA, CP #### [address] [place] [address] Machine Operator Hop Worker: TIFFANY Huffmanlatelet mean volume (Bld) [Entitic vol]10.2 fL Normal8.1-13.5[facility] HospitalComment on above:Performed By: #### ALIYA MENA, CP #### [address] [place], [place] [id number] Machine Operator Hop Worker: Kris Huffman ([facility]) [#/Vol]241 10*3/dQMpehuc546-713 [facility] HospitalComment on above:Performed By: #### ALIYA MENA, CP #### [address] [place] [address] Machine Operator Hop Worker: KIESHA Huffman ([facility]) [#/Vol]4.29 10*6/uLNormal4.21-5.77[facility] [place] HospitalComment on above:Performed By: #### ALIYA MENA, CP #### [address] [place], [place] [address] Machine Operator Hop Worker: BRENDA Huffman ([facility]) [#/Vol]7.8 10*3/uLNormal3.5-11.3[facility] [place] HospitalComment on above:Performed By: #### ALIYA MENA, CP #### [address] [place], [place] [address] Machine Operator Hop Worker: RODRIGO Huffmanlds hospital Metabolic Profon 73-32-6115Qfzukvx [Mass/Vol] 4.2 g/dLNormal3.5-5.2[facility] [place] HospitalComment on above:Performed By: #### ALIYA MENA, CP #### [address] [place] [address] Machine Operator Hop Worker: Robert Wynne MDAlbumin/Glob Ratio1.7Uezjtx5.0-2.5MerFirelands Regional Medical Center South Campus HospitalComment on above:Performed By: #### ALIYA MENA, CP #### [address] [place], [place] [address] Machine Operator Hop Worker: Earnestine Huffman Phos75 U/WTmexpb20-840RuyeuMount Carmel Health SystemComment on above:Performed By: #### ALIYA MENA, CP #### [address] [place], [place] [address] Machine Operator Hop Worker: Robert Wynne MDALT [Catalytic activity/Vol]51 U/DSilm63-07UpydoMount Carmel Health SystemComment on above:Performed By: #### ALIYA MENA, CP #### [address] [place], [place] [address] Machine Operator Hop Worker: August Huffman gap [Moles/Vol]12 mmol/LNormal9-16[facility] HospitalComment on above:Performed By: #### ALIYA MENA, CP #### [address] [place], [place] [address] Machine Operator Hop Worker: Robert Wynne MDAST [Catalytic activity/Vol]45 U/CRimchb84-20CfzjvMount Carmel Health SystemComment on above:Performed By: #### ALIYA MENA, CP #### [address] [place], [place] [address] Machine Operator Hop Worker: Robert Wynne MDBilirubin [Mass/Vol]0.7 mg/dLNormal0.00-1.20[facility] Health SystemComment on above:Performed By: #### ALIYA MENA, CP #### [address] [place], [place] [address] Machine Operator Hop Worker: Robert Wynne MDBUN/CRE Gsfkl44Dwmw1-84NirvsMount Carmel Health System Comment on above:Performed By: #### ALIYA MENA, CP #### [address] [place], [place] [address]83 Machine Operator Hop Worker: RODRIGO Huffmanalcium [Mass/Vol]9.3 mg/dLNormal8.6-10.4Mount Carmel Health SystemComment on above:Performed By: #### ALIYA MENA, CP #### [address] [place], [place] [address]83 Machine Operator Hop Worker: RODRIGO Huffmanhloride [Moles/Vol]103 mmol/YGvzizg75-856QykbuMount Carmel Health SystemComment on above:Performed By: #### ALIYA MENA, CP #### [address] [place], [facility]83 Machine Operator Hop Worker: RODRIGO HuffmanO2 [Moles/Vol]26 mmol/VNfcnen65-29OiwevMount Carmel Health SystemComment on above:Performed By: #### ALIYA MENA, CP #### [address] [place], [facility]83 Machine Operator Hop Worker: RODRIGO Huffmanreatinine [Mass/Vol]0.8 mg/dLNormal0.70-1.20Mount Carmel Health SystemComment on above:Performed By: #### ALIYA MENA, CP #### [address] [place], [facility]83 Machine Operator Hop Worker: Robert Wynne MDGFR/1.73 sq M.predicted among non-blacks MDRD (S/P/Bld) [Vol rate/Area]mL/min/{1.73_m2}Normal>60[facility] on above:Result Comment: These results are not intended for use in patients <18 years of age. eGFR results are calculated without a race factor using the 2020 CKD-EPI equation. Careful clinical correlation is recommended, particularly when comparing to results calculated using previous equations. The CKD-EPI equation is less accurate in patients with extremes of muscle mass, extra-renal metabolism of creatine, excessive creatine ingestion, or following therapy that affects renal tubular secretion.Performed By: #### ALIYA MENA, CP #### [address] [place], [place] [id number] Machine Operator Hop Worker: Robert Wynne MDGlucose [Mass/Vol]96 mg/dUFxwaot56-48Rwkss Branson HospitalComment on above:Performed By: #### ALIYA MENA, CP #### [address] [place], [place] 49[address]383 Machine Operator Hop Worker: Robert Wynne MDPotassium [Moles/Vol]3.6 mmol/LLow3.7-5.3MCleveland Clinic HospitalComment on above:Performed By: #### ALIYA MENA, CP #### [address] [place], [place] [address]83 Machine Operator Hop Worker: Robert Wynne MDProtein [Mass/Vol]8.1 g/dLNormal6.6-8.7Mount Carmel Health SystemComment on above:Performed By: #### ALIYA MENA, CP #### [address] [place], [place] 9[address]683 Machine Operator Hop Worker: Robert Wynne MDSodium [Moles/Vol]141 mmol/VEoivkz139-698IxmtyMount Carmel Health SystemComment on above:Performed By: #### ALIYA MENA, CP #### [address] [place], [place] 56[address]483 Machine Operator Hop Worker: Robert Wynne MDUrea nitrogen [Mass/Vol]24 mg/dLHigh6-20Mount Carmel Health SystemComment on above:Performed By: #### ALIYA MENA, CP #### [address] [place], [place] 08[address]683 Machine Operator Hop Worker: RODRIGO Huffmanomprehensive Metabolic Panelon 07-49-7427Chfqglr [Mass/Vol]4.2 g/dL3.5 - 5.2 g/dLBon [facility] Medical CenterAlbumin/Globulin [Mass ratio]1.1 {ratio}1.0 - 2.5Bon [facility] Medical CenterALP [Catalytic activity/Vol]75 U/L40 - 129 U/LBon [facility] Medical CenterALT [Catalytic activity/Vol]51 U/LHigh10 - 50 U/LBon [facility] Medical CenterAnion gap [Moles/Vol]12 mmol/L9 - 16 mmol/LBon SecOur [facility] of the [facility] HealthAST [Catalytic activity/Vol]45 U/L10 - 50 U/LBon [facility] HealthBilirubin [Mass/Vol]0.7 mg/dL0.00 - 1.20 mg/dLBon Secours [facility] HealthCalcium [Mass/Vol]9.3 mg/dL8.6 - 10.4 mg/dLBon [facility] Chloride [Moles/Vol]103 mmol/L98 - 107 mmol/LBon [facility] HealthCO2 [Moles/Vol]26 mmol/L20 - 31 mmol/LBon SecBarnesville HospitalCreatinine [Mass/Vol] 0.8 mg/dL0.70 - 1.20 mg/dLBon SecEast Adams Rural HealthcareCRI Technologies HealthEst, Glom Filt Rate- PINFBon [facility] Medical CenterComment on above: These results are not intended for use in patients <18 years of age. eGFR results are calculated without a race factor using the 2020 CKD-EPI equation. Careful clinical correlation is recommended, particularly when comparing to results calculated using previous equations. The CKD-EPI equation is less accurate in patients with extremes of muscle mass, extra-renal metabolism of creatine, excessive creatine ingestion, or following therapy that affects renal tubular secretion. Glucose [Mass/Vol]96 mg/dL74 - 99 mg/dLBon [facility] TwinedInterpretation and review of laboratory resultsAbnormalBon [facility] HealthPotassium [Moles/Vol]3.6 mmol/LLow3.7 - 5.3 mmol/LBon [facility] HealthProtein [Mass/Vol]8.1 g/dL6.6 - 8.7 g/dLBon [facility] Medical CenterSodium [Moles/Vol]141 mmol/L136 - 145 mmol/LBon [facility] Medical CenterUrea nitrogen [Mass/Vol]24 mg/dL High6 - 20 mg/dLBon SecBarnesville HospitalUrea nitrogen/Creatinine [Mass ratio]30 mg/mgHigh9 - 20Bon [facility] Medical CenterDrug Scr, Abuse, Uron 04-11-2025 Amphetamine(s),UrPositiveAbnormalNEGMercy St. Vincent'S Medical CenterComment on above:Result Comment: Cutoff: 1000 ng/mL High concentrations of ephedrine/pseudoephedrine or phenylpropanolamine may cause false positive results for amphetamine. Therefore, confirmatory testing for amphetamine should be considered if clinically indicated.Performed By: #### JACOB, UAX, UMICAO #### [address] [place], [place] [address]783 Machine Operator Hop Worker: Robert Wynne MDBarbiturate(s),UrNegativeNormalNEGMercy Branson HospitalComment on above:Result Comment: Cutoff: 200 ng/mlPerformed By: #### JACOB, UAX, UMICAO #### [address] [place], [place] 12[address] Machine Operator Hop Worker: Robert Wynne MDBenzodiazepine(s)NegativeNormalNEGMercy Branson HospitalComment on above:Result Comment: Cutoff: 200 ng/mlPerformed By: #### JACOB, UAX, UMICAO #### [address] [place], [facility]83 Machine Operator Hop Worker: RODRIGO Huffmanannabinoid(s),UrNegativeNormalNEGMercy Branson HospitalComcorewell health butterworth hospital on above:Result Comment: Cutoff: 50 ng/mlPerformed By: #### JACOB, UAX, UMICAO #### [address] [place] [id number] Machine Operator Hop Worker: RODRIGO Huffmanocaine MetaboliteNegativeNormalNEGMercy Branson HospitalComcorewell health butterworth hospital on above:Result Comment: Cutoff: 300 ng/mlPerformed By: #### JACOB, UAX, UMICAO #### [address] [place], [place] [address]83 Machine Operator Hop Worker: Robert Wynne MDFentanyl, UrineNegativeNormalNEGMercy Branson HospitalComcorewell health butterworth hospital on above:Result Comment: Cutoff: 5 ng/mlPerformed By: #### JACOB, UAX, UMICAO #### [address] [place], [place] 229[address]83 Machine Operator Hop Worker: Robert Wynne MDInterpretive InfoThis method is a screening test to detect only these drug classes as part of aNormalMercy Branson HospitalComment on above:Result Comment: medical workup. Confirmatory testing by another method should be ordered if clinically indicated.Performed By: #### JACOB, UAX, UMICAO #### [address] [place], [place] [id number] Machine Operator Hop Worker: IHSAN Huffmanethadone Ql (U)NegativeNormalNEGMercy St. Vincent'S Medical CenterComcorewell health butterworth hospital on above:Result Comment: Cutoff: 300 ng/mlPerformed By: #### JACOB, UAX, UMICAO #### [address] [place], [place] 317[address]83 Machine Operator Hop Worker: Robert Wynne MDOpiate(s), UrNegativeNormalNEGMercy St. Vincent'S Medical CenterComcorewell health butterworth hospital on above:Result Comment: Cutoff: 300 ng/ml Note: The Opiate screen is not intended to detect Oxycodone.Performed By: #### JACOB, UAX, UMICAO #### [address] [place], [place] 180[address]83 Machine Operator Hop Worker: Robert Wynne MDOxycodone, UrineNegativeNormalNEGMercy St. Vincent'S Medical CenterComcorewell health butterworth hospital on above:Result Comment: Cutoff: 100 ng/mlPerformed By: #### JACOB, UAX, UMICAO #### [address] [place] [address] Machine Operator Hop Worker: TIFFANY Huffmanhencyclidine, UrNegativeNormalNEGMercy Branson HospitalComcorewell health butterworth hospital on above:Result Comment: Cutoff: 25 ng/mlPerformed By: #### JACOB, UAX, UMICAO #### [address] [place], [place] 279[address]83 Machine Operator Hop Worker: Robert Wynne MDEthanolon 58-39-5118Aeekshf percent0.001 %NINF - 0.010 %Bon [facility] Medical CenterEthanolamine [Mass/Vol]<10NINF - 10 mg/dLBon Sec[facility] HealthEthanol Alcoholon 45-99-6559Wmlywae [Mass/Vol]mg/dLNormal<10Mercy Branson HospitalComment on above:Performed By: #### ACET, ALCB #### [facility] [address] [place] [address] [place] [address] Machine Operator Hop Worker: Robert Wynne MDEthanol percent0.001 %Normal<0.010MerMidState Medical CenterComment on above:Performed By: #### ACET, ALCB #### [address] [place] [address] Machine Operator Hop Worker: IHSAN Huffmanicroscopic Urinalysison 81-58-5502Covakxsf LM Ql (Urine sed)TRACEAbnormalNoneBon [facility] Medical CenterCasts LM.LPF (Urine sed) [#/Area]0 TO 2 HYALINE/LPFBon [facility] Medical CenterEpithelial cells LM.HPF (Urine sed) [#/Area][facility] CenterInterpretation and review of laboratory resultsAbnormalBon [facility] Medical CenterMucus Ql (Urine sed)4+Abnormal [facility] Medical CenterRBC LM.HPF (Urine sed) [#/Area]NoneSouthampton Memorial HospitalWBC LM.HPF (Urine sed) [#/Area]NoneSouthampton Memorial HospitalBon SecOur Lady of the Lake [facility] HealthNo Panel Informationon 1971Pld [facility] Medical CenterSalicylate on 82-98-8655Tfszzjmyrcs [Mass/Vol]mg/dL0.0 - 10.0 mg/dLBon [facility] Salicylate<0.4Bsgffp6.0-10.0MerMidState Medical CenterComment on above:Performed By: #### SALI, CDP, CP #### [address] [place] [address] Machine Operator Hop Worker: RADHA Huffman w/Reflex Cultureon 82-92-0038Qbquxtlvg, SemiQt,UrSMALLAbnormalNEGMerMidState Medical CenterComment on above:Performed By: #### JACOB, UAX, UMICAO #### [facility] [address] [place] [address] Dr. [place], [place] [address]83 Machine Operator Hop Worker: Jayson Huffman, UrineNegativeCleveland Clinic [facility] Comment on above:Performed By: #### JACOB, UAX, UMICAO #### [address] [place], [place] 7105383 Machine Operator Hop Worker: RODRIGO Huffmanlarity ()ClearNoalCLEARMount Carmel Health System Comment on above:Performed By: #### JACOB, UAX, UMICAO #### [address] [place], [place] 03[address]283 Machine Operator Hop Worker: RODRIGO Huffmanolor (U)YellowNoalYKettering Health Behavioral Medical Center Comment on above:Performed By: #### JACOB, UAX, UMICAO #### [address] [place], [place] 1485783 Machine Operator Hop Worker: Robert Wynne MDGlucose Ql (U)NegativeNormalNEGMerMidState Medical CenterComment on above:Performed By: #### JACOB, UAX, UMICAO #### [address] [place], [place] [address]383 Machine Operator Hop Worker: Robert Wynne MDKetones Ql (U)NegativeNormalNEGMerFirelands Regional Medical Center South Campus HospitalComment on above:Performed By: #### JACOB, UAX, UMICAO #### [address] [place] [address] Machine Operator Hop Worker: Robert Wynne MDLeukocyte esterase Test strip Ql (U)NegativeNormal NEGMerMidState Medical CenterComment on above:Performed By: #### JACOB, UAX, UMICAO #### [facility] [address] [place] [address] Dr. [place], [place] 397[address]83 Machine Operator Hop Worker: Beatriz Huffmantrite,UrNegativeNormalNEGMount Carmel Health System Comment on above:Performed By: #### JACOB, UAX, UMICAO #### [facility] [address] [place] [address] Dr. [place], [place] 5140383 Machine Operator Hop Worker: TIFFANY Huffman,Ur5.5Spfgyv6.0-9.0Mount Carmel Health SystemComment on above:Performed By: #### JACOB, UAX, UMICAO #### [facility] [address] [place] [address] Dr. [place], [place] 444[address]83 Machine Operator Hop Worker: TIFFANY Huffmanrotein Ql (U)TRACEAbnormalNEGMount Carmel Health SystemComment on above:Performed By: #### JACOB, UAX, UMICAO #### [facility] [address] [place] [address] Dr. [place], [place] 404[address] Machine Operator Hop Worker: KATTY Huffmanpec. [place],Ur>1.012Lwdy5.010-1.020Mount [facility] Health SystemComment on above:Performed By: #### JACOB, UAX, UMICAO #### [address] [place], [place] [address]83 Machine Operator Hop Worker: Dustin Huffmanbilinogen,UrNormalNormal0.0-1.0[facility] Health SystemComment on above:Performed By: #### JACOB, UAX, UMICAO #### [address] [place], [place] [address]83 Machine Operator Hop Worker: Robert Wynne MDUrinalysis with Reflex to Cultureon 04-11-2025 Bilirubin Ql (U)SMALLAbnormalNEGATIVEBon [facility]ours [facility] County HospitalClarity (U)Clear ClearBon Secours Adams County HospitalColor (U)YellowYellowBon [facility] Glucose Test strip (U) [Mass/Vol]NegativeNEGATIVE mg/dLBon [facility] Hemoglobin Auto test strip Ql (U)NegativeNEGATIVESouthampton Memorial Hospital Interpretation and review of laboratory resultsAbnormalBon [facility] Ketones (U) [Mass/Vol]NegativeNEGATIVE mg/dLBon [facility] Medical CenterLeukocyte esterase Test strip Ql (U)NegativeNEGATIVEBon [facility] Medical CenterNitrite Ql (U) NegativeNEGATIVEBon [facility] Medical CenterpH (U)5.5 [pH]5.0 - 9.0Bon [facility] Medical CenterProtein (U) [Mass/Vol]TRACEAbnormalNEGATIVE mg/dLBon [facility] Specific gravity (U) [Rel density]High1.010 - 1.020[facility] Urobilinogen Qn (U)Normal0.0 - 1.0 EU/dLBon [facility] CenterUrinalysis,Microon 08-57-6784UdsaegukMUAMNCganpwwzFAYDKknad Tiffin HospitalComment on above:Performed By: #### JACOB, UAX, UMICAO #### [facility] [address] [place] [address] [place] [address] Machine Operator Hop Worker: Robert Wynne [facility] – HENRYETTAasts[address] TO [address] [place], [place] [address]Comment on above:Result Comment: HYALINEPerformed By: #### JACOB, UAX, UMICAO #### [facility] [address] [place] [address] [place] [address] Machine Operator Hop Worker: Robert Wynne MDEpithelial cells LM Ql (Urine sed)NoneNormal0-5 [facility] Health SystemComment on above:Performed By: #### JACOB, UAX, UMICAO #### [facility] [address] [place] [address] [place] [address] Machine Operator Hop Worker: IHSAN Huffmanucus Strands4+[facility] Comment on above:Performed By: #### JACOB, UAX, UMICAO #### [facility] [address] [place] [address] [place] [address] Machine Operator Hop Worker: Carolina Huffman RBC'sNoneNormal0-2MGlenbeigh Hospital Comment on above:Performed By: #### JACOB, UAX, UMICAO #### [facility] [address] [place], [place] [address]83 Machine Operator Hop Worker: Carolina Huffman WBC'sNoneNormal0-5[facility] Comment on above:Performed By: #### JACOB, UAX, UMICAO #### [facility] [address] [place], [place] [address]383 Machine Operator Hop Worker: Carolina Huffman Drug Screenon 41-77-6749Tvzfdmckoesh Ql (U) PositiveAbnormalNEGATIVEBon Secours Mercy HealthComment on above:Cutoff: 1000 ng/mL High concentrations of ephedrine/pseudoephedrine or phenylpropanolamine may cause false positive results for amphetamine. Therefore, confirmatory testing for amphetamine should be considered if clinically indicated. Barbiturates Screen Ql (U)NegativeNEGATIVEBon Secours Mercy HealthComment on above:Cutoff: 200 ng/mlBenzodiazepines Ql (U)NegativeNEGATIVEBon Secours Mercy HealthComment on above:Cutoff: 200 ng/mlCannabinoids Screen Ql (U)Negative NEGATIVEBon Secours Mercy HealthComment on above:Cutoff: 50 ng/mlCocaine Ql (U) NegativeNEGATIVEBon Secours Mercy HealthComment on above:Cutoff: 300 ng/ml fentaNYL Ql (U)NegativeNEGATIVEBon Secours Mercy HealthComment on above:Cutoff: 5 ng/mlInterpretation and review of laboratory resultsAbnormalBon Secours Mercy HealthMethadone Ql (U)NegativeNEGATIVEBon Secours Mercy HealthComment on above: Cutoff: 300 ng/mlOpiates Screen Ql (U)NegativeNEGATIVEBon Secours [facility] Health Comment on above:Cutoff: 300 ng/ml Note: The Opiate screen is not intended to detect Oxycodone. oxyCODONE Ql (U)NegativeNEGATIVEBon Secours Mercy HealthComment on above:Cutoff: 100 ng/mlPhencyclidine Ql (U)NegativeNEGATIVEBon Secours Mercy HealthComment on above:Cutoff: 25 ng/mlTest InformationThis method is a screening test to detect only these drug classes as part of a medical workup. Confirmatory testing by another method should be ordered if clinically indicated.[facility] Care CenterLipid Panelon 11-06-4403Lfeqkjmjnvx [Mass/Vol]153 mg/uTWtemmt856-440Vew Counts Include [address] [facility] Physician GroupComment on above:Order Comment: FASTING YResult Comment: Chol less than 200 mg/dl low risk Chol 201-239 mg/dl borderline risk Chol 240 mg/dl and greater high riskPerformed By: #### TSH3 wRFLX, LIPID, [id number] #### [facility] [address] [place] [address] USACholesterol in HDL [Mass/Vol]45 mg/uJVnvegs41-24Wkk Counts Include [address] [facility] At [facility] Physician GroupComment on above:Order Comment: FASTING YResult Comment: HDL CHOL ATP-III CLASSIFICATION Cardiovascular Risk HDL > or equal to 60 mg/dL LOW HDL < 40 mg/dL HIGHPerformed By: #### TSH3 wRFLX, LIPID, [id number] #### [facility] [address] [place] [address] USACholesterol.total/Cholesterol in HDL [Mass ratio]3.4 {ratio}Normal<5.0The Counts Include [address] [facility] At [facility] Physician GroupComment on above:Order Comment: FASTING YPerformed By: #### TSH3 wRFLX, LIPID, [id number] #### [facility] [address] [place] [address] USALDL Cholesterol,Liufotjnwx09 mg/dLNormal0-100The Counts Include [address] [facility] Physician GroupComment on above:Order Comment: FASTING YResult Comment: LDL ATP III CLASSIFICATION LDL less than 100 mg/dL Optimal LDL 100-129 mg/dL Near or above optimal LDL 130-159 mg/dL Borderline high LDL 160-189 mg/dL High LDL greater than 189 mg/dL Very highPerformed By: #### TSH3 wRFLX, LIPID, [id number] #### [facility] [address] [place] [address] USATriglyceride w/Qbnvkr65 mg/dLNormal0-149The Counts Include [address] [facility] Physician GroupComment on above:Order Comment: FASTING YResult Comment: TRIG ATP III CLASSIFICATION TRIG less than 150 mg/dL Normal TRIG 150-199 mg/dL Borderline high TRIG 200-500 mg/dL High TRIG greater than 500 mg/dL Very high Standard traceable to the Center for Disease Conrtrol and Prevention (CDC) test method.Performed By: #### TSH3 wRFLX, LIPID, [id number] #### [place] [address] USAVLDL ESTOJWMCWOL53 mg/dLNormalThe Counts Include [address] [facility] Physician GroupComment on above:Order Comment: FASTING YPerformed By: #### TSH3 wRFLX, LIPID, [id number] #### [place] [address] USAThyroid Stim Hormone w/Rflxon 84-42-4107Rdihvkc Stim Hormone w/Rflx2.04 u[iU]/mLNormal0.45-5.33The Counts Include [address] [facility] Physician GroupComment on above:Order Comment: FASTING YPerformed By: #### TSH3 wRFLX, LIPID, [id number] #### [place] [address] USAVitamin D 25 Hydroxy Totalon 98-87-5714Uasqlow D 25 Hydroxy Total23.3 ng/jXItj47-715Gac Counts Include [address] [facility] Physician GroupComment on above: Order Comment: FASTING YResult Comment: VITAMIN D STATUS 25(OH)VITAMIN D RANGE (ng/mL) Deficient <20 Insufficient 20 to <30 Sufficient 30 to 100 Reference: Ashlyn MF,Demarco NC, Kiara JUSTIN, et al. Evaluation,treatment, and prevention of vitamin D deficiency; an Endocrine Society clinical practice guideline. JCEM. 2010; 96(7):1911-30. PERFORMED BY: [place] [id number] PATHOLOGIST GARDENING MANAGER PHILLIP MCGRAW M.D.Performed By: #### TSH3 wRFLX, LIPID, [id number] #### [place] [address] USACBC AND AUTO DIFFon 39-10-0935GYUQVLIV BASOPHIL0.1 X10E9/L Normal0.0-0.2PMemorial Health System Selby General HospitalComment on above:Performed By: #### KAI, RADHA, 53137-2, 35108-7 #### [facility] ([id number]) [address] [place] [address] 81418ZTBMWPDE NEUTROPHIL4.1 X10E9/LNormal1.5-6.6ProHca Houston Healthcare North CypressComment on above:Performed By: #### KAI, CMP, 21875-7, 88512-4 #### [facility] ([id number]) [address] [place] [address] 74843Dmahntrwv/100 WBC (Bld)0.8 %NormalWVUMedicine Barnesville Hospital Comment on above:Performed By: #### KAI, RADHA, 20456-3, 79043-1 #### [facility] ([id number]) [address] [place] [address] 601[address]Jgnjagmqxrt (Bld) [#/Vol]0.1 10*3/uLNormal0.0-0.4WVUMedicine Barnesville HospitalComment on above:Performed By: #### KAI, CMP, 54605-5, 47192-2 #### [facility] ([id number]) [address] [place] [address] 09580Seopdqlztlm/100 WBC (Bld)1.5 %NormalWVUMedicine Barnesville Hospital Comment on above:Performed By: #### CBCA, CMP, 40150-3, 25075-5 #### [facility] ([id number]) [address] [place] [address] 81106Pholjqejxia distribution width (RBC) [Ratio]15.4 %High11.5-15.0 ProMAdventist Medical CenterComment on above:Performed By: #### KAI, CMP, 64289- 5, 69723-1 #### [facility] ([id number]) [address] [place] [address] 97121Iepjhcrbrp (Bld) [Volume fraction]40.2 %Llembg28-20ArbQxczbrHca Houston Healthcare North CypressComment on above:Performed By: #### KAI, CMP, 84646-7, 35856-0 #### [facility] ([id number]) [address] [place] [address] 14987Pataulcgbh (Bld) [Mass/Vol]13.5 g/nPRjfuab27.0-17.0ProHca Houston Healthcare North CypressComment on above:Performed By: #### KAI CMP, 61995-8, 98248-5 #### [facility] ([id number]) [address] [place] [address] 00383Ohijlqtllle (Bld) [#/Vol]3.1 10*3/uLNormal1.0-3.5ProMedHollywood Community Hospital of HollywoodComment on above:Performed By: #### KAI, CMP, 13695-7, 56955-2 #### [facility] ([id number]) [address] [place] [address] 57545Mfdcozamokp/100 WBC (Bld)37.9 %NormalWVUMedicine Barnesville Hospital Comment on above:Performed By: #### KAI, CMP, 27708-2, 33027-3 #### [facility] ([id number]) [address] [place] [address] 66918SFM (RBC) [Entitic mass]30.1 kmMfxeet69-68RjsUbllggHca Houston Healthcare North CypressComment on above:Performed By: #### KAI, CMP, 73653-1, 62129-6 #### [facility] ([id number]) [address] [place] [address] 42956LWIZ (RBC) [Mass/Vol]33.4 g/kFLrasyr35-84YjcZrzqsnHca Houston Healthcare North CypressComment on above:Performed By: #### CBCDavid, CMP, 91821-5, 31452-1 #### [facility] ([id number]) [address] [place] [address] 31383AVV (RBC) [Entitic vol]90 wQGimakh89-133QqcXwwgkk Fremont HospitalComment on above:Performed By: #### CBCDavid, CMP, 96859-8, 36897-2 #### [facility] ([id number]) [address] [place] [address] 10513Qiymopwrl (Bld) [#/Vol]0.8 10*3/uLNormal0-0.9WVUMedicine Barnesville HospitalComment on above:Performed By: #### CBCDavid, CMP, 79957-2, 67258-0 #### [facility] ([id number]) [address] [place] [address] 86120Knqkvmyvk/100 WBC (Bld)10.2 %NormalWVUMedicine Barnesville Hospital Comment on above:Performed By: #### KAI, CMP, 53417-5, 51187-9 #### [facility] ([id number]) [address] [place] [address] 13743Kqjokcirfvr/100 WBC (Bld)49.6 %[facility] Comment on above:Performed By: #### CBCA, CMP, 82335-1, 45733-9 #### [facility] ([id number]) [address] [place] [address] 64098Fxjfqbpj mean volume (Bld) [Entitic vol]8.6 fLNormal7-12 ProMAdventist Medical CenterComment on above:Performed By: #### CBCA, CMP, 43183- 5, 78296-1 #### [facility] ([id number]) [address] [place] [address] 12733Caoqgligk (Bld) [#/Vol]271 10*3/eEEbzqtd276-678UogOpmmyn Fremont HospitalComment on above:Performed By: #### KAI, CMP, 94683-2, 45142-5 #### [facility] ([id number]) [address] [place] [address] 64222CLA COUNT4.46 X10E12/LNormal4.10-5.70ProH[facility] Comment on above:Performed By: #### KAI, CMP, 49309-0, 59253-4 #### [facility] ([id number]) [address] [place] [address] 28820EUO (Bld) [#/Vol]8.3 10*3/uLNormal4.0-11.0ProHca [facility] Healthcare North CypressComment on above:Performed By: #### RADHA QUINN, 48445-1, 56750-0 #### [facility] ([id number]) [address] [place] [address] 62280KYCZWZLFVYENR METABOLIC PANELon 07-95-8110Fzxlimd [Mass/Vol]3.7 g/dLNormal3.2-5.3PMemorial Health System Selby General HospitalComment on above:Performed By: #### RADHA QUINN, 08886-1, 16324-6 #### [facility] ([id number]) [address] [place] [address] 28660QJG [Catalytic activity/Vol]64 U/BEahnot55-226OoaCisndjHca Houston Healthcare North CypressComment on above:Performed By: #### KAI, CMP, 14431-0, 82825-8 #### [facility] ([id number]) [address] [place] [address] 84802PHE [Catalytic activity/Vol]30 U/LNormal0-40ProHca [facility] Healthcare North CypressComment on above:Performed By: #### KAI, CMP, 90521-9, 59325-7 #### [facility] ([id number]) [address] [place] [address], [place] [address]Gikum gap [Moles/Vol]7 mmol/LNormal5-15ProHca [facility] Healthcare North CypressComment on above:Performed By: #### RADHA QUINN, 02973-5, 19636-7 #### [facility] ([id number]) [address] [place] [address], [place] [address]YOE [Catalytic activity/Vol]39 U/LNormal0-41ProHca [facility] Healthcare [facility] CypressComment on above:Performed By: #### RADHA QUINN, 08085-5, 32178-4 #### [facility] ([id number]) [address] [place] [address], [place] [address]Tfcbkrvbd [Mass/Vol]1.0 mg/dLNormal0.3-1.2PMemorial Health System Selby General HospitalComment on above:Result Comment: RESULTS QUESTIONABLE DUE TO HEMOLYSIS Performed By: #### RADHA QUINN, 41560-1, 20128-9 #### [facility] ([id number]) [address] [place] [address], [place] [address]Mmprytd [Mass/Vol]8.4 mg/dLLow8.5-10.5PMemorial Health System Selby General HospitalComment on above:Performed By: #### RADHA QUINN, 07972-8, 96639-8 #### [facility] ([id number]) [address] [place] [address], [place] [address]Dyrxolop [Moles/Vol]103 mmol/YVrowze74-179PusXbpmxgHca Houston Healthcare North CypressComment on above:Performed By: #### RADHA QUINN, 03485-9, 00380-3 #### [facility] ([id number]) [address] [place] [address], [place] [address]SY7 [Moles/Vol]27 mmol/ELpobma43-46TrrEpcecrMemorial Health System [facility] Hospital Comment on above:Performed By: #### RADHA QUINN, 56141-0, 10345-2 #### [facility] ([id number]) [address] [place] [address] 77295Yudlkyfjlh [Mass/Vol]0.73 mg/dLNormal0.70-1.20ProHca [facility] Healthcare [facility] CypressComment on above:Result Comment: METHOD TRACEABLE TO IDMS STANDARD Performed By: #### RADHA QUINN, 19681-8, 22805-6 #### [facility] ([id number]) [address] [place] [address] 36512oVMY (CKD-EPI) NON-RACE DEPENDENT>90Normal>59ProHca [facility] Healthcare North CypressComment on above:Result Comment: Reported eGFR is based on the CKD-EPI 1 equation that does not use a race coefficient.Performed By: #### RADHA QUINN, 87964-3, 63444-1 #### [facility] ([id number]) [address] [place] [address] 55506Dezrnxa [Mass/Vol]88 mg/eSPhnagu80-30SfgZkygxwHca [facility] Comment on above:Performed By: #### RADHA QUINN, 17728-1, 81085-5 #### [facility] ([id number]) [address] [place] [address] 69[address]Orcmltiyj [Moles/Vol]4.3 mmol/LNormal3.5-5.0ProHca [facility] Healthcare North CypressComment on above:Result Comment: SPECIMEN HEMOLYZED, RESULTS INCREASED Performed By: #### RADHA QUINN, 99310-2, 06000-9 #### [facility] ([id number]) [address] [place] [address] 464[address]Zeafjbo [Mass/Vol]8.0 g/dLNormal6.0-8.0ProHca [facility] Healthcare [facility] CypressComment on above:Performed By: #### RADHA QUINN, 78469-9, 75256-0 #### [facility] ([id number]) [address] [place] [address] 27372Hzrgau [Moles/Vol]137 mmol/AZbbhfu012-764XrcInclyzMercy Health St. Elizabeth Boardman Hospitalment on above:Performed By: #### RADHA QUINN, 19267-4, 69078-8 #### [facility] ([id number]) [address] [place] [address] 33254Wjpb nitrogen [Mass/Vol]18 mg/dLNormal5-23ProH[facility] CypressComment on above:Performed By: #### RADHA QUINN, 02643-0, 29090-8 #### [facility] ([id number]) [address] [place] [address] 35988Xdleet D-dimer DDU (PPP) [Mass/Vol]on 10-22-2023 DIMER<150 Normal<255ProHca [facility] Healthcare [facility] CypressComcorewell health butterworth hospital on above:Result Comment: Results <255 ng/mL DDU: The presence of a VTE can safely be excluded with a negative D-Dimer result and Wells score. A negative result doesn't exclude the possibility of DIC. The test be repeated along with other diagnostic tests if the patient's symptoms persist or worsen. [email or web address] By: #### RADHA QUINN, 38832-6, 61400-3 #### [facility] ([id number]) [address] [place] [address] 54136Cszlxhnc I.cardiac High sensitivity method [Mass/Vol]on HOUR TROP I, HIGH SENSITIVITY3 ng/LNormal<21ProHca [facility] CypressComcorewell health butterworth hospital on above:Performed By: #### 57123-3 #### [facility] ([id number]) [address] [place] [address] 18468XMXLFPTC I, HIGH SENSITIVITY4 ng/LNormal<21ProHca [facility] Healthcare [facility] CypressComment on above:Performed By: #### CBCA, [facility], 98835-4, 75449-6 #### [facility] ([id number]) [address] [place] [address], [place], [place] [address]MG CHEST 1 VWon 78-92-4118XQ CHEST 1 VWXR CHEST 1 VW History: Shortness of breath [...] by Robert Franco MD on 10/21/2023 11:51 PMNormalProHca Houston Healthcare North CypressBody fluid albumin measurement (mass/volume)Ordered By: Paul Fields on 08-23-3204Csypvwi (Body fld) [Mass/Vol]4.1 g/dL3.2-5.5FMercy Health Willard HospitalCreatinine and Glomerular filtration rate.predicted panel (S/P/Bld)Ordered By: Paul Fields on 67-96-3955Vkkpifdmdo [Mass/Vol]0.91 mg/dL 0.64-1.27[facility] Medical CenterEstimated glomerular filtration rate (GFR) non- AmericanOrdered By: Paul Fields on 70-75-1852SRK/1.73 sq M.predicted among non-blacks MDRD (S/P/Bld) [Vol rate/Area]> 60 mL/MinMetrohealth Cleveland Heights Medical CenterGlobulin Calc (S) [Mass/Vol]Ordered By: Paul Fields on 30-47-3305Meocofyc (S) [Mass/Vol]2.6 g/dLMetrohealth Cleveland Heights Medical CenterNo Panel InformationOrdered By: Paul Fields on 21-87-5285Tfbyaohlw GFR ()> 60 mL/MinMetrohealth Cleveland Heights Medical CenterComment on above:GFR estimated reference range: According to KDOQI guidelines, <60 ml/min/1.73m2 is sufficient todiagnose a patient with chronic kidney disease.Pharmacy Creatinine Clearance (ChemN/[facility] HospitalProtein [Mass/volume] in Serum or PlasmaOrdered By: Paul Fields on 40-31-8040Elwlbqf [Mass/Vol]6.7 g/dL 6.1-7.9Wayne Hospitalerum or plasma alanine aminotransferase measurement without P-5'-P (enzymatic activiOrdered By: Paul Fields on 92-36-8421GWS No additional P-5'-P [Catalytic activity/Vol]53 U/J75-15UtjzsqpzjWayne Hospitalerum or plasma albumin/globulin mass ratioOrdered By: Paul Fields on 00-04-7962Mtilzlp/Globulin [Mass ratio]1.6 {ratio}Wayne Hospitalerum or plasma alkaline phosphatase measurement (enzymatic activity/volume)Ordered By: Paul Fields on 38-03-6381HPZ [Catalytic activity/Vol]51 U/I99-04NtwzgkgbzWayne Hospitalerum or plasma aspartate aminotransferase measurement (enzymatic activity/volume)Ordered By: Paul Fields on 93-67-7451GWD [Catalytic activity/Vol]48 U/N26-59XgjwoqhnpWayne Hospitalerum or plasma calcium measurement (mass/volume)Ordered By: Paul Fields on 79-43-9800Wjbpoot [Mass/Vol]9.7 mg/dL8.2-10.2FMount Carmel Health Systemerum or plasma chloride measurement (moles/volume) Ordered By: Paul Fields on 84-66-6444Ycxqjvwz [Moles/Vol]99 mmol/L95-114 Wayne Hospitalerum or plasma glucose measurement (mass/volume)Ordered By: Paul Fields on 44-94-4765Uldqhhy [Mass/Vol]62 mg/dL 70-100[facility] Medical CenterComment on above:ADA recommended reference range Random Glucose Reference Range is dependent on time and content of last meal. Glucose of more than 200 mg/dL in a nonstressed, ambulatory subject supports the diagnosis of Diabetes Mellitus.Serum or plasma potassium measurement (moles/volume)Ordered By: Paul Fields on 74-39-1665Aifykayww [Moles/Vol]4.5 mmol/L3.5-5.1FMount Carmel Health Systemerum or plasma sodium measurement (moles/volume)Ordered By: Palu Fields on 55-87-7426Mkitpn [Moles/Vol]138 mmol/D033-054BjpnojydcWayne Hospitalerum or plasma total bilirubin measurement (mass/volume)Ordered By: Paul Fields on 10-38-0878Wsnvrxivj [Mass/Vol]0.7 mg/dL0.3-1.2FMount Carmel Health Systemerum or plasma total carbon dioxide measurement (moles/volume)Ordered By: Paul Fields on 77-34-1420HQ5 [Moles/Vol]30.3 mmol/L22.0-30.0[facility] Serum or plasma urea nitrogen measurement (mass/volume)Ordered By: Paul Fields on 71-73-6413Sgir nitrogen [Mass/Vol]11 mg/dL9-23[facility] Medical CenterDrug screen multi urineon 39-36-1860Jjujhqzxzxb Screen, UrPositiveAbnormal NEGATIVEMercy HealthBarbiturate Screen, UrNegativeNEGATIVEMercy Health Benzodiazepine Screen, UrineNegativeNEGATIVEMercy HealthBuprenorphine Urine NegativeNEGATIVEMercy HealthCannabinoid Scrn, UrPositiveAbnormalNEGATIVEMercy HealthCocaine Metabolite, UrineNegativeNEGATIVEMercy HealthInterpretation and review of laboratory resultsAbnormalMercy HealthMethadone Screen, UrineNegative NEGATIVEMercy HealthMethamphetamine, UrinePositiveAbnormalNEGATIVEMercy Health Opiates, UrineNegativeNEGATIVEMercy HealthOxycodone Screen, UrNegativeNEGATIVE Mercy HealthPhencyclidine, UrineNegativeNEGATIVEMercy HealthPropoxyphene, Urine NegativeNEGATIVEMercy HealthTricyclic Antidepressants, UrineNegativeNEGATIVE Mercy HealthComment on above:Drug screen results are to be used for medical purposes only. All positive results are unconfirmed. Testing for employment or legal uses should be sent to a reference laboratory for confirmation. Mercy HealthUrinalysis with Microscopicon 09-29-2021-Mercy HealthBilirubin Urine NegativeNEGATIVEMercy HealthColor, UAYellowYellowMercy HealthEpithelial Cells UA 0 TO 2Mercy HealthGlucose, UrNegativeNEGATIVEMercy HealthKetones Ql (U)Negative NEGATIVEMercy HealthLeukocyte esterase Test strip Ql (U)NegativeNEGATIVEMercy HealthNitrite, UrineNegativeNEGATIVEMercy HealthpH, UA6.0Mercy HealthProtein, UA NegativeNEGATIVEMercy HealthRBC, UA0 TO 2Mercy HealthSpecific [place], UA1.020 [facility] HospitalTurbidity UAClearClearSelect Medical Specialty Hospital - Trumbull HealthUrine HgbNegativeNEGATIVEAdams County HospitalUrobilinogen, UrineNormalNormalAdams County HospitalWBC, UA0 TO 2Mercy [facility] Health SystemBasic Metabolic Panel w/ Reflex to MGon 85-08-5411Hujeo gap [Moles/Vol]10 mmol/L9 - 17 mmol/LMercy HealthCalcium [Mass/Vol]9.3 mg/dL8.6 - 10.4 mg/dLSelect Medical Specialty Hospital - Trumbull HealthChloride [Moles/Vol]103 mmol/L98 - 107 mmol/LMercy HealthCO2 [Moles/Vol]26 mmol/L20 - 31 mmol/LMercy HealthCreatinine [Mass/Vol]0.79 mg/dL0.70 - 1.20 mg/dLSelect Medical Specialty Hospital - Trumbull HealthGFR >60>60 mL/minMer HealthGFR Non->60>60 mL/minSelect Medical Specialty Hospital - Trumbull HealthGlucose [Mass/Vol]129 mg/zWMotu63 - 99 mg/dL [facility] HospitalInterpretation and review of laboratory resultsAbnormalAdams County Hospital Potassium [Moles/Vol]3.6 mmol/LLow3.7 - 5.3 mmol/LMercy HealthSodium [Moles/Vol] 139 mmol/L135 - 144 mmol/LMercy HealthUrea nitrogen (BldV) [Mass/Vol]13 mg/dL6 - 20 mg/dLAdams County HospitalUrea nitrogen/Creatinine (Bld) [Mass ratio]16[facility] with Auto Differentialon 28-20-9729Ylwzjngp Eos #0.05MerMid-Valley HospitalAbsolute Immature Granulocyte0.03MerMid-Valley HospitalAbsolute Lymph #3.53Mer HealthAbsolute Parker #1.11MerMid-Valley HospitalBasophils (Bld) [#/Vol]0.04 10*3/uLMer HealthBasophils/100 WBC (Bld)0 %0 - 2 %[facility] HospitalEosinophils/100 WBC (Bld)0 % Low1 - 4 %[facility] HospitalHematocrit (Bld) [Volume fraction]35.4 %Low40.7 - 50.3 % [facility] HospitalHemoglobin.gastrointestinal spec 1 Ql (Stl)11.9 g/dLLow13.0 - 17.0 g/dLAdams County HospitalImmature granulocytes/100 WBC (Bld)0 %0[facility] Interpretation and review of laboratory resultsAbnormTrinity Health System Lymphocytes/100 WBC (Bld)30 %24 - 43 %[facility] Hospital - CantonH (RBC) [Entitic mass]30.9 pg25.2 - 33.5 pgSelect Medical Specialty Hospital - CantonHC (RBC) [Mass/Vol]33.6 g/dL28.4 - 34.8 g/dLSelect Medical Specialty Hospital - CantonV (RBC) [Entitic vol]91.9 fL82.6 - 102.9 fLAdams County HospitalMonocytes/100 WBC (Bld)9 %3 - 12 %[facility] HospitalNRBC Automated0.00.0 per 100 WBCAdams County HospitalPlatelet distribution width (Bld) [Ratio]13.1 %11.8 - 14.4 %[facility] County HospitalPlatelet mean volume (Bld) [Entitic vol]9.9 fL8.1 - 13.5 fLAdams County HospitalPlatelets (Bld) [#/Vol] 284 10*3/uLAdams County HospitalRBC (Bld) [#/Vol]3.85 10*6/uLLow4.21 - 5.77 m/uLAdams County HospitalSegmented neutrophils/100 WBC (Bld)61 %36 - 65 %[facility] County HospitalSegs Absolute 7.04Ad[facility] County HospitalWBC (Bld) [#/Vol]11.8 10*3/uLHighGalion Hospitalcy Holzer Health SystemCOVID- 19, Rapidon 24-16-2173IQZC-CoV-2 (COVID-19) RNA VISHNU+probe Ql (Unsp spec)Not detectedNot DetectedAdams County HospitalComment on above: Rapid NAAT: The specimen is [...] management decisions. Fact sheet for Healthcare Providers: https://www.fda.gov/media/943851/download Fact sheet for Patients: https://www.fda.gov/media/254848/download Methodology: Isothermal Nucleic Acid Amplification Specimen Description.NASOPHARYNGEAL SWABAspirus Riverview Hospital and ClinicsEthanolon 08-08-7574Sdcpugs [Mass/Vol]mg/dL<10 mg/dLAdams County HospitalEthanol percent<0.010 <0.010 %[facility] TwinedAdams County HospitalLaboratory - Chemistry and Chemistry - challenge on 57-63-5670DYJ/1.73 sq M.predicted MDRD (S/P/Bld) [Vol rate/Area][facility] Twined Comment on above:Average GFR for 50-59 years old: 93 mL/min/1.73sq m Chronic Kidney Disease: <60 mL/min/1.73sq m Kidney failure: <15 mL/min/1.73sq m eGFR calculated using average adult body mass. Additional eGFR calculator available at: http://www.[employer]/Bokee_crcl_2012.htm Stage 1: Some kidney damage normal GFR Stage 2: Mild kidney damage GFR 60-89 Stage 3: Moderate kidney damage GFR 30-59 Stage 4: Severe kidney damage GFR 15-29 Stage 5: Severe kidney damage GFR <15 ESRD - chronic treatment by dialysis or transplant CBC AUTO DIFFon 91-84-6179RBUN #0.0 103/ulNormal0.0-0.1[facility] Comment on above:Performed By: #### CBC #### [facility] [address] [place], [place] [address] Ethan KarenBasophils/100 WBC (Bld)0.5 %Normal0.2-2.0[facility] Comment on above:Performed By: #### CBC #### [facility] [address] [place], [place] [address] Ethan KarenEO #0.2 103/ulNormal0.0-0.7The [facility] HospitalComment on above: Performed By: #### CBC #### [facility] [address] [place] [address] Ethan KarenEosinophils/100 WBC (Bld)2.7 %Normal0.9-7.0[facility] Comment on above:Performed By: #### CBC #### [facility] [address] [place] [address] Ethan KarenErythrocyte distribution width (RBC) [Ratio]13.9 %Ajygfs29.0-15.0The [facility] HospitalComment on above:Performed By: #### CBC #### [facility] [address] [place] [address] Ethan KarenHematocrit (Bld) [Volume fraction]36.9 %Critically low42.0-54.0The [facility] HospitalComment on above:Performed By: #### CBC #### [facility] [address] [place] [address] Ethan KarenHemoglobin (Bld) [Mass/Vol]11.9 g/dLCritically low14.0-18.0The [facility] HospitalComment on above:Performed By: #### CBC #### [facility] [address] [place] [address] Ethan KarenIG #0.02 10e3/ulNormal0.00-0.03The [facility] HospitalComment on above:Performed By: #### CBC #### [facility] [address] [place] [address] Ethan KarenIG %0.2 %Normal0.0-0.5The [facility] HospitalComment on above: Performed By: #### CBC #### [facility] [address] [place] [address] Ethan KarenLYMPH #4.1 103/ulCritically high1.2-3.8The [facility] HospitalComment on above:Performed By: #### CBC #### [facility] [address] [place] [address] Ethan KarenLymphocytes/100 WBC (Bld)48.0 %Sznhgy81.5-60.0[facility] Comment on above:Performed By: #### CBC #### [facility] [address] [place] [address] Ethan KarenMANUAL DIFF REQNONormalThe [facility] HospitalComment on above: Performed By: #### CBC #### [facility] [address] [place] [address] Ethan KarenMCH (RBC) [Entitic mass]31.5 cePuerul80.9-34.0[facility] Comment on above:Performed By: #### CBC #### [facility] [address] [place] [address] Ethan KarenMCHC (RBC) [Mass/Vol]32.2 g/aZOfbuwd53.9-35.2[facility] Comment on above:Performed By: #### CBC #### [facility] [address] [place] [address] Ethan KarenMCV (RBC) [Entitic vol]97.6 fLCritically high80.0-94.0The [facility] HospitalComment on above:Performed By: #### CBC #### [facility] [address] [place] [address] Ethan KarenMONO #0.9 103/ulCritically high0.3-0.8The [facility] HospitalComment on above:Performed By: #### CBC #### [facility] [address] [place] [address] Ethan KarenMonocytes/100 WBC (Bld)10.5 %Normal1.7-12.0[facility] Comment on above:Performed By: #### CBC #### [facility] [address] [place] [address] Ethan KarenNEUT #3.3 103/ulNormal1.4-6.5The [facility] HospitalComment on above: Performed By: #### CBC #### [facility] [address] [place] [address] Ethan KarenNeutrophils/100 WBC (Bld)38.1 %Critically low43.0-75.0The [facility] HospitalComment on above:Performed By: #### CBC #### [facility] [address] [place], [place] [address] Ethan MaysPlatelet mean volume (Bld) [Entitic vol]9.4 fLCritically low9.5-13.5 The [facility] HospitalComment on above:Performed By: #### CBC #### [facility] [address] [place] [address] Ethan MaysPLT366 103/zlOjldpq720-865Yvv [facility] HospitalComment on above: Performed By: #### CBC #### [facility] [address] [place] [address] Ethan GutierrezenRBC3.78 106/ulCritically low4.70-6.10The [facility] HospitalComment on above:Performed By: #### CBC #### [facility] [address] [place] [address] Ethan MaysWBC8.5 103/ulNormal4.0-11.0The [facility] HospitalComment on above: Performed By: #### CBC #### [facility] [address] [place], [place] [address] Ethan KarenCTA CHEST WO W CONon 45-35-1206JSJ CHEST WO W CONCT PULMONARY ANGIOGRAM: INDICATION: SHORTNESS OF BREATH. COMPARISON: [...] and/or use of iterative reconstruction technique. FINDINGS: VASCULATURE/PULMONARY ARTERIES: There is satisfactory opacification of the [...] Electronically authenticated by: KRISTEN KAUFMAN Date: 2020-10-31 21:05[facility] HospitalPROF 14(COMP METB)on 23-83-8447Tekssmg [Mass/Vol]3.2 g/dL Critically low3.5-5.0[facility] HospitalComment on above:Performed By: #### CMP, HSTROPN #### [facility] [address] [place], [place] [address] Ethan KarenAlbumin/Globulin [Mass ratio]0.8 {ratio}NormalBrown Memorial Hospital Comment on above:Performed By: #### CMP, HSTROPN #### [facility] [address] [place], [place] [address] Ethan KarenALP [Catalytic activity/Vol]78 U/HIjhfgp57-005Nyw [facility] Comment on above:Performed By: #### CMP, HSTROPN #### [facility] [address] [place], [place] [address] Ethan KarenALT [Catalytic activity/Vol]42 U/UAdhebu88-51Fri [facility] Comment on above:Performed By: #### CMP, HSTROPN #### [facility] [address] [place], [place] [address] Ethan KarenAnion gap [Moles/Vol]10.7 mmol/LNormalThe [facility] HospitalComment on above:Performed By: #### CMP, HSTROPN #### [facility] [address] [place] [address] Ethan KarenAST [Catalytic activity/Vol]28 U/VFtylfi47-94AhtBrown Memorial Hospital Comment on above:Performed By: #### CMP, HSTROPN #### [facility] [address] [place] [address] Ethan KarenBilirubin [Mass/Vol]2.7 mg/dLCritically high0.2-1.3TTuscarawas HospitalComment on above:Performed By: #### CMP, HSTROPN #### [facility] [address] [place] [address] Ethan KarenCalcium [Mass/Vol]8.8 mg/dLNormal8.4-10.2[facility] Comment on above:Performed By: #### CMP, HSTROPN #### [facility] [address] [place] [address] Ethan KarenChloride [Moles/Vol]107 mmol/AXzwyfo29-188XyrBrown Memorial Hospital Comment on above:Performed By: #### CMP, HSTROPN #### [facility] [address] [place] [address] Ethan KarenCO2 [Moles/Vol]29.2 mmol/TBriaci89.0-30.0[facility] Comment on above:Performed By: #### CMP, HSTROPN #### [facility] [address] [place] [address] Ethan KarenCreatinine [Mass/Vol]0.92 mg/dLNormal0.66-1.25The [facility] Comment on above:Performed By: #### CMP, HSTROPN #### [facility] [address] [place] [address] Ethan KarenEGFR-AF ENGLISH>60Normal>=60Brown Memorial HospitalComment on above: Performed By: #### CMP, HSTROPN #### [facility] [address] [place] [address] Ethan KarenEGFR-NON AF ENGLISH>60Normal>=60The [facility] HospitalComment on above:Performed By: #### CMP, HSTROPN #### [facility] [address] [place] [address] Ethan KarenGlobulin (S) [Mass/Vol]3.8 g/dLNormSelect Medical Specialty Hospital - AkronComment on above:Performed By: #### CMP, HSTROPN #### [facility] [address] [place] [address] Ethan KarenGlucose [Mass/Vol]93 mg/wMDasbhn63-239Uhf [facility] HospitalComment on above:Performed By: #### CMP, HSTROPN #### [facility] [address] [place] [address] Ethan KarenPotassium [Moles/Vol]3.9 mmol/LNormal3.4-5.0The [facility] Comment on above:Performed By: #### CMP, HSTROPN #### [facility] [address] [place] [address] Ethan KarenProtein [Mass/Vol]7.0 g/dLNormal6.1-8.2The [facility] HospitalComment on above:Performed By: #### CMP, HSTROPN #### [facility] [address] [place] [address] Ethan KarenSodium [Moles/Vol]143 mmol/QOciokh195-958Xms [facility] Comment on above:Performed By: #### CMP, HSTROPN #### [facility] [address] [place] [address] Ethan KarenUrea nitrogen [Mass/Vol]17.0 mg/dLNormal9.0-20.0The [facility] HospitalComment on above:Performed By: #### CMP, HSTROPN #### [facility] [address] [place] [address] Ethan KarenUrea nitrogen/Creatinine [Mass ratio]18.5 mg/mgNormSelect Medical Specialty Hospital - AkronComment on above:Performed By: #### CMP, HSTROPN #### [facility] [address] [place] [address] Ethan KarenTROPONIN, HIGH SENSITIVITYon 31-58-0763GBJMTJ9.3 pg/mLNormal4.0-42.2 The [facility] HospitalComment on above:Result Comment: CUT-OFF POINTS HAVE BEEN ESTABLISHED BASED ON THE FOURTH UNIVERSAL DEFINITIONS OF MYOCARDIAL INFARCTION. THE UPPER REFERENCE LIMIT (URL) OF TROPONIN, DEFINED THE 99TH PERCENTILE OF cTnI DISTRIBUTION IN A REFERENCE POPULATION, HAS BEEN CONFIRMED THE DECISION THRESHOLD FOR VA DIAGNOSIS.Performed By: #### HSTROPN #### [facility] [address] [place] [address] Ethan KarenHSTROP<4.5Ohkzhj9.0-42.2The [facility] HospitalComment on above:Result Comment: CUT-OFF POINTS HAVE BEEN ESTABLISHED BASED ON THE FOURTH UNIVERSAL DEFINITIONS OF MYOCARDIAL INFARCTION. THE UPPER REFERENCE LIMIT (URL) OF TROPONIN, DEFINED THE 99TH PERCENTILE OF cTnI DISTRIBUTION IN A REFERENCE POPULATION, HAS BEEN CONFIRMED THE DECISION THRESHOLD FOR VA DIAGNOSIS.Performed By: #### CMP, HSTROPN #### [facility] [address] [place] [address] Ethan KarenCBC AUTO DIFFon 60-32-3956FJAH #0.0 103/ulNormal0.0-0.1The [facility] HospitalComment on above:Performed By: #### CMP, HSTROPN #### [facility] [address] [place] [address] Ethan KarenBasophils/100 WBC (Bld)0.3 %Normal0.2-2.0The [facility] Comment on above:Performed By: #### CMP, HSTROPN #### [facility] [address] [place] [address] Ethan KarenEO #0.3 103/ulNormal0.0-0.7The [facility] HospitalComment on above: Performed By: #### CMP, HSTROPN #### [facility] [address] [place] [address] Ethan KarenEosinophils/100 WBC (Bld)4.4 %Normal0.9-7.0The [facility] Comment on above:Performed By: #### CMP, HSTROPN #### [facility] [address] [place] [address] Ethan KarenErythrocyte distribution width (RBC) [Ratio]13.6 %Hxegfu12.0-15.0The [facility] HospitalComment on above:Performed By: #### CMP, HSTROPN #### [facility] [address] [place] [address] Ethan KarenHematocrit (Bld) [Volume fraction]44.4 %Cgmotz36.0-54.0The [facility] HospitalComment on above:Performed By: #### CMP, HSTROPN #### [facility] [address] [place] [address] Ethan KarenHemoglobin (Bld) [Mass/Vol]14.7 g/tHPrwpfe31.0-18.0The [facility] HospitalComment on above:Performed By: #### CMP, HSTROPN #### [facility] [address] [place] [address] Ethan KarenIG #0.03 10e3/ulNormal0.00-0.03The [facility] HospitalComment on above:Performed By: #### CMP, HSTROPN #### [facility] [address] [place] [address] Ethan KarenIG %0.4 %Normal0.0-0.5The [facility] HospitalComment on above: Performed By: #### CMP, HSTROPN #### [facility] [address] [place] [address] Ethan KarenLYMPH #2.7 103/ulNormal1.2-3.8The [facility] HospitalComment on above: Performed By: #### CMP, HSTROPN #### [facility] [address] [place] [address] Ethan KarenLymphocytes/100 WBC (Bld)37.8 %Omkalg84.5-60.0The [facility] Comment on above:Performed By: #### CMP, HSTROPN #### [facility] [address] [place] [address] Ethan KarenMANUAL DIFF REQNONormalThe [facility] HospitalComment on above: Performed By: #### CMP, HSTROPN #### [facility] [address] [address] Ethan MaysMCH (RBC) [Entitic mass]31.3 rxDgzcfe67.9-34.0The [facility] Comment on above:Performed By: #### CMP, HSTROPN #### [facility] [address] [place] [address] Ethan KarenMCHC (RBC) [Mass/Vol]33.1 g/uNGwqpic36.9-35.2The [facility] Comment on above:Performed By: #### CMP, HSTROPN #### [facility] [address] [place] [address] Ethan KarenMCV (RBC) [Entitic vol]94.7 fLCritically high80.0-94.0The [facility] HospitalComment on above:Performed By: #### CMP, HSTROPN #### [facility] [address] [place] [address] Ethan KarenMONO #0.5 103/ulNormal0.3-0.8The [facility] HospitalComment on above: Performed By: #### CMP, HSTROPN #### [facility] [address] [place] [address] Ethan KarenMonocytes/100 WBC (Bld)6.5 %Normal1.7-12.0The [facility] Comment on above:Performed By: #### CMP, HSTROPN #### [facility] [address] [place] [address] Ethan KarenNEUT #3.6 103/ulNormal1.4-6.5The [facility] HospitalComment on above: Performed By: #### CMP, HSTROPN #### [facility] [address] [place] [address] Ethan KarenNeutrophils/100 WBC (Bld)50.6 %Pwzisi90.0-75.0The [facility] Comment on above:Performed By: #### RADHA, HSTROPN #### [facility] [address] [place] [address] Ethan GutierrezenPlatelet mean volume (Bld) [Entitic vol]10.4 fLNormal9.5-13.5The [facility] HospitalComment on above:Performed By: #### RADHA HSTROPN #### [facility] [address] [place] [address] Ethan ZugzfPOX561 103/afTmrvbv798-220Igw [facility] HospitalComment on above: Performed By: #### RADHA, HSTROPN #### [facility] [address] [place] [address] Ethan KarenRBC4.69 106/ulCritically low4.70-6.10The [facility] HospitalComment on above:Performed By: #### RADHA HSTROPN #### [facility] [address] [place] [address] Ethan KarenWBC7.2 103/ulNormal4.0-11.0The [facility] HospitalComment on above: Performed By: #### RADHA HSTROPN #### [facility] [address] [place] [address] Ethan MattenER URINE PROFILEon 59-07-9371Ecodhxlww Ql (U)NegativeNormalNEGATIVE The [facility] HospitalComment on above:Performed By: #### RADHA, HSTROPN #### [facility] [address] [place] [address] Ethan KarenClarity (U)CLEARNormalCLEARThe [facility] HospitalComment on above: Performed By: #### RADHA, HSTROPN #### [facility] [address] [place] [address] Ethan KarenColor (U)LT. YELLOWNormalYELLOWBrown Memorial HospitalComment on above:Performed By: #### CMP, HSTROPN #### [facility] [address] [place] [address] Ethan GutierrezenERUAHDA micrscopic examination will be performed if indicated.Normal The [facility] HospitalComment on above:Performed By: #### CMP, HSTROPN #### [facility] [address] [place] [address] Ethan KarenGlucose Ql (U)NegativeNormalNEGATIVEBrown Memorial HospitalComment on above:Performed By: #### CMP, HSTROPN #### [facility] [address] [place] [address] Ethan KarenHemoglobin Ql (U)NegativeNormalNEGATIVEBarney Children'S Medical Center HospitalComment on above:Performed By: #### CMP, HSTROPN #### [facility] [address] [place] [address] Ethan KarenKetones Ql (U)NegativeNormalNEGATIVEBrown Memorial HospitalComment on above:Performed By: #### CMP, HSTROPN #### [facility] [address] [place] [address] Ethan KarenLEUKOCYTESNegativeNormalNEGATIVEBrown Memorial HospitalComment on above:Performed By: #### CMP, HSTROPN #### [facility] [address] [place] [address] Ethan KarenNitrite Ql (U)NegativeNormalNEGATIVEBrown Memorial HospitalComment on above:Performed By: #### CMP, HSTROPN #### [facility] [address] [place] [address] Ethan KarenpH (U)7.0 [pH]Normal5-9The [facility] HospitalComment on above: Performed By: #### CMP, HSTROPN #### [facility] [address] [place] [address] Ethan KarenSPEC GRAVITY1.833Kiwonf4.005-<=1.025The [facility] HospitalComcorewell health butterworth hospital on above:Performed By: #### CMP, HSTROPN #### [facility] [address] [place] [address] Ethan KarenUA PROTEINNegativeNormalNEGATIVE/ TRACEThe Vilas HospitalComment on above:Performed By: #### CMP, HSTROPN #### [facility] [address] [place] [address] Ethan KarenUR MICRO INDNOT INDICATEDNormalThe [facility] HospitalComment on above:Performed By: #### RADHA HSTROPN #### [facility] [address] [place] [address] Ethan KarenUrobilinogen Qn (U)0.2 {Jamal'U}/dLNormal0.2 - 1.0The [facility] HospitalComment on above:Performed By: #### RADHA HSTROPN #### [facility] [address] [place] [address] Ethan KarenPOINT OF CARE GLUCOSEon 30-26-7870Aojiuda [Mass/Vol]78 mg/dLNormal 74-106The [facility] HospitalComment on above:Performed By: #### POCGLUC #### [facility] [address] [place] [address] Ethan KarenPROF 14(COMP METB)on 80-71-3570Tpkmdac [Mass/Vol]3.9 g/dLNormal 3.5-5.0Brown Memorial HospitalComment on above:Performed By: #### RADHA HSTROPN #### [facility] [address] [place] [address] Ethan KarenAlbumin/Globulin [Mass ratio]1.0 {ratio}NormalBrown Memorial Hospital Comment on above:Performed By: #### RADHA HSTROPN #### [facility] [address] [place] [address] Ethan KarenALP [Catalytic activity/Vol]63 U/LZbkeeo63-678QqlBrown Memorial Hospital Comment on above:Performed By: #### RADHA HSTROPN #### [facility] [address] [place] [address] Ethan KarenALT [Catalytic activity/Vol]67 U/ELcykyq15-09XeoBrown Memorial Hospital Comment on above:Performed By: #### RADHA HSTROPN #### [facility] [address] [place] [address] Ethan KarenAnion gap [Moles/Vol]8.8 mmol/LNormalBrown Memorial HospitalComment on above:Performed By: #### CMP, HSTROPN #### [facility] [address] [place] [address] Ethan KarenAST [Catalytic activity/Vol]40 U/XAnikxo75-74UhbBrown Memorial Hospital Comment on above:Performed By: #### CMP, HSTROPN #### [facility] [address] [place] [address] Ethan KarenBilirubin [Mass/Vol]4.0 mg/dLCritically high0.2-1.3TTuscarawas HospitalComment on above:Performed By: #### CMP, HSTROPN #### [facility] [address] [place] [address] Ethan KarenCalcium [Mass/Vol]9.1 mg/dLNormal8.4-10.2[facility] Comment on above:Performed By: #### CMP, HSTROPN #### [facility] [address] [place] [address] Ethan KarenChloride [Moles/Vol]105 mmol/KKzzflk65-699XjiBrown Memorial Hospital Comment on above:Performed By: #### CMP, HSTROPN #### [facility] [address] [place] [address] Ethan KarenCO2 [Moles/Vol]29.3 mmol/VOsflrk30.0-30.0[facility] Comment on above:Performed By: #### CMP, HSTROPN #### [facility] [address] [place] [address] Ethan KarenCreatinine [Mass/Vol]0.93 mg/dLNormal0.66-1.25The [facility] Comment on above:Performed By: #### CMP, HSTROPN #### [facility] [address] [place] [address] Ethan KarenEGFR-AF ENGLISH>60Normal>=60The [facility] HospitalComment on above: Performed By: #### CMP, HSTROPN #### [facility] [address] [address] Ethan KarenEGFR-NON AF ENGLISH>60Normal>=60The [facility] HospitalComment on above:Performed By: #### RADHA, HSTROPN #### [facility] [address] [place] [address] Ethan KarenGlobulin (S) [Mass/Vol]3.8 g/dLNormSelect Medical Specialty Hospital - AkronComment on above:Performed By: #### RADHA, HSTROPN #### [facility] [address] [place] [address] Ethan KarenGlucose [Mass/Vol]136 mg/dLCritically tnzy03-850Jdj [facility] HospitalComment on above:Performed By: #### RADHA, HSTROPN #### [facility] [address] [place] [address] Ethan KarenPotassium [Moles/Vol]4.1 mmol/LNormal3.4-5.0The [facility] Comment on above:Performed By: #### RADHA, HSTROPN #### [facility] [address] [place] [address] Ethan KarenProtein [Mass/Vol]7.7 g/dLNormal6.1-8.2The [facility] HospitalComment on above:Performed By: #### RADHA, HSTROPN #### [facility] [address] [place] [address] Ethan KarenSodium [Moles/Vol]139 mmol/TDklomr736-086Fti [facility] Comment on above:Performed By: #### CMP, HSTROPN #### [facility] [address] [place] [address] Ethan KarenUrea nitrogen [Mass/Vol]6.0 mg/dLCritically low9.0-20.0The [facility] HospitalComment on above:Performed By: #### CMP, HSTROPN #### [facility] [address] [place] [address] Ethan KarenUrea nitrogen/Creatinine [Mass ratio]6.5 mg/mgNormalThe Vilas HospitalComment on above:Performed By: #### CMP, HSTROPN #### [facility] [address] [place], [place] [address] Ethan Solissharif Covid-19 PCR (CVDRPD)on 66-87-5910VPWV-CoV-2 (COVID-19) RNA VISHNU+probe Ql (Unsp spec)Not detectedNormalNOT DETECTEDThe [facility] Comment on above:Result Comment: This test is not yet approved or cleared by the [place] Food and Drug Administration (FDA). This test was developed by [employer], [employer], [place]. The performance characteristics of this test were validated by The [facility]. The results are not intended to be used as the sole means for clinical diagnosis or patient management decisions. The [facility] is authorized under Clinical Laboratory Improvement Amendments (CLIA) to perform high- complexity testing. When diagnostic testing is negative, the possibility of a false negative should be considered in the context of a patient's recent exposures and the presence of clinical signs and symptoms consistent with SARS-CoV-2.Performed By: #### CVDRPD #### [facility] [address] [place], [place] [address] Ethan GutierrezenTROPONIN, HIGH SENSITIVITYon 74-11-5206TXLWSG<4.1Cugnjc9.0-42.2The [facility] HospitalComment on above:Result Comment: CUT-OFF POINTS HAVE BEEN ESTABLISHED BASED ON THE FOURTH UNIVERSAL DEFINITIONS OF MYOCARDIAL INFARCTION. THE UPPER REFERENCE LIMIT (URL) OF TROPONIN, DEFINED THE 99TH PERCENTILE OF cTnI DISTRIBUTION IN A REFERENCE POPULATION, HAS BEEN CONFIRMED THE DECISION THRESHOLD FOR VA DIAGNOSIS.Performed By: #### CMP, HSTROPN #### [facility] [address] [place] [address] Ethan KarenXR CHEST 1 Von 06-47-4498SM CHEST 1 VEXAMINATION: XR CHEST 1 V HISTORY: Dyspnea COMPARISON: [...] Electronically authenticated by: ROBERT HICKS Date: 2020-10-09 13:14[facility]: XR CHEST 1 V HISTORY: Asthenia COMPARISON: [...] Electronically authenticated by: ROBERT HICKS Date: 2020-10-09 12:43[facility] Vital Signs Date TimeVital SignValuePerforming CkwnmklzcUnwooqvb57-77-8192 07:30-0500Body fkkfpsqergt14.6 [degF]PHYSICIAN [facility] 04-18-2025 07:30-0500Diastolic blood bixoiycu29 mm[Hg]PHYSICIAN [facility]11-04-2025 07:30-0500Heart rate89 /minPHYSICIAN [facility]11-04-2025 07:30-0500Respiratory rate 16 /minPHYSICIAN [facility]11-04-2025 07:30-0500 SaO2% (BldA) [Mass fraction]99 %PHYSICIAN [facility]11-04-2025 07:30-0500Systolic blood ykrpylvp862 mm[Hg]PHYSICIAN [facility]11-03-2025 08:36-0500Body nravji01.[address] [facility]10-30-2025 14:39-0400Body vjzhzo919.72 cmPHYSICIAN NO [facility] Eaivqw31-03-3710 20:12-0400Diastolic blood gnpmmvih05 mm[Hg]Eloisa Walker MD Work Phone: Qny [facility]10-28-2025 20:12-0400Heart rate78 /minEloisa Walker MD Work Phone: [facility]-28-2025 20:12-0400 Respiratory rate16 /minEloisa Walker MD Work Phone: [facility]10-28-2025 20:12-5826AzC5% (BldA) [Mass fraction]98 %Eloisa Walker MD Work Phone: [facility]10-28-2025 20:12-0400Systolic blood mm[Hg]Eloisa Walker MD Work Phone: Lim [facility]10-28-2025 16:28-0400Body onlnxzfvvex62.3 [degF]Eloisa Walker MD Work Phone: Xxe [facility]10-24-2025 07:30-0400Body pzooxickbgt13 [degF]PHYSICIAN NO [facility] 04-07-2025 07:30-0400Diastolic blood axthxlxr74 mm[Hg]PHYSICIAN NO [facility]10-24-2025 07:30-0400Heart rate95 /minPHYSICIAN NO [facility]10-24-2025 07:30-0400Respiratory rate 18 /minPHYSICIAN [facility]10-24-2025 07:30-0400 SaO2% (BldA) [Mass fraction]96 %PHYSICIAN NO [facility]10-24-2025 07:30-0400Systolic blood hgeckjug300 mm[Hg]PHYSICIAN [facility]10-21-2025 14:37-0400Body vmmvur963.72 cm PHYSICIAN NO [facility]10-20-2025 23:30-0400Body lptoux97.53 kgPHYSICIAN NO [facility]04-16-2022 20:16-0400Body gyibxxoastz13.29 [degF]Chris Monet MD Work Phone: [address] [address]Ffwase11-21-7275 20:16-0400Diastolic blood ojdjidxq243 mm[Hg]Chris Monet MD Work Phone: [facility]Isjnfq42-[facility]-5981 20:16-0400Heart eowj970 /min Chris Monet MD Work Phone: [address] [address]Uomfkb62-23-4802 20:16-0400Respiratory rate22 /minChris Monet MD Work Phone: [address] [address]Lnvkpz14-34-9867 20:16-8847JzH3% (BldA) [Mass fraction]95 %Chris Monet MD Work Phone: [address] [address]Dzyrnn17-53-0912 20:16-0400Systolic blood lzoomwop204 mm[Hg]Chris Monet MD Work Phone: [facility] Tkvkhu66-39-8940 15:00-0400Body wdcokc209.72 cm Paul Fields Other [employer] Other 04-07-2022 15:00-0400Body mass index (BMI) [Ratio]18.7 kg/s5Xocodqy Blank Other [employer] Other 04-07-2022 15:00-0400Body qgexkfzanqj84.2 [degF] Paul Fields Other [employer] Other 04-07-2022 15:00-0400Body .79 kgMichael Blank Other [employer] Other 04-07-2022 15:00-0400Diastolic blood dvqrirqh89 mm[Hg] Paul Fields Other [employer] Other 04-07-2022 15:00-0400Systolic blood ultlxxlq614 mm[Hg] Paul Fields Other [employer] Other Encounters Encounter DateEncounter TypeCare ProviderFacilityStart: 40-99-1649ylivbhxgtb PHYSICIAN [facility]Fac[facility]: 04-12-2025 End: 29-27-4537Mdnwchbmxr and management of inpatientAdeyemi Joel Facility:[facility]: 59-60-5767Hjk-patient / Non-visitAdejuno Maldonado MD-[facility] Work Phone: Start: 04-11-2025 End: 67-25-3892Fpjqdyilg department patient visitlEoisa Walker MD Work Phone: [facility] Emergency DepartmentComment on above: Acute psychosis (HCC) (Primary Dx)Start: 83-15-4101Icycqifwmw Recurring Hugh Headley MDEncompass Health Rehabilitation Hospital of GadsdenStart: 22-44-0057Tgk-patient / Non-visit Hugh Headley MD-[facility] Work Phone: Start: 04-03-2025 End: 84-87-7419Itroydrfcs and management of inpatientPHYSICIAN NO [facility]: 10-22-2023 End: 05-58-2337Sssvsvpam department patient visitCHERRYMAKenneth MOYAATIBOhio Valley Hospitaltart: 10-21-2023 End: 55-82-1309Baoynryxs department patient visitNO PCP NO PCPOhio Valley Hospitaltart: 01-03-2022 End: 28-18-4491Phchxxs encounter procedurePHYSICIAN NO [facility] CampusStart: 12-11-2021 End: 72-58-2967bojqjozpruDwbb Bakhous Other [employer] Other Start: 66-05-4870Ibpexolod encounterAzmartha RochaFPG NephrologyStart: 09-28-2021 End: 39-89-2073Ygkuliiup department patient visitChris Monet MD Work Phone: [facility] EDComment on above:Encounter for medical screening examination (Primary Dx)Start: 09-19-2021 End: 13-01-5730vpveghdlkdKxgkkle Blank Other [employer] Other Start: 66-69-1283Ufoksg outpatient visit 25 minutes Paul FieldsKERWIN Infectious DiseaseStart: 10-31-2020 End: 69-32-1156sqnfnqvpncZC NONE LISTED REQUESTFacility:J2Fkqro: 10-09-2020 End: 51-92-1627mhhcucvdfiCEXBXJ RODRIGUEZFacility:H1 Procedures DateProcedureProcedure DetailPerforming ClinicianStart: 73-42-0291Ztak tst prsmv instrmnt chem analyzers pr Julio Walker MD Work Phone: start: 70-98-2105Qiilhvidnp microscopic onlyEloisa Walker MD Work Phone: Start: 51-51-9275Uzitt dip stick/tablet rgnt auto w/o microscopyEloisa Walker MD Work Phone: Start: 57-01-8996Xezqx of acetaminophenEloisa Walker MD Work Phone: Start: 46-52-1506Hzuip of ethanolEloisa Walker MD Work Phone: Start: 85-54-5879Jwliv of salicylateEloisa Walker MD Work Phone: Start: 32-43-4809Ivuhusbunyknc metabolic panelEloisa Walker MD Work Phone: start: 91-52-9882Eawd screen class list Dipti Monet MD Work Phone: Start: 60-34-4301Dfmeu dip stick/tablet reagent auto microscopyChris Monet MD Work Phone: Start: 96-98-5703HZSHB-19, RAPIDChris Monet MD Work Phone: Start: 71-04-6586Vcwsy of ethanolChris Monet MD Work Phone: Start: 46-81-8942HATMG METABOLIC PANEL W/ REFLEX TO MG FOR LOW KKnii Monet MD Work Phone: Start: 28-24-1598Wqrvx count complete auto&auto difrntl wbcChris Monet MD Work Phone: Start: 03-99-9373Yhe routine ecg w/least 12 lds w/i&r Chris Monet MD Work Phone: Plan of Treatment DateCare ActivityDetailAuthorStart: 48-17-2752IhzhwxqtmMetrohealth [facility] Start: 14-06-1136Qwljstxopgfzhu of prophylactic treatmentWayne Hospitaltart: 13-88-0330Hkmitazm admissionWayne Hospitaltart: 18-21-3264RrbrhsewsWayne Hospitaltart: 04-07-2025 [facility]: 48-94-8813Ihufdmdfrxvtkh of prophylactic treatmentWayne Hospitaltart: 27-84-2865Pdgaoswc admission [facility]: 90-98-4682FJLDE-19 Vaccine ( season)COVID-19 Vaccine ( season)[facility]: 39-75-2558Yztmamull vaccinationFlu vaccine (#1)[facility]: 78-97-3259Pajbvzjfk vaccinationFlu vaccine (Season Ended)[facility]: 77-03-4817KUoX/Tdap/Td vaccine (1 - Tdap)DTaP/Tdap/Td vaccine (1 - Tdap)[facility]: 38-15-5868WOJLD-19 Vaccine (1)COVID-19 Vaccine (1) [facility] HospitalAbsolute CD8 count procedurePromedica Bay Park Hospital Work Phone: Basophil countFirelands Regional Medical Center Ctr Work Phone: Basophil percent differential countFirelands Regional Medical Center Ctr Work Phone: CD3+CD4+ (T4 helper) cells [#/volume] in Blood [facility] Work Phone: CD3+CD4+ (T4 helper) cells/CD3+CD8+ (T8 suppressor cells) cells [# Ratio] in BloodFirelands Regional Medical Center Ctr Work Phone: Cluster of differentiation antigen count procedure [facility] Work Phone: EKG 12 [facility] Work Phone: Eosinophil percent differential countPromedica Bay Park Hospital Work Phone: Eosinophils [#/volume] in BloodPromedica Bay Park [facility] Work Phone: Erythrocyte mean corpuscular volume determination [facility] Work Phone: Erythrocytes [#/volume] in BloodFirelands Regional Medical Center [facility] Work Phone: Hematocrit [Volume Fraction[facility] Work Phone: Hemoglobin distribution, width determinationProm[facility]ica [facility] Work Phone: HIV 1 RNA [#/volume] (viral load) in Unspecified specimen by VISHNU with probe detectionFirelands Regional Medical Center [facility] Work Phone: HIV 1 RNA [Log #/volume] (viral load) in Unspecified specimen by VISHNU with probe detectionFirelands [facility] Work Phone: Leukocytes [#/volume] in BloodPromedica Bay Park [facility] Work Phone: Lymphocyte countPromedica Bay Park Hospital Work Phone: Lymphocyte percent differential countPromedica Bay Park Hospital Work Phone: Mean corpuscular hemoglobin determinationPromedica Bay Park [facility] Work Phone: Monocyte countFirelands [facility] Work Phone: Monocyte percent differential countFirelands [facility] Work Phone: Neutrophil countFirelands [facility] Work Phone: Neutrophil percent differential countFirelands [facility] Work Phone: Patient EducationFirelands Regional [facility] Work Phone: Platelets [#/volume] in BloodFirelands Regional Medical [facility] Work Phone: Immunizations Immunization DateImmunizationNotesCare QtunkfpwKdrsopjx23-64-8399jjhjkkttp, injectable, quadrivalent, preservative freePHYSICIAN NO FAMILYMetrohealth [facility] Heights Medical CenterNEGATED: Highlighted row has not occurred!58-04-5791bcdbdqiyx, seasonal, injectableMichael Blank Other [facility] [employer] Other Payers DatePayer CategoryPayerPolicy [id number] [id number] 1972 [id number] [id number] [id number] Commut[employer] [facility] [id number] Social History DateTypeDetailFacilityTobacco smoking status NHISTobacco smoking consumption unknownGal[facility] HospitalHam[facility] Phone: start: 08-19-8396Uym Assigned At BirthNot on [facility] Phone: start: 09-18-2021 End: 41-69-3656Uzugcctz to SARS-CoV-2 (event)Not [facility] Work Phone: start: 10-02-2012 End: 06-18-9370Uwr Assigned At BirthNort [employer] Other Start: 24-46-2847Njypais smoking status NHISEx-smoker (finding)[facility] CenterStart: 66-83-2524Xvr Assigned At MaleWayne Hospitaltart: 04-04-2025 End: 78-63-3001Ymyiehd smoking status NHISSmokes tobacco daily (finding) [facility] CenterStart: 25-38-8499KeuKmof (finding)[facility] CenterStart: 41-14-5917Gocjhxb of Social functionSouthampton Memorial Hospital Medical Equipment Procedure CodeEquipment CodeEquipment Original TextEquipment IdentifierDates ThoracotomyStaple line-reinforcement strip()[id number] FDAStart: 68-17-6180IyhoampzcftGkyhgpts adhesive/sealant, human-derived ()[id number] FDAStart: 10-12-2020 Clinical Notes 09-19-2021 to 04-18-2025 Note Date & AmyhJzqfNzhfqddq78-26-9555 Hospital Discharge instructionsAdditional Instructions Important Contact Information You can call [facility] at [phone] any time day or night if you have emergent questions or question regarding discharge instructions. If at any time you are feeling an increase in your psychiatric symptoms, call your physician or behavioral healthcare provider. If any time you have thoughts of harming yourself or others contact one of the following: Call (available 05/01) Crisis Text Line (available 05/01) text 4HOPE to [phone] [employer] Line (available 8 a.m. Midnight) call [phone] ([phone]) Prolixin Decanoate 25mg IM given on 04/16/25[facility] Work Phone: [phone]) 635-373110-24-2025 Hospital Discharge instructionsAdditional Instructions Important Contact Information You can call [facility] at [phone] any time day or night if you have emergent questions or question regarding discharge instructions. If at any time you are feeling an increase in your psychiatric symptoms, call your physician or behavioral healthcare provider. If any time you have thoughts of harming yourself or others contact one of the following: Call (available 05/01) Crisis Text Line (available 05/01) text 4HOPE to [phone] [employer] Line (available 8 a.m. Midnight) call [phone] ([phone]) [facility] Work Phone: 1(818) 514-118510-21-2025 Evaluation note* Diagnosis Onset Date Resolution Status Admit Date Schizophrenia acuteOctober 2024 10:50pm [facility] Work Phone: 1(679) 498-850610-21-2025 Evaluation note* Diagnosis Onset Date Resolution Status Admit Date Schizophrenia acuteOctober 2024 10:50pmSchizophreniaacuteOctober 2024 1:48am [facility] Work Phone: 1(346) 923-749204-07-2022 Evaluation note* Encounter Date Diagnosis Assessment Notes Treatment Notes Treatment Clinical Notes 07 Apr, 2022 Human immunodeficiency virus [HI V] disease (ICD-10 - B20) Did not have labs done despite I had ordered him during his last visit. Is way overdue for labs Sabina stressed the importance of having these done. I also stressed the importance of him taking his HIV medicines for which I am concerned given he could not quantitate even nearly to how many dosages he may have missed recently. He states he is now taking his medicines. We will continue the same medicines that he is on and await for labs. Sep,evere persistent asthma, unspecified whether complicated (ICD-10 - J45.50)Patient had a lobectomy done at an outside [...] of significant exertion. Will refill his albuterol [facility] Other Evaluation note* Diagnosis Encounter for medical screening examination- Primary documented in this encounter [employer] Phone: evaluation noteNo InformationNort [employer] Other Evaluation noteNo assessment information available [facility] Work Phone: Evaluation note* Diagnosis Acute psychosis (HCC)- Primary Unspecified psychosis [facility] general Narrative - Reported* Type Description Date Medical History Bipolar Disorder Medical HistoryDepressionMedical HistoryHIVMedical HistoryAIDSMedical History BronchitisMedical HistoryTobacco abuseMedical HistoryLong term use of high risk medicationsSurgical Historylung collapsed had to go in for [id number] Hospitalization HistorySee Above [facility] Other Hospital Discharge instructions* Attachments The following attachments cannot be sent through Care Everywhere. * Well Visit: 50 to 65 Year Men (Cymraes) documented in this encounterGal[facility] HospitalHam[facility] Phone: Summary Purpose Family History No Family History Records Found Relationship Condition Age at Onset Recorded Date/T domenico father Type 2 diabetes mellitus Unknown Malignant neoplasm of kidneyUnknownHistory of nephrectomyUnknownDialysis patient UnknownHypothyroidismUnknownSleep apneaUnknownNot SpecifiedCataract of both eyes Unknown Relationship Condition Age at Onset Recorded Date/T domenico father Type 2 diabetes mellitus Unknown Malignant neoplasm of kidneyUnknownHistory of nephrectomyUnknownDialysis patient UnknownHypothyroidismUnknownSleep apneaUnknownmotherCataract of both eyesUnknown fatherDiabetes mellitusUnknownMalignant neoplasmUnknown Advance Directives No Advanced Directives Records Found Advance Directive Response Recorded Date/ Time Advance Directives No April 09, 2017 10:36am Advance Directive Response Recorded Date/ Time Advance Directives No April 09, 2017 9:36am Chief Complaint and Reason for Visit Chief Complaint LABS Chief Complaint Admit Date Schizoaffective April 03, 2025 1 0:50pm Reason for Visit Admit Date Schizophrenia April 03, 2025 1 0:50pm Chief Complaint Admit Date Schizoaffective April 03, 2025 1 0:50pm BH April 11, 2025 8 :00am Schizophrenia April 12, 2025 1 :48am Reason for Visit Admit Date Schizophrenia April 03, 2025 1 0:50pm Schizophrenia April 12, 2025 1 :48am Additional Source Comments (unrecognized sect ion and content) No Status Records FoundNo Status Records FoundNo Status Records FoundNo Status Records Found INFORMATION SOURCE (unrecogn ized section and content) DATE CREATED AUTHOR 11/08/2020 [facility] DATE CREATED AUTHOR AUTHOR'S ORGANIZ ATION 10/23/2023 [facility] DATE CREATED AUTHOR AUTHOR'S ORGANIZ ATION 04/21/2025 [facility] DATE CREATED AUTHOR AUTHOR'S ORGANIZ ATION 04/26/2025 [facility] Reason for Visit (unrecogniz ed section and content) ReasonCommentsOthermedical clearance from [facility] ProblemPatient brought in by police for mental health issues. Patient reports was released 3 days ago [facility], started on new meds from them, reports still hearing voices, feeling tactile hallucinations. Probate order due to patient mother feeling unsafe with him in the house. Patient seemingly manic during triage, flight of ideas, rapid speech Scheduled Active and Recently Administ ered Medications (unrecognized section and content) Medication Order// midazolam PF (VERSED) injection 2 mg (COMPLETED) 2 mg, IntraMUSCular, ONCE, 1 dose, On 09/28/21 at 2100 * 2133 (Given - Provider: Aaron Garcia RN) Medication Order/ acetaminophen (TYLENOL) tablet 650 mg (COMPLETED) 650 mg, Oral, ONCE, 1 dose, On 04/11/25 at 1830, Maximum dose of acetaminophen is 4000 mg from all sources in 24 hours. * 2011 (Given - Provider: Arianna Henson RN) OLANZapine (ZYPREXA) tablet 5 mg 5 mg, Oral, ONCE, 1 dose, On 04/11/25 at 2245 * 0107 (Not Given - Provider: Arianna Henson RN - Reason: Order parameters not met) Care Teams (unrecognized sec tion and content) Team Status: Inactive Member Role Status Dates PHYSICIAN NO FAMILY Primary Care Provider Active Jeana Salazar ProviderActive Team Status: Active Member Role Status Dates PHYSICIAN NO FAMILY Primary Care Provider Active Team Status: Active Member Role/Relationship Status Dates PHYSICIAN NO FAMILY Primary Care Provider Active Team Status: Active Member Role/Relationship Status Dates PHYSICIAN NO FAMILY Primary Care Provider Active Start: April 03, 2025 Kalin Serrato ProviderActiveStart: April 03, 2025 Jeana Serrato ProviderActiveStart: April 03, 2025 Jono Serrato ProviderActiveStart: April 03, 2025 Team Status: Active Member Role/Relationship Status Dates PHYSICIAN NO FAMILY Primary Care Provider Active Start: April 11, 2025 Jeana Serrato ProviderActiveStart: April 11, 2025 Team Status: Active Member Role/Relationship Status Dates PHYSICIAN NO FAMILY Primary Care Provider Active Start: April 12, 2025 Kalin Bianchi ProviderActiveStart: April 12, 2025 Jeana Bianchi ProviderActiveStart: April 12, 2025 Jono Bianchi ProviderActiveStart: April 12, 2025 Goals (unrecognized section and content) Goals may [...] BE BASED ON THE PRIMARY CLINICAL RECORDS. [facility] [employer] provides no warranty or guarantee of the accuracy or completeness of information in this document.
--- NOTE | 2025-04-28 14:50 | ED.GENADUL1 ---
HPI HPI - General Adult General Chief complaint: Upper Respiratory Infection Stated complaint: SHORTNESS OF BREATH, LIGHT HEADEDNESS Time Seen by Provider: 04/28/25 13:17 Source: patient Mode of arrival: walk-in Limitations: no limitations History of Present Illness HPI narrative: The patient is 54 years old male who have a history of COPD and continues to smoke a pack of cigarette daily, ending to the ER with a cough that been going on at least for the last few days and according to him it is productive of sputum he has been using his inhaler with no improvement Is not in any distress Related Data Home Medications ?Medication ?Instructions ?Recorded ?Confirmed fluphenazine decanoate 25 mg/mL 25 mg IM .q28 days 04/28/25 04/28/25 injection solution Previous Rx's ?Medication ?Instructions ?Recorded albuterol sulfate 90 mcg/actuation 2 inh inhalation Q6H PRN shortness 04/28/25 aerosol inhaler of breath or wheezing #8.5 grams azithromycin 250 mg tablet See Rx Instructions PO .COMPLEX #6 04/28/25 (Zithromax Z-Elias) tabs prednisone 20 mg tablet 40 mg (2 x 20 mg) PO DAILY 5 days 04/28/25 #10 tabs Allergies Allergy/AdvReac Type Severity Reaction Status Date / Time milk Allergy Intermediate Flatulence Verified 04/03/25 17:19 Opioid HPI Opioid Management Most Recent Opioid Data: Last Pain Scale 9 10/28/24, 14:07 Ur Phencyclidine Scrn, (NEGATIVE) Negative 04/03/25, 18:50 Review of Systems ROS Status of ROS 10 or more systems reviewed and unremarkable except as noted in history and below PFSH PFS Medical History (Updated 04/28/25 @ 14:50 by Melissa Burks MD) Pneumothorax ?J93.9 - Pneumothorax, unspecified (ICD-10) Surgical History (Updated 03/04/24 @ 07:02 by Jeanne Saldivar) 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 General: Well-appearing and in no apparent distress. Skin: Warm, dry, no pallor noted. No rash. Head: Normocephalic, atraumatic. Neck: Supple, non-tender. Eye: Pupils are equal, round and EOMI. No scleral icterus. Cardiovascular: Regular Rate and Rhythm without murmur, gallop or rub. Respiratory: No accessory muscle use or respiratory distress. Lungs bilateral very mild expiratory lung wheezes in both lung loza Chest Wall: no tenderness Back: No midline thoracic or lumbar vertebral tenderness. No CVA tenderness Musculoskeletal: normal ROM, no calf or popliteal tenderness, no lower extremity edema/swelling GI: Abdomen is soft, non-distended. Normal bowel sounds. No masses appreciated. No tenderness to palpation. No rebound, guarding, or rigidity noted. Neurological: A&O x4. No cranial nerve dysfunction observed. No truncal ataxia. Moves all extremities. Sensation intact. Psychiatric: Cooperative and interactive. Normal mood and affect. Constitutional Vital Signs, click to edit/add: Last Vital Signs Temp 98.2 F 04/28/25 13:10 Pulse 90 04/28/25 13:38 Resp 18 04/28/25 13:10 BP 127/87 04/28/25 13:10 Pulse Ox 93 L 04/28/25 13:38 O2 Del Method Room Air 04/28/25 13:38 Course Vital Signs Vital signs: Vital Signs Blood Pressure 127/97 H 04/28/25 13:08 Pulse Oximetry 96 04/28/25 13:08 Temperature 98.2 F 04/28/25 13:10 Pulse Rate 90 04/28/25 13:38 Respiratory Rate 18 04/28/25 13:10 Blood Pressure 127/87 04/28/25 13:10 Pulse Oximetry 93 L 04/28/25 13:38 Oxygen Delivery Method Room Air 04/28/25 13:38 Medical Decision Making MDM Narrative Medical decision making narrative: Patient presented to us with a bronchitis and possibly COPD exacerbation with wheezing that is obvious on examination But the patient was not in any distress a chest x-ray showed no acute pathology He was provided with breathing treatment in the ER discharged home with prednisone as well as Z-Elias for COPD exacerbation and his inhaler refilled The patient to follow-up with the primary care within 2 to 3 days and to come back to the ER in case of any worsening of the current symptoms or any new symptoms or concerns Discharge Plan Discharge Chief Complaint: Upper Respiratory Infection Clinical Impression: Asthma exacerbation in COPD Patient Disposition: Home, Self-Care Time of Disposition Decision: 14:50 Condition: Good Prescriptions / Home Meds: New prednisone 20 mg tablet 40 mg PO DAILY 5 Days Qty: 10 0RF azithromycin [Zithromax Z-Elias] 250 mg tablet See Rx Instructions .ROUTE .COMPLEX Qty: 6 0RF Rx Instructions: For 250 mg dose pack: take 500 mg today (day 1), then 250 mg for 4 days (days 2-5) albuterol sulfate 90 mcg/actuation HFA aerosol inhaler 2 inh inhalation Q6H PRN (Reason: shortness of breath or wheezing) Qty: 8.5 0RF No Action fluphenazine decanoate 25 mg/mL solution 25 mg IM .q28 days Print Language: Turkmen Instructions: COPD (Chronic Obstructive Pulmonary Disease) (DC) Referrals: Physician,Non-Staff, MD [Primary Care Provider] - 1 week Discharge Date/Time: 04/28/25 14:59
== END 2025-04-28 14:59 | disposition home or self-care (01) ==
PROVIDERS: Emergency Provider Emergency Medicine
DX: J45.901 Unspecified asthma with (acute) exacerbation (principal); J44.9 Chronic obstructive pulmonary disease, unspecified; F17.210 Nicotine dependence, cigarettes, uncomplicated
CPT/HCPCS: 71045; 94640; 99283